=== PATIENT | female | born 1980 | race Caucasian/White ===

== ENCOUNTER 2016-10-15 01:06 | Emergency (ER) | payer MEDICARE, OTHER ==
[2016-10-15 01:20] VITALS: RESP 18
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
[2016-10-15 01:45] LABS: Amorphous Sediment,Urine Rare /hpf; Appearance,Urine Cloudy (Clear); Bilirubin,Urine Negative (Negative); Glucose,Urine (UA) Negative (Negative); Ketones,Urine Negative (Negative); Leukocyte Esterase,Urine Negative (Negative); Mucus,Urine Few /hpf; Nitrite,Urine Negative (Negative); Particle Count 6812; Protein,Urine Negative (Negative); RBC,Urine 1 /hpf (0-5); Specific Gravity,Urine 1.011 (1.001-1.035); Squamous Epithelial Cell,Urine 1 /hpf (0-4); UA Billing (MACRO vs. MICRO) MICRO; Urobilinogen,Urine <2.0 mg/dL (<2.0); WBC,Urine 1 /hpf (0-5)
[2016-10-15] MEDS ORDERED: LORazepam 1 MG TAB PO STA (02:47)
[2016-10-15] MEDS ORDERED: ACETAMINOPHEN TAB 325 MG TAB PO STA (03:15)
[2016-10-15 03:38] VITALS: BP 114/68; PULSE 77; TEMP 98
[2016-10-15] MEDS ORDERED: MAG HYDROX/AL HYDROX/SIMETH 30 ML CUP PO PRN (07:16)
== END 2016-10-15 03:38 | disposition home or self-care (01) ==
LOC: EC 01:06
DX: F31.9 Bipolar disorder, unspecified (principal); E07.9 Disorder of thyroid, unspecified; K21.9 Gastro-esophageal reflux disease without esophagitis; M79.7 Fibromyalgia; M19.90 Unspecified osteoarthritis, unspecified site; F17.200 Nicotine dependence, unspecified, uncomplicated; Z88.5 Allergy status to narcotic agent; Z88.6 Allergy status to analgesic agent; Z88.8 Allergy status to other drugs, medicaments and biological substances; Z91.040 Latex allergy status; Z79.899 Other long term (current) drug therapy
CPT/HCPCS: 80306; 81001; 81025; 82075; 99284

== ENCOUNTER 2017-02-21 15:43 | Inpatient (IN) | payer MEDICARE, MEDICAID ==
[2017-02-21] MEDS ORDERED: HYDROcodone/APAP 5-325MG 1 EACH TAB PO STA (16:09)
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
[2017-02-21 16:25] LABS: Appearance,Urine Clear (Clear); Bilirubin,Urine Negative (Negative); Glucose,Urine (UA) Negative (Negative); Ketones,Urine Negative (Negative); Leukocyte Esterase,Urine Negative (Negative); Nitrite,Urine Negative (Negative); PH, Urine 6.5 (5.0-8.0); Protein,Urine Negative (Negative); Specific Gravity,Urine 1.005 (1.001-1.035); UA Billing (MACRO vs. MICRO) CHEM; Urobilinogen,Urine <2.0 mg/dL (<2.0)
[2017-02-21 16:28] LABS: Basophils # (A) 0.1 k/uL (0-0.2); Basophils % (A) 1 %; CH 29.8; CHCM 32.6; Eosinophils # (A) 0.1 k/uL (0-0.7); Eosinophils % (A) 1 %; HCT 40.6 % (34.0-46.0); HDW 2.34; Luc # (Auto) 0.27; Luc % (Auto) 2; Lymphocytes # (A) 4.2 k/uL (1.0-4.8); Lymphocytes % (A) 32 %; MCH 29.4 pg (25.0-35.0); MCHC 32.1 g/dL (31.0-37.0); MCV 91.7 fL (80.0-100.0); Mean Platelet Volume 7.8; Monocytes # (A) 0.9 k/uL (0-1.0); Monocytes % (A) 7 %; Neutrophils # (A) 7.7 k/uL (1.3-7.7); Neutrophils % (A) 58 %; RBC 4.42 m/uL (3.80-5.40); RDW 12.8 % (11.5-15.5); WBC 13.3 k/uL (3.8-10.6)
[2017-02-21 16:34] LABS: Anion Gap 9 mmol/L; Blood Urea Nitrogen 10 mg/dL (7-17); Calcium 9.6 mg/dL (8.4-10.2); Carbon Dioxide 24 mmol/L (22-30); Chloride 106 mmol/L (98-107); Glucose 96 mg/dL (74-99); Non-African American GFR(MDRD) >60 (>60 ml/min/1.73 sqM); Potassium 4.3 mmol/L (3.5-5.1); Sodium 139 mmol/L (137-145)
--- NOTE | 2017-02-21 17:36 | XR ---
EXAMINATION TYPE: XR knee complete LT DATE OF EXAM: 02/21/2017 COMPARISON: NONE HISTORY: Knee pain TECHNIQUE: 3 views FINDINGS: I see no fracture nor dislocation. Joint spaces are normal. There is no sign of knee joint effusion. IMPRESSION: Negative left knee exam.
--- NOTE | 2017-02-21 17:37 | XR ---
EXAMINATION TYPE: XR ankle complete LT DATE OF EXAM: 02/21/2017 COMPARISON: NONE HISTORY: Pain TECHNIQUE: 3 views FINDINGS: Ankle mortise is anatomic. I see no fracture nor dislocation. Joint spaces are normal. IMPRESSION: Negative left ankle exam.
--- NOTE | 2017-02-21 17:38 | XR ---
EXAMINATION TYPE: XR shoulder complete LT DATE OF EXAM: 02/21/2017 COMPARISON: NONE HISTORY: Shoulder pain TECHNIQUE: 3 views FINDINGS: I see no fracture nor dislocation. Joint spaces are normal. There are no pathologic calcifi cations. IMPRESSION: Negative left shoulder exam.
[2017-02-21] MEDS ORDERED: ALBUTEROL NEBULIZED 2.5 MG/3 ML INHALATION PRN (20:40)
[2017-02-21] MEDS ORDERED: CARIPRAZINE HCL 3 MG PO SCH (21:00)
[2017-02-21] MEDS ORDERED: traZODone HCL 50 MG TAB PO SCH (21:00)
[2017-02-21] MEDS ORDERED: LURASIDONE 40 MG TAB PO SCH (21:00)
[2017-02-21] MEDS: ATORVASTATIN 10 MG TAB PO SCH (22:41)
[2017-02-21] MEDS: DESVENLAFAXINE SUCCINATE 50 MG TAB.ER.24H PO SCH (22:41)
[2017-02-21] MEDS: LORazepam 1 MG TAB PO PRN (22:43)
[2017-02-21] MEDS: ACETAMINOPHEN TAB 325 MG TAB PO PRN (22:44)
[2017-02-22] MEDS: ACETAMINOPHEN TAB 325 MG TAB PO PRN ×2 (02:41→08:34)
[2017-02-22] MEDS ORDERED: LEVOTHYROXINE 75 MCG TAB PO SCH (06:30)
[2017-02-22] MEDS: lamoTRIgine 100 MG TAB PO SCH (08:34)
[2017-02-22] MEDS: NICOTINE 21MG/24HR PATCH TRANSDERM SCH (08:34)
[2017-02-22] MEDS: LORazepam 1 MG TAB PO PRN ×2 (08:36→21:07)
[2017-02-22] MEDS: TIOTROPIUM 18 MCG/PUFF INHALER INHALATION SCH (09:16)
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
[2017-02-22] MEDS: IBUPROFEN 800 MG TAB PO SCH ×2 (13:37→21:02)
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
[2017-02-22] MEDS: MUPIROCIN 2% OINT 22 GM TUBE TOPICAL SCH ×2 (15:09→21:02)
[2017-02-22] MEDS ORDERED: WATER FOR INJECTION, STERILE 10 ML IV ONE (16:20)
[2017-02-22] MEDS: ZIPRASIDONE 20 MG VIAL IM PRN (16:22)
[2017-02-22] MEDS ORDERED: VRAYLAR 3 MG PO SCH (21:00)
[2017-02-22] MEDS: DESVENLAFAXINE SUCCINATE 50 MG TAB.ER.24H PO SCH (21:01)
[2017-02-22] MEDS: traZODone HCL 100 MG TAB PO SCH (21:02)
[2017-02-22] MEDS: ATORVASTATIN 10 MG TAB PO SCH (21:02)
[2017-02-23] MEDS: ACETAMINOPHEN TAB 325 MG TAB PO PRN (04:26)
[2017-02-23] MEDS: LEVOTHYROXINE 100 MCG TAB PO SCH (05:41)
[2017-02-23] MEDS: NICOTINE 21MG/24HR PATCH TRANSDERM SCH (08:56)
[2017-02-23] MEDS: IBUPROFEN 800 MG TAB PO SCH ×3 (08:56→21:46)
[2017-02-23] MEDS: lamoTRIgine 100 MG TAB PO SCH (08:56)
[2017-02-23] MEDS: LORazepam 1 MG TAB PO PRN ×2 (08:58→21:17)
[2017-02-23] MEDS: MUPIROCIN 2% OINT 22 GM TUBE TOPICAL SCH ×3 (08:59→21:46)
[2017-02-23] MEDS: TIOTROPIUM 18 MCG/PUFF INHALER INHALATION SCH (09:17)
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
[2017-02-23] MEDS: MAG HYDROX/AL HYDROX/SIMETH 30 ML CUP PO PRN (19:41)
[2017-02-23] MEDS ORDERED: lamoTRIgine 25 MG TAB PO SCH (21:00)
[2017-02-23] MEDS: VRAYLAR 3 MG PO SCH (21:13)
[2017-02-23] MEDS: DESVENLAFAXINE SUCCINATE 50 MG TAB.ER.24H PO SCH (21:13)
[2017-02-23] MEDS: ATORVASTATIN 10 MG TAB PO SCH (21:13)
[2017-02-23] MEDS: traZODone HCL 100 MG TAB PO SCH (21:16)
[2017-02-24] MEDS: LEVOTHYROXINE 100 MCG TAB PO SCH (05:52)
[2017-02-24] MEDS: TIOTROPIUM 18 MCG/PUFF INHALER INHALATION SCH (09:14)
[2017-02-24] MEDS: NICOTINE 21MG/24HR PATCH TRANSDERM SCH (09:24)
[2017-02-24] MEDS: lamoTRIgine 100 MG TAB PO SCH (09:24)
[2017-02-24] MEDS: IBUPROFEN 800 MG TAB PO SCH ×3 (09:24→20:58)
[2017-02-24] MEDS: LORazepam 1 MG TAB PO PRN ×2 (09:27→21:01)
[2017-02-24] MEDS: MUPIROCIN 2% OINT 22 GM TUBE TOPICAL SCH ×3 (09:41→21:00)
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
[2017-02-24] MEDS: MAGNESIUM HYDROXIDE 2,400 MG/10 ML CUP PO PRN (15:54)
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
[2017-02-24] MEDS: ATORVASTATIN 10 MG TAB PO SCH (20:57)
[2017-02-24] MEDS: VRAYLAR 3 MG PO SCH (20:57)
[2017-02-24] MEDS: DESVENLAFAXINE SUCCINATE 50 MG TAB.ER.24H PO SCH (20:58)
[2017-02-24] MEDS: traZODone HCL 100 MG TAB PO SCH (20:58)
[2017-02-24] MEDS: lamoTRIgine 25 MG TAB PO SCH (20:59)
[2017-02-24] MEDS: ALBUTEROL INHALER 60 PUFF/8 GM INHALER INHALATION PRN (21:03)
[2017-02-25] MEDS: LEVOTHYROXINE 100 MCG TAB PO SCH (05:55)
[2017-02-25] MEDS: ACETAMINOPHEN TAB 325 MG TAB PO PRN ×2 (06:02→17:55)
[2017-02-25] MEDS: lamoTRIgine 100 MG TAB PO SCH (09:09)
[2017-02-25] MEDS: IBUPROFEN 800 MG TAB PO SCH ×3 (09:09→21:44)
[2017-02-25] MEDS: NICOTINE 21MG/24HR PATCH TRANSDERM SCH (09:09)
[2017-02-25] MEDS: MUPIROCIN 2% OINT 22 GM TUBE TOPICAL SCH ×3 (09:13→21:46)
[2017-02-25] MEDS: LORazepam 1 MG TAB PO PRN ×2 (09:13→21:45)
[2017-02-25] MEDS: ALBUTEROL INHALER 60 PUFF/8 GM INHALER INHALATION PRN ×3 (09:15→21:05)
[2017-02-25] MEDS: TIOTROPIUM 18 MCG/PUFF INHALER INHALATION SCH (09:15)
[2017-02-25] MEDS: MAGNESIUM HYDROXIDE 2,400 MG/10 ML CUP PO PRN (15:49)
[2017-02-25] MEDS: traZODone HCL 100 MG TAB PO SCH (21:44)
[2017-02-25] MEDS: lamoTRIgine 25 MG TAB PO SCH (21:45)
[2017-02-25] MEDS: ATORVASTATIN 10 MG TAB PO SCH (21:45)
[2017-02-25] MEDS: DESVENLAFAXINE SUCCINATE 50 MG TAB.ER.24H PO SCH (21:45)
[2017-02-25] MEDS: VRAYLAR 3 MG PO SCH (21:45)
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
[2017-02-26] MEDS: LEVOTHYROXINE 100 MCG TAB PO SCH (05:33)
[2017-02-26] MEDS: ACETAMINOPHEN TAB 325 MG TAB PO PRN (05:49)
[2017-02-26] MEDS: ALBUTEROL INHALER 60 PUFF/8 GM INHALER INHALATION PRN (08:09)
[2017-02-26] MEDS: TIOTROPIUM 18 MCG/PUFF INHALER INHALATION SCH (08:09)
[2017-02-26] MEDS: IBUPROFEN 800 MG TAB PO SCH ×3 (08:57→21:13)
[2017-02-26] MEDS: lamoTRIgine 100 MG TAB PO SCH (08:58)
[2017-02-26] MEDS: NICOTINE 21MG/24HR PATCH TRANSDERM SCH (08:58)
[2017-02-26] MEDS: MUPIROCIN 2% OINT 22 GM TUBE TOPICAL SCH ×3 (08:58→22:29)
[2017-02-26] MEDS: LORazepam 1 MG TAB PO PRN ×2 (08:59→21:13)
[2017-02-26] MEDS: MAG HYDROX/AL HYDROX/SIMETH 30 ML CUP PO PRN (11:10)
[2017-02-26] MEDS ORDERED: DOCUSATE 100 MG CAP PO SCH (15:30)
[2017-02-26] MEDS: lamoTRIgine 25 MG TAB PO SCH (21:10)
[2017-02-26] MEDS: DOCUSATE 100 MG CAP PO SCH (21:10)
[2017-02-26] MEDS: DESVENLAFAXINE SUCCINATE 50 MG TAB.ER.24H PO SCH (21:10)
[2017-02-26] MEDS: ATORVASTATIN 10 MG TAB PO SCH (21:10)
[2017-02-26] MEDS: traZODone HCL 100 MG TAB PO SCH (21:11)
[2017-02-26] MEDS: VRAYLAR 3 MG PO SCH (21:12)
[2017-02-27] MEDS: ACETAMINOPHEN TAB 325 MG TAB PO PRN ×2 (03:12→11:18)
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
[2017-02-27] MEDS: LEVOTHYROXINE 100 MCG TAB PO SCH (06:01)
[2017-02-27] MEDS: IBUPROFEN 800 MG TAB PO SCH ×3 (08:49→20:28)
[2017-02-27] MEDS: LORazepam 1 MG TAB PO PRN (08:49)
[2017-02-27] MEDS: ZIPRASIDONE 20 MG VIAL IM PRN (08:54)
[2017-02-27] MEDS ORDERED: WATER FOR INJECTION, STERILE 10 ML IV ONE (08:55)
[2017-02-27] MEDS: lamoTRIgine 100 MG TAB PO SCH (08:57)
[2017-02-27] MEDS: DOCUSATE 100 MG CAP PO SCH ×2 (08:57→20:28)
[2017-02-27] MEDS: NICOTINE 21MG/24HR PATCH TRANSDERM SCH (08:57)
[2017-02-27] MEDS: MUPIROCIN 2% OINT 22 GM TUBE TOPICAL SCH ×3 (08:58→20:30)
[2017-02-27] MEDS: TIOTROPIUM 18 MCG/PUFF INHALER INHALATION SCH (10:06)
--- NOTE | 2017-02-27 13:08 | P.PN ---
Progress Note - Text INTERVERAL HISTORY: Discussed patient at treatment team meeting, reviewed chart and met with patient. Early this morning patient became agitated in the dining room clearing off one of the tables with her arm and then attempting to hit her head, staff prevented her from hitting her head second time. She was screaming and they held her down until finally she calmed down and she walked to her room. Patient has been emotional throughout the weekend complaining that she should be able to kill herself, that her uncles brother and now a cousin have all killed themselves, and why can't she. She has also been noted to be wailing/crying throughout the day. She was seen over the weekend by ortho and no treatment indicated. Patient reports she spoke to her after this mornings problem and he told her he did not know how much more he can take. Patient said she wants to live, she wants a good relationship with and he deserves it. We discussed my concern about the class of benzodiazepine as disinhibiting, discussed other medications and she has been on lithium, gained 60lbs in one month, wont consider it. She asked about geodon, reviewed that it might be helpful but we'd need to reduce and d/c vraylar, she agreed. Patient not as emotional as earlier, but continues to feel suicidal, but wanting to live. MENTAL STATUS EXAM: Patient alert and oriented 3, good eye contact, fair groomed in hospital attire. Speech normal volume, rate and production. +psychomotor retardation Coherent, logical and goal directed thought process. No LOYD, no FOI. No TB/TW/ TI Denied auditory and visual hallucinations. Denied paranoid ideation, delusions or IOR. Mood dysphoric , tearful, affect and constricted, congruent with mood. Endorses chronic suicidal ideation, +current SI. Insight partial; Judgment grossly intact for treatment purposes . IMPRESSIONS: 36-year-old female who continues to have suicidal ideation , dysphoria. Patient with high risk of suicide. ADMISSION DIAGNOSES: Suicide attempt Bipolar disorder, 1, MRA depressed Borderline personality disorder Cannabis use disorder, moderate PLAN: Continue inpatient psychiatric admission, for safety and treatment with maximization of medication. Suicide precaution 15 minute checks, monitor and document patient's behavior and adjust medications as needed. Continue multidisciplinary treatment with individual and group therapy, medical consultation, and routine labs. Case discussed with the treatment staff. Reduce vraylor to 3mg qhs, begin tonight. Start Geodon 40mg bid. Continue lamictal 50mgHS + 100mg QAM.. Reconsult Hospitalists/ortho for should pain. Prefer nonnarcotic Milieu therapy.
[2017-02-27] MEDS: MAG HYDROX/AL HYDROX/SIMETH 30 ML CUP PO PRN (20:28)
[2017-02-27] MEDS: DESVENLAFAXINE SUCCINATE 50 MG TAB.ER.24H PO SCH (20:28)
[2017-02-27] MEDS: LORazepam 0.5 MG TAB PO SCH (20:28)
[2017-02-27] MEDS: ATORVASTATIN 10 MG TAB PO SCH (20:28)
[2017-02-27] MEDS: traZODone HCL 100 MG TAB PO SCH (20:28)
[2017-02-27] MEDS: ZIPRASIDONE 40 MG CAP PO SCH (20:29)
[2017-02-27] MEDS: lamoTRIgine 25 MG TAB PO SCH (20:29)
[2017-02-27] MEDS: VRAYLAR 3 MG PO SCH (20:30)
[2017-02-28] MEDS: ACETAMINOPHEN TAB 325 MG TAB PO PRN ×3 (02:47→12:39)
[2017-02-28] MEDS: LEVOTHYROXINE 100 MCG TAB PO SCH (06:20)
[2017-02-28] MEDS: ALBUTEROL INHALER 60 PUFF/8 GM INHALER INHALATION PRN ×3 (08:19→21:41)
[2017-02-28] MEDS: TIOTROPIUM 18 MCG/PUFF INHALER INHALATION SCH (08:19)
[2017-02-28] MEDS: NICOTINE 21MG/24HR PATCH TRANSDERM SCH (08:25)
[2017-02-28] MEDS: lamoTRIgine 100 MG TAB PO SCH (08:25)
[2017-02-28] MEDS: LORazepam 0.5 MG TAB PO SCH ×2 (08:25→21:30)
[2017-02-28] MEDS: DOCUSATE 100 MG CAP PO SCH ×2 (08:25→21:29)
[2017-02-28] MEDS: ZIPRASIDONE 40 MG CAP PO SCH ×2 (08:26→21:31)
[2017-02-28] MEDS: MUPIROCIN 2% OINT 22 GM TUBE TOPICAL SCH ×3 (08:26→21:28)
[2017-02-28] MEDS: IBUPROFEN 800 MG TAB PO SCH ×3 (08:26→21:31)
[2017-02-28] MEDS: MAG HYDROX/AL HYDROX/SIMETH 30 ML CUP PO PRN ×3 (10:34→23:02)
--- NOTE | 2017-02-28 10:59 | P.PN ---
Progress Note - Text INTERVERAL HISTORY: Discussed patient at treatment team meeting, reviewed chart and met with patient. Patient called to nurse's station came immediately. Reports that she feels that she had an epiphany last night, that she wants to live, she wants to build a life with her , see her daughter get , and see her family. Reports that still makes her sad that her sisters have cut her off from her nieces and nephews but she understands why they did that. States that she spoke to her and is concerned of the reduction of the Ativan, and questioning why Dr. Velasquez would have her on it. Explained to her that it was because I saw the impulsivity yesterday, and that stopping meds like this are difficult in the outpatient setting and that we can do it here safely. She verbalized understanding for that. She also stated that her would like to meet with me in one of the family meetings, I agreed with this and will discuss with social work. Patient also states that she spoke with her mother last night and that her mother is relieved that she is not trying to leave immediately and that she is staying to get the care she needs. Patient remains sad dysphoric but today there was no impulsivity or labile mood noted thus far. She was seen over the weekend by ortho and no treatment indicated. However she requests her sling, reviewed with her that due to the suicidal precautions that we really could not let her have it but that I would check with the staff to see if maybe we could have it during the daytime. Patient not as emotional as yesterday, reports change in her thoughts, wanting to live. MENTAL STATUS EXAM: Patient alert and oriented 3, good eye contact, fair groomed in hospital attire. Speech normal volume, rate and production. +psychomotor retardation Coherent, logical and goal directed thought process. No LOYD, no FOI. No TB/TW/ TI Denied auditory and visual hallucinations. Denied paranoid ideation, delusions or IOR. Mood dysphoric , sad, affect constricted, congruent with mood. Endorses chronic suicidal ideation, denies current SI with desire to live. Insight partial; Judgment grossly intact for treatment purposes . IMPRESSIONS: 36-year-old female with impulsive behavior, risk for suicide high. Patient with high risk of suicide. ADMISSION DIAGNOSES: Suicide attempt Bipolar disorder, 1, MRA depressed Borderline personality disorder Cannabis use disorder, moderate PLAN: Continue inpatient psychiatric admission, for safety and treatment with maximization of medication. Suicide precaution 15 minute checks, monitor and document patient's behavior and adjust medications as needed. Continue multidisciplinary treatment with individual and group therapy, medical consultation, and routine labs. Case discussed with the treatment staff. Reduce vraylor to 3mg qhs, until Geodon at 60mg BID . Increase Geodon 60mg bid, tomorrow Continue lamictal 50mgHS + 100mg QAM.. Reconsult Hospitalists/ortho for should pain. Prefer nonnarcotic Milieu therapy.
[2017-02-28] MEDS: PANTOPRAZOLE 40 MG TABLET PO SCH (11:10)
[2017-02-28] MEDS: DESVENLAFAXINE SUCCINATE 50 MG TAB.ER.24H PO SCH (21:29)
[2017-02-28] MEDS: ATORVASTATIN 10 MG TAB PO SCH (21:29)
[2017-02-28] MEDS: lamoTRIgine 25 MG TAB PO SCH (21:30)
[2017-02-28] MEDS: traZODone HCL 100 MG TAB PO SCH (21:30)
[2017-02-28] MEDS: VRAYLAR 3 MG PO SCH (21:36)
[2017-03-01] MEDS: ACETAMINOPHEN TAB 325 MG TAB PO PRN (04:05)
[2017-03-01] MEDS: LEVOTHYROXINE 100 MCG TAB PO SCH (05:47)
[2017-03-01] MEDS: TIOTROPIUM 18 MCG/PUFF INHALER INHALATION SCH (07:04)
[2017-03-01] MEDS: PANTOPRAZOLE 40 MG TABLET PO SCH (08:27)
[2017-03-01] MEDS: DOCUSATE 100 MG CAP PO SCH ×2 (08:27→21:15)
[2017-03-01] MEDS: lamoTRIgine 100 MG TAB PO SCH (08:27)
[2017-03-01] MEDS: ZIPRASIDONE 60 MG CAP PO SCH ×2 (08:27→18:45)
[2017-03-01] MEDS: NICOTINE 21MG/24HR PATCH TRANSDERM SCH (08:27)
[2017-03-01] MEDS: LORazepam 0.5 MG TAB PO SCH ×2 (08:27→21:16)
[2017-03-01] MEDS: IBUPROFEN 800 MG TAB PO SCH ×3 (08:28→21:16)
[2017-03-01] MEDS: MUPIROCIN 2% OINT 22 GM TUBE TOPICAL SCH ×3 (09:27→22:23)
[2017-03-01] MEDS: ALBUTEROL INHALER 60 PUFF/8 GM INHALER INHALATION PRN ×2 (11:12→20:15)
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
[2017-03-01] MEDS: lamoTRIgine 25 MG TAB PO SCH (21:15)
[2017-03-01] MEDS: traZODone HCL 100 MG TAB PO SCH (21:15)
[2017-03-01] MEDS: ATORVASTATIN 10 MG TAB PO SCH (21:16)
[2017-03-01] MEDS: DESVENLAFAXINE SUCCINATE 50 MG TAB.ER.24H PO SCH (21:16)
[2017-03-01] MEDS: VRAYLAR 3 MG PO SCH (21:17)
[2017-03-01] MEDS: BACLOFEN 10 MG TAB PO PRN (22:20)
[2017-03-02] MEDS: ACETAMINOPHEN TAB 325 MG TAB PO PRN ×2 (04:00→14:12)
[2017-03-02] MEDS: LEVOTHYROXINE 100 MCG TAB PO SCH (06:03)
[2017-03-02 06:46] VITALS: RESP 16
[2017-03-02] MEDS: TIOTROPIUM 18 MCG/PUFF INHALER INHALATION SCH (07:46)
[2017-03-02] MEDS: ALBUTEROL INHALER 60 PUFF/8 GM INHALER INHALATION PRN ×3 (07:46→20:36)
[2017-03-02] MEDS: NICOTINE 21MG/24HR PATCH TRANSDERM SCH (08:28)
[2017-03-02] MEDS: ZIPRASIDONE 60 MG CAP PO SCH ×2 (08:29→17:56)
[2017-03-02] MEDS: IBUPROFEN 800 MG TAB PO SCH ×3 (08:29→20:59)
[2017-03-02] MEDS: lamoTRIgine 100 MG TAB PO SCH (08:29)
[2017-03-02] MEDS: PANTOPRAZOLE 40 MG TABLET PO SCH (08:30)
[2017-03-02] MEDS: DOCUSATE 100 MG CAP PO SCH ×2 (08:30→21:34)
[2017-03-02] MEDS: LORazepam 0.5 MG TAB PO SCH ×2 (08:30→21:00)
[2017-03-02] MEDS: MUPIROCIN 2% OINT 22 GM TUBE TOPICAL SCH ×3 (08:31→21:01)
[2017-03-02] MEDS: BACLOFEN 10 MG TAB PO PRN ×2 (11:56→20:10)
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
[2017-03-02] MEDS: lamoTRIgine 25 MG TAB PO SCH (21:00)
[2017-03-02] MEDS: DESVENLAFAXINE SUCCINATE 50 MG TAB.ER.24H PO SCH (21:00)
[2017-03-02] MEDS: ATORVASTATIN 10 MG TAB PO SCH (21:01)
[2017-03-02] MEDS: traZODone HCL 100 MG TAB PO SCH (21:01)
[2017-03-03] MEDS: ACETAMINOPHEN TAB 325 MG TAB PO PRN ×2 (04:00→10:53)
[2017-03-03] MEDS: LEVOTHYROXINE 100 MCG TAB PO SCH (06:34)
[2017-03-03] MEDS: DOCUSATE 100 MG CAP PO SCH ×2 (08:10→20:11)
[2017-03-03] MEDS: ZIPRASIDONE 60 MG CAP PO SCH ×2 (08:10→17:34)
[2017-03-03] MEDS: PANTOPRAZOLE 40 MG TABLET PO SCH (08:11)
[2017-03-03] MEDS: LORazepam 0.5 MG TAB PO SCH ×2 (08:11→20:11)
[2017-03-03] MEDS: IBUPROFEN 800 MG TAB PO SCH ×3 (08:12→21:57)
[2017-03-03] MEDS: lamoTRIgine 100 MG TAB PO SCH (08:12)
[2017-03-03] MEDS: MUPIROCIN 2% OINT 22 GM TUBE TOPICAL SCH ×2 (08:15→15:04)
[2017-03-03] MEDS: ALBUTEROL INHALER 60 PUFF/8 GM INHALER INHALATION PRN ×2 (09:15→21:06)
[2017-03-03] MEDS: TIOTROPIUM 18 MCG/PUFF INHALER INHALATION SCH (09:16)
[2017-03-03] MEDS: NICOTINE 21MG/24HR PATCH TRANSDERM SCH (09:29)
--- NOTE | 2017-03-03 11:25 | P.PN ---
Progress Note - Text INTERVERAL HISTORY: Discussed patient at treatment team meeting, reviewed chart and met with patient. In hallway conversing with other patients. Came to office when asked. Staff reported that she slept for longer hours, she also states that she did sleep for several hours longer. She is still reporting pain in the shoulder, with some additional pain in the scapula area. Patient states that she's been thinking about her past treatment and wonders if we could/would consider her being referred to the ACT team. She states she was with them and that it was helpful to have them managing her medications, even though she had a pillbox she knows that she would miss 2-3 doses of the medication. She also says it seems that it helps her to have that intense one- on-one. We discussed that since she is in a different county that I am not the one that could make that recommendation but that we would call and speak with Dr. Pool to see if he would agree with that. We also revisited the idea that a referral to DBT would be helpful for her. Staff mentioned that she is trying to give herself positive rate affirmations and having a difficult time coming up with anything. Staff suggests that she write it down and she agreed today she said she still can't come up with anything on her own so we worked on that, and she came up with a positive affirmation that she feels hannah that she came to this hospital and not to another one, and that she feels that the treatment team here is trying to take good care of her, and not just hospitalize and kick out. States she has not had the thought of suicide, and feels that this has been consistent at least for the last 2-3 days. She is still dysphoric, sad, guilt ridden, sense of hopelessness is somewhat decreased, still with worthlessness, however sleep was improved last night. No report of flashback. MENTAL STATUS EXAM: Patient alert and oriented 3, good eye contact, fair groomed in hospital attire. Speech normal volume, rate and production. +psychomotor retardation Coherent, logical and goal directed thought process. No LOYD, no FOI. No TB/TW/ TI Denied auditory and visual hallucinations. Denied paranoid ideation, delusions or IOR. Mood dysphoric , sad, affect constricted, congruent with mood. Endorses chronic suicidal ideation, denies current SI with desire to live. Insight partial; Judgment grossly intact for treatment purposes . IMPRESSIONS: 36-year-old female with impulsive behavior, risk for suicide high. Patient with high risk of suicide. ADMISSION DIAGNOSES: Suicide attempt Bipolar disorder, 1, MRA depressed Borderline personality disorder Cannabis use disorder, moderate PLAN: Continue inpatient psychiatric admission, for safety and treatment with maximization of medication. Suicide precaution 15 minute checks, monitor and document patient's behavior and adjust medications as needed. Continue multidisciplinary treatment with individual and group therapy, medical consultation, and routine labs. Case discussed with the treatment staff. Increase Geodon 80mg BID tomorrow . Continue lamictal 50mgHS + 100mg QAM..Will increase on Monday or Monday, slightly ahead of the 2 week interval Trazodone 400mg Baclofen 10mg TID, D/C Zanaflex, for shoulder pain, reconsult Hospitalists for should pain. Will ask SW to address the ACT and DBT referrals in a different county. Will also ask Steamfitter Apprentice to set an appt with Dr Espinoza so we know how far out. Milieu therapy.
[2017-03-03] MEDS: BACLOFEN 10 MG TAB PO PRN ×2 (11:33→20:12)
[2017-03-03] MEDS: MAGNESIUM HYDROXIDE 2,400 MG/10 ML CUP PO PRN (19:42)
[2017-03-03] MEDS: ATORVASTATIN 10 MG TAB PO SCH (20:10)
[2017-03-03] MEDS: lamoTRIgine 25 MG TAB PO SCH (20:11)
[2017-03-03] MEDS: DESVENLAFAXINE SUCCINATE 50 MG TAB.ER.24H PO SCH (20:11)
[2017-03-03] MEDS: traZODone HCL 100 MG TAB PO SCH (20:12)
[2017-03-04] MEDS: LEVOTHYROXINE 100 MCG TAB PO SCH (06:45)
[2017-03-04] MEDS: ACETAMINOPHEN TAB 325 MG TAB PO PRN ×2 (06:47→12:38)
[2017-03-04] MEDS: PANTOPRAZOLE 40 MG TABLET PO SCH (08:28)
[2017-03-04] MEDS: NICOTINE 21MG/24HR PATCH TRANSDERM SCH (08:28)
[2017-03-04] MEDS: lamoTRIgine 100 MG TAB PO SCH (08:28)
[2017-03-04] MEDS: ZIPRASIDONE 80 MG CAP PO SCH ×2 (08:28→17:50)
[2017-03-04] MEDS: LORazepam 0.5 MG TAB PO SCH ×2 (08:28→20:32)
[2017-03-04] MEDS: DOCUSATE 100 MG CAP PO SCH ×2 (08:28→20:32)
[2017-03-04] MEDS: IBUPROFEN 800 MG TAB PO SCH ×3 (08:29→21:14)
[2017-03-04] MEDS: BACLOFEN 10 MG TAB PO PRN ×2 (08:29→21:15)
[2017-03-04] MEDS: ALBUTEROL INHALER 60 PUFF/8 GM INHALER INHALATION PRN ×2 (09:41→20:27)
[2017-03-04] MEDS: TIOTROPIUM 18 MCG/PUFF INHALER INHALATION SCH (09:42)
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
[2017-03-04] MEDS: MAGNESIUM HYDROXIDE 2,400 MG/10 ML CUP PO PRN (13:48)
[2017-03-04] MEDS: DESVENLAFAXINE SUCCINATE 50 MG TAB.ER.24H PO SCH (20:32)
[2017-03-04] MEDS: lamoTRIgine 25 MG TAB PO SCH (20:32)
[2017-03-04] MEDS: traZODone HCL 100 MG TAB PO SCH (20:32)
[2017-03-04] MEDS: ATORVASTATIN 10 MG TAB PO SCH (20:32)
[2017-03-05] MEDS: ACETAMINOPHEN TAB 325 MG TAB PO PRN ×3 (03:20→18:48)
[2017-03-05] MEDS: LEVOTHYROXINE 100 MCG TAB PO SCH (05:53)
[2017-03-05] MEDS: ZIPRASIDONE 80 MG CAP PO SCH ×2 (08:34→18:46)
[2017-03-05] MEDS: IBUPROFEN 800 MG TAB PO SCH ×3 (08:34→21:17)
[2017-03-05] MEDS: DOCUSATE 100 MG CAP PO SCH ×2 (08:34→21:15)
[2017-03-05] MEDS: PANTOPRAZOLE 40 MG TABLET PO SCH (08:34)
[2017-03-05] MEDS: LORazepam 0.5 MG TAB PO SCH ×2 (08:35→21:17)
[2017-03-05] MEDS: lamoTRIgine 100 MG TAB PO SCH (08:35)
[2017-03-05] MEDS: NICOTINE 21MG/24HR PATCH TRANSDERM SCH (08:35)
[2017-03-05] MEDS: TIOTROPIUM 18 MCG/PUFF INHALER INHALATION SCH (08:44)
[2017-03-05] MEDS: ALBUTEROL INHALER 60 PUFF/8 GM INHALER INHALATION PRN ×3 (08:45→19:18)
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
[2017-03-05] MEDS: BACLOFEN 10 MG TAB PO PRN (14:23)
[2017-03-05] MEDS: lamoTRIgine 25 MG TAB PO SCH (21:15)
[2017-03-05] MEDS: ATORVASTATIN 10 MG TAB PO SCH (21:15)
[2017-03-05] MEDS: DESVENLAFAXINE SUCCINATE 50 MG TAB.ER.24H PO SCH (21:15)
[2017-03-05] MEDS: traZODone HCL 100 MG TAB PO SCH (21:15)
[2017-03-06] MEDS: ACETAMINOPHEN TAB 325 MG TAB PO PRN (02:30)
[2017-03-06] MEDS: BACLOFEN 10 MG TAB PO PRN ×3 (02:30→17:35)
[2017-03-06] MEDS: LEVOTHYROXINE 100 MCG TAB PO SCH (06:41)
[2017-03-06] MEDS: TIOTROPIUM 18 MCG/PUFF INHALER INHALATION SCH (07:40)
[2017-03-06] MEDS: ALBUTEROL INHALER 60 PUFF/8 GM INHALER INHALATION PRN ×3 (07:41→21:25)
[2017-03-06] MEDS: IBUPROFEN 800 MG TAB PO SCH ×3 (08:12→21:31)
[2017-03-06] MEDS: ZIPRASIDONE 80 MG CAP PO SCH ×2 (08:13→17:35)
[2017-03-06] MEDS: LORazepam 0.5 MG TAB PO SCH (08:13)
[2017-03-06] MEDS: lamoTRIgine 100 MG TAB PO SCH ×2 (08:13→20:40)
[2017-03-06] MEDS: DOCUSATE 100 MG CAP PO SCH ×2 (08:15→20:39)
[2017-03-06] MEDS: NICOTINE 21MG/24HR PATCH TRANSDERM SCH (08:16)
[2017-03-06] MEDS: PANTOPRAZOLE 40 MG TABLET PO SCH (08:16)
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
[2017-03-06] MEDS: ATORVASTATIN 10 MG TAB PO SCH (20:39)
[2017-03-06] MEDS: DESVENLAFAXINE SUCCINATE 50 MG TAB.ER.24H PO SCH (20:39)
[2017-03-06] MEDS: traZODone HCL 100 MG TAB PO SCH (20:40)
[2017-03-06] MEDS ORDERED: LORazepam 0.5 MG TAB PO SCH (21:00)
[2017-03-07] MEDS: ACETAMINOPHEN TAB 325 MG TAB PO PRN ×2 (02:37→12:50)
[2017-03-07] MEDS: BACLOFEN 10 MG TAB PO PRN ×2 (02:46→12:50)
[2017-03-07] MEDS: LEVOTHYROXINE 100 MCG TAB PO SCH (06:19)
[2017-03-07] MEDS: IBUPROFEN 800 MG TAB PO SCH ×3 (08:06→20:56)
[2017-03-07] MEDS: lamoTRIgine 100 MG TAB PO SCH ×2 (08:06→20:57)
[2017-03-07] MEDS: NICOTINE 21MG/24HR PATCH TRANSDERM SCH (08:06)
[2017-03-07] MEDS: ZIPRASIDONE 80 MG CAP PO SCH ×2 (08:06→17:42)
[2017-03-07] MEDS: DOCUSATE 100 MG CAP PO SCH ×2 (08:06→20:57)
[2017-03-07] MEDS: PANTOPRAZOLE 40 MG TABLET PO SCH (08:06)
[2017-03-07] MEDS: TIOTROPIUM 18 MCG/PUFF INHALER INHALATION SCH (08:23)
[2017-03-07] MEDS: ALBUTEROL INHALER 60 PUFF/8 GM INHALER INHALATION PRN ×3 (08:24→20:50)
--- NOTE | 2017-03-07 12:11 | P.PN ---
Progress Note - Text Interval history: The patient's case was discussed with the treatment team, review of record, and met with patient. The patient approached me in the hallway, we exchange greetings she told me that today she was really feeling quite well. We met a bit later. Patient states that she feels better today than she has since she's been here, states that she did not have the crying spells as often yesterday and when she did she was able to make it a short period with the help of staff. She met also with her [facility] sales representative printing who said that they would present her case to the ACT team tomorrow morning. She also spoke to her therapist who told her that he would advocate for her being in the ACT team and for her to redo DBT. We spoke about her shoulder and that the orthopedists when he saw her 2 weeks ago that he wanted to see her again, we will try to make that appointment before she leaves. Patient still a bit worried about discharge but knows that she has support at home and with [facility]. She slept approximately 5 hours last night appetite stable. She continues to attend groups she is trying to journal positive thoughts and is working on developing beneficial coping skills. She has tolerated the discontinuation of Ativan. We increased Lamictal last night so her dose now is 100 mg twice a day. MENTAL STATUS EXAM: Patient alert and oriented 3, good eye contact, fair groomed in hospital attire. Speech normal volume, rate and production. no psychomotor retardation Coherent, logical and goal directed thought process. No LOYD, no FOI. No TB/TW/ TI Denied auditory and visual hallucinations. Denied paranoid ideation, delusions or IOR. Mood neutral, affect full range, decreased intensity., congruent with mood. Endorses chronic suicidal ideation, denies current SI with desire to live. Insight partial; Judgment grossly intact for treatment purposes . IMPRESSIONS: 36-year-old female with impulsive behavior, risk for suicide high. Patient with high risk of suicide. ADMISSION DIAGNOSES: Suicide attempt Bipolar disorder, 1, MRA depressed Borderline personality disorder Cannabis use disorder, moderate PLAN: Continue inpatient psychiatric admission, for safety and treatment with maximization of medication. Suicide precaution 15 minute checks, monitor and document patient's behavior and adjust medications as needed. Continue multidisciplinary treatment with individual and group therapy, medical consultation, and routine labs. Case discussed with the treatment staff. Continue 80mg BID Continue lamictal 100mg BID Trazodone 400mg Baclofen 10mg TID, ACT and DBT referrals pending.n a different county. Will also ask Sociology Teacher to set an appt with Dr Espinoza so we know how far out. Milieu therapy.
[2017-03-07 14:52] VITALS: BMI 25.9
[2017-03-07] MEDS: DESVENLAFAXINE SUCCINATE 50 MG TAB.ER.24H PO SCH (20:56)
[2017-03-07] MEDS: ATORVASTATIN 10 MG TAB PO SCH (20:56)
[2017-03-07] MEDS: traZODone HCL 100 MG TAB PO SCH (20:57)
[2017-03-08] MEDS: ACETAMINOPHEN TAB 325 MG TAB PO PRN ×2 (00:01→06:07)
[2017-03-08] MEDS: BACLOFEN 10 MG TAB PO PRN ×2 (00:01→09:16)
[2017-03-08] MEDS: LEVOTHYROXINE 100 MCG TAB PO SCH (05:58)
[2017-03-08 06:29] VITALS: BP 99/58; PULSE 72; TEMP 97.7
[2017-03-08] MEDS: TIOTROPIUM 18 MCG/PUFF INHALER INHALATION SCH (08:30)
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
[2017-03-08] MEDS: DOCUSATE 100 MG CAP PO SCH (08:48)
[2017-03-08] MEDS: ZIPRASIDONE 80 MG CAP PO SCH (08:50)
[2017-03-08] MEDS: PANTOPRAZOLE 40 MG TABLET PO SCH (08:51)
[2017-03-08] MEDS: NICOTINE 21MG/24HR PATCH TRANSDERM SCH (08:51)
[2017-03-08] MEDS: lamoTRIgine 100 MG TAB PO SCH (08:53)
[2017-03-08] MEDS: IBUPROFEN 800 MG TAB PO SCH (08:54)
== END 2017-03-08 10:55 | disposition home or self-care (01) | DRG 885 ==
LOC: EC 15:43 → 3MHU 18:59
PROVIDERS: ADMIT Psychiatry & Neurology Addiction Medicine; ATTEND Psychiatry & Neurology Addiction Medicine
DX: F31.30 Bipolar disorder, current episode depressed, mild or moderate severity, unspecified (principal); R45.851 Suicidal ideations; F60.3 Borderline personality disorder; S90.512A Abrasion, left ankle, initial encounter; S80.212A Abrasion, left knee, initial encounter; S43.50XA Sprain of unspecified acromioclavicular joint, initial encounter; S50.312A Abrasion of left elbow, initial encounter; F12.20 Cannabis dependence, uncomplicated; M79.7 Fibromyalgia; K21.9 Gastro-esophageal reflux disease without esophagitis; E03.9 Hypothyroidism, unspecified; K58.9 Irritable bowel syndrome, unspecified; G43.909 Migraine, unspecified, not intractable, without status migrainosus; E78.5 Hyperlipidemia, unspecified; K59.00 Constipation, unspecified; M19.91 Primary osteoarthritis, unspecified site; F17.200 Nicotine dependence, unspecified, uncomplicated; F43.10 Post-traumatic stress disorder, unspecified; Z90.49 Acquired absence of other specified parts of digestive tract; Z91.5 Personal history of self-harm; Z87.898 Personal history of other specified conditions; Z79.899 Other long term (current) drug therapy; Z88.5 Allergy status to narcotic agent; Z88.8 Allergy status to other drugs, medicaments and biological substances; Z88.6 Allergy status to analgesic agent; Z91.040 Latex allergy status; Z81.8 Family history of other mental and behavioral disorders; V58.4XXA Person boarding or alighting a pick-up truck or van injured in noncollision transport accident, initial encounter; Y92.414 Local residential or business street as the place of occurrence of the external cause
CPT/HCPCS: 36415; 80048; 80306; 81003; 81025; 82075; 84443; 85025; 94640; 99285

== ENCOUNTER → 2017-02-21 | Outpatient (CLI) | payer MEDICARE, OTHER ==
--- NOTE | 2017-02-22 07:51 | MM ---
Reason for exam: clinical finding. Last mammogram was performed 2 years and 10 months ago. History: Family history of breast cancer in paternal grandmother, breast cancer in paternal cousin, and breast cancer in maternal cousin. Indicated problem(s): lump or thickening in the left breast. Physical Findings: Nurse did not find any significant physical abnormalities on exam. MG 3D Diag Mammo W/Cad MAGDALENO Bilateral CC and MLO view(s) were taken. Prior study comparison: April 09, 2014, left breast MG diagnostic mammo LT w CAD. August 02, 2013, CAD bilateral diagnostic mammogram. The breast tissue is heterogeneously dense. This may lower the sensitivity of mammography. No significant new findings when compared with previous films. These results were verbally communicated with the patient and result sheet given to the patient on 02/21/17. ASSESSMENT: Benign, BI-RAD 2 RECOMMENDATION: Routine screening mammogram of both breasts at age 38. Manage on a clinical basis with regard to nipple discharge.
== END | disposition home or self-care (01) ==
LOC: RADMAMWWP 13:56
PROVIDERS: ATTEND Family Medicine
DX: N63 Unspecified lump in breast (principal)
CPT/HCPCS: G0204; G0279

== ENCOUNTER 2017-03-26 11:11 | Emergency (ER) | payer MEDICARE, OTHER ==
--- NOTE | 2017-03-26 11:47 | ED ---
Female Urogenital HPI - General Chief complaint: Urogenital Stated complaint: pelvic pain Time Seen by Provider: 03/26/17 11:31 Source: patient, RN notes reviewed Mode of arrival: ambulatory Limitations: no limitations - History of Present Illness Initial comments: Patient is a 36-year-old female presents to the emergency room for evaluation of lower pelvic pain. Patient states she has been having pelvic pain for the past 6 weeks. Patient states about 4 weeks ago was admitted to [facility] and mentioned she had the pain and the urinalysis was negative. Patient states the pain has been getting worse. Patient states she has not been having sexual intercourse secondary to pain. Patient states pain is in left lower quadrant and right lower quadrant. Patient states she has a history of D&C, tubal ligation, appendectomy and cholecystectomy. Patient states she feels like her uterus is "hard". Patient states she has pressure in her bladder. Patient denies burning on urinating. Patient denies abnormal vaginal discharge, vaginal itching or discomfort. Patient denies nausea or vomiting. Patient denies fevers or chills. Patient states she took ibuprofen with slight relief of symptoms this morning. Patient does state she has a history of Chlamydia 3. Patient also states that when she was with her she had unprotected sex in September and was never tested. Patient denies constipation or diarrhea. Last Menstrual Period: 03/01/17 - Related Data Home Medications Medication Instructions Recorded Confirmed Albuterol Inhaler [Ventolin Hfa 2 puff INHALATION RT-QID PRN 02/21/17 03/26/17 Inhaler] Atorvastatin Calcium [Lipitor] 10 mg PO HS 02/21/17 03/26/17 Desvenlafaxine Succinate [Pristiq 50 mg PO HS 02/21/17 03/26/17 ER] Tiotropium 18 Mcg/Puff [Spiriva] 1 cap INHALATION RT-DAILY 02/21/17 03/26/17 Docusate [Colace] 100 mg PO BID PRN 03/26/17 03/26/17 lamoTRIgine [LaMICtal] 100 mg PO BID 03/26/17 03/26/17 Previous Rx's Medication Instructions Recorded Baclofen [Lioresal] 10 mg PO TID PRN #40 tab 03/08/17 Levothyroxine Sodium [Synthroid] 100 mcg PO DAILY@0630 #14 tab 03/08/17 Ziprasidone [Geodon] 80 mg PO AC-BID #28 cap 03/08/17 traZODone HCL [Desyrel] 400 mg PO HS #56 tab 03/08/17 HYDROcodone/APAP 5-325MG [[place] 1 tab PO Q6HR PRN #12 tab 03/26/17 5-325] Allergies Allergy/AdvReac Type Severity Reaction Status Date / Time latex Allergy Rash/Hives Verified 03/26/17 11:32 morphine Allergy Unknown Verified 03/26/17 11:32 propoxyphene Allergy Nausea & Verified 03/26/17 11:32 [From Darvocet-N] Vomiting tramadol [From Ultram] Allergy Itching Verified 03/26/17 11:32 hydromorphone [From Dilaudid] AdvReac Itching Verified 03/26/17 11:32 Review of Systems ROS Statement: Those systems with pertinent positive or pertinent negative responses have been documented in the HPI. ROS Other: All systems not noted in ROS Statement are negative. Past Medical History Past Medical History: Fibromyalgia, GERD/Reflux, Hyperlipidemia, Thyroid Disorder Additional Past Medical History / Comment(s): irritable bowel syndrome, carpal tunnel, arthritis, "eroded espohagus and stomach", etoh abuse , migraine headaches, degenerative disc disease,arthritis, siatica History of Any Multi-Drug Resistant Organisms: None Reported Past Surgical History: Appendectomy, Cholecystectomy, Tonsillectomy, Tubal Ligation Additional Past Surgical History / Comment(s): d&c x5, exploratory lap, ovarian tumor removed Past Anesthesia/Blood Transfusion Reactions: Previous Problems w/ Anesthesia Additional Past Anesthesia/Blood Transfusion Reaction / Comment(s): heart stopped coded Past Psychological History: Anxiety, Bipolar, Depression, PTSD Smoking Status: Current every day smoker Past Alcohol Use History: None Reported Past Drug Use History: Marijuana - Past Family History Father Additional Family Medical History / Comment(s): Father is alive at age 58 with history of generalized anxiety disorder and possible bipolar disorder. Alcohol abuse Mother Additional Family Medical History / Comment(s): Mother is alive at age 58 with history of degenerative disc disease, osteoarthritis, hyperlipidemia, hypertension. Brother(s) Additional Family Medical History / Comment(s): Patient has 2 brothers. One from suicide. One brother has no major medical problems. Patient has 2 sisters but she has no contact with them. Patient has 4 children ages 19, 18, 16, 15. General Exam - General Exam Comments Initial Comments: Laying in exam room, no acute distress. Limitations: no limitations General appearance: alert, in no apparent distress Head exam: Present: atraumatic, normocephalic, normal inspection Eye exam: Present: normal appearance ENT exam: Present: normal exam Neck exam: Present: normal inspection Respiratory exam: Present: normal lung sounds bilaterally. Absent: respiratory distress Cardiovascular Exam: Present: regular rate, normal rhythm, normal heart sounds GI/Abdominal exam: Present: soft, tenderness (Left lower quadrant and right lower quadrant palpating over suprapubic area), normal bowel sounds. Absent: distended, guarding, rebound, rigid External exam: Present: normal external exam Speculum exam: Present: normal speculum exam By manual exam: Present: adnexal tenderness (left). Absent: cervical motion tenderness Extremities exam: Present: normal inspection Back exam: Present: normal inspection Neurological exam: Present: alert, oriented X3, CN II-XII intact, normal gait Psychiatric exam: Present: normal affect, normal mood Skin exam: Present: warm, dry, intact, normal color. Absent: rash Course Vital Signs 03/26/17 03/26/17 03/26/17 11:23 12:15 13:15 Temperature 97.6 F Pulse Rate 79 70 74 Respiratory 16 16 16 Rate Blood Pressure 106/57 110/60 107/57 O2 Sat by Pulse 99 98 95 Oximetry 03/26/17 13:46 Temperature 98.3 F Pulse Rate 69 Respiratory 15 Rate Blood Pressure 101/51 O2 Sat by Pulse 97 Oximetry Medical Decision Making - Medical Decision Making Patient is a 36-year-old female presents emergency room for evaluation of lower pelvic pain. Patient did have positive left adnexal tenderness on pelvic exam. No chandelier sign noted. Urinalysis negative for any suspicious findings. Ultrasound significant for enlarged ovary of uncertain significance. Patient states she is feeling better after pain medications given. Patient be sent home with pain medications and advised to follow-up with [facility] for further evaluation of left ovarian abnormality. Patient states she understands everything that was discussed with her. Return parameters discussed. Case discussed with Dr. Art. - Lab Data Lab Results 03/26/17 03/26/17 03/26/17 Range/Units 11:50 11:50 12:00 Urine Color Light Yellow Urine Appearance Clear (Clear) Urine pH 5.5 (5.0-8.0) Ur Specific [place] 1.003 (1.001-1.035) Urine Protein Negative (Negative) Urine Glucose (UA) Negative (Negative) Urine Ketones Negative (Negative) Urine Blood Negative (Negative) Urine Nitrite Negative (Negative) Urine Bilirubin Negative (Negative) Urine Urobilinogen <2.0 (<2.0) mg/dL Ur Leukocyte Esterase Negative (Negative) Urine HCG, Qual Not Detected (Not Detectd) Trichomonas Ag (Rapid) Negative (Negative) - Radiology Data Radiology results: report reviewed, image reviewed Disposition Clinical Impression: Pelvic pain Disposition: HOME SELF-CARE Condition: Good Instructions: Pelvic Pain in Women (ED) Additional Instructions: Take ibuprofen as needed for pain. Take [place] as needed for severe pain. Please follow-up with [facility] for further evaluation regarding left ovary abnormality. If any new symptom arises or symptoms worsen, return to ER as soon as possible. Prescriptions: HYDROcodone/APAP 5-325MG [[place] 5-325] 1 tab PO Q6HR PRN #12 tab PRN Reason: Pain Referrals: Elias Bergeron MD [Primary Care Provider] - 1-2 days Aida Davis MD [STAFF PHYSICIAN] - 1-2 days Time of Disposition: 13:35
[2017-03-26 12:01] LABS: Appearance,Urine Clear (Clear); Bilirubin,Urine Negative (Negative); Glucose,Urine (UA) Negative (Negative); Ketones,Urine Negative (Negative); Leukocyte Esterase,Urine Negative (Negative); Nitrite,Urine Negative (Negative); PH, Urine 5.5 (5.0-8.0); Protein,Urine Negative (Negative); Specific Gravity,Urine 1.003 (1.001-1.035); UA Billing (MACRO vs. MICRO) CHEM; Urobilinogen,Urine <2.0 mg/dL (<2.0)
[2017-03-26] MEDS ORDERED: KETOROLAC 60 MG/2 ML VIAL IM STA (12:02)
--- NOTE | 2017-03-26 13:07 | US ---
EXAMINATION TYPE: US pelvic comp with doppler DATE OF EXAM: 03/26/2017 COMPARISON: NONE CLINICAL HISTORY: Pain x 6 weeks; getting worse x 4 days. Pt also complains of her uterus feeling denisha d. Pt had a tubal ligation in 2001. TECHNIQUE: Transabdominal (TA) Date of LMP: 03/01/2017 EXAM MEASUREMENTS: Uterus: 8.4 x 4.4 x 6.4 cm Endometrial Stripe: 1.2 cm Right Ovary: 4.1x 2.4x 2.1 cm Left Ovary: 4.2 x 4.2 x 3.9 cm Limited due to bowel and position of ovaries. 1. Uterus: Anteverted appears wnl 2. Endometrium: slightly thickened likely due to time in cycle 3. Right Ovary: cystic area noted likely dominant follicle measuring approximately 1.2 x 1.1 x 1.7 c m 4. Left Ovary: complex heterogenous area without internal color flow measuring approximately 3.5 x 2 .9 x 3.9 cm Spectral, color and waveform doppler imaging shows good arterial and venous flow within the ovaries ; there is no evidence for ovarian torsion. 5. Bilateral Adnexa: appear wnl 6. Posterior cul-de-sac: appear wnl IMPRESSION: There is no evidence of ovarian torsion on the color Doppler images. Normal uterus and endometrium. Borderline enlarged left ovary of uncertain significance.
[2017-03-26 13:47] VITALS: BP 101/51; PULSE 69; RESP 15; TEMP 98.3
== END 2017-03-26 13:53 | disposition home or self-care (01) ==
LOC: EC 11:11
DX: R10.2 Pelvic and perineal pain (principal); F31.9 Bipolar disorder, unspecified; E78.5 Hyperlipidemia, unspecified; F17.200 Nicotine dependence, unspecified, uncomplicated; Z90.49 Acquired absence of other specified parts of digestive tract; Z88.5 Allergy status to narcotic agent; Z88.8 Allergy status to other drugs, medicaments and biological substances; Z91.040 Latex allergy status; Z79.899 Other long term (current) drug therapy
CPT/HCPCS: 99284 ×2; 96372 ×2; 87591; 87491; 81003; 81025; 87808; 87070; 93975; 76856; J1885; 87205; 93976

== ENCOUNTER → 2017-04-15 | Outpatient (CLI) | payer MEDICARE, OTHER ==
--- NOTE | 2017-04-15 09:42 | MR ---
MRI BRAIN AND CERVICAL SPINE: CLINICAL HISTORY: Headaches, memory loss and right arm weakness. TECHNIQUE: Multiplanar, multisequence imaging of the brain and cervical spine is performed without co ntrast. COMPARISON: None. FINDINGS: BRAIN: Midline structures are unremarkable. There is a normal craniocervical junction. Echoplanar diffusion imaging is normal. There are normal vascular flow voids. The orbits are unremarkable. There is no evidence of a CP angle mass lesion. There is no focal lesion, mass effect or midline shift identified. I do not see evidence of intracran ial blood. IMPRESSION: NORMAL MRI OF THE BRAIN. CERVICAL SPINE: Prevertebral soft tissues are normal. There is a minimal retrolisthesis of C5 on C6. Vertebral body height and alignment otherwise maintain ed. There is a normal craniocervical junction. Cord signal is normal. From C2-3 through to C4-5, no definite abnormality is seen. At C5-6, there is a minimal retrograde listhesis. There is a small pseudodisc. There is disc space lo ss. There is bilateral intervertebral foraminal narrowing, worse on the left than the right. There is mild uncovertebral joint disease. The facets are unremarkable. At C6-7 and C7-T1, no definite abnormality is seen. IMPRESSION: 1. DEGENERATIVE DISC DISEASE AND A MINIMAL RETROGRADE LISTHESIS OF C5 ON C6. 2. BILATERAL INTERVERTEBRAL FORAMINAL NARROWING, C5-6, WORSE ON THE LEFT THAN THE RIGHT.
== END | disposition home or self-care (01) ==
LOC: RADMRIMAIN 08:28
PROVIDERS: ATTEND Nurse Practitioner Acute Care
DX: M99.71 Connective tissue and disc stenosis of intervertebral foramina of cervical region (principal); M43.12 Spondylolisthesis, cervical region; M50.322 Other cervical disc degeneration at C5-C6 level; R51 Headache; R41.3 Other amnesia; M54.5 Low back pain; M54.6 Pain in thoracic spine
CPT/HCPCS: 70551; 72141

== ENCOUNTER → 2017-04-17 | Outpatient (CLI) | payer MEDICARE, OTHER ==
[2017-04-17 14:24] LABS: Basophils # (A) 0.1 k/uL (0-0.2); Basophils % (A) 1 %; CH 29.1; CHCM 32.6; Eosinophils # (A) 0.1 k/uL (0-0.7); Eosinophils % (A) 1 %; HDW 2.42; HGB 11.6 gm/dL (11.4-16.0); Luc # (Auto) 0.22; Luc % (Auto) 3; Lymphocytes # (A) 3.4 k/uL (1.0-4.8); Lymphocytes % (A) 42 %; MCH 29.8 pg (25.0-35.0); MCHC 33.2 g/dL (31.0-37.0); MCV 89.7 fL (80.0-100.0); Monocytes # (A) 0.6 k/uL (0-1.0); Monocytes % (A) 8 %; Neutrophils # (A) 3.8 k/uL (1.3-7.7); Neutrophils % (A) 46 %; RDW 13.1 % (11.5-15.5); WBC 8.2 k/uL (3.8-10.6); WBC (Perox) 8.49
[2017-04-17 14:39] LABS: ALT 30 U/L (9-52); AST 18 U/L (14-36); Alkaline Phosphatase 84 U/L (38-126); Anion Gap 9 mmol/L; Blood Urea Nitrogen 8 mg/dL (7-17); Calcium 9.3 mg/dL (8.4-10.2); Carbon Dioxide 24 mmol/L (22-30); Chloride 107 mmol/L (98-107); Glucose 76 mg/dL (74-99); Iron 60 ug/dL (37-170); Non-African American GFR(MDRD) >60 (>60 ml/min/1.73 sqM); Potassium 4.2 mmol/L (3.5-5.1); Sodium 140 mmol/L (137-145); Total Bilirubin 0.4 mg/dL (0.2-1.3); Total Protein 6.5 g/dL (6.3-8.2)
[2017-04-17 14:48] LABS: % Iron Saturation 16.5 % (20-50); Total Iron Binding Capacity 364 ug/dL (265-497)
[2017-04-17 15:27] LABS: Vitamin B12 484 pg/mL (239-931)
== END | disposition home or self-care (01) ==
LOC: LABWHC1 13:36
PROVIDERS: ATTEND Nurse Practitioner Acute Care
DX: E55.9 Vitamin D deficiency, unspecified (principal); R41.3 Other amnesia
CPT/HCPCS: 36415; 80053; 82306; 82607; 83540; 83550; 84439; 84443; 84466; 84481; 85025

== ENCOUNTER → 2017-04-17 | Outpatient (CLI) | payer MEDICARE, OTHER ==
--- NOTE | 2017-04-17 14:09 | MR ---
EXAMINATION TYPE: MR tspine/lspine wo con DATE OF EXAM: 04/17/2017 COMPARISON: NONE HISTORY: Back pain TECHNIQUE: Multiplanar, multisequence imaging of the lumbar spine is performed without IV contrast. FINDINGS: THORACIC SPINE: Sagittal images of the lumbar and thoracic spine show vertebral body heights and alig nment to appear satisfactory. Two T1 and T2 hyperintense lesions are seen at the T9 vertebral body wi thout extension of the disc space most compatible with benign hemangiomas. The thoracic intervertebra l discs demonstrate normal heights and hydration. No malalignment or disc disease is seen within the thoracic spine at any level. The bone marrow signal intensity is within normal limits. LUMBAR SPINE: The lumbar spine maintains normal alignment and vertebral body heights. There is normal bone marrow signal. Disc degeneration is noted at L4-5 and L5-S1 and to a lesser degree at L3-L4. No neural foraminal narrowing, spinal canal stenosis, or degenerative disc disease is seen at T12-L3. T 2 hyperintense and T1 hyperintense hemangiomas are also seen of the L5 and S1-2 vertebral bodies. L3-L4: A broad-based disc bulge is present without neural foraminal narrowing or spinal canal stenosi s. L4-L5: There is a broad-based disc bulge with an annular tear, left eccentric with a foraminal disc h erniation creating only left neural foraminal stenosis as there is no significant facet arthropathy. No spinal canal stenosis or right neural foraminal stenosis. L5-S1: There is a small left paracentral disc herniation abutting the forming left S1 nerve root with out impingement or significant compression of the nerve. No right neural foraminal stenosis or spinal canal stenosis is seen. IMPRESSION: 1. Left foraminal disc herniation at L4-L5 creating mild neural foraminal narrowing. 2. Small left paracentral disc herniation at L5-S1 abutting the forming left S1 nerve root. No eviden ce of spinal canal stenosis. 3. No evidence of disc herniation, disc disease, spinal canal stenosis nor neural foraminal stenosis within the thoracic spine.
== END ==
LOC: RADMRIMAIN 12:26
PROVIDERS: ATTEND Nurse Practitioner Acute Care
DX: M99.73 Connective tissue and disc stenosis of intervertebral foramina of lumbar region (principal); M51.26 Other intervertebral disc displacement, lumbar region; M51.27 Other intervertebral disc displacement, lumbosacral region; M54.6 Pain in thoracic spine
CPT/HCPCS: 72146; 72148

== ENCOUNTER → 2017-09-14 | Outpatient (CLI) | payer MEDICARE, OTHER ==
--- NOTE | 2017-09-14 23:07 | MR ---
EXAMINATION TYPE: MR shoulder LT wo con DATE OF EXAM: 09/14/2017 COMPARISON: NONE HISTORY: Lt shoulder pain/injury S/P fall March 2017 TECHNIQUE: Multiplanar, multisequence imaging of the left shoulder is performed without contrast. FINDINGS: Biceps tendon is intact. Subscapularis tendon is intact. The glenoid billy appear intact. The suprasp inatus tendon appears intact without evidence of retraction. I see no subacromial impingement. There is a 8 mm degenerative cyst in the superior humeral head. IMPRESSION: No evidence of rotator cuff tear. Degenerative cyst in the posterior superior humeral head. No fractu re seen.
== END | disposition home or self-care (01) ==
LOC: RADMRIMAIN 15:11
PROVIDERS: ATTEND Orthopaedic Surgery
DX: M25.812 Other specified joint disorders, left shoulder (principal)

== ENCOUNTER 2017-12-21 20:47 | Emergency (ER) | payer MEDICARE, OTHER ==
[2017-12-21 21:16] LABS: Glucose,Whole Blood 107 mg/dL (75-99)
[2017-12-21] MEDS ORDERED: SODIUM CHLORIDE 0.9% 1,000 ML IV STA (22:03)
[2017-12-21 22:33] LABS: Basophils % (A) 1 %; Eosinophils % (A) 0 %; HCT 37.6 % (34.0-46.0); HGB 13.2 gm/dL (11.4-16.0); Lymphocytes # (A) 3.7 k/uL (1.0-4.8); Lymphocytes % (A) 40 %; MCH 29.7 pg (25.0-35.0); MCHC 35.2 g/dL (31.0-37.0); MCV 84.3 fL (80.0-100.0); Mean Platelet Volume 8.1; Monocytes # (A) 0.6 k/uL (0-1.0); Monocytes % (A) 6 %; Neutrophils # (A) 4.7 k/uL (1.3-7.7); Neutrophils % (A) 51 %; Platelet Count 304 k/uL (150-450); RBC 4.46 m/uL (3.80-5.40); WBC 9.2 k/uL (3.8-10.6)
[2017-12-21 22:38] LABS: Appearance,Urine Clear (Clear); Bilirubin,Urine Negative (Negative); Blood,Urine Moderate (Negative); Color,Urine Light Yellow; Glucose,Urine (UA) Negative (Negative); Ketones,Urine Negative (Negative); Leukocyte Esterase,Urine Small (Negative); Mucus,Urine Rare /hpf; Nitrite,Urine Negative (Negative); Protein,Urine Negative (Negative); RBC,Urine 20 /hpf (0-5); Specific Gravity,Urine 1.006 (1.001-1.035); Squamous Epithelial Cell,Urine <1 /hpf (0-4); Urobilinogen,Urine <2.0 mg/dL (<2.0); WBC,Urine 9 /hpf (0-5)
[2017-12-21 22:44] LABS: Partial Thromboplastin Time 22.9 sec (22.0-30.0); Prothrombin Time 9.6 sec (9.0-12.0)
[2017-12-21 22:48] LABS: ALT 26 U/L (9-52); AST 26 U/L (14-36); Albumin 4.2 g/dL (3.5-5.0); Alkaline Phosphatase 92 U/L (38-126); Amylase 73 U/L (30-110); Anion Gap 14 mmol/L; Blood Urea Nitrogen 9 mg/dL (7-17); Carbon Dioxide 21 mmol/L (22-30); Chloride 108 mmol/L (98-107); Glucose 80 mg/dL (74-99); Lipase 92 U/L (23-300); Potassium 3.9 mmol/L (3.5-5.1); Sodium 143 mmol/L (137-145); Total Bilirubin 0.2 mg/dL (0.2-1.3); Total Protein 7.1 g/dL (6.3-8.2)
[2017-12-21 23:00] LABS: Creatine Kinase 120 U/L (30-135)
[2017-12-21 23:13] LABS: Creatine Kinase MB 0.7 ng/mL (0.0-2.4); Troponin I <0.012 ng/mL (0.000-0.034)
--- NOTE | 2017-12-21 23:35 | ED ---
Weakness HPI <Aly Art - Last Filed: 12/22/17 01:42> - General Source: patient Mode of arrival: ambulatory Limitations: no limitations <Smita Pearce - Last Filed: 12/22/17 03:46> - General Chief complaint: Weakness Stated complaint: Numbness, weak Time Seen by Provider: 12/21/17 21:24 - History of Present Illness Initial comments: 37-year-old female patient presents to the emergency department today for complaints of generalized weakness and a numb feeling throughout her body. Patient states that this started yesterday afternoon has progressively gotten worse. Patient states that she has fallen three times related to dizziness. States she has felt like she was going to pass out. States that she has had dizziness for quite sometime and has been evaluated by her PCP for this. Patient states that she has also had palpitations throughout the day today. Patient states that she has chronic abdominal pain and abdominal issues. States that she is going to see a surgeon. States that she often has vomiting. She denies any fevers or chills. She denies any headache, blurred vision, double vision, chest pain, or shortness of breath. Patient denies any recent rash, diarrhea, constipation, back pain, hematuria, dysuria, urinary urgency, urinary frequency, or any other complaints. (Smita Pearce) - Related Data Home Medications Medication Instructions Recorded Confirmed Albuterol Inhaler [Ventolin Hfa 2 puff INHALATION RT-QID PRN 02/21/17 12/21/17 Inhaler] Atorvastatin Calcium [Lipitor] 10 mg PO HS 02/21/17 12/21/17 Tiotropium 18 Mcg/Puff [Spiriva] 1 cap INHALATION RT-DAILY 02/21/17 12/21/17 Docusate [Colace] 100 mg PO BID 03/26/17 12/21/17 Albuterol Nebulized [Ventolin 2.5 mg INHALATION RT-QID PRN 12/21/17 12/21/17 Nebulized] Baclofen [Lioresal] 10 mg PO BID 12/21/17 12/21/17 Desvenlafaxine Succinate [Pristiq] 100 mg PO HS 12/21/17 12/21/17 HYDROcodone/APAP 5-325MG [[place] 1 tab PO BID PRN 12/21/17 12/21/17 5-325] Ibuprofen [Motrin] 600 mg PO Q6HR PRN 12/21/17 12/21/17 L.acidoph,Paracasei, B.lactis 1 cap PO DAILY 12/21/17 12/21/17 [Probiotic] Meclizine [Antivert] 25 mg PO BID PRN 12/21/17 12/21/17 Multivitamins, Thera [Multivitamin 1 tab PO DAILY 12/21/17 12/21/17 (formulary)] Omeprazole 40 mg PO DAILY 12/21/17 12/21/17 Ziprasidone [Geodon] 80 mg PO BID@1200,2100 12/21/17 12/21/17 lamoTRIgine [LaMICtal] 200 mg PO BID 12/21/17 12/21/17 traZODone HCL 300 mg PO HS 12/21/17 12/21/17 Previous Rx's Medication Instructions Recorded Levothyroxine Sodium [Synthroid] 100 mcg PO DAILY@0630 #14 tab 03/08/17 Allergies Allergy/AdvReac Type Severity Reaction Status Date / Time latex Allergy Rash/Hives Verified 12/21/17 21:00 morphine Allergy Unknown Verified 12/21/17 21:00 propoxyphene Allergy Nausea & Verified 12/21/17 21:00 [From Darvocet-N] Vomiting tramadol [From Ultram] Allergy Itching Verified 12/21/17 21:00 hydromorphone [From Dilaudid] AdvReac Itching Verified 12/21/17 21:00 Review of Systems ROS Other: All systems not noted in ROS Statement are negative. <Aly Art - Last Filed: 12/22/17 01:42> ROS Other: All systems not noted in ROS Statement are negative. <Smita Pearce - Last Filed: 12/22/17 03:46> ROS Statement: Those systems with pertinent positive or pertinent negative responses have been documented in the HPI. Past Medical History Past Medical History: Fibromyalgia, GERD/Reflux, Hyperlipidemia, Thyroid Disorder Additional Past Medical History / Comment(s): irritable bowel syndrome, carpal tunnel, arthritis, "eroded espohagus and stomach", etoh abuse , migraine headaches, degenerative disc disease,arthritis, siatica History of Any Multi-Drug Resistant Organisms: None Reported Past Surgical History: Appendectomy, Cholecystectomy, Tonsillectomy, Tubal Ligation Additional Past Surgical History / Comment(s): d&c x5, exploratory lap, ovarian tumor removed Past Anesthesia/Blood Transfusion Reactions: Previous Problems w/ Anesthesia Additional Past Anesthesia/Blood Transfusion Reaction / Comment(s): heart stopped coded Past Psychological History: Anxiety, Bipolar, Depression, PTSD Smoking Status: Current every day smoker Past Alcohol Use History: None Reported Past Drug Use History: Marijuana - Past Family History Father Additional Family Medical History / Comment(s): Father is alive at age 58 with history of generalized anxiety disorder and possible bipolar disorder. Alcohol abuse Mother Additional Family Medical History / Comment(s): Mother is alive at age 58 with history of degenerative disc disease, osteoarthritis, hyperlipidemia, hypertension. Brother(s) Additional Family Medical History / Comment(s): Patient has 2 brothers. One from suicide. One brother has no major medical problems. Patient has 2 sisters but she has no contact with them. Patient has 4 children ages 19, 18, 16, 15. <Smita Pearce M - Last Filed: 12/22/17 03:46> General Exam Limitations: no limitations General appearance: alert, in no apparent distress, other (This is a well- developed, well-nourished adult female patient in no acute distress. Vital signs upon presentation are temperature 97.7F, pulse 66, respirations 20, blood pressure 137/72, pulse ox 100% on room air.) Head exam: Present: atraumatic, normocephalic, normal inspection Eye exam: Present: normal appearance, PERRL, EOMI, nystagmus (Horizontal). Absent: scleral icterus, conjunctival injection, periorbital swelling ENT exam: Present: normal exam, normal oropharynx, mucous membranes moist Respiratory exam: Present: normal lung sounds bilaterally. Absent: respiratory distress, wheezes, rales, rhonchi, stridor Cardiovascular Exam: Present: regular rate, normal rhythm, normal heart sounds. Absent: systolic murmur, diastolic murmur, rubs, gallop, clicks GI/Abdominal exam: Present: soft, normal bowel sounds. Absent: distended, tenderness, guarding, rebound, rigid Neurological exam: Present: alert, oriented X3, CN II-XII intact Expanded Speech: Present: fluid speech Cranial nerves: EOM's Intact: Normal Cerebellar function: Finger to Nose: Normal Motor strength exam: RUE: 5, LUE: 5, RLE: 5, LLE: 5 Eye Response: (4) open spontaneously Motor Response: (6) obeys commands Verbal Response: (5) oriented Jaqueline Total: 15 Psychiatric exam: Present: normal affect, normal mood Skin exam: Present: warm, dry, intact, normal color. Absent: rash <Smita Pearce - Last Filed: 12/22/17 03:46> Vital Signs 12/21/17 12/21/17 12/21/17 20:48 21:15 22:00 Temperature 97.7 F Pulse Rate 66 71 60 Pulse Rate [ Sitting] Pulse Rate [ Standing] Pulse Rate [ Supine] Respiratory 20 18 20 Rate Blood Pressure 137/72 131/78 118/71 Blood Pressure [Sitting] Blood Pressure [Standing] Blood Pressure [Supine] O2 Sat by Pulse 100 99 99 Oximetry 12/21/17 12/21/17 12/22/17 22:30 23:47 01:01 Temperature 97.9 F Pulse Rate 69 62 Pulse Rate [ 63 Sitting] Pulse Rate [ 74 Standing] Pulse Rate [ 57 L Supine] Respiratory 20 18 18 Rate Blood Pressure 111/64 118/72 Blood Pressure 123/82 [Sitting] Blood Pressure 118/73 [Standing] Blood Pressure 115/72 [Supine] O2 Sat by Pulse 100 98 Oximetry 12/22/17 02:25 Temperature Pulse Rate 61 Pulse Rate [ Sitting] Pulse Rate [ Standing] Pulse Rate [ Supine] Respiratory 18 Rate Blood Pressure 105/55 Blood Pressure [Sitting] Blood Pressure [Standing] Blood Pressure [Supine] O2 Sat by Pulse 98 Oximetry EKG Findings - EKG Comments: EKG Findings:: EKG shows sinus rhythm with a short SC interval. Ventricular rate is 69, SC interval 106, QRS duration 82, QT 404, QTC 432. No evidence of ST elevation or depression. <Smita Pearce - Last Filed: 12/22/17 03:46> Medical Decision Making - Lab Data Result diagrams: 12/21/17 21:21 12/21/17 21:21 <Aly Art - Last Filed: 12/22/17 01:42> - Lab Data Result diagrams: 12/21/17 21:21 12/21/17 21:21 - Radiology Data Radiology results: report reviewed, image reviewed <Smita Pearce - Last Filed: 12/22/17 03:46> - Medical Decision Making Patient reevaluated by myself, Dr. Art. Patient is requesting discharge. Patient states she never fully passed out and never lost consciousness. Patient attributes all of her symptoms to her dizziness which she states is chronic. Patient states she has seen a doctor for this and specialist and has had MRI done. Patient is sitting upright in bed and stating she feels much better. Patient is receptive to a dose of Reglan prior to discharge. (Aly Art) 37-year-old female patient presented to the emergency department today for complaints of generalized weakness and dizziness. Physical examination is unremarkable. Neurologically patient is intact. Did perform CT of the brain which was negative. Labs are unremarkable. My attending Dr. Art presents to the patient. She is requesting discharge at this time. She is instructed to follow-up with her primary care physician for recheck in 1-2 days. She is instructed to return here immediately for any new, worsening, or concerning symptoms. She verbalizes understanding and agrees with this plan. (Smita Pearce) - Lab Data Lab Results 12/21/17 12/21/17 12/21/17 Range/Units 21:15 21:21 21:21 WBC (3.8-10.6) k/uL RBC (3.80-5.40) m/uL Hgb (11.4-16.0) gm/dL Hct (34.0-46.0) % MCV (80.0-100.0) fL MCH (25.0-35.0) pg MCHC (31.0-37.0) g/dL RDW (11.5-15.5) % Plt Count (150-450) k/uL Neutrophils % % Lymphocytes % % Monocytes % % Eosinophils % % Basophils % % Neutrophils # (1.3-7.7) k/uL Lymphocytes # (1.0-4.8) k/uL Monocytes # (0-1.0) k/uL Eosinophils # (0-0.7) k/uL Basophils # (0-0.2) k/uL PT (9.0-12.0) sec INR (<1.2) APTT (22.0-30.0) sec Sodium 143 (137-145) mmol/L Potassium 3.9 (3.5-5.1) mmol/L Chloride 108 H (98-107) mmol/L Carbon Dioxide 21 L (22-30) mmol/L Anion Gap 14 mmol/L BUN 9 (7-17) mg/dL Creatinine 0.70 (0.52-1.04) mg/dL Est GFR (CKD-EPI)AfAm >90 (>60 ml/min/1.73 sqM) Est GFR (CKD-EPI)NonAf >90 (>60 ml/min/1.73 sqM) Glucose 80 (74-99) mg/dL POC Glucose (mg/dL) 107 H (75-99) mg/dL POC Glu Office Specialist ID Rosemary Clifton Calcium 10.0 (8.4-10.2) mg/dL Total Bilirubin 0.2 (0.2-1.3) mg/dL AST 26 (14-36) U/L ALT 26 (9-52) U/L Alkaline Phosphatase 92 (38-126) U/L Total Creatine Kinase 120 (30-135) U/L CK-MB (CK-2) 0.7 (0.0-2.4) ng/mL CK-MB (CK-2) Rel Index 0.6 Troponin I <0.012 (0.000-0.034) ng/mL Total Protein 7.1 (6.3-8.2) g/dL Albumin 4.2 (3.5-5.0) g/dL Amylase 73 (30-110) U/L Lipase 92 (23-300) U/L TSH 9.420 H (0.465-4.680) mIU/L Free T4 1.24 (0.78-2.19) ng/dL Urine Color Urine Appearance (Clear) Urine pH (5.0-8.0) Ur Specific [place] (1.001-1.035) Urine Protein (Negative) Urine Glucose (UA) (Negative) Urine Ketones (Negative) Urine Blood (Negative) Urine Nitrite (Negative) Urine Bilirubin (Negative) Urine Urobilinogen (<2.0) mg/dL Ur Leukocyte Esterase (Negative) Urine RBC (0-5) /hpf Urine WBC (0-5) /hpf Ur Squamous Epith Cells (0-4) /hpf Urine Mucus (None) /hpf 04/12/18 04/12/18 04/12/18 Range/Units 21:21 21:21 21:21 WBC 9.2 (3.8-10.6) k/uL RBC 4.46 (3.80-5.40) m/uL Hgb 13.2 (11.4-16.0) gm/dL Hct 37.6 (34.0-46.0) % MCV 84.3 (80.0-100.0) fL MCH 29.7 (25.0-35.0) pg MCHC 35.2 (31.0-37.0) g/dL RDW 13.0 (11.5-15.5) % Plt Count 304 (150-450) k/uL Neutrophils % 51 % Lymphocytes % 40 % Monocytes % 6 % Eosinophils % 0 % Basophils % 1 % Neutrophils # 4.7 (1.3-7.7) k/uL Lymphocytes # 3.7 (1.0-4.8) k/uL Monocytes # 0.6 (0-1.0) k/uL Eosinophils # 0.0 (0-0.7) k/uL Basophils # 0.0 (0-0.2) k/uL PT 9.6 (9.0-12.0) sec INR 1.0 (<1.2) APTT 22.9 (22.0-30.0) sec Sodium (137-145) mmol/L Potassium (3.5-5.1) mmol/L Chloride (98-107) mmol/L Carbon Dioxide (22-30) mmol/L Anion Gap mmol/L BUN (7-17) mg/dL Creatinine (0.52-1.04) mg/dL Est GFR (CKD-EPI)AfAm (>60 ml/min/1.73 sqM) Est GFR (CKD-EPI)NonAf (>60 ml/min/1.73 sqM) Glucose (74-99) mg/dL POC Glucose (mg/dL) (75-99) mg/dL POC Glu Office Specialist ID Calcium (8.4-10.2) mg/dL Total Bilirubin (0.2-1.3) mg/dL AST (14-36) U/L ALT (9-52) U/L Alkaline Phosphatase (38-126) U/L Total Creatine Kinase (30-135) U/L CK-MB (CK-2) (0.0-2.4) ng/mL CK-MB (CK-2) Rel Index Troponin I (0.000-0.034) ng/mL Total Protein (6.3-8.2) g/dL Albumin (3.5-5.0) g/dL Amylase (30-110) U/L Lipase (23-300) U/L TSH (0.465-4.680) mIU/L Free T4 (0.78-2.19) ng/dL Urine Color Light Yellow Urine Appearance Clear (Clear) Urine pH 7.0 (5.0-8.0) Ur Specific [place] 1.006 (1.001-1.035) Urine Protein Negative (Negative) Urine Glucose (UA) Negative (Negative) Urine Ketones Negative (Negative) Urine Blood Moderate H (Negative) Urine Nitrite Negative (Negative) Urine Bilirubin Negative (Negative) Urine Urobilinogen <2.0 (<2.0) mg/dL Ur Leukocyte Esterase Small H (Negative) Urine RBC 20 H (0-5) /hpf Urine WBC 9 H (0-5) /hpf Ur Squamous Epith Cells <1 (0-4) /hpf Urine Mucus Rare H (None) /hpf - Radiology Data Two-view x-ray of the chest was obtained. Heart and mediastinum are normal. Lungs are clear. Diaphragm is normal. Bony thorax is intact. Impression by Dr. Sams shows normal chest with no change. CT of the head is performed without contrast. Ventricles and sulci appear normal. There is no mass effect or midline shift. There is no sign of intracranial hemorrhage. Calvarium is intact. Conclusion by Dr. Sams shows negative computed tomography scan of the brain. (Smita Pearce) Disposition <Aly Art - Last Filed: 12/22/17 01:42> Time of Disposition: 01:53 <Smita Pearce - Last Filed: 12/22/17 03:46> Clinical Impression: Dizziness, Weakness Disposition: HOME SELF-CARE Condition: Good Instructions: Weakness (ED), Dizziness (ED) Additional Instructions: Increase fluids. Follow-up with her primary care physician for recheck tomorrow. Return here immediately for any new, worsening, or concerning symptoms. Referrals: Elias Bergeron MD [Primary Care Provider] - 1-2 days
[2017-12-21 23:49] VITALS: RESP 18; TEMP 97.9
--- NOTE | 2017-12-21 23:49 | XR ---
EXAMINATION TYPE: XR chest 2V DATE OF EXAM: 12/21/2017 COMPARISON: 05/27/2015 HISTORY: Weakness TECHNIQUE: Frontal and lateral views of the chest are obtained. FINDINGS: Heart and mediastinum are normal. Lungs are clear. Diaphragm is normal. Bony thorax is int act. IMPRESSION: Normal chest. No change.
[2017-12-21 23:54] LABS: T4, Free (Free Thyroxine) 1.24 ng/dL (0.78-2.19)
--- NOTE | 2017-12-22 00:30 | CT ---
EXAMINATION TYPE: CT brain wo con DATE OF EXAM: 12/22/2017 COMPARISON: NONE HISTORY: weakness CT DLP: 943.80 mGycm. Automated Exposure Control for Dose Reduction was Utilized. TECHNIQUE: CT scan of the head is performed without contrast. Findings Ventricles and sulci appear normal. There is no mass effect nor midline shift. There is no sign of in tracranial hemorrhage. Calvarium is intact. CONCLUSION: Negative CT scan of the brain.
[2017-12-22] MEDS ORDERED: MECLIZINE 12.5 MG TAB PO STA (00:51)
[2017-12-22] MEDS ORDERED: diphenhydrAMINE 50 MG/ML 1 ML VIAL IVP STA (02:12)
[2017-12-22] MEDS ORDERED: METOCLOPRAMIDE 5 MG/ML 2 ML VIAL IVP STA (02:12)
[2017-12-22 02:27] VITALS: BP 105/55; PULSE 61
== END 2017-12-22 02:39 | disposition home or self-care (01) ==
LOC: EC 20:47
DX: R53.1 Weakness (principal); R42 Dizziness and giddiness; R10.9 Unspecified abdominal pain; G89.29 Other chronic pain; R40.2142 Coma scale, eyes open, spontaneous, at arrival to emergency department; R40.2252 Coma scale, best verbal response, oriented, at arrival to emergency department; R40.2362 Coma scale, best motor response, obeys commands, at arrival to emergency department; K21.9 Gastro-esophageal reflux disease without esophagitis; E78.5 Hyperlipidemia, unspecified; F41.9 Anxiety disorder, unspecified; F32.9 Major depressive disorder, single episode, unspecified; F43.10 Post-traumatic stress disorder, unspecified; F17.200 Nicotine dependence, unspecified, uncomplicated; Z79.899 Other long term (current) drug therapy; Z91.040 Latex allergy status; Z88.5 Allergy status to narcotic agent; Z88.6 Allergy status to analgesic agent
CPT/HCPCS: 99285; 96374; 96375; 36415; 93005; 84439; 80053; 84443; 82150; 82550; 82553; 83690; 84484; 85025; 85610; 85730; 81001; 87086; 71046; 70450; J1200; J2765

== ENCOUNTER 2018-01-04 10:45 | Day surgery (SDC) | payer MEDICARE, OTHER ==
[2018-01-02 16:40] VITALS: BMI 25.7
[~2018-01-04 10:45] MED LIST: LACTATED RINGERS 1,000 ML IV SCH; LIDOCAINE 1% 20 ML VIAL (10MG/ML) FOR IV START INTRADERMA PRN
[2018-01-04 11:15] VITALS: TEMP 97.9
[2018-01-04] MEDS ORDERED: LIDOCAINE 1% INJ 10MG/ML (20 ML MDV) ONE (11:35)
[2018-01-04] MEDS ORDERED: PROPOFOL 10 MG/ML 20 ML VIAL IV ONE (11:35)
[2018-01-04] MEDS ORDERED: GLYCOPYRROLATE 0.2 MG/ML 2 ML VIAL ONE (11:35)
--- NOTE | 2018-01-04 11:38 | P.GSHP ---
History of Present Illness H&P Date: 01/04/18 Chief Complaint: GERD, GI bleed, diarrhea This is a 37-year-old female for from Dr. Chas Herndon. Patient presents today for EGD and colonoscopy. She's had issues with GERD, GI bleeding and diarrhea. Past Medical History Past Medical History: Fibromyalgia, GERD/Reflux, Hyperlipidemia, Thyroid Disorder Additional Past Medical History / Comment(s): irritable bowel syndrome, carpal tunnel, arthritis, "eroded espohagus and stomach", etoh abuse , migraine headaches, degenerative disc disease,arthritis, sciatica History of Any Multi-Drug Resistant Organisms: None Reported Past Surgical History: Adenoidectomy, Appendectomy, Cholecystectomy, Tonsillectomy, Tubal Ligation Additional Past Surgical History / Comment(s): d&c x5, exploratory lap, ovarian tumor removed Past Anesthesia/Blood Transfusion Reactions: Previous Problems w/ Anesthesia Additional Past Anesthesia/Blood Transfusion Reaction / Comment(s): stated "heart stopped and blood pressure dropped after gall bladder surgery in operating room" Past Psychological History: ADD/ADHD, Anxiety, Bipolar, Depression, PTSD Additional Psychological History / Comment(s): borderline personality,OCD Smoking Status: Current every day smoker Past Alcohol Use History: None Reported Additional Past Alcohol Use History / Comment(s): patient is a smoker of 1 1/2 packs per day since she was 10 years of age. She does have a medical marijuana card. She denies any street drug or alcohol use. Past Drug Use History: Marijuana Additional Drug Use History / Comment(s): Medical card-uses every day - Past Family History Father Additional Family Medical History / Comment(s): Father is alive at age 58 with history of generalized anxiety disorder and possible bipolar disorder. Alcohol abuse Mother Additional Family Medical History / Comment(s): Mother is alive at age 58 with history of degenerative disc disease, osteoarthritis, hyperlipidemia, hypertension. Brother(s) Additional Family Medical History / Comment(s): Patient has 2 brothers. One from suicide. One brother has no major medical problems. Patient has 2 sisters but she has no contact with them. Patient has 4 children ages 19, 18, 16, 15. Medications and Allergies Home Medications Medication Instructions Recorded Confirmed Type Albuterol Inhaler [Ventolin Hfa 2 puff INHALATION RT-QID PRN 02/21/17 01/02/18 History Inhaler] Atorvastatin Calcium [Lipitor] 10 mg PO HS 02/21/17 01/02/18 History Tiotropium 18 Mcg/Puff [Spiriva] 1 cap INHALATION RT-DAILY 02/21/17 01/02/18 History Levothyroxine Sodium [Synthroid] 100 mcg PO DAILY@0630 #14 tab 03/08/17 Rx Docusate [Colace] 100 mg PO BID 03/26/17 01/02/18 History Albuterol Nebulized [Ventolin 2.5 mg INHALATION RT-QID PRN 12/21/17 01/02/18 History Nebulized] Baclofen [Lioresal] 10 mg PO BID 12/21/17 01/02/18 History Desvenlafaxine Succinate [Pristiq] 100 mg PO HS 12/21/17 01/02/18 History HYDROcodone/APAP 5-325MG [[place] 1 tab PO BID PRN 12/21/17 01/02/18 History 5-325] Ibuprofen [Motrin] 600 mg PO Q6HR PRN 12/21/17 01/02/18 History Meclizine [Antivert] 25 mg PO BID PRN 12/21/17 01/02/18 History Omeprazole 40 mg PO DAILY 12/21/17 01/02/18 History Ziprasidone [Geodon] 80 mg PO BID@1200,2100 12/21/17 01/02/18 History lamoTRIgine [LaMICtal] 200 mg PO BID 12/21/17 01/02/18 History traZODone HCL 300 mg PO HS 12/21/17 01/02/18 History Allergies Allergy/AdvReac Type Severity Reaction Status Date / Time latex Allergy Rash/Hives Verified 01/02/18 16:28 morphine Allergy Severe Verified 01/02/18 16:28 Itching propoxyphene Allergy Nausea & Verified 01/02/18 16:28 [From Darvocet-N] Vomiting tramadol [From Ultram] Allergy Itching Verified 01/02/18 16:28 hydromorphone [From Dilaudid] AdvReac Itching Verified 01/02/18 16:28 Surgical - Exam Vital Signs Temp Pulse Resp BP Pulse Ox 97.9 F 71 18 109/71 99 01/04/18 11:13 01/04/18 11:13 01/04/18 11:13 01/04/18 11:13 01/04/18 11:13 - General well developed, no distress - Eyes PERRL - ENT normal pinna - Neck no masses - Respiratory normal expansion - Cardiovascular Rhythm: regular - Abdomen Abdomen: soft, non tender Assessment and Plan Assessment: GERD, GI bleed, diarrhea. We'll perform EGD and colonoscopy.
--- NOTE | 2018-01-04 12:05 | P.OP ---
Date of Procedure: 01/04/18 Preoperative Diagnosis: GERD GI bleed Diarrhea Postoperative Diagnosis: Antral gastritis Small hiatal hernia Mild esophagitis Normal colon Procedure(s) Performed: EGD Colonoscopy Anesthesia: MAC Surgeon: Paramjit Henry Pathology: other (Antral, esophagus) Condition: stable Disposition: PACU Description of Procedure: The patient's placed on the endoscopy table in the lateral position. She received IV sedation. The gastroscope was placed oropharynx and passed in the esophagus and into the stomach. The scope was then placed through the pylorus. The first and second portion of the duodenum appeared normal. Scope was then brought back the antrum this appeared mildly inflamed. A biopsy was performed. The scope was then retroflexed the remainder of the stomach appeared normal. There was a small hiatal hernia. The GE junction was at 38 cm. The distal esophagus was mildly inflamed. This was biopsied. The proximal esophagus appeared normal. Scope was withdrawn for patient. Next digital rectal exam was performed which revealed no abnormalities. The flexible colonoscope was then placed patient anus passed throughout the entire colon. The ileocecal valve was visualized. The cecum, ascending and transverse colon appeared normal. The descending and; appeared normal. Scope was withdrawn for patient.
[2018-01-04 12:22] VITALS: BP 133/76; PULSE 83; RESP 16
[2018-01-04] MEDS ORDERED: ONDANSETRON 4 MG/2 ML VIAL IVP ONE (12:24)
--- NOTE | 2018-01-09 15:35 | CDI ---
Date: 01/09/18 CDS/Newspaper Illustrator Name: Demi Parks Phone: If any questions, call Ana Corona [employer] Faculty Member at [phone] Patient Name: Janina Bueno Admit Date: 01/04/18 Discharge Date: 01/04/18 ATTENTION: The [facility] Coding Staff appreciate your assistance in clarifying documentation. Please respond to the clarification below the line at the bottom and electronically sign. The [facility] Coding staff will review the response and follow-up if needed. Please note: Queries are made part of the Legal Health Record. If you have any questions, please contact the [employer] Faculty Member. Dear Dr. Henry, Please provide clarification on reason for GI bleed. Please clarify if the GI bleed is in relation to any of the findings. Thank you for your kind consideration GI bleed is not related to the endoscopy findings MTDD
== END 2018-01-04 12:50 | disposition home or self-care (01) ==
LOC: ORWHC2ENDO 10:45
PROVIDERS: ATTEND Surgery
DX: K29.50 Unspecified chronic gastritis without bleeding (principal); K21.0 Gastro-esophageal reflux disease with esophagitis; K44.9 Diaphragmatic hernia without obstruction or gangrene; K92.2 Gastrointestinal hemorrhage, unspecified; K58.0 Irritable bowel syndrome with diarrhea; M79.7 Fibromyalgia; E78.5 Hyperlipidemia, unspecified; E07.9 Disorder of thyroid, unspecified; M19.90 Unspecified osteoarthritis, unspecified site; F90.9 Attention-deficit hyperactivity disorder, unspecified type; F41.9 Anxiety disorder, unspecified; F31.9 Bipolar disorder, unspecified; F43.10 Post-traumatic stress disorder, unspecified; F17.210 Nicotine dependence, cigarettes, uncomplicated; F60.3 Borderline personality disorder; Z79.899 Other long term (current) drug therapy; Z91.040 Latex allergy status; Z88.5 Allergy status to narcotic agent
CPT/HCPCS: 81025; 88305; 43239; J2405; J2001; J2704; G0121

== ENCOUNTER → 2018-01-18 | Outpatient (CLI) | payer MEDICARE, OTHER ==
[2018-01-18 14:18] LABS: Basophils % (A) 0 %; Eosinophils % (A) 0 %; HCT 35.7 % (34.0-46.0); HGB 11.7 gm/dL (11.4-16.0); Lymphocytes # (A) 2.6 k/uL (1.0-4.8); Lymphocytes % (A) 29 %; MCH 29.1 pg (25.0-35.0); MCHC 32.7 g/dL (31.0-37.0); MCV 89.1 fL (80.0-100.0); Mean Platelet Volume 8.4; Monocytes # (A) 0.5 k/uL (0-1.0); Monocytes % (A) 5 %; Neutrophils # (A) 5.6 k/uL (1.3-7.7); Neutrophils % (A) 64 %; Platelet Count 252 k/uL (150-450); RBC 4.01 m/uL (3.80-5.40); RDW 13.3 % (11.5-15.5); WBC 8.9 k/uL (3.8-10.6)
== END | disposition home or self-care (01) ==
LOC: LABPAT 13:33
PROVIDERS: ATTEND Surgery
DX: Z01.812 Encounter for preprocedural laboratory examination (principal); K21.0 Gastro-esophageal reflux disease with esophagitis
CPT/HCPCS: 36415; 85025

== ENCOUNTER → 2018-01-19 | Outpatient (CLI) | payer MEDICARE, OTHER ==
--- NOTE | 2018-01-19 10:20 | MR ---
EXAMINATION TYPE: MR brain wo con DATE OF EXAM: 01/19/2018 COMPARISON: 04/15/2017 HISTORY: Seizure T1-weighted sagittal, T2, FLAIR, and diffusion axial, and T2 coronal coronal views of the brain are s ubmitted. There is no evidence of acute ischemia. The ventricles, basal cisterns, and sulci overlying the conv exities are consistent with the patient's age. There is no mass effect. Craniocervical junction maintained. Sella turcica has a normal appearance. No cerebellopontine angle mass. Findings compatible with mild chronic sinusitis. IMPRESSION: 1. No acute intracranial process
== END | disposition home or self-care (01) ==
LOC: RADMRIMAIN 09:03
PROVIDERS: ATTEND Nurse Practitioner Acute Care
DX: G40.909 Epilepsy, unspecified, not intractable, without status epilepticus (principal); Z91.040 Latex allergy status
CPT/HCPCS: 70551

== ENCOUNTER 2018-01-25 06:15 | Day surgery (SDC) | payer MEDICARE, OTHER ==
[2018-01-18 16:34] VITALS: BMI 25.0
[~2018-01-25 06:15] MED LIST changes: +HEPARIN SODIUM,PORCINE 5,000 UNIT/ML 1 ML VIAL SQ ONE; +ceFAZolin IN SWFI 2 GM/20 ML SYRINGE IVP ONE
[2018-01-25] MEDS ORDERED: ONDANSETRON 4 MG/2 ML VIAL IVP ONE (06:50)
[2018-01-25] MEDS ORDERED: DEXAMETHASONE SOD PHOS (MDV) 100 MG/10 ML VIAL IV ONE (06:51)
[2018-01-25] MEDS ORDERED: FAMOTIDINE 20 MG/2 ML VIAL IV ONE (06:52)
[2018-01-25] MEDS ORDERED: METOCLOPRAMIDE 5 MG/ML 2 ML VIAL IVP ONE (06:53)
--- NOTE | 2018-01-25 07:56 | P.GSHP ---
History of Present Illness H&P Date: 01/25/18 Chief Complaint: GERD This is a 37-year-old female who's had long-standing problems with reflux esophagitis. Patient presents today for laparoscopic Kym fundoplication.The patient has had long-standing problems with reflux esophagitis. The patient underwent recent EGD is found have evidence of esophagitis. Patient has been well informed on the procedure of laparoscopic Kym fundoplication. The patient is aware the risk of the conversion to the open procedure, risk of injury to the stomach, liver and spleen. The patient is also a risk of recurrent GERD and dysphagia symptoms. The patient understands there is a postoperative diet of full liquids for 2 weeks after surgery. Past Medical History Past Medical History: Fibromyalgia, GERD/Reflux, Hyperlipidemia, Thyroid Disorder Additional Past Medical History / Comment(s): irritable bowel syndrome, carpal tunnel, arthritis, "eroded espohagus and stomach", etoh abuse , migraine headaches, degenerative disc disease,arthritis, sciatica History of Any Multi-Drug Resistant Organisms: None Reported Past Surgical History: Adenoidectomy, Appendectomy, Cholecystectomy, Tonsillectomy, Tubal Ligation Additional Past Surgical History / Comment(s): d&c x5, exploratory lap, ovarian tumor removed Past Anesthesia/Blood Transfusion Reactions: Previous Problems w/ Anesthesia Additional Past Anesthesia/Blood Transfusion Reaction / Comment(s): stated "heart stopped and blood pressure dropped after gall bladder surgery in operating room" Smoking Status: Current every day smoker - Past Family History Father Additional Family Medical History / Comment(s): Father is alive at age 58 with history of generalized anxiety disorder and possible bipolar disorder. Alcohol abuse Mother Additional Family Medical History / Comment(s): Mother is alive at age 58 with history of degenerative disc disease, osteoarthritis, hyperlipidemia, hypertension. Brother(s) Additional Family Medical History / Comment(s): Patient has 2 brothers. One from suicide. One brother has no major medical problems. Patient has 2 sisters but she has no contact with them. Patient has 4 children ages 19, 18, 16, 15. Medications and Allergies Home Medications Medication Instructions Recorded Confirmed Type Albuterol Inhaler [Ventolin Hfa 2 puff INHALATION RT-QID PRN 02/21/17 01/25/18 History Inhaler] Atorvastatin Calcium [Lipitor] 10 mg PO HS 02/21/17 01/25/18 History Tiotropium 18 Mcg/Puff [Spiriva] 1 cap INHALATION RT-DAILY 02/21/17 01/25/18 History Levothyroxine Sodium [Synthroid] 100 mcg PO DAILY@0630 #14 tab 03/08/17 Rx Docusate [Colace] 100 mg PO BID 03/26/17 01/25/18 History Albuterol Nebulized [Ventolin 2.5 mg INHALATION RT-QID PRN 12/21/17 01/25/18 History Nebulized] Baclofen [Lioresal] 10 mg PO BID 12/21/17 01/25/18 History Desvenlafaxine Succinate [Pristiq] 100 mg PO HS 12/21/17 01/25/18 History HYDROcodone/APAP 5-325MG [[place] 1 tab PO BID PRN 12/21/17 01/25/18 History 5-325] Ibuprofen [Motrin] 600 mg PO Q6HR PRN 12/21/17 01/25/18 History Meclizine [Antivert] 25 mg PO BID PRN 12/21/17 01/25/18 History Omeprazole 40 mg PO QAM 12/21/17 01/25/18 History Ziprasidone [Geodon] 80 mg PO BID@1200,2100 12/21/17 01/25/18 History lamoTRIgine [LaMICtal] 200 mg PO BID 12/21/17 01/25/18 History traZODone HCL 300 mg PO HS 12/21/17 01/25/18 History Allergies Allergy/AdvReac Type Severity Reaction Status Date / Time latex Allergy Rash/Hives Verified 01/25/18 06:36 morphine Allergy Severe Verified 01/25/18 06:36 Itching propoxyphene Allergy Nausea & Verified 01/25/18 06:36 [From Darvocet-N] Vomiting tramadol [From Ultram] Allergy Itching Verified 01/25/18 06:36 hydromorphone [From Dilaudid] AdvReac Itching Verified 01/25/18 06:36 Surgical - Exam Vital Signs Temp Pulse Resp BP Pulse Ox 97.5 F L 79 16 126/80 99 01/25/18 06:48 01/25/18 06:48 01/25/18 06:48 01/25/18 06:48 01/25/18 06:48 - General well developed, no distress - Eyes PERRL - ENT normal pinna - Neck no masses - Respiratory normal expansion - Cardiovascular Rhythm: regular - Abdomen Abdomen: soft, non tender Assessment and Plan Assessment: GERD. We'll perform laparoscopic Kym fundoplication.
[2018-01-25] MEDS ORDERED: SUCCINYLCHOLINE CHLORIDE 100 MG/5 ML SYR IV ONE (08:00)
[2018-01-25] MEDS ORDERED: ALBUTEROL INHALER 60 PUFF/8 GM INHALER INHALATION ONE (08:00)
[2018-01-25] MEDS ORDERED: NEOSTIGMINE 1 MG/ML 10 ML VIAL ONE (08:00)
[2018-01-25] MEDS ORDERED: LIDOCAINE 1% INJ 10MG/ML (20 ML MDV) ONE (08:00)
[2018-01-25] MEDS ORDERED: HYDROmorphone (PF) 1 MG/ML ONE (08:00)
[2018-01-25] MEDS ORDERED: fentaNYL (PF) 50 MCG/ML 2 ML AMP ONE (08:00)
[2018-01-25] MEDS ORDERED: GLYCOPYRROLATE 0.2 MG/ML 2 ML VIAL ONE (08:00)
[2018-01-25] MEDS ORDERED: PROPOFOL 10 MG/ML 20 ML VIAL IV ONE (08:00)
[2018-01-25] MEDS ORDERED: ROCURONIUM BROMIDE 10 MG/ML 10 ML VIAL IV ONE (08:00)
[2018-01-25] MEDS ORDERED: MIDAZOLAM 2 MG/2 ML VIAL ONE (08:00)
[2018-01-25] MEDS ORDERED: BUPIVACAINE (PF) 0.25% 30 ML VIAL SQ ONE (08:39)
[2018-01-25] MEDS ORDERED: ONDANSETRON 4 MG/2 ML VIAL IVP PRN (09:21)
--- NOTE | 2018-01-25 09:24 | P.OP ---
Date of Procedure: 01/25/18 Preoperative Diagnosis: GERD Postoperative Diagnosis: GERD Procedure(s) Performed: Laparoscopic Kym fundoplication Anesthesia: DARIO Surgeon: Paramjit Henry Estimated Blood Loss (ml): 5 Pathology: none sent Condition: stable Disposition: PACU Description of Procedure: The patient was placed on the operating table in the supine position. The patient received general anesthesia. And was placed in dorsal lithotomy position. The patient was prepped and draped in the usual sterile fashion. The skin incision sites were anesthetized with 1% local Xylocaine. The skin was incised in the left periumbilical area and then using a blade less 5 mm trocar under direct visualization panel cavity was entered. After adequate insufflation the laparoscope was then placed into the peritoneal cavity. Next a 5 mm trochars placed in the right epigastric position. Another 5 millimeter trocar the right lateral position. Another 5 millimeter trocar in the left lateral position a 5 mm trocar is placed in the left epigastric position. And then the initial 5 mm trocar was exchanged for a 10 mm trocar. The left lateral lobe liver was retracted. The hernia was seen. The crural defect was then dissected using the Harmonic scissors device. A 360 crural dissection was performed the esophagus stomach was reduced back into the peritoneal Cavity. The crural defect was then closed using 2-0 Ethibond suture. Next the fundus of the stomach was mobilized using the Laura scissors device. and then a 58-Icelandic bougie dilator was placed oropharynx passed into the esophagus and stomach the fundal plication wrap was then performed by grasping the fundus posteriorly and bringing it around the esophagus and stomach fundoplication was then performed using 2-0 Ethibond suture. Care was taken that the fundal location rested over top of the intra-abdominal esophagus. There was no injury seen to the stomach or esophagus. The dilator was then withdrawn. The abdomen was irrigated there is no bleeding seen. The trochars were then withdrawn and then skin incision sites were closed using 3-0 Monocryl suture Steri-Strips are applied. Patient thought procedure well and sent to recovery room in stable condition.
[2018-01-25] MEDS: diphenhydrAMINE 50 MG/ML 1 ML VIAL IVP ONE ×2 (09:35→10:11)
[2018-01-25] MEDS: MEPERIDINE 50 MG/ML SYRINGE IVP ONE ×2 (09:41→09:51)
[2018-01-25] MEDS: fentaNYL (PF) 50 MCG/ML 2 ML AMP IVP ONE ×2 (10:11→10:21)
[2018-01-25] MEDS ORDERED: diphenhydrAMINE 50 MG/ML 1 ML VIAL IVP PRN (10:18)
[2018-01-25] MEDS: MORPHINE SULFATE 4 MG/ML SYRINGE IVP PRN ×3 (12:55→21:03)
[2018-01-25] MEDS: METOCLOPRAMIDE 5 MG/ML 2 ML VIAL IVP SCH ×2 (13:33→19:43)
[2018-01-25] MEDS: D5-0.45% NACL WITH KCL 20MEQ/L 1,000 ML IV SCH ×3 (13:33→21:04)
--- NOTE | 2018-01-25 14:31 | FL ---
EXAMINATION TYPE: FL esophagus cervic/pharynx DATE OF EXAM: 01/25/2018 LIMITED UGI-ESOPHAGRAM: CLINICAL HISTORY: Epigastric pain, reflux-like symptoms, and hiatal hernia status post Varinder fundop lication surgery earlier today per patient. TECHNIQUE: Limited esophagram is performed utilizing 10 oz of contrast possible Gastrografin. A tota l of 19 seconds of fluoroscopic time was utilized during procedure. 15 spot images are saved. FINDINGS: The patient swallowed contrast without difficulty or delay. Esophageal peristalsis and mo tility are within normal limits. There is good flow of contrast along the diaphragmatic hiatus into t he stomach, there is no evidence of contrast extravasation to suggest leak. No persistent hiatal lisa ia is seen. Patient remains asymptomatic. Surgical clips epigastric region are seen. Additional angelina cystectomy clips are noted during performance of study. IMPRESSION: No evidence of leak or significant obstruction status post Varinder fundoplication surgery earlier today.
--- NOTE | 2018-01-25 15:49 | P.CONS ---
History of Present Illness - Reason for Consult Consult date: 01/25/18 Requesting physician: Paramjit Henry - Chief Complaint GERD status post Kym fundoplication - History of Present Illness 37 years old female with past medical history significant for reflux esophagitis status post laparoscopic Kym fundoplication by Dr Henry. H&H significant symptoms including bloating, reflux, dysphagia with no improvement on protonix. Other significant past medical history includes hypothyroidism hyperlipidemia, fibromyalgia, IBS, carpal tunnel, history of pleurodynia with history of multiple tension pneumothorax since patient was 2 years old according to the patient, migraine headaches, history of alcohol abuse, tobacco abuse, bipolar disorder, borderline personality follows Dr. Velasquez at [facility] there has been [facility]. She does have history of attempted suicide with overdose and was admitted last time for jumping out of the truck on an argument with the . She is a current smoker smokes 2 packs a day for the last 20 years. Patient was evaluated postoperatively complains of some chest pressure associated with numbness around her neck since the surgery. She denies any excessive sweating but pain radiating to her arms. Denies dyspnea. Chest x-ray was done which suggested no significant acute abnormality or no sign of pneumothorax. Vitals suggests a pulse rate of 54, respiratory rate 16, blood pressure 117/76 saturating well on room air. No labs to review Review of Systems Constitutional: Denies chills, Denies fever, Denies lethargy, Denies malaise, Denies poor appetite, Denies weakness, Denies weight loss Eyes: denies decreased vision, denies diplopia, denies discharge, denies pain Ears: deny: decreased hearing Ears, nose, mouth and throat: Denies dental pain, Denies headache, Denies nasal discharge, Denies nose pain Cardiovascular: Denies chest pain, Denies decreased exercise tolerance, Denies edema, Denies high blood pressure, Denies irregular heart beat, Denies palpitations, Denies paroxysmal nocturnal dyspnea, Denies rapid heart beat, Denies shortness of breath Respiratory: Denies congestion, Denies cough, Denies cough with sputum, Denies dyspnea, Denies home oxygen, Denies wheezing Gastrointestinal: Endorses abdominal pain, endorses chronic diarrhea Denies change in bowel habits, Denies coffee ground emesis, Denies early satiety, Denies excessive gas, Denies heartburn, Denies hematemesis, Denies hematochezia , Denies loss of appetite, Denies nausea, Denies vomiting Genitourinary: Denies dysuria, Denies flank pain, Denies kidney stones, Denies menorrhagia, Denies urgency, Denies urinary frequency Musculoskeletal: Denies gait dysfunction, Denies limitation of motion, Denies morning stiffness, Denies muscle cramps Integumentary: Denies rash, Denies wounds, Denies brittle nails, Denies change in hair/nails, Denies darkening of skin Neurological: Denies balance difficulties, Denies change in speech, Denies double vision, Denies gait dysfunction, Denies loss of vision, Denies motor disturbance, Denies numbness, Denies paralysis, Denies paresthesias, Denies seizures Psychiatric: Denies anxiety, Denies depression Endocrine: Denies excessive sweating, Denies excessive thirst, Denies high blood sugars, Denies palpitations Hematologic/Lymphatic: Denies easy bruising, Denies lymphadenopathy Past Medical History Past Medical History: Fibromyalgia, GERD/Reflux, Hyperlipidemia, Thyroid Disorder Additional Past Medical History / Comment(s): irritable bowel syndrome, carpal tunnel, arthritis, "eroded espohagus and stomach", etoh abuse , migraine headaches, degenerative disc disease,arthritis, sciatica History of Any Multi-Drug Resistant Organisms: None Reported Past Surgical History: Adenoidectomy, Appendectomy, Cholecystectomy, Tonsillectomy, Tubal Ligation Additional Past Surgical History / Comment(s): d&c x5, exploratory lap, ovarian tumor removed, Kym fundiplacation Past Anesthesia/Blood Transfusion Reactions: Previous Problems w/ Anesthesia Additional Past Anesthesia/Blood Transfusion Reaction / Comm: stated "heart stopped and blood pressure dropped after gall bladder surgery in operating room " Smoking Status: Current every day smoker - Past Family History Father Additional Family Medical History / Comment(s): Father is alive at age 58 with history of generalized anxiety disorder and possible bipolar disorder. Alcohol abuse Mother Additional Family Medical History / Comment(s): Mother is alive at age 58 with history of degenerative disc disease, osteoarthritis, hyperlipidemia, hypertension. Brother(s) Additional Family Medical History / Comment(s): Patient has 2 brothers. One from suicide. One brother has no major medical problems. Patient has 2 sisters but she has no contact with them. Patient has 4 children ages 19, 18, 16, 15. Medications and Allergies Home Medications Medication Instructions Recorded Confirmed Type Albuterol Inhaler [Ventolin Hfa 2 puff INHALATION RT-QID PRN 02/21/17 01/25/18 History Inhaler] Atorvastatin Calcium [Lipitor] 10 mg PO HS 02/21/17 01/25/18 History Tiotropium 18 Mcg/Puff [Spiriva] 1 cap INHALATION RT-DAILY 02/21/17 01/25/18 History Levothyroxine Sodium [Synthroid] 100 mcg PO DAILY@0630 #14 tab 03/08/17 Rx Docusate [Colace] 100 mg PO BID 03/26/17 01/25/18 History Albuterol Nebulized [Ventolin 2.5 mg INHALATION RT-QID PRN 12/21/17 01/25/18 History Nebulized] Baclofen [Lioresal] 10 mg PO BID 12/21/17 01/25/18 History Desvenlafaxine Succinate [Pristiq] 100 mg PO HS 12/21/17 01/25/18 History HYDROcodone/APAP 5-325MG [[place] 1 tab PO BID PRN 12/21/17 01/25/18 History 5-325] Ibuprofen [Motrin] 600 mg PO Q6HR PRN 12/21/17 01/25/18 History Meclizine [Antivert] 25 mg PO BID PRN 12/21/17 01/25/18 History Omeprazole 40 mg PO QAM 12/21/17 01/25/18 History Ziprasidone [Geodon] 80 mg PO BID@1200,2100 12/21/17 01/25/18 History lamoTRIgine [LaMICtal] 200 mg PO BID 12/21/17 01/25/18 History traZODone HCL 300 mg PO HS 12/21/17 01/25/18 History Allergies Allergy/AdvReac Type Severity Reaction Status Date / Time latex Allergy Rash/Hives Verified 01/25/18 06:36 morphine Allergy Severe Verified 01/25/18 06:36 Itching propoxyphene Allergy Nausea & Verified 01/25/18 06:36 [From Darvocet-N] Vomiting tramadol [From Ultram] Allergy Itching Verified 01/25/18 06:36 hydromorphone [From Dilaudid] AdvReac Itching Verified 01/25/18 06:36 Physical Exam Vitals: Vital Signs Temp Pulse Pulse Pulse Resp BP BP 01/25/18 13:31 51 L 16 112/74 01/25/18 12:30 61 18 120/67 01/25/18 12:00 55 L 16 116/72 01/25/18 11:30 64 16 113/85 01/25/18 11:15 54 L 16 117/76 01/25/18 10:55 62 16 119/78 01/25/18 10:40 97 F L 53 L 16 121/73 01/25/18 10:25 56 L 16 125/72 01/25/18 10:10 59 L 16 139/77 01/25/18 09:55 56 L 16 127/74 01/25/18 09:40 56 L 16 130/66 01/25/18 09:26 97 F L 81 16 126/77 01/25/18 06:48 97.5 F L 79 16 126/80 Pulse Ox 01/25/18 13:31 95 01/25/18 12:30 99 01/25/18 12:00 99 01/25/18 11:30 99 01/25/18 11:15 100 01/25/18 10:55 100 01/25/18 10:40 100 01/25/18 10:25 97 01/25/18 10:10 97 01/25/18 09:55 98 01/25/18 09:40 97 01/25/18 09:26 99 01/25/18 06:48 99 Intake and Output 01/25/18 01/25/18 01/25/18 06:59 14:59 22:59 Intake Total 1200 Output Total 10 Balance 1190 Intake: IV 1200 Output: Estimated Blood Loss 10 Other: # Voids 4 Weight 70.307 kg - Constitutional General appearance: cooperative, mild acute distress, thin-appearing - EENT Eyes: anicteric sclerae, PERRLA, normal appearance ENT: hearing grossly normal - Neck Neck: no lymphadenopathy, normal ROM, no other, no rigidity, no stridor, no thyromegaly - Respiratory Respiratory: bilateral: CTA, negative: diminished, dullness, rales, rhonchi - Cardiovascular Rhythm: regular Heart sounds: normal: S1, S2 Abnormal Heart Sounds: no systolic murmur, no diastolic murmur, no rub, no S3 Gallop, no S4 Gallop, no click, no other - Gastrointestinal General gastrointestinal: normal bowel sounds, soft, diffusely tender around the incision site for the laparoscope - Integumentary Integumentary: no rash - Neurologic Neurologic: CNII-XII intact - Musculoskeletal Musculoskeletal: strength equal bilaterally - Psychiatric Psychiatric: A&O x's 3, appropriate affect Assessment and Plan Plan: 1. GERD status post Kym fundoplication postoperative day 0. Management per primary team. Incentive spirometry for pulmonary hygiene 2. Chest heaviness with some numbness around the neck. Likely secondary to postoperative state. Chest x-ray negative for any pneumothorax. Atypical for coronary disease. EKG ordered. TSH ordered. Troponin every 6. If chest heaviness persist will repeat chest x-ray next morning as patient states she has history of tension pneumothorax. 3 Depression with history of bipolar disorder and borderline personality disorder. stable. 4. Marijuana use. Medical marijuana certification for chronic nausea and back pain 5. Tobacco use and dependence. Continue nicotine patch. 6. Fibromyalgia, stable. 7. Irritable bowel syndrome, stable. 8. History of alcohol abuse, sober 5 years. 9. Hyperlipidemia. Continue Lipitor. 10. Degenerative disc disease and chronic back pain. Continue Zanaflex. 11. Hypothyroidism. Continue Synthroid 100 mcg. TSH ordered 12 CODE STATUS full code 13 DVT prophylaxis with heparin. 12
[2018-01-25] MEDS: ACETAMINOPHEN TAB 325 MG TAB PO PRN (18:20)
[2018-01-25] MEDS: lamoTRIgine 100 MG TAB PO SCH (20:56)
[2018-01-25] MEDS: BACLOFEN 10 MG TAB PO SCH (20:56)
[2018-01-25] MEDS: FAMOTIDINE 20 MG/2 ML VIAL IV SCH (20:58)
[2018-01-25] MEDS ORDERED: ATORVASTATIN 10 MG TAB PO SCH (21:00)
[2018-01-25] MEDS ORDERED: DESVENLAFAXINE SUCCINATE 50 MG TAB.ER.24H PO SCH (21:00)
[2018-01-25] MEDS ORDERED: traZODone HCL 100 MG TAB PO SCH (21:00)
[2018-01-26] MEDS: MORPHINE SULFATE 4 MG/ML SYRINGE IVP PRN ×3 (01:01→09:59)
[2018-01-26] MEDS: METOCLOPRAMIDE 5 MG/ML 2 ML VIAL IVP SCH ×3 (01:02→13:08)
[2018-01-26] MEDS: ACETAMINOPHEN TAB 325 MG TAB PO PRN ×2 (03:39→12:17)
[2018-01-26] MEDS ORDERED: LEVOTHYROXINE 100 MCG TAB PO SCH (06:30)
[2018-01-26] MEDS: lamoTRIgine 100 MG TAB PO SCH (08:57)
[2018-01-26] MEDS: FAMOTIDINE 20 MG/2 ML VIAL IV SCH (08:57)
[2018-01-26] MEDS: BACLOFEN 10 MG TAB PO SCH (08:57)
[2018-01-26] MEDS ORDERED: ENOXAPARIN 40 MG/0.4 ML SYRINGE SQ SCH (09:00)
[2018-01-26] MEDS ORDERED: NICOTINE 21MG/24HR PATCH TRANSDERM SCH (09:00)
[2018-01-26 09:25] VITALS: BP 115/66; PULSE 59; RESP 17; TEMP 97.4
--- NOTE | 2018-01-26 10:55 | P.DS ---
Providers Expected date of discharge: 01/26/18 Attending physician: Paramjit Henry Consults: 01/25/18 09:21 Consult Physician Routine Consulting Provider: Douglas Perez Consult Reason/Comments: Medical management Do you want consulting provider notified?: Yes Primary care physician: [facility] Course: 7-year-old female presented to undergo a laparoscopic Kym fundoplication for long-standing problems with reflux esophagitis. Patient underwent a recent EGD showed evidence of esophagitis. Patient underwent the procedure on January 25 the upper GI showed no evidence of a leak or significant obstruction post procedure. Patient was tolerating the full liquid diet was felt to be appropriate to be discharged home Impression discharge diagnosis Status post January 25 laparoscopic Kym fundoplication for symptomatic reflux esophagitis Depressive disorder nonspecified fibromyalgia Chronic tobacco use dependency Chronic back pain with opiate dependency History of alcoholism sober 5 years Irritable bowel syndrome stable Hyperlipidemia The above impression and plan of care have been discussed and directed by signing physician. Lucina Hernandez nurse practitioner acting as scribe for signing physician. Plan - Discharge Summary Discharge Rx Participant: No New Discharge Prescriptions: New Acetaminophen Tab [Tylenol] 650 mg PO Q6HR PRN tab PRN Reason: Fever And/ Or Pain Continue Atorvastatin Calcium [Lipitor] 10 mg PO HS Tiotropium 18 Mcg/Puff [Spiriva] 1 cap INHALATION RT-DAILY Albuterol Inhaler [Ventolin Hfa Inhaler] 2 puff INHALATION RT-QID PRN PRN Reason: Shortness Of Breath Levothyroxine Sodium [Synthroid] 100 mcg PO DAILY@0630 #14 tab Docusate [Colace] 100 mg PO BID Omeprazole 40 mg PO QAM Ibuprofen [Motrin] 600 mg PO Q6HR PRN PRN Reason: Pain HYDROcodone/APAP 5-325MG [[place] 5-325] 1 tab PO BID PRN PRN Reason: Pain Meclizine [Antivert] 25 mg PO BID PRN PRN Reason: DIZZINESS Baclofen [Lioresal] 10 mg PO BID Albuterol Nebulized [Ventolin Nebulized] 2.5 mg INHALATION RT-QID PRN PRN Reason: Shortness Of Breath traZODone HCL 300 mg PO HS lamoTRIgine [LaMICtal] 200 mg PO BID Desvenlafaxine Succinate [Pristiq] 100 mg PO HS Ziprasidone [Geodon] 80 mg PO BID@1200,2100 Discharge Medication List Albuterol Inhaler [Ventolin Hfa Inhaler] 2 puff INHALATION RT-QID PRN 02/21/17 [ History] Atorvastatin Calcium [Lipitor] 10 mg PO HS 02/21/17 [History] Tiotropium 18 Mcg/Puff [Spiriva] 1 cap INHALATION RT-DAILY 02/21/17 [History] Levothyroxine Sodium [Synthroid] 100 mcg PO DAILY@0630 #14 tab 03/08/17 [Rx] Docusate [Colace] 100 mg PO BID 03/26/17 [History] Albuterol Nebulized [Ventolin Nebulized] 2.5 mg INHALATION RT-QID PRN 12/21/17 [ History] Baclofen [Lioresal] 10 mg PO BID 12/21/17 [History] Desvenlafaxine Succinate [Pristiq] 100 mg PO HS 12/21/17 [History] HYDROcodone/APAP 5-325MG [[place] 5-325] 1 tab PO BID PRN 12/21/17 [History] Ibuprofen [Motrin] 600 mg PO Q6HR PRN 12/21/17 [History] Meclizine [Antivert] 25 mg PO BID PRN 12/21/17 [History] Omeprazole 40 mg PO QAM 12/21/17 [History] Ziprasidone [Geodon] 80 mg PO BID@1200,2100 12/21/17 [History] lamoTRIgine [LaMICtal] 200 mg PO BID 12/21/17 [History] traZODone HCL 300 mg PO HS 12/21/17 [History] Acetaminophen Tab [Tylenol] 650 mg PO Q6HR PRN tab 01/26/18 [Rx] Follow up Appointment(s)/Referral(s): Paramjit Henry MD [STAFF PHYSICIAN] - 2 Weeks Activity/Diet/Wound Care/Special Instructions: No tub bath for six weeks. Shower daily. No lifting over 10 pounds for the next 2-3 weeks. Do not remove the plastic dressings from surgical site May use ice packs to surgical site. No driving while taking narcotic for pain. Stay on full liquid diet for 2 weeks until seen in the follow-up surgical office visit Patient has been advised to stop smoking cigarettes Discharge Disposition: HOME SELF-CARE
== END 2018-01-26 14:01 | disposition home or self-care (01) ==
LOC: OR 06:15 → 6PED 09:23 → OR 01-26 14:01
PROVIDERS: ATTEND Surgery
DX: K21.0 Gastro-esophageal reflux disease with esophagitis (principal); R00.1 Bradycardia, unspecified; R07.89 Other chest pain; R20.0 Anesthesia of skin; F31.9 Bipolar disorder, unspecified; F60.3 Borderline personality disorder; M54.9 Dorsalgia, unspecified; G89.29 Other chronic pain; R11.0 Nausea; M79.7 Fibromyalgia; K58.0 Irritable bowel syndrome with diarrhea; E78.5 Hyperlipidemia, unspecified; M19.90 Unspecified osteoarthritis, unspecified site; E03.9 Hypothyroidism, unspecified; G43.909 Migraine, unspecified, not intractable, without status migrainosus; M54.30 Sciatica, unspecified side; F12.90 Cannabis use, unspecified, uncomplicated; F17.210 Nicotine dependence, cigarettes, uncomplicated; F10.21 Alcohol dependence, in remission; Z79.890 Hormone replacement therapy; Z79.899 Other long term (current) drug therapy; Z88.5 Allergy status to narcotic agent; Z91.040 Latex allergy status; Z91.5 Personal history of self-harm; Z98.51 Tubal ligation status
CPT/HCPCS: 93005; 81025; 74210; 43280; J2250; J2270 ×2; J1200; J1644; J2710; J2765 ×2; J2175; J2405; J2001; J1650; J3010; J1170; J1100; J0330; J2704; J0690; Q9967

== ENCOUNTER 2018-02-02 16:26 | Emergency (ER) | payer MEDICARE, OTHER ==
[2018-02-02] MEDS ORDERED: SODIUM CHLORIDE 0.9% 1,000 ML IV STA ×2 (17:25)
[2018-02-02] MEDS ORDERED: MORPHINE SULFATE 4 MG/ML SYRINGE IVP ONE (18:04)
[2018-02-02] MEDS ORDERED: RX INFO: IV CONTRAST WAS GIVEN 1 EACH MISC MISCELLANE PRN (18:04)
[2018-02-02] MEDS ORDERED: ONDANSETRON 4 MG/2 ML VIAL IVP STA (18:04)
--- NOTE | 2018-02-02 18:10 | ED ---
Nausea/Vomiting/Diarrhea HPI - General Chief complaint: Nausea/Vomiting/Diarrhea Stated complaint: POST OP COMPLICATIONS Time Seen by Provider: 02/02/18 17:08 Source: patient, RN notes reviewed, old records reviewed Mode of arrival: ambulatory Limitations: no limitations - History of Present Illness Initial comments: Patient's 37-year-old female presents emergency Department chief complaint of epigastric abdominal pain. Patient reports that she had an Kym fundoplication by a few days ago. She also reports that she's been doing things such as lifting and bending over that she should not have been doing since her surgery. Patient states she's had soft stools. She's had a few episodes of vomiting. She is concerned that she may have irritated some of the internal suture sites. Patient states that she had no bloody stools no bloody emesis. She reports that the pain is mainly in epigastric region. Her incision sites have been closer no drainage. - Related Data Home Medications Medication Instructions Recorded Confirmed Albuterol Inhaler [Ventolin Hfa 2 puff INHALATION RT-QID PRN 02/21/17 02/02/18 Inhaler] Atorvastatin Calcium [Lipitor] 10 mg PO HS 02/21/17 02/02/18 Docusate [Colace] 100 mg PO BID 03/26/17 02/02/18 Albuterol Nebulized [Ventolin 2.5 mg INHALATION RT-QID PRN 12/21/17 02/02/18 Nebulized] Baclofen [Lioresal] 10 mg PO BID 12/21/17 02/02/18 Desvenlafaxine Succinate [Pristiq] 100 mg PO HS 12/21/17 02/02/18 HYDROcodone/APAP 5-325MG [[place] 1 tab PO TID PRN 12/21/17 02/02/18 5-325] Ibuprofen [Motrin] 600 mg PO Q6HR PRN 12/21/17 02/02/18 Meclizine [Antivert] 25 mg PO BID PRN 12/21/17 02/02/18 Omeprazole 40 mg PO QAM 12/21/17 02/02/18 Ziprasidone [Geodon] 80 mg PO BID@1200,2100 12/21/17 02/02/18 lamoTRIgine [LaMICtal] 200 mg PO BID 12/21/17 02/02/18 traZODone HCL 300 mg PO HS 12/21/17 02/02/18 Previous Rx's Medication Instructions Recorded Levothyroxine Sodium [Synthroid] 100 mcg PO DAILY@0630 #14 tab 03/08/17 Acetaminophen Tab [Tylenol] 650 mg PO Q6HR PRN tab 01/26/18 Ensure Complete 1 can PO TID BETWEEN MEALS #18 can 01/26/18 Famotidine [Pepcid] 20 mg PO DAILY #20 tablet 02/02/18 Ondansetron Odt [Zofran Odt] 4 mg PO Q8HR PRN #20 tab 02/02/18 Allergies Allergy/AdvReac Type Severity Reaction Status Date / Time latex Allergy Rash/Hives Verified 02/02/18 17:32 propoxyphene Allergy Nausea & Verified 02/02/18 17:32 [From Darvocet-N] Vomiting tramadol [From Ultram] Allergy Itching Verified 02/02/18 17:32 hydromorphone [From Dilaudid] AdvReac Itching Verified 02/02/18 17:32 Review of Systems ROS Statement: Those systems with pertinent positive or pertinent negative responses have been documented in the HPI. ROS Other: All systems not noted in ROS Statement are negative. Past Medical History Past Medical History: Fibromyalgia, GERD/Reflux, Hyperlipidemia, Thyroid Disorder Additional Past Medical History / Comment(s): irritable bowel syndrome, carpal tunnel, arthritis, "eroded espohagus and stomach", etoh abuse , migraine headaches, degenerative disc disease,arthritis, sciatica History of Any Multi-Drug Resistant Organisms: None Reported Past Surgical History: Adenoidectomy, Appendectomy, Cholecystectomy, Hernia Repair, Tonsillectomy, Tubal Ligation Additional Past Surgical History / Comment(s): d&c x5, exploratory lap, ovarian tumor removed, Kym fundiplacation Past Anesthesia/Blood Transfusion Reactions: Previous Problems w/ Anesthesia Additional Past Anesthesia/Blood Transfusion Reaction / Comment(s): stated "heart stopped and blood pressure dropped after gall bladder surgery in operating room" Past Psychological History: ADD/ADHD, Anxiety, Bipolar, Depression, PTSD Smoking Status: Former smoker Past Alcohol Use History: None Reported Past Drug Use History: None Reported - Past Family History Father Additional Family Medical History / Comment(s): Father is alive at age 58 with history of generalized anxiety disorder and possible bipolar disorder. Alcohol abuse Mother Additional Family Medical History / Comment(s): Mother is alive at age 58 with history of degenerative disc disease, osteoarthritis, hyperlipidemia, hypertension. Brother(s) Additional Family Medical History / Comment(s): Patient has 2 brothers. One from suicide. One brother has no major medical problems. Patient has 2 sisters but she has no contact with them. Patient has 4 children ages 19, 18, 16, 15. General Exam - General Exam Comments Initial Comments: 37-year-old female. Alert and oriented. No acute distress. Limitations: no limitations General appearance: alert, in no apparent distress Head exam: Present: atraumatic, normocephalic, normal inspection Eye exam: Present: normal appearance, PERRL, EOMI. Absent: scleral icterus, conjunctival injection, periorbital swelling ENT exam: Present: normal exam, mucous membranes moist Neck exam: Present: normal inspection. Absent: tenderness, meningismus, lymphadenopathy Respiratory exam: Present: normal lung sounds bilaterally. Absent: respiratory distress, wheezes, rales, rhonchi, stridor Cardiovascular Exam: Present: regular rate, normal rhythm, normal heart sounds. Absent: systolic murmur, diastolic murmur, rubs, gallop, clicks GI/Abdominal exam: Present: soft, tenderness (epigastric, well appearing incision sites), normal bowel sounds. Absent: distended, guarding, rebound, rigid Extremities exam: Present: normal inspection, full ROM, normal capillary refill. Absent: tenderness, pedal edema, joint swelling, calf tenderness Back exam: Present: normal inspection Neurological exam: Present: alert, oriented X3, CN II-XII intact Course Vital Signs 02/02/18 02/02/18 16:45 18:29 Temperature 98.3 F Pulse Rate 63 61 Respiratory 18 18 Rate Blood Pressure 106/68 101/54 O2 Sat by Pulse 99 99 Oximetry - Reevaluation(s) Reevaluation #1: 02/02/18 20:09 Dr. Hager discussed the case with patient's surgeon, Dr. Henry. He wants the Patient on a clear liquid diet Pepcid and Zofran. I informed the Patient the results. Patient agrees. Medical Decision Making - Lab Data Result diagrams: 02/02/18 18:01 02/02/18 18:01 Lab Results 02/02/18 02/02/18 02/02/18 Range/Units 18:01 18:01 18:01 WBC 8.4 (3.8-10.6) k/uL RBC 4.28 (3.80-5.40) m/uL Hgb 12.7 (11.4-16.0) gm/dL Hct 37.4 (34.0-46.0) % MCV 87.2 (80.0-100.0) fL MCH 29.7 (25.0-35.0) pg MCHC 34.0 (31.0-37.0) g/dL RDW 13.6 (11.5-15.5) % Plt Count 275 (150-450) k/uL Neutrophils % 56 % Lymphocytes % 34 % Monocytes % 7 % Eosinophils % 0 % Basophils % 0 % Neutrophils # 4.7 (1.3-7.7) k/uL Lymphocytes # 2.9 (1.0-4.8) k/uL Monocytes # 0.6 (0-1.0) k/uL Eosinophils # 0.0 (0-0.7) k/uL Basophils # 0.0 (0-0.2) k/uL Sodium 141 (137-145) mmol/L Potassium 4.1 (3.5-5.1) mmol/L Chloride 101 (98-107) mmol/L Carbon Dioxide 27 (22-30) mmol/L Anion Gap 13 mmol/L BUN 11 (7-17) mg/dL Creatinine 0.80 (0.52-1.04) mg/dL Est GFR (CKD-EPI)AfAm >90 (>60 ml/min/1.73 sqM) Est GFR (CKD-EPI)NonAf >90 (>60 ml/min/1.73 sqM) Glucose 81 (74-99) mg/dL Calcium 9.7 (8.4-10.2) mg/dL Total Bilirubin 0.2 (0.2-1.3) mg/dL AST 29 (14-36) U/L ALT 33 (9-52) U/L Alkaline Phosphatase 89 (38-126) U/L Total Protein 6.8 (6.3-8.2) g/dL Albumin 4.2 (3.5-5.0) g/dL Amylase 80 (30-110) U/L Lipase 177 (23-300) U/L Urine Color Yellow Urine Appearance Clear (Clear) Urine pH 6.5 (5.0-8.0) Ur Specific [place] 1.011 (1.001-1.035) Urine Protein Negative (Negative) Urine Glucose (UA) Negative (Negative) Urine Ketones Trace H (Negative) Urine Blood Negative (Negative) Urine Nitrite Negative (Negative) Urine Bilirubin Negative (Negative) Urine Urobilinogen <2.0 (<2.0) mg/dL Ur Leukocyte Esterase Negative (Negative) - Radiology Data Radiology results: report reviewed CT shows small amount of. Diana related to recent surgery. Homans of any acute process. Disposition Clinical Impression: Nausea & vomiting, History of recent surgery Disposition: HOME SELF-CARE Condition: Good Instructions: Acute Nausea and Vomiting (ED) Additional Instructions: Patient has a follow-up with Dr. Stevenson at scheduled appointment. Use the medications as prescribed. Patient needs to have a clear liquid diet. Return to the emergency department if any alarming signs or symptoms occur. Prescriptions: Famotidine [Pepcid] 20 mg PO DAILY #20 tablet Ondansetron Odt [Zofran Odt] 4 mg PO Q8HR PRN #20 tab PRN Reason: Nausea Is patient prescribed a controlled substance at d/c from ED?: No When asked, does pt state using other controlled substances?: No If prescribed controlled substance>3 days was MAPS reviewed?: No If opioid is for acute pain is fill amount 7 days or less?: No If Rx opioid, was Start Talking consent form obtained?: No Referrals: Elias Bergeron MD [Primary Care Provider] - 1-2 days Time of Disposition: 20:10
[2018-02-02 18:18] LABS: Basophils % (A) 0 %; Eosinophils % (A) 0 %; HCT 37.4 % (34.0-46.0); HGB 12.7 gm/dL (11.4-16.0); Lymphocytes # (A) 2.9 k/uL (1.0-4.8); Lymphocytes % (A) 34 %; MCH 29.7 pg (25.0-35.0); MCV 87.2 fL (80.0-100.0); Mean Platelet Volume 7.3; Monocytes # (A) 0.6 k/uL (0-1.0); Monocytes % (A) 7 %; Neutrophils # (A) 4.7 k/uL (1.3-7.7); Neutrophils % (A) 56 %; Platelet Count 275 k/uL (150-450); RBC 4.28 m/uL (3.80-5.40); RDW 13.6 % (11.5-15.5); WBC 8.4 k/uL (3.8-10.6)
[2018-02-02 18:29] LABS: ALT 33 U/L (9-52); AST 29 U/L (14-36); Albumin 4.2 g/dL (3.5-5.0); Alkaline Phosphatase 89 U/L (38-126); Amylase 80 U/L (30-110); Anion Gap 13 mmol/L; Blood Urea Nitrogen 11 mg/dL (7-17); Calcium 9.7 mg/dL (8.4-10.2); Carbon Dioxide 27 mmol/L (22-30); Chloride 101 mmol/L (98-107); Glucose 81 mg/dL (74-99); Lipase 177 U/L (23-300); Potassium 4.1 mmol/L (3.5-5.1); Sodium 141 mmol/L (137-145); Total Bilirubin 0.2 mg/dL (0.2-1.3); Total Protein 6.8 g/dL (6.3-8.2)
[2018-02-02 18:44] LABS: Appearance,Urine Clear (Clear); Bilirubin,Urine Negative (Negative); Blood,Urine Negative (Negative); Color,Urine Yellow; Glucose,Urine (UA) Negative (Negative); Ketones,Urine Trace (Negative); Leukocyte Esterase,Urine Negative (Negative); Nitrite,Urine Negative (Negative); PH, Urine 6.5 (5.0-8.0); Protein,Urine Negative (Negative); Specific Gravity,Urine 1.011 (1.001-1.035); Urobilinogen,Urine <2.0 mg/dL (<2.0)
--- NOTE | 2018-02-02 19:26 | CT ---
EXAMINATION TYPE: CT abdomen pelvis w con DATE OF EXAM: 02/02/2018 COMPARISON: 06/02/2012 HISTORY: Upper Abdominal pain with nausea and vomiting. Post op Varinder [address] DLP: 1178 mGycm Automated exposure control for dose reduction was used. TECHNIQUE: Helical acquisition of images was performed from the lung bases through the pelvis. CONTRAST: Performed without Oral Contrast and with IV Contrast, patient injected with 100 mL of Isovue 300. FINDINGS: Lung bases are clear. There is no pleural effusion. Heart size is normal. There are surgical clips at the gastroesophageal junction. Liver spleen pancreas appear normal. There are clips from cholecystectomy. Bile ducts are not dilated . There is no adrenal mass. Kidneys show satisfactory contrast opacification. There is no hydronephro sis. There is no retroperitoneal adenopathy. There is a small pneumoperitoneum with air anterior to t he left lobe of the liver. There is mild free fluid in the pelvis. I see no sign of a bowel obstruction. There is no intestinal wall thickening. Uterus is anteverted. B ladder distends smoothly. I see no bony destructive process. Appendix is not seen. There are clips at the cecum.. IMPRESSION: TINY PNEUMOPERITONEUM CONSISTENT WITH RECENT SURGERY. MILD FREE FLUID IN THE PELVIS.
[2018-02-02 20:13] VITALS: BP 122/65; PULSE 69; RESP 16; TEMP 98.1
== END 2018-02-02 20:23 | disposition home or self-care (01) ==
LOC: EC 16:26
DX: R11.2 Nausea with vomiting, unspecified (principal); R10.13 Epigastric pain; K21.9 Gastro-esophageal reflux disease without esophagitis; E78.5 Hyperlipidemia, unspecified; F41.9 Anxiety disorder, unspecified; F31.9 Bipolar disorder, unspecified; Z87.891 Personal history of nicotine dependence; Z79.899 Other long term (current) drug therapy; Z88.5 Allergy status to narcotic agent; Z91.040 Latex allergy status; Z90.49 Acquired absence of other specified parts of digestive tract; Z98.890 Other specified postprocedural states
CPT/HCPCS: 36415; 80053; 82150; 83690; 85025; 81003; 74177; 99284; 96374; 96375; 96361; J2270; J2405; Q9967

== ENCOUNTER 2018-05-23 16:15 | Emergency (ER) | payer MEDICARE, OTHER ==
--- NOTE | 2018-05-23 16:27 | ED ---
General Adult HPI - General Stated complaint: Petition Time Seen by Provider: 05/23/18 16:18 Source: patient, police, RN notes reviewed Limitations: no limitations - History of Present Illness Initial comments: Patient is a pleasant 37-year-old female presenting to the emergency Department with depression and suicidal thoughts. Onset of symptoms was 7-10 days ago. Patient does have problems with her and recent separation. Patient does have thoughts of cutting herself. Patient does have a history of cutting herself in the past. Patient has a history of auditory hallucinations however none at this time. No homicidal thoughts. No alcohol use. Patient does use medical marijuana and takes [place] was as prescribed. Otherwise no street drugs. No physical complaints at this time. - Related Data Home Medications Medication Instructions Recorded Confirmed Albuterol Inhaler [Ventolin Hfa 2 puff INHALATION RT-QID PRN 02/21/17 05/23/18 Inhaler] Atorvastatin Calcium [Lipitor] 10 mg PO DAILY 02/21/17 05/23/18 Docusate [Colace] 100 mg PO BID 03/26/17 05/23/18 Albuterol Nebulized [Ventolin 2.5 mg INHALATION RT-QID PRN 12/21/17 05/23/18 Nebulized] Baclofen [Lioresal] 10 mg PO BID 12/21/17 05/23/18 Desvenlafaxine Succinate [Pristiq] 100 mg PO HS 12/21/17 05/23/18 HYDROcodone/APAP 5-325MG [[place] 1 tab PO BID PRN 12/21/17 05/23/18 5-325] Ziprasidone [Geodon] 80 mg PO BID 12/21/17 05/23/18 lamoTRIgine [LaMICtal] 200 mg PO BID 12/21/17 05/23/18 traZODone HCL 300 mg PO HS 12/21/17 05/23/18 Fluticasone Nasal [place] [Flonase 1 - 2 sprays EA NOSTRIL BID PRN 05/23/18 Nasal [place]] Levothyroxine Sodium [Synthroid] 100 mcg PO DAILY 05/23/18 05/23/18 Tiotropium Br/Olodaterol HCl 2 puff INHALATION RT-DAILY 05/23/18 05/23/18 [Stiolto Respimat Inhal [place]] Topiramate [Trokendi Xr] 100 mg PO DAILY 05/23/18 05/23/18 Allergies Allergy/AdvReac Type Severity Reaction Status Date / Time latex Allergy Rash/Hives Verified 02/02/18 17:32 propoxyphene Allergy Nausea & Verified 02/02/18 17:32 [From Darvocet-N] Vomiting tramadol [From Ultram] Allergy Itching Verified 02/02/18 17:32 hydromorphone [From Dilaudid] AdvReac Itching Verified 02/02/18 17:32 Review of Systems ROS Statement: Those systems with pertinent positive or pertinent negative responses have been documented in the HPI. ROS Other: All systems not noted in ROS Statement are negative. Constitutional: Denies: fever Eyes: Denies: eye pain ENT: Denies: ear pain Respiratory: Denies: cough Cardiovascular: Denies: chest pain Endocrine: Denies: fatigue Gastrointestinal: Denies: abdominal pain Genitourinary: Denies: dysuria Musculoskeletal: Denies: back pain Skin: Denies: rash Neurological: Denies: weakness Psychiatric: Reports: depression, suicidal thoughts Past Medical History Past Medical History: Fibromyalgia, GERD/Reflux, Hyperlipidemia, Thyroid Disorder Additional Past Medical History / Comment(s): irritable bowel syndrome, carpal tunnel, arthritis, "eroded espohagus and stomach", etoh abuse , migraine headaches, degenerative disc disease,arthritis, sciatica History of Any Multi-Drug Resistant Organisms: None Reported Past Surgical History: Adenoidectomy, Appendectomy, Cholecystectomy, Hernia Repair, Tonsillectomy, Tubal Ligation Additional Past Surgical History / Comment(s): d&c x5, exploratory lap, ovarian tumor removed, Kym fundiplacation Past Anesthesia/Blood Transfusion Reactions: Previous Problems w/ Anesthesia Additional Past Anesthesia/Blood Transfusion Reaction / Comment(s): stated "heart stopped and blood pressure dropped after gall bladder surgery in operating room" Past Psychological History: ADD/ADHD, Anxiety, Bipolar, Depression, PTSD Smoking Status: Former smoker Past Alcohol Use History: None Reported Past Drug Use History: None Reported - Past Family History Father Additional Family Medical History / Comment(s): Father is alive at age 58 with history of generalized anxiety disorder and possible bipolar disorder. Alcohol abuse Mother Additional Family Medical History / Comment(s): Mother is alive at age 58 with history of degenerative disc disease, osteoarthritis, hyperlipidemia, hypertension. Brother(s) Additional Family Medical History / Comment(s): Patient has 2 brothers. One from suicide. One brother has no major medical problems. Patient has 2 sisters but she has no contact with them. Patient has 4 children ages 19, 18, 16, 15. General Exam Limitations: no limitations General appearance: alert, in no apparent distress Head exam: Present: atraumatic Eye exam: Present: normal appearance, PERRL ENT exam: Present: normal oropharynx Neck exam: Present: normal inspection Respiratory exam: Present: normal lung sounds bilaterally Cardiovascular Exam: Present: regular rate, normal rhythm GI/Abdominal exam: Present: soft. Absent: tenderness Extremities exam: Present: normal inspection Neurological exam: Present: alert Psychiatric exam: Present: depressed, flat affect Skin exam: Present: normal color Course Vital Signs 05/23/18 16:26 Temperature 98.7 F Pulse Rate 79 Respiratory 16 Rate Blood Pressure 115/77 O2 Sat by Pulse 100 Oximetry Medical Decision Making - Medical Decision Making Patient was seen by mental health services who recommends discharge and follow- up. Patient denies suicidal ideation and does contract for safety. Patient agrees to follow-up. Patient does have established follow up with [facility]. - Lab Data Lab Results 05/23/18 Range/Units 17:43 Urine Opiates Screen Detected H (NotDetected) Ur Oxycodone Screen Not Detected (NotDetected) Urine Methadone Screen Not Detected (NotDetected) Ur Propoxyphene Screen Not Detected (NotDetected) Ur Barbiturates Screen Not Detected (NotDetected) U Tricyclic Antidepress Not Detected (NotDetected) Ur Phencyclidine Scrn Not Detected (NotDetected) Ur Amphetamines Screen Not Detected (NotDetected) U Methamphetamines Scrn Not Detected (NotDetected) U Benzodiazepines Scrn Not Detected (NotDetected) Urine Cocaine Screen Not Detected (NotDetected) U Marijuana (THC) Screen Detected H (NotDetected) Disposition Clinical Impression: Depression Disposition: HOME SELF-CARE Condition: Stable Instructions: Depression (ED) Additional Instructions: Please follow-up with [facility] and your primary care physician in the next day or 2 for recheck. Return for thoughts of self-harm, thoughts of hurting others, worsening symptoms or other concerns. Is patient prescribed a controlled substance at d/c from ED?: No Referrals: Elias Bergeron MD [Primary Care Provider] - 1-2 days Time of Disposition: 20:20
[2018-05-23 18:12] LABS: Amphetamine Screen,Urine Not Detected (NotDetected); Barbiturate Screen,Urine Not Detected (NotDetected); Benzodiazepines Screen,Urine Not Detected (NotDetected); Cocaine Screen,Urine Not Detected (NotDetected); Methadone Screen, Urine Not Detected (NotDetected); Opiate Screen,Urine Detected (NotDetected); Oxycodone Screen, Urine Not Detected (NotDetected); Phencyclidine Screen,Urine Not Detected (NotDetected); Tricyclic Antidepressant,Urine Not Detected (NotDetected); Urn Cannabinoid Scrn Detected (NotDetected)
[2018-05-23 20:24] VITALS: BP 110/80; PULSE 89; RESP 18; TEMP 98.5
== END 2018-05-23 20:28 | disposition home or self-care (01) ==
LOC: EC 16:15
DX: F31.9 Bipolar disorder, unspecified (principal); F41.9 Anxiety disorder, unspecified; F90.9 Attention-deficit hyperactivity disorder, unspecified type; E78.5 Hyperlipidemia, unspecified; F43.10 Post-traumatic stress disorder, unspecified; Z79.899 Other long term (current) drug therapy; Z79.51 Long term (current) use of inhaled steroids; Z91.040 Latex allergy status; Z88.5 Allergy status to narcotic agent; Z88.6 Allergy status to analgesic agent; Z87.891 Personal history of nicotine dependence
CPT/HCPCS: 80306; 82075; 99284

== ENCOUNTER 2018-06-09 06:51 | Inpatient (IN) | payer MEDICARE, MEDICAID ==
[2018-06-09] MEDS ORDERED: LORazepam 2 MG/ML INJ IV STA (06:56)
--- NOTE | 2018-06-09 07:32 | ED ---
General Adult HPI - General Chief complaint: Psychiatric Symptoms Stated complaint: Mental Health Time Seen by Provider: 06/09/18 07:08 Source: patient, EMS, RN notes reviewed Mode of arrival: EMS Limitations: no limitations - History of Present Illness Initial comments: Patient is a pleasant 37-year-old female presenting to the emergency Department depression and suicidal thoughts. Patient has been having issues for several weeks now. Patient was in the hospital a week or 2 ago with similar problems. Patient did cut her left wrist with a [employer] knife. Unclear last tetanus immunization. Patient does have continued thoughts of self-harm. Patient took approximately 10 of her Fioricet. This was approximate one hour ago. No physical complaints other than wrist injury. No homicidal thoughts. No hallucinations. No street drug use. Patient denies alcohol use. - Related Data Home Medications Medication Instructions Recorded Confirmed Albuterol Inhaler [Ventolin Hfa 2 puff INHALATION RT-QID PRN 02/21/17 06/09/18 Inhaler] Atorvastatin Calcium [Lipitor] 10 mg PO DAILY 02/21/17 06/09/18 Docusate [Colace] 100 mg PO BID 03/26/17 06/09/18 Albuterol Nebulized [Ventolin 2.5 mg INHALATION RT-QID PRN 12/21/17 06/09/18 Nebulized] Baclofen [Lioresal] 10 mg PO BID 12/21/17 06/09/18 Desvenlafaxine Succinate [Pristiq] 100 mg PO HS 12/21/17 06/09/18 HYDROcodone/APAP 5-325MG [[place] 1 tab PO BID PRN 12/21/17 06/10/18 5-325] Ziprasidone [Geodon] 80 mg PO BID 12/21/17 06/10/18 lamoTRIgine [LaMICtal] 200 mg PO BID 12/21/17 06/10/18 traZODone HCL 300 mg PO HS 12/21/17 06/10/18 Fluticasone Nasal [place] [Flonase 1 - 2 sprays EA NOSTRIL BID PRN 05/23/18 Nasal [place]] Levothyroxine Sodium [Synthroid] 100 mcg PO DAILY 05/23/18 06/10/18 Tiotropium Br/Olodaterol HCl 2 puff INHALATION RT-DAILY 05/23/18 06/10/18 [Stiolto Respimat Inhal [place]] Topiramate [Trokendi Xr] 100 mg PO DAILY 05/23/18 06/10/18 Allergies Allergy/AdvReac Type Severity Reaction Status Date / Time latex Allergy Rash/Hives Verified 06/09/18 11:49 propoxyphene Allergy Nausea & Verified 06/09/18 11:49 [From Darvocet-N] Vomiting tramadol [From Ultram] Allergy Itching Verified 06/09/18 11:49 hydromorphone [From Dilaudid] AdvReac Itching Verified 06/09/18 11:49 Review of Systems ROS Statement: Those systems with pertinent positive or pertinent negative responses have been documented in the HPI. ROS Other: All systems not noted in ROS Statement are negative. Constitutional: Denies: fever Eyes: Denies: eye pain ENT: Denies: ear pain Respiratory: Denies: cough Cardiovascular: Denies: chest pain Endocrine: Denies: fatigue Gastrointestinal: Denies: abdominal pain Genitourinary: Denies: dysuria Musculoskeletal: Denies: back pain Skin: Denies: rash Psychiatric: Reports: depression, suicidal thoughts. Denies: auditory hallucinations, visual hallucinations, homicidal thoughts Past Medical History Past Medical History: Fibromyalgia, GERD/Reflux, Hyperlipidemia, Thyroid Disorder Additional Past Medical History / Comment(s): irritable bowel syndrome, carpal tunnel, arthritis, "eroded espohagus and stomach", etoh abuse , migraine headaches, degenerative disc disease,arthritis, sciatica History of Any Multi-Drug Resistant Organisms: None Reported Past Surgical History: Adenoidectomy, Appendectomy, Cholecystectomy, Hernia Repair, Tonsillectomy, Tubal Ligation Additional Past Surgical History / Comment(s): d&c x5, exploratory lap, ovarian tumor removed, Kym fundiplacation Past Anesthesia/Blood Transfusion Reactions: Previous Problems w/ Anesthesia Additional Past Anesthesia/Blood Transfusion Reaction / Comment(s): stated "heart stopped and blood pressure dropped after gall bladder surgery in operating room" Past Psychological History: ADD/ADHD, Anxiety, Bipolar, Depression, PTSD Smoking Status: Former smoker Past Alcohol Use History: None Reported Past Drug Use History: None Reported - Past Family History Father Additional Family Medical History / Comment(s): Father is alive at age 58 with history of generalized anxiety disorder and possible bipolar disorder. Alcohol abuse Mother Additional Family Medical History / Comment(s): Mother is alive at age 58 with history of degenerative disc disease, osteoarthritis, hyperlipidemia, hypertension. Brother(s) Additional Family Medical History / Comment(s): Patient has 2 brothers. One from suicide. One brother has no major medical problems. Patient has 2 sisters but she has no contact with them. Patient has 4 children ages 19, 18, 16, 15. General Exam Limitations: no limitations General appearance: alert, anxious Head exam: Present: atraumatic Eye exam: Present: normal appearance, PERRL ENT exam: Present: normal oropharynx Neck exam: Present: normal inspection Respiratory exam: Present: normal lung sounds bilaterally Cardiovascular Exam: Present: regular rate, normal rhythm GI/Abdominal exam: Present: soft. Absent: tenderness Extremities exam: Present: other (Left volar wrist laceration, superficial. Distally the extremity is neurovascular intact) Neurological exam: Present: alert. Absent: motor sensory deficit Psychiatric exam: Present: depressed, suicidal ideation Skin exam: Present: other (Wrist laceration) Course Vital Signs 06/09/18 06/09/18 06/09/18 06:52 07:33 09:03 Temperature 97.0 F L Pulse Rate 118 H 97 86 Respiratory 22 18 16 Rate Blood Pressure 121/78 104/64 94/60 O2 Sat by Pulse 100 100 100 Oximetry 06/09/18 06/09/18 06/09/18 09:35 09:53 10:23 Temperature Pulse Rate 81 88 98 Respiratory 18 18 18 Rate Blood Pressure 83/59 95/59 87/53 O2 Sat by Pulse 100 100 99 Oximetry 06/09/18 06/09/18 06/09/18 11:25 11:46 11:50 Temperature Pulse Rate 69 100 Respiratory 20 18 Rate Blood Pressure 77/50 93/57 105/61 O2 Sat by Pulse 98 98 Oximetry 06/09/18 06/09/18 12:34 15:06 Temperature 97.6 F Pulse Rate 80 88 Respiratory 18 18 Rate Blood Pressure 101/63 110/76 O2 Sat by Pulse 100 98 Oximetry EKG Findings - EKG Comments: EKG Findings:: Normal sinus rhythm 93. CT 132. QRS 74. QT 366. QTc 455. Normal axis. Normal QRS. No acute ST change. Procedures - Laceration Laceration #1 Consent Obtained: verbal consent Time Out Performed: Yes Indication: laceration Site: upper extremity Size (cm): 3 Description: linear Depth: simple, single layer Anesthetic Used: lidocaine 1% Anesthesia Technique: local infiltration Pre-repair: wound explored, irrigated extensively Type of Sutures: nylon Size of Sutures: 4-0 Number of Sutures: 4 Technique: simple, interrupted Patient Tolerated Procedure: well, no complications - Restraint - Face to Face Restraint Occurrence 1 Patient's Immediate Situation: Endangers self safety, Endangers others' safety, Endangers staff safety, Violent behavior Patient's Reaction to the Intervention: Uncooperative Patient's Medical & Behavioral Condition: Awake, Alert Need to Continue or Terminate Restraint or Seclusion: Continue Face to Face Eval of Restraint Date: 06/09/18 Face to Face Eval of Restraint Time: 09:37 Medical Decision Making - Lab Data Result diagrams: 06/09/18 07:20 06/10/18 10:33 Lab Results 06/09/18 06/09/18 06/09/18 Range/Units 07:20 07:20 07:20 WBC 10.4 (3.8-10.6) k/uL RBC 4.32 (3.80-5.40) m/uL Hgb 13.2 (11.4-16.0) gm/dL Hct 39.2 (34.0-46.0) % MCV 90.8 (80.0-100.0) fL MCH 30.6 (25.0-35.0) pg MCHC 33.7 (31.0-37.0) g/dL RDW 13.1 (11.5-15.5) % Plt Count 277 (150-450) k/uL Neutrophils % 61 % Lymphocytes % 28 % Monocytes % 8 % Eosinophils % 0 % Basophils % 0 % Neutrophils # 6.3 (1.3-7.7) k/uL Lymphocytes # 2.9 (1.0-4.8) k/uL Monocytes # 0.8 (0-1.0) k/uL Eosinophils # 0.0 (0-0.7) k/uL Basophils # 0.0 (0-0.2) k/uL PT 9.8 (9.0-12.0) sec INR 1.0 (<1.2) APTT 22.6 (22.0-30.0) sec VBG pH (7.31-7.41) VBG pCO2 (37-51) mmHg VBG HCO3 (24-28) mmol/L Sodium 140 (137-145) mmol/L Potassium 4.2 (3.5-5.1) mmol/L Chloride 114 H (98-107) mmol/L Carbon Dioxide 13 L (22-30) mmol/L Anion Gap 13 mmol/L BUN 6 L (7-17) mg/dL Creatinine 0.69 (0.52-1.04) mg/dL Est GFR (CKD-EPI)AfAm >90 (>60 ml/min/1.73 sqM) Est GFR (CKD-EPI)NonAf >90 (>60 ml/min/1.73 sqM) Glucose 92 (74-99) mg/dL Estimated Ave Glu mg/dL Hemoglobin A1c (4.0-6.0) % Lactic Ac Sepsis Rflx Plasma Lactic Acid Vinicio (0.7-2.0) mmol/L Calcium 9.4 (8.4-10.2) mg/dL Total Bilirubin 0.3 (0.2-1.3) mg/dL AST 25 (14-36) U/L ALT 16 (9-52) U/L Alkaline Phosphatase 92 (38-126) U/L Total Protein 6.7 (6.3-8.2) g/dL Albumin 4.0 (3.5-5.0) g/dL Triglycerides (<150) mg/dL Cholesterol (<200) mg/dL LDL Cholesterol, Calc (0-99) mg/dL HDL Cholesterol (40-60) mg/dL TSH (0.465-4.680) mIU/L Urine Color Urine Appearance (Clear) Urine pH (5.0-8.0) Ur Specific [place] (1.001-1.035) Urine Protein (Negative) Urine Glucose (UA) (Negative) Urine Ketones (Negative) Urine Blood (Negative) Urine Nitrite (Negative) Urine Bilirubin (Negative) Urine Urobilinogen (<2.0) mg/dL Ur Leukocyte Esterase (Negative) Urine HCG, Qual (Not Detectd) Salicylates <1.0 mg/dL Urine Opiates Screen (NotDetected) Ur Oxycodone Screen (NotDetected) Urine Methadone Screen (NotDetected) Ur Propoxyphene Screen (NotDetected) Acetaminophen 53.7 H* ug/mL Ur Barbiturates Screen (NotDetected) U Tricyclic Antidepress (NotDetected) Ur Phencyclidine Scrn (NotDetected) Ur Amphetamines Screen (NotDetected) U Methamphetamines Scrn (NotDetected) U Benzodiazepines Scrn (NotDetected) Urine Cocaine Screen (NotDetected) U Marijuana (THC) Screen (NotDetected) Serum Alcohol <10 mg/dL 06/09/18 06/09/18 06/09/18 Range/Units 07:20 07:20 07:26 WBC (3.8-10.6) k/uL RBC (3.80-5.40) m/uL Hgb (11.4-16.0) gm/dL Hct (34.0-46.0) % MCV (80.0-100.0) fL MCH (25.0-35.0) pg MCHC (31.0-37.0) g/dL RDW (11.5-15.5) % Plt Count (150-450) k/uL Neutrophils % % Lymphocytes % % Monocytes % % Eosinophils % % Basophils % % Neutrophils # (1.3-7.7) k/uL Lymphocytes # (1.0-4.8) k/uL Monocytes # (0-1.0) k/uL Eosinophils # (0-0.7) k/uL Basophils # (0-0.2) k/uL PT (9.0-12.0) sec INR (<1.2) APTT (22.0-30.0) sec VBG pH (7.31-7.41) VBG pCO2 (37-51) mmHg VBG HCO3 (24-28) mmol/L Sodium (137-145) mmol/L Potassium (3.5-5.1) mmol/L Chloride (98-107) mmol/L Carbon Dioxide (22-30) mmol/L Anion Gap mmol/L BUN (7-17) mg/dL Creatinine (0.52-1.04) mg/dL Est GFR (CKD-EPI)AfAm (>60 ml/min/1.73 sqM) Est GFR (CKD-EPI)NonAf (>60 ml/min/1.73 sqM) Glucose (74-99) mg/dL Estimated Ave Glu mg/dL 100 Hemoglobin A1c 5.1 (4.0-6.0) % Lactic Ac Sepsis Rflx Plasma Lactic Acid Vinicio (0.7-2.0) mmol/L Calcium (8.4-10.2) mg/dL Total Bilirubin (0.2-1.3) mg/dL AST (14-36) U/L ALT (9-52) U/L Alkaline Phosphatase (38-126) U/L Total Protein (6.3-8.2) g/dL Albumin (3.5-5.0) g/dL Triglycerides 65 (<150) mg/dL Cholesterol 99 (<200) mg/dL LDL Cholesterol, Calc 46 (0-99) mg/dL HDL Cholesterol 40 (40-60) mg/dL TSH 6.270 H (0.465-4.680) mIU/L Urine Color Urine Appearance (Clear) Urine pH (5.0-8.0) Ur Specific [place] (1.001-1.035) Urine Protein (Negative) Urine Glucose (UA) (Negative) Urine Ketones (Negative) Urine Blood (Negative) Urine Nitrite (Negative) Urine Bilirubin (Negative) Urine Urobilinogen (<2.0) mg/dL Ur Leukocyte Esterase (Negative) Urine HCG, Qual Not Detected (Not Detectd) Salicylates mg/dL Urine Opiates Screen (NotDetected) Ur Oxycodone Screen (NotDetected) Urine Methadone Screen (NotDetected) Ur Propoxyphene Screen (NotDetected) Acetaminophen ug/mL Ur Barbiturates Screen (NotDetected) U Tricyclic Antidepress (NotDetected) Ur Phencyclidine Scrn (NotDetected) Ur Amphetamines Screen (NotDetected) U Methamphetamines Scrn (NotDetected) U Benzodiazepines Scrn (NotDetected) Urine Cocaine Screen (NotDetected) U Marijuana (THC) Screen (NotDetected) Serum Alcohol mg/dL 06/09/18 06/09/18 06/09/18 Range/Units 07:26 08:52 08:52 WBC (3.8-10.6) k/uL RBC (3.80-5.40) m/uL Hgb (11.4-16.0) gm/dL Hct (34.0-46.0) % MCV (80.0-100.0) fL MCH (25.0-35.0) pg MCHC (31.0-37.0) g/dL RDW (11.5-15.5) % Plt Count (150-450) k/uL Neutrophils % % Lymphocytes % % Monocytes % % Eosinophils % % Basophils % % Neutrophils # (1.3-7.7) k/uL Lymphocytes # (1.0-4.8) k/uL Monocytes # (0-1.0) k/uL Eosinophils # (0-0.7) k/uL Basophils # (0-0.2) k/uL PT (9.0-12.0) sec INR (<1.2) APTT (22.0-30.0) sec VBG pH 7.30 L (7.31-7.41) VBG pCO2 40 (37-51) mmHg VBG HCO3 19 L (24-28) mmol/L Sodium (137-145) mmol/L Potassium (3.5-5.1) mmol/L Chloride (98-107) mmol/L Carbon Dioxide (22-30) mmol/L Anion Gap mmol/L BUN (7-17) mg/dL Creatinine (0.52-1.04) mg/dL Est GFR (CKD-EPI)AfAm (>60 ml/min/1.73 sqM) Est GFR (CKD-EPI)NonAf (>60 ml/min/1.73 sqM) Glucose (74-99) mg/dL Estimated Ave Glu mg/dL Hemoglobin A1c (4.0-6.0) % Lactic Ac Sepsis Rflx Plasma Lactic Acid Vinicio 2.3 H* (0.7-2.0) mmol/L Calcium (8.4-10.2) mg/dL Total Bilirubin (0.2-1.3) mg/dL AST (14-36) U/L ALT (9-52) U/L Alkaline Phosphatase (38-126) U/L Total Protein (6.3-8.2) g/dL Albumin (3.5-5.0) g/dL Triglycerides (<150) mg/dL Cholesterol (<200) mg/dL LDL Cholesterol, Calc (0-99) mg/dL HDL Cholesterol (40-60) mg/dL TSH (0.465-4.680) mIU/L Urine Color Light Yellow Urine Appearance Clear (Clear) Urine pH 8.0 (5.0-8.0) Ur Specific [place] 1.005 (1.001-1.035) Urine Protein Negative (Negative) Urine Glucose (UA) Negative (Negative) Urine Ketones Negative (Negative) Urine Blood Negative (Negative) Urine Nitrite Negative (Negative) Urine Bilirubin Negative (Negative) Urine Urobilinogen <2.0 (<2.0) mg/dL Ur Leukocyte Esterase Negative (Negative) Urine HCG, Qual (Not Detectd) Salicylates mg/dL Urine Opiates Screen Detected H (NotDetected) Ur Oxycodone Screen Not Detected (NotDetected) Urine Methadone Screen Not Detected (NotDetected) Ur Propoxyphene Screen Not Detected (NotDetected) Acetaminophen ug/mL Ur Barbiturates Screen Detected H (NotDetected) U Tricyclic Antidepress Not Detected (NotDetected) Ur Phencyclidine Scrn Not Detected (NotDetected) Ur Amphetamines Screen Not Detected (NotDetected) U Methamphetamines Scrn Not Detected (NotDetected) U Benzodiazepines Scrn Not Detected (NotDetected) Urine Cocaine Screen Not Detected (NotDetected) U Marijuana (THC) Screen Detected H (NotDetected) Serum Alcohol mg/dL 06/09/18 06/09/18 06/09/18 Range/Units 09:48 10:30 13:46 WBC (3.8-10.6) k/uL RBC (3.80-5.40) m/uL Hgb (11.4-16.0) gm/dL Hct (34.0-46.0) % MCV (80.0-100.0) fL MCH (25.0-35.0) pg MCHC (31.0-37.0) g/dL RDW (11.5-15.5) % Plt Count (150-450) k/uL Neutrophils % % Lymphocytes % % Monocytes % % Eosinophils % % Basophils % % Neutrophils # (1.3-7.7) k/uL Lymphocytes # (1.0-4.8) k/uL Monocytes # (0-1.0) k/uL Eosinophils # (0-0.7) k/uL Basophils # (0-0.2) k/uL PT (9.0-12.0) sec INR (<1.2) APTT (22.0-30.0) sec VBG pH (7.31-7.41) VBG pCO2 (37-51) mmHg VBG HCO3 (24-28) mmol/L Sodium (137-145) mmol/L Potassium (3.5-5.1) mmol/L Chloride (98-107) mmol/L Carbon Dioxide (22-30) mmol/L Anion Gap mmol/L BUN (7-17) mg/dL Creatinine (0.52-1.04) mg/dL Est GFR (CKD-EPI)AfAm (>60 ml/min/1.73 sqM) Est GFR (CKD-EPI)NonAf (>60 ml/min/1.73 sqM) Glucose (74-99) mg/dL Estimated Ave Glu mg/dL Hemoglobin A1c (4.0-6.0) % Lactic Ac Sepsis Rflx Y Plasma Lactic Acid Vinicio 0.6 L (0.7-2.0) mmol/L Calcium (8.4-10.2) mg/dL Total Bilirubin (0.2-1.3) mg/dL AST (14-36) U/L ALT (9-52) U/L Alkaline Phosphatase (38-126) U/L Total Protein (6.3-8.2) g/dL Albumin (3.5-5.0) g/dL Triglycerides (<150) mg/dL Cholesterol (<200) mg/dL LDL Cholesterol, Calc (0-99) mg/dL HDL Cholesterol (40-60) mg/dL TSH (0.465-4.680) mIU/L Urine Color Urine Appearance (Clear) Urine pH (5.0-8.0) Ur Specific [place] (1.001-1.035) Urine Protein (Negative) Urine Glucose (UA) (Negative) Urine Ketones (Negative) Urine Blood (Negative) Urine Nitrite (Negative) Urine Bilirubin (Negative) Urine Urobilinogen (<2.0) mg/dL Ur Leukocyte Esterase (Negative) Urine HCG, Qual (Not Detectd) Salicylates mg/dL Urine Opiates Screen (NotDetected) Ur Oxycodone Screen (NotDetected) Urine Methadone Screen (NotDetected) Ur Propoxyphene Screen (NotDetected) Acetaminophen 19.7 ug/mL Ur Barbiturates Screen (NotDetected) U Tricyclic Antidepress (NotDetected) Ur Phencyclidine Scrn (NotDetected) Ur Amphetamines Screen (NotDetected) U Methamphetamines Scrn (NotDetected) U Benzodiazepines Scrn (NotDetected) Urine Cocaine Screen (NotDetected) U Marijuana (THC) Screen (NotDetected) Serum Alcohol mg/dL Disposition Clinical Impression: Suicidal ideations, Depression Disposition: TRANSFER TO PSYCH HOSP/UNIT Condition: Fair
[2018-06-09] MEDS ORDERED: DIPH,PERTUS(ACELL)TETVAC-LF 0.5 ML VIAL IM ONE (07:33)
[2018-06-09] MEDS ORDERED: SODIUM CHLORIDE 0.9% 1,000 ML IV SCH (08:00)
[2018-06-09 08:10] LABS: Appearance,Urine Clear (Clear); Bilirubin,Urine Negative (Negative); Blood,Urine Negative (Negative); Color,Urine Light Yellow; Glucose,Urine (UA) Negative (Negative); Ketones,Urine Negative (Negative); Leukocyte Esterase,Urine Negative (Negative); Nitrite,Urine Negative (Negative); Protein,Urine Negative (Negative); Specific Gravity,Urine 1.005 (1.001-1.035); Urobilinogen,Urine <2.0 mg/dL (<2.0)
[2018-06-09 08:12] LABS: Basophils % (A) 0 %; Eosinophils % (A) 0 %; HCT 39.2 % (34.0-46.0); HGB 13.2 gm/dL (11.4-16.0); Lymphocytes # (A) 2.9 k/uL (1.0-4.8); Lymphocytes % (A) 28 %; MCH 30.6 pg (25.0-35.0); MCHC 33.7 g/dL (31.0-37.0); MCV 90.8 fL (80.0-100.0); Mean Platelet Volume 8.6; Monocytes # (A) 0.8 k/uL (0-1.0); Monocytes % (A) 8 %; Neutrophils # (A) 6.3 k/uL (1.3-7.7); Neutrophils % (A) 61 %; Platelet Count 277 k/uL (150-450); RBC 4.32 m/uL (3.80-5.40); RDW 13.1 % (11.5-15.5); WBC 10.4 k/uL (3.8-10.6)
[2018-06-09 08:16] LABS: ALT 16 U/L (9-52); AST 25 U/L (14-36); Alcohol <10 mg/dL; Alkaline Phosphatase 92 U/L (38-126); Anion Gap 13 mmol/L; Blood Urea Nitrogen 6 mg/dL (7-17); Calcium 9.4 mg/dL (8.4-10.2); Carbon Dioxide 13 mmol/L (22-30); Chloride 114 mmol/L (98-107); Glucose 92 mg/dL (74-99); Partial Thromboplastin Time 22.6 sec (22.0-30.0); Potassium 4.2 mmol/L (3.5-5.1); Prothrombin Time 9.8 sec (9.0-12.0); Salicylate <1.0 mg/dL; Sodium 140 mmol/L (137-145); Total Bilirubin 0.3 mg/dL (0.2-1.3); Total Protein 6.7 g/dL (6.3-8.2)
[2018-06-09 08:25] LABS: Amphetamine Screen,Urine Not Detected (NotDetected); Barbiturate Screen,Urine Detected (NotDetected); Benzodiazepines Screen,Urine Not Detected (NotDetected); Cocaine Screen,Urine Not Detected (NotDetected); Methadone Screen, Urine Not Detected (NotDetected); Opiate Screen,Urine Detected (NotDetected); Oxycodone Screen, Urine Not Detected (NotDetected); Phencyclidine Screen,Urine Not Detected (NotDetected); Tricyclic Antidepressant,Urine Not Detected (NotDetected); Urn Cannabinoid Scrn Detected (NotDetected)
[2018-06-09 08:29] LABS: Acetaminophen 53.7 ug/mL
[2018-06-09] MEDS ORDERED: ACETYLCYSTEINE 800 MG/4 ML VIAL INHALATION STA (08:29)
[2018-06-09] MEDS ORDERED: WATER IV ONE ×2 (08:32)
[2018-06-09] MEDS ORDERED: ACETYLCYSTEINE IV ONE ×2 (08:32)
[2018-06-09] MEDS ORDERED: DEXTROSE 5% IV ONE ×2 (08:32)
[2018-06-09 09:28] LABS: VBG PH 7.3 (7.31-7.41)
[2018-06-09] MEDS ORDERED: HALOPERIDOL LACTATE 5 MG/ML 1 ML VIAL IM STA (09:37)
[2018-06-09] MEDS ORDERED: SODIUM CHLORIDE 0.9% 500 ML IV STA (09:48)
[2018-06-09] MEDS ORDERED: SODIUM CHLORIDE 0.9% 1,000 ML IV STA ×2 (09:48→11:20)
[2018-06-09] MEDS ORDERED: ACETAMINOPHEN TAB 325 MG TAB PO PRN (16:48)
[2018-06-09] MEDS ORDERED: ZIPRASIDONE 20 MG VIAL IM PRN (16:48)
[2018-06-09] MEDS ORDERED: LORazepam 1 MG TAB PO PRN (16:48)
[2018-06-09] MEDS ORDERED: FLUTICASONE 50MCG/SPRAY NASAL 16GM EA NOSTRIL PRN (16:55)
[2018-06-09] MEDS ORDERED: MAG HYDROX/AL HYDROX/SIMETH 30 ML CUP PO PRN (17:12)
[2018-06-09] MEDS: DESVENLAFAXINE SUCCINATE 50 MG TAB.ER.24H PO SCH (21:37)
[2018-06-09] MEDS: BACLOFEN 10 MG TAB PO SCH (21:38)
[2018-06-09] MEDS: lamoTRIgine 100 MG TAB PO SCH (21:38)
[2018-06-09] MEDS: ZIPRASIDONE 80 MG CAP PO SCH (21:38)
[2018-06-09] MEDS: traZODone HCL 100 MG TAB PO SCH (21:38)
[2018-06-09] MEDS ORDERED: ALBUTEROL NEBULIZED 2.5 MG/3 ML INHALATION PRN (22:07)
[2018-06-09] MEDS: IBUPROFEN 800 MG TAB PO PRN (22:15)
[2018-06-09] MEDS: ALBUTEROL INHALER 60 PUFF/8 GM INHALER INHALATION PRN (22:43)
[2018-06-10] MEDS: LEVOTHYROXINE 100 MCG TAB PO SCH (06:00)
[2018-06-10] MEDS: NICOTINE 14MG/24HR PATCH TRANSDERM SCH (08:36)
[2018-06-10] MEDS: lamoTRIgine 100 MG TAB PO SCH ×2 (08:37→21:13)
[2018-06-10] MEDS: ATORVASTATIN 10 MG TAB PO SCH (08:37)
[2018-06-10] MEDS: BACLOFEN 10 MG TAB PO SCH ×2 (08:37→21:12)
[2018-06-10] MEDS: ZIPRASIDONE 80 MG CAP PO SCH ×2 (08:37→21:13)
[2018-06-10] MEDS: IBUPROFEN 800 MG TAB PO PRN (08:39)
[2018-06-10 11:12] LABS: Anion Gap 5 mmol/L; Blood Urea Nitrogen 5 mg/dL (7-17); Calcium 9.4 mg/dL (8.4-10.2); Carbon Dioxide 23 mmol/L (22-30); Chloride 113 mmol/L (98-107); Glucose 77 mg/dL (74-99); Potassium 4.2 mmol/L (3.5-5.1); Sodium 141 mmol/L (137-145)
--- NOTE | 2018-06-10 11:28 | P.CONS ---
<Martha Roy - Last Filed: 06/10/18 10:58> History of Present Illness - Reason for Consult Consult date: 06/10/18 Medical Management - Chief Complaint Suicidal ideation - History of Present Illness 37-year-old female presents with depression and suicidal ideation. Onset of symptoms worse about a week ago. Patient is having problems with and recent separation. Patient took Fioricet and was stopped by daughter. Patient does have a history of cutting herself in the past. Patient continues to have thoughts of harming self. Patient complains of visual hallucinations. Patient states that she has episodes of suicidal ideation 1-2 times per year. Patient uses marijuana and takes Balfour for back pain. Patient' s complaining of back pain at this time. She complains of nausea and diarrhea due to IBS. She does not currently take any medications for IBS. Other significant past medical history includes hyperthyroidism, hyperlipidemia, fibromyalgia, IBS, carpal tunnel, history of pleurodynia with history of multiple tension pneumothorax since patient was 2 years old according to the patient, migraine headaches, history of alcohol abuse, tobacco abuse, bipolar disorder, borderline personality follows Dr. Velasquez at [facility] there has been [facility]. Patient denies chest pain, shortness of breath, vomiting, and constipation. Vital signs temperature 98.4, pulse rate 89, respiration 18, blood pressure 101/53. Labs blood clinic gas pH 7.3, HCO3 19, chloride 114, carbon dioxide 13, BUN 6, lactic acid 2. 3 repeat lactic acid 0.6 , TSH 6.27. Urine toxicology detected opiates, barbiturates, marijuana, acetaminophen level L 3. 7 repeat level 19.7. Review of Systems Constitutional: Reports as per HPI, Reports chronic pain, Denies chills, Denies fatigue, Denies fever, Denies sweats Ears, nose, mouth and throat: Denies dysphagia, Denies nasal discharge, Denies sinus pain, Denies sore throat Cardiovascular: Denies chest pain, Denies irregular heart beat, Denies palpitations Respiratory: Denies cough, Denies dyspnea Gastrointestinal: Reports diarrhea, Reports nausea, Denies heartburn, Denies vomiting Genitourinary: Denies dysuria Musculoskeletal: Reports low back pain, Denies arm numbness/tingling, Denies leg numbness/tingling Integumentary: Denies rash Neurological: Denies head injury, Denies seizures, Denies vertigo Psychiatric: Reports depression, Reports hallucinations, Reports suicidal ideation Endocrine: Denies flushing Past Medical History Past Medical History: Fibromyalgia, GERD/Reflux, Hyperlipidemia, Thyroid Disorder Additional Past Medical History / Comment(s): irritable bowel syndrome, pleurodynia, carpal tunnel, arthritis, "eroded espohagus and stomach", etoh abuse , migraine headaches, degenerative disc disease,arthritis, sciatica History of Any Multi-Drug Resistant Organisms: None Reported Past Surgical History: Adenoidectomy, Appendectomy, Cholecystectomy, Hernia Repair, Tonsillectomy, Tubal Ligation Additional Past Surgical History / Comment(s): d&c x5, exploratory lap, ovarian tumor removed, Kym fundiplacation Past Anesthesia/Blood Transfusion Reactions: Previous Problems w/ Anesthesia Additional Past Anesthesia/Blood Transfusion Reaction / Comm: stated "heart stopped and blood pressure dropped after gall bladder surgery in operating room " Past Psychological History: ADD/ADHD, Anxiety, Bipolar, Depression, PTSD Additional Psychological History / Comment(s): borderline personality,OCD Smoking Status: Former smoker Past Alcohol Use History: None Reported Additional Past Alcohol Use History / Comment(s): patient is a smoker of 1 1/2 packs per day since she was 10 years of age. She does have a medical marijuana card. She denies any street drug or alcohol use. Past Drug Use History: None Reported Additional Drug Use History / Comment(s): Medical card-uses every day - Past Family History Father Additional Family Medical History / Comment(s): Father is alive at age 58 with history of generalized anxiety disorder and possible bipolar disorder. Alcohol abuse Mother Additional Family Medical History / Comment(s): Mother is alive at age 58 with history of degenerative disc disease, osteoarthritis, hyperlipidemia, hypertension. Brother(s) Additional Family Medical History / Comment(s): Patient has 2 brothers. One from suicide. One brother has no major medical problems. Patient has 2 sisters but she has no contact with them. Patient has 4 children ages 19, 18, 16, 15. Medications and Allergies Home Medications Medication Instructions Recorded Confirmed Type Albuterol Inhaler [Ventolin Hfa 2 puff INHALATION RT-QID PRN 02/21/17 06/09/18 History Inhaler] Atorvastatin Calcium [Lipitor] 10 mg PO DAILY 02/21/17 06/09/18 History Docusate [Colace] 100 mg PO BID 03/26/17 06/09/18 History Albuterol Nebulized [Ventolin 2.5 mg INHALATION RT-QID PRN 12/21/17 06/09/18 History Nebulized] Baclofen [Lioresal] 10 mg PO BID 12/21/17 06/09/18 History Desvenlafaxine Succinate [Pristiq] 100 mg PO HS 12/21/17 06/09/18 History HYDROcodone/APAP 5-325MG [Balfour 1 tab PO BID PRN 12/21/17 06/10/18 History 5-325] Ziprasidone [Geodon] 80 mg PO BID 12/21/17 06/10/18 History lamoTRIgine [LaMICtal] 200 mg PO BID 12/21/17 06/10/18 History traZODone HCL 300 mg PO HS 12/21/17 06/10/18 History Fluticasone Nasal [place] [Flonase 1 - 2 sprays EA NOSTRIL BID PRN 05/23/18 History Nasal [place]] Levothyroxine Sodium [Synthroid] 100 mcg PO DAILY 05/23/18 06/10/18 History Tiotropium Br/Olodaterol HCl 2 puff INHALATION RT-DAILY 05/23/18 06/10/18 History [Stiolto Respimat Inhal [place]] Topiramate [Trokendi Xr] 100 mg PO DAILY 05/23/18 06/10/18 History Allergies Allergy/AdvReac Type Severity Reaction Status Date / Time latex Allergy Rash/Hives Verified 06/09/18 11:49 propoxyphene Allergy Nausea & Verified 06/09/18 11:49 [From Darvocet-N] Vomiting tramadol [From Ultram] Allergy Itching Verified 06/09/18 11:49 hydromorphone [From Dilaudid] AdvReac Itching Verified 06/09/18 11:49 Physical Exam Vitals: Vital Signs Temp Pulse Pulse Resp BP BP Pulse Ox 06/10/18 06:44 98.4 F 89 18 101/53 06/09/18 17:47 98.5 F 88 20 116/75 98 06/09/18 15:06 97.6 F 88 18 110/76 98 06/09/18 12:34 80 18 101/63 100 06/09/18 11:50 100 18 105/61 98 06/09/18 11:46 93/57 06/09/18 11:25 69 20 77/50 98 Intake and Output 06/09/18 06/10/18 06/10/18 22:59 06:59 14:59 Other: Weight 61.4 kg - Constitutional General appearance: cooperative - EENT Eyes: anicteric sclerae, PERRLA, normal appearance ENT: hearing grossly normal - Neck Neck: no lymphadenopathy, normal ROM, no rigidity, no stridor, no thyromegaly - Respiratory Respiratory: bilateral: CTA, negative: diminished, rales, rhonchi, wheezing - Cardiovascular Rhythm: regular Heart sounds: normal: S1, S2 Abnormal Heart Sounds: no systolic murmur, no diastolic murmur, no rub, no S3 Gallop, no S4 Gallop, no click - Gastrointestinal General gastrointestinal: normal bowel sounds, soft, no tenderness - Integumentary Integumentary: normal, normal turgor, no rash - Neurologic Neurologic: CNII-XII intact - Musculoskeletal Musculoskeletal: gait normal, strength equal bilaterally - Psychiatric suicidal ideation Psychiatric: A&O x's 3 Results CBC & Chem 7: 06/09/18 07:20 06/09/18 07:20 Labs: Abnormal Lab Results - Last 24 Hours (Table) 06/09/18 06/09/18 Range/Units 07:20 13:46 Plasma Lactic Acid Vinicio 0.6 L (0.7-2.0) mmol/L TSH 6.270 H (0.465-4.680) mIU/L Assessment and Plan Plan: 1. Depression with history of bipolar disorder and borderline personality disorder, with suicidal ideation - continue current medication regime, continue antidepressant management through psychiatry 2. Seizures continue Lamictal 200 mg BID will resume topiramare 100mg daily 3. Hypothyroidism continue Synthroid 100 mcg, will order a T4. 4. Chronic back pain, continue Balfour 5/325 mg twice a day as needed 6. Tobacco use and dependence. Continue nicotine patch. 6. Fibromyalgia, stable. 7. Irritable bowel syndrome, stable. 8. Marijuana use. Medical marijuana certification for chronic nausea and back pain 9. History of alcohol abuse, sober 5 years. 10. Hyperlipidemia. Continue Lipitor. 11. Degenerative disc disease and chronic back pain. Continue Zanaflex. 12 CODE STATUS full code Impression and plan of care have been directed as dictated by the signing physician. Martha Roy nurse practitioner acting as scribe for signing physician. <Douglas Perez - Last Filed: 06/10/18 12:00> History of Present Illness - History of Present Illness patient took 10 tab of fiorecent and was planning to take more of medication but was intervened by daughter Physical Exam Vitals: Vital Signs Temp Pulse Pulse Resp BP BP Pulse Ox 06/10/18 06:44 98.4 F 89 18 101/53 06/09/18 17:47 98.5 F 88 20 116/75 98 06/09/18 15:06 97.6 F 88 18 110/76 98 06/09/18 12:34 80 18 101/63 100 Intake and Output 06/09/18 06/10/18 06/10/18 22:59 06:59 14:59 Other: Weight 61.4 kg Results CBC & Chem 7: 06/09/18 07:20 06/10/18 10:33 Labs: Abnormal Lab Results - Last 24 Hours (Table) 06/09/18 06/09/18 06/10/18 Range/Units 07:20 13:46 10:33 Chloride 113 H (98-107) mmol/L BUN 5 L (7-17) mg/dL Plasma Lactic Acid Vinicio 0.6 L (0.7-2.0) mmol/L TSH 6.270 H (0.465-4.680) mIU/L Assessment and Plan Plan: #3 Hypothyroid - patient is not taking her thyroid meds at home, will continue the same dose of synthroid as patient is not takign her medication
[2018-06-10 11:29] LABS: T4, Free (Free Thyroxine) 1.39 ng/dL (0.78-2.19)
[2018-06-10] MEDS: TOPIRAMATE 100 MG TAB PO SCH (11:47)
[2018-06-10] MEDS: HYDROcodone/APAP 5-325MG 1 EACH TAB PO PRN (11:48)
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
[2018-06-10] MEDS: DESVENLAFAXINE SUCCINATE 50 MG TAB.ER.24H PO SCH (21:12)
[2018-06-10] MEDS: traZODone HCL 100 MG TAB PO SCH (21:12)
[2018-06-10] MEDS: ALBUTEROL INHALER 60 PUFF/8 GM INHALER INHALATION PRN (21:29)
[2018-06-11] MEDS: LEVOTHYROXINE 100 MCG TAB PO SCH (05:32)
[2018-06-11] MEDS: IBUPROFEN 800 MG TAB PO PRN ×2 (05:43→16:22)
[2018-06-11] MEDS: NICOTINE 14MG/24HR PATCH TRANSDERM SCH (07:53)
[2018-06-11] MEDS: ATORVASTATIN 10 MG TAB PO SCH (07:53)
[2018-06-11] MEDS: ZIPRASIDONE 80 MG CAP PO SCH ×2 (07:53→21:33)
[2018-06-11] MEDS: lamoTRIgine 100 MG TAB PO SCH ×2 (07:54→21:33)
[2018-06-11] MEDS: TOPIRAMATE 100 MG TAB PO SCH (07:54)
[2018-06-11] MEDS: BACLOFEN 10 MG TAB PO SCH ×2 (07:54→21:33)
[2018-06-11 09:59] LABS: Hemoglobin A1C 5.1 % (4.0-6.0)
[2018-06-11] MEDS: HYDROcodone/APAP 5-325MG 1 EACH TAB PO PRN (10:07)
--- NOTE | 2018-06-11 11:28 | P.PN ---
Progress Note - Text Interval history: The patient is found in the hallway she follows me to an interview room. The psychiatric evaluation note was reviewed. The patient was admitted after attempting suicide with a firearm and then later overdosing with Fioricet. The patient states she's been trying to kill her self since age 12 and describes numerous suicide attempts. Also prior to coming in this time she had cut her left anterior distal wrist which required sutures. She described a precipitant as a verbal altercation with her . They had and then more trying to reconcile. She states she has no idea what she will do once discharged. She reports she continues to have a plan of killing herself by overdosing with aspirin than cutting herself the length of her arm. Mental status exam: The patient is alert she is dressed in her own clothing hygiene grooming adequate. Speech is fluent spontaneous nonpressured. She describes a depressed mood with continued hopelessness thinking. She describes ongoing suicidal ideation. She reports no homicidal ideation. She reports no auditory or visual hallucinations or any specific delusions. There is no observed evidence of psychosis or justin. She demonstrates no tangential thinking loose associations or flight of ideas. She does demonstrate circumstantial thinking at times. No verbal or physical aggressiveness demonstrated no abnormal involuntary movements. She is oriented to person place and date. Plan: The patient will continue on her current psychotropic medications. We will add melatonin to assist with sleep. She feels her medications are where they need to be and just feels that she got overwhelmed with the circumstances. She does appear to have significant personality disorder pathology. Vital signs reviewed. She requested not have the Ativan available as it makes her more impulsive and this was discontinued.
[2018-06-11] MEDS: DESVENLAFAXINE SUCCINATE 50 MG TAB.ER.24H PO SCH (21:33)
[2018-06-11] MEDS: traZODone HCL 100 MG TAB PO SCH (21:33)
[2018-06-11] MEDS: MELATONIN 5 MG TABLET PO SCH (21:33)
[2018-06-11] MEDS: ALBUTEROL INHALER 60 PUFF/8 GM INHALER INHALATION PRN (21:47)
[2018-06-12] MEDS: LEVOTHYROXINE 100 MCG TAB PO SCH (06:32)
[2018-06-12] MEDS: MAGNESIUM HYDROXIDE 2,400 MG/10 ML CUP PO PRN (06:50)
[2018-06-12] MEDS: IBUPROFEN 800 MG TAB PO PRN ×2 (07:38→20:46)
[2018-06-12] MEDS: lamoTRIgine 100 MG TAB PO SCH ×2 (08:48→20:45)
[2018-06-12] MEDS: TOPIRAMATE 100 MG TAB PO SCH (08:49)
[2018-06-12] MEDS: HYDROcodone/APAP 5-325MG 1 EACH TAB PO PRN ×2 (08:49→20:46)
[2018-06-12] MEDS: BACLOFEN 10 MG TAB PO SCH ×2 (08:49→20:45)
[2018-06-12] MEDS: ZIPRASIDONE 80 MG CAP PO SCH ×2 (08:49→20:45)
[2018-06-12] MEDS: ATORVASTATIN 10 MG TAB PO SCH (08:49)
--- NOTE | 2018-06-12 09:28 | P.PN ---
Progress Note - Text Interval history: The patient is found in the hallway she follows me to an interview room. She indicates she slept poorly. She states that she had a significant verbal altercation with her via phone as well as her 19-year -old daughter. We spent several minutes processing this further. It is clear that she is utilizing strategies found with borderline personality disorder and it appears quite severe. We discussed the fact that she does have a borderline personality disorder and what the diagnostic criteria of that personality disorder are. She agrees this is an accurate characterization of her. We discussed the importance of utilizing DBT. She has no questions or concerns regarding her psychotropic medication. Mental status exam: The patient is alert she is dressed in her own clothing hygiene grooming adequate. Eye contact is intermittent. She is tearful throughout the session. Affect is dysphoric. She reports ongoing suicidal thoughts with hopelessness thinking. She reports no homicidal ideation intent or plan. She is endorsing no auditory or visual hallucinations or any specific delusions. She does not appear hypomanic or manic. Insight and judgment impaired. She demonstrates no verbal or physical aggressiveness. Plan: The patient will continue on her current psychotropic medications. The patient is struggling with significant borderline personality disorder symptoms. We processed these recent verbal altercations with family and how she may approach them again. She is encouraged to continue complying with group. We will monitor her for safety.
[2018-06-12] MEDS: ALBUTEROL INHALER 60 PUFF/8 GM INHALER INHALATION PRN ×2 (09:33→20:46)
[2018-06-12] MEDS ORDERED: DOCUSATE 100 MG CAP PO PRN (15:13)
[2018-06-12] MEDS: traZODone HCL 100 MG TAB PO SCH (20:45)
[2018-06-12] MEDS: DESVENLAFAXINE SUCCINATE 50 MG TAB.ER.24H PO SCH (20:45)
[2018-06-12] MEDS: MELATONIN 5 MG TABLET PO SCH (20:45)
[2018-06-13] MEDS: LEVOTHYROXINE 100 MCG TAB PO SCH (06:34)
[2018-06-13] MEDS: ZIPRASIDONE 80 MG CAP PO SCH ×2 (07:48→20:45)
[2018-06-13] MEDS: TOPIRAMATE 100 MG TAB PO SCH (07:48)
[2018-06-13] MEDS: BACLOFEN 10 MG TAB PO SCH ×2 (07:48→20:44)
[2018-06-13] MEDS: ATORVASTATIN 10 MG TAB PO SCH (07:49)
[2018-06-13] MEDS: lamoTRIgine 100 MG TAB PO SCH ×2 (07:49→20:45)
[2018-06-13] MEDS: IBUPROFEN 800 MG TAB PO PRN ×2 (07:50→20:27)
[2018-06-13 07:57] VITALS: RESP 20; BMI 21.8
[2018-06-13] MEDS: HYDROcodone/APAP 5-325MG 1 EACH TAB PO PRN (09:22)
--- NOTE | 2018-06-13 10:21 | P.PN ---
Progress Note - Text Interval history: The patient is found in group she follows me to an interview room. She states that her mood is better today. She did have a long phone discussion with her daughter and feels that they made some progress. She is looking forward to a family meeting tomorrow. The patient reports that she is eating she has been attending groups. She has no questions regarding her psychotropic medications. We discussed recent altercations with her daughter and and again looked at assumptions she was making and look for opportunities for cognitive restructuring. Mental status exam: The patient is alert she is dressed in her own clothing hygiene grooming are adequate. Speech is fluent spontaneous nonpressured. Eye contact is appropriate. She indicates her mood is better today. She is starting to feel hopeful. She is reporting no current acute suicidal ideation intent or plan area she is reporting no homicidal ideation intent or plan. She describes no auditory or visual hallucinations or any specific delusions and there is no observed evidence of psychosis. She demonstrates no tangential thinking loose associations or flight of ideas. She maintains a constricted affect. She demonstrates no verbal or physical aggressiveness. She demonstrates no abnormal involuntary movements. Insight and judgment improving. She remains oriented to person place and date. Plan: The patient will continue on her current psychotropic medications. She is responding to the therapeutic milieu and suggestions for cognitive restructuring. We will await the outcome of the family meeting tomorrow. She may be appropriate for discharge sometime this week. We will monitor her for safety. Vital signs reviewed.
[2018-06-13] MEDS: MAGNESIUM HYDROXIDE 2,400 MG/10 ML CUP PO PRN (14:53)
[2018-06-13] MEDS: ALBUTEROL INHALER 60 PUFF/8 GM INHALER INHALATION PRN (20:45)
[2018-06-13] MEDS: traZODone HCL 100 MG TAB PO SCH (20:45)
[2018-06-13] MEDS: DESVENLAFAXINE SUCCINATE 50 MG TAB.ER.24H PO SCH (20:45)
[2018-06-13] MEDS: MELATONIN 5 MG TABLET PO SCH (20:45)
[2018-06-14] MEDS: LEVOTHYROXINE 100 MCG TAB PO SCH (05:56)
[2018-06-14 07:05] VITALS: BP 101/51; PULSE 66; TEMP 98.1
[2018-06-14] MEDS: lamoTRIgine 100 MG TAB PO SCH ×2 (09:04→20:52)
[2018-06-14] MEDS: TOPIRAMATE 100 MG TAB PO SCH (09:05)
[2018-06-14] MEDS: ATORVASTATIN 10 MG TAB PO SCH (09:05)
[2018-06-14] MEDS: ZIPRASIDONE 80 MG CAP PO SCH ×2 (09:05→21:14)
[2018-06-14] MEDS: BACLOFEN 10 MG TAB PO SCH ×2 (09:05→20:52)
[2018-06-14] MEDS: HYDROcodone/APAP 5-325MG 1 EACH TAB PO PRN ×2 (09:06→20:53)
[2018-06-14] MEDS: IBUPROFEN 800 MG TAB PO PRN ×2 (09:07→17:13)
[2018-06-14] MEDS: ALBUTEROL INHALER 60 PUFF/8 GM INHALER INHALATION PRN ×4 (09:14→20:51)
--- NOTE | 2018-06-14 09:41 | P.PN ---
Progress Note - Text Interval history: The patient is found in her room she follows me to an interview room. She reports her mood is more down. She states that she had suicidal thoughts yesterday. She is feeling anxious in anticipating the meeting with her family this morning. Again she demonstrates non-objective thinking in her assumptions. She continues to utilize all or none thinking which often results in her having suicidal thoughts. She had a verbal altercation with her via phone which led her to have the thoughts of leaving him and her daughter. She has no questions regarding her psychotropic medication. Mental status exam: The patient is alert she seated calmly in the chair. She has adequate hygiene grooming. Eye contact is appropriate. She maintains a constricted anxious affect today. She reports her mood is down and she feels anxious. She is reporting suicidal thoughts yesterday she feels safe in the hospital however. No homicidal ideation. She is reporting no auditory or visual hallucinations or any specific delusions. She does not appear hypomanic or manic. Insight and judgment limited by borderline personality disorder pathology. Otherwise they are grossly intact. She is oriented to person place and date. She demonstrates no verbal or physical aggressiveness she demonstrates no abnormal involuntary movements. Plan: The patient will continue on her current psychotropic medication we will monitor her for safety. Again we spent several minutes discussing opportunities for cognitive restructuring. We continue to have her try to focus on more objective thinking and the severity of her reactions. We will await the outcome of her family meeting. Vital signs reviewed. We will consider discharging her tomorrow if clinically stable.
[2018-06-14] MEDS: MAGNESIUM HYDROXIDE 2,400 MG/10 ML CUP PO PRN (12:27)
[2018-06-14 17:10] LABS: Appearance,Urine Cloudy (Clear); Bilirubin,Urine Negative (Negative); Blood,Urine Negative (Negative); Color,Urine Yellow; Glucose,Urine (UA) Negative (Negative); Ketones,Urine Negative (Negative); Leukocyte Esterase,Urine Trace (Negative); Nitrite,Urine Negative (Negative); PH, Urine 7.5 (5.0-8.0); Protein,Urine Negative (Negative); Specific Gravity,Urine 1.015 (1.001-1.035); Squamous Epithelial Cell,Urine 2 /hpf (0-4); Urobilinogen,Urine <2.0 mg/dL (<2.0); WBC,Urine <1 /hpf (0-5)
[2018-06-14] MEDS: traZODone HCL 100 MG TAB PO SCH (20:51)
[2018-06-14] MEDS: MELATONIN 5 MG TABLET PO SCH (20:51)
[2018-06-14] MEDS: DESVENLAFAXINE SUCCINATE 50 MG TAB.ER.24H PO SCH (20:52)
[2018-06-15] MEDS: LEVOTHYROXINE 100 MCG TAB PO SCH (06:38)
--- NOTE | 2018-06-15 08:53 | P.DS ---
Providers Date of admission: 06/09/18 15:03 Expected date of discharge: 06/15/18 Attending physician: Nathan Smith Consults: 06/09/18 16:48 Consult Physician Routine Consulting Provider: Douglas Perez Consult Reason/Comments: H&P,with medical followup Do you want consulting provider notified?: Already Contacted Primary care physician: Elias Bergeron - Discharge Diagnosis(es) (1) Bipolar depression Current Visit: Yes Status: Acute Priority: High Hospital Course: Brief summary of admission note: This patient is a 37-year-old female who was admitted to the mental health unit with suicidal ideation. The patient presented after she overdosed on Fioricet. She also and just a small laceration to her anterior distal wrist which required sutures. The patient reported feeling overwhelmed with a verbal altercation involving her family. She had gestured with a gun which was taken away from her and then overdosed on medication. She reported having racing thoughts about no one loving her and that her family hates her. She stated she felt worthless hopeless and had no motivation. For full details please refer to the psychiatric evaluation dated 06/10/2018. Summary of hospital course: The patient was admitted to the mental health unit she signed in voluntarily. She was initially evaluated by the [facility] psychiatrist and I assumed her care the following Monday. We reviewed her presenting symptoms and treatment options. She is working with a psychiatrist in the outpatient setting and is on several psychotropic medications. It is evident that the patient is struggling mainly with symptoms related to her borderline personality disorder as it pertains to this admission. During the course of her admission we had several sessions were we discussed assumption she is making and offered suggestions for cognitive reframing. She was able to receive his input and made an effort to institute some changes. She agreed that her psychotropic medication did not need to be changed. We discussed the importance of her participating in the available DBT group. We discussed borderline personality disorder symptoms and treatment in detail and her questions were answered. The patient participated in a family meeting involving her and daughter and this was productive. The patient states that she feels much more hopeful. She is reporting no acute suicidal ideation intent or plan. The patient was seen by internal medicine for routine history and physical exam. Mental status exam: The patient is an alert female appearing her stated age. She is dressed in her own clothing hygiene grooming are adequate. Eye contact is appropriate speech is fluent spontaneous nonpressured. She endorses a mood that is "better" and affect is more euthymic in appearance. She denies having any acute suicidal ideation intent or plan. She states she does not feel hopeless. She is reporting no homicidal ideation intent or plan. She reports no auditory or visual hallucinations or any specific delusions and there is no observed evidence of psychosis. She demonstrates a linear thought process and demonstrates no tangential thinking loose associations or flight of ideas. She does not appear hypomanic or manic. Insight and judgment have improved. She remains oriented to person place and date. She demonstrates no abnormal involuntary movements and she demonstrates no verbal or physical aggressiveness. Impressions 1. Bipolar disorder most recent depressed, borderline personality disorder Plan: The patient will be discharged from the mental health unit today to return home residing with her family. She will continue working with her established outpatient psychotherapist and psychiatrist in [facility]. The patient required no change in her psychotropic medications and will continue on Pristiq 100 mg daily, Lamictal 200 mg twice daily, Topamax 100 mg daily, trazodone 300 mg at bedtime, Geodon 80 mg twice daily. There is no imminent safety risk she is appropriate for discharge back to outpatient care. She is instructed to return to the hospital with any acute safety concerns. Patient Condition at Discharge: Stable Plan - Discharge Summary New Discharge Prescriptions: New Melatonin 5 mg PO HS tablet Continue Atorvastatin Calcium [Lipitor] 10 mg PO DAILY Albuterol Inhaler [Ventolin Hfa Inhaler] 2 puff INHALATION RT-QID PRN PRN Reason: Shortness Of Breath Docusate [Colace] 100 mg PO BID HYDROcodone/APAP 5-325MG [[place] 5-325] 1 tab PO BID PRN PRN Reason: Pain Baclofen [Lioresal] 10 mg PO BID Albuterol Nebulized [Ventolin Nebulized] 2.5 mg INHALATION RT-QID PRN PRN Reason: Shortness Of Breath traZODone HCL 300 mg PO HS lamoTRIgine [LaMICtal] 200 mg PO BID Desvenlafaxine Succinate [Pristiq] 100 mg PO HS Ziprasidone [Geodon] 80 mg PO BID Tiotropium Br/Olodaterol HCl [Stiolto Respimat Inhal [place]] 2 puff INHALATION RT-DAILY Fluticasone Nasal [place] [Flonase Nasal [place]] 1 - 2 sprays EA NOSTRIL BID PRN PRN Reason: Allergy Symptoms Topiramate [Trokendi Xr] 100 mg PO DAILY Levothyroxine Sodium [Synthroid] 100 mcg PO DAILY Discharge Medication List Albuterol Inhaler [Ventolin Hfa Inhaler] 2 puff INHALATION RT-QID PRN 02/21/17 [ History] Atorvastatin Calcium [Lipitor] 10 mg PO DAILY 02/21/17 [History] Docusate [Colace] 100 mg PO BID 03/26/17 [History] Albuterol Nebulized [Ventolin Nebulized] 2.5 mg INHALATION RT-QID PRN 12/21/17 [ History] Baclofen [Lioresal] 10 mg PO BID 12/21/17 [History] Desvenlafaxine Succinate [Pristiq] 100 mg PO HS 12/21/17 [History] HYDROcodone/APAP 5-325MG [[place] 5-325] 1 tab PO BID PRN 12/21/17 [History] Ziprasidone [Geodon] 80 mg PO BID 12/21/17 [History] lamoTRIgine [LaMICtal] 200 mg PO BID 12/21/17 [History] traZODone HCL 300 mg PO HS 12/21/17 [History] Fluticasone Nasal [place] [Flonase Nasal [place]] 1 - 2 sprays EA NOSTRIL BID PRN [History] Levothyroxine Sodium [Synthroid] 100 mcg PO DAILY 05/23/18 [History] Tiotropium Br/Olodaterol HCl [Stiolto Respimat Inhal [place]] 2 puff INHALATION RT -DAILY 05/23/18 [History] Topiramate [Trokendi Xr] 100 mg PO DAILY 05/23/18 [History] Melatonin 5 mg PO HS tablet 06/15/18 [Rx] Follow up Appointment(s)/Referral(s): Elias Bergeron MD [Primary Care Provider] - 1-2 days
[2018-06-15] MEDS: ALBUTEROL INHALER 60 PUFF/8 GM INHALER INHALATION PRN (09:14)
[2018-06-15] MEDS: BACLOFEN 10 MG TAB PO SCH (09:35)
[2018-06-15] MEDS: TOPIRAMATE 100 MG TAB PO SCH (09:35)
[2018-06-15] MEDS: ZIPRASIDONE 80 MG CAP PO SCH (09:35)
[2018-06-15] MEDS: ATORVASTATIN 10 MG TAB PO SCH (09:35)
[2018-06-15] MEDS: lamoTRIgine 100 MG TAB PO SCH (09:35)
[2018-06-15] MEDS: HYDROcodone/APAP 5-325MG 1 EACH TAB PO PRN (09:37)
[2018-06-15] MEDS: IBUPROFEN 800 MG TAB PO PRN (09:38)
== END 2018-06-15 14:02 | disposition home or self-care (01) | DRG 885 ==
LOC: EC 06:51 → 3MHU 15:03
PROVIDERS: ADMIT Psychiatry & Neurology Psychiatry; ATTEND Psychiatry & Neurology Psychiatry
PROC: 0HQEXZZ Repair Left Lower Arm Skin, External Approach (ICD-10-PCS; principal; 2018-06-09)
DX: F31.30 Bipolar disorder, current episode depressed, mild or moderate severity, unspecified (principal); R45.851 Suicidal ideations; G40.909 Epilepsy, unspecified, not intractable, without status epilepticus; F60.3 Borderline personality disorder; T39.1X2A Poisoning by 4-Aminophenol derivatives, intentional self-harm, initial encounter; S61.512A Laceration without foreign body of left wrist, initial encounter; F90.9 Attention-deficit hyperactivity disorder, unspecified type; F10.21 Alcohol dependence, in remission; F42.9 Obsessive-compulsive disorder, unspecified; F43.10 Post-traumatic stress disorder, unspecified; E03.9 Hypothyroidism, unspecified; E78.5 Hyperlipidemia, unspecified; K21.9 Gastro-esophageal reflux disease without esophagitis; M79.7 Fibromyalgia; K58.0 Irritable bowel syndrome with diarrhea; G43.909 Migraine, unspecified, not intractable, without status migrainosus; M54.30 Sciatica, unspecified side; M19.91 Primary osteoarthritis, unspecified site; G89.29 Other chronic pain; M54.9 Dorsalgia, unspecified; Z65.3 Problems related to other legal circumstances; Z63.0 Problems in relationship with spouse or partner; Z79.890 Hormone replacement therapy; Z79.51 Long term (current) use of inhaled steroids; Z79.899 Other long term (current) drug therapy; Z91.5 Personal history of self-harm; Z87.891 Personal history of nicotine dependence; Z90.49 Acquired absence of other specified parts of digestive tract; Z88.5 Allergy status to narcotic agent; Z91.040 Latex allergy status; Z98.51 Tubal ligation status; Z81.8 Family history of other mental and behavioral disorders; Z81.1 Family history of alcohol abuse and dependence; Z83.49 Family history of other endocrine, nutritional and metabolic diseases; Z82.0 Family history of epilepsy and other diseases of the nervous system; Z82.49 Family history of ischemic heart disease and other diseases of the circulatory system
CPT/HCPCS: 12002; 36415; 80048; 80053; 80061; 80306; 80320; 81001; 81003; 81025; 82075; 82803; 83036; 83520; 83605; 84439; 84443; 85025; 85610; 85730; 86580; 90715; 93005; 94640; 96360; 96361; 96365; 96372; 96374; 99285

== ENCOUNTER 2018-10-05 18:23 | Inpatient (IN) | payer MEDICARE, OTHER ==
[2018-10-05] MEDS ORDERED: SODIUM CHLORIDE 0.9% 1,000 ML IV STA (18:30)
--- NOTE | 2018-10-05 18:42 | ED ---
General Adult HPI - General Chief complaint: Overdose Stated complaint: overdose Time Seen by Provider: 10/05/18 18:30 Source: patient, EMS, RN notes reviewed, old records reviewed Mode of arrival: EMS Limitations: altered mental status - History of Present Illness Initial comments: 37-year-old female presents with suicide attempt and overdose. Patient brought in by EMS, somewhat lethargic. She was given Narcan 1 mg prior to arrival with no change in mental status. Patient will answer questions, she is drowsy. She admits to taking 33 05/325 [place], she also took 410 mg Valium. Denies any other ingestion. This was a suicide attempt. - Related Data Home Medications Medication Instructions Recorded Confirmed Albuterol Inhaler [Ventolin Hfa 2 puff INHALATION RT-QID PRN 02/21/17 10/05/18 Inhaler] Atorvastatin Calcium [Lipitor] 10 mg PO HS 02/21/17 10/05/18 Docusate [Colace] 100 mg PO BID 03/26/17 10/05/18 Albuterol Nebulized [Ventolin 2.5 mg INHALATION RT-QID PRN 12/21/17 10/05/18 Nebulized] Baclofen [Lioresal] 10 mg PO BID 12/21/17 10/05/18 Desvenlafaxine Succinate [Pristiq] 100 mg PO DAILY 12/21/17 10/05/18 HYDROcodone/APAP 5-325MG [[place] 1 tab PO BID PRN 12/21/17 10/05/18 5-325] Ziprasidone [Geodon] 80 mg PO BID 12/21/17 10/05/18 lamoTRIgine [LaMICtal] 200 mg PO BID 12/21/17 10/05/18 Fluticasone Nasal [place] [Flonase 1 - 2 sprays EA NOSTRIL BID PRN 05/23/18 Nasal [place]] Levothyroxine Sodium [Synthroid] 100 mcg PO DAILY 05/23/18 10/05/18 Topiramate [Trokendi Xr] 100 mg PO DAILY 05/23/18 10/05/18 Ibuprofen [Motrin] 600 mg PO QID PRN 10/05/18 10/05/18 QUEtiapine FUMARATE [SEROquel] 300 mg PO TID 10/05/18 10/05/18 Allergies Allergy/AdvReac Type Severity Reaction Status Date / Time latex Allergy Rash/Hives Verified 10/05/18 19:30 propoxyphene Allergy Nausea & Verified 10/05/18 19:30 [From Darvocet-N] Vomiting tramadol [From Ultram] Allergy Itching Verified 10/05/18 19:30 hydromorphone [From Dilaudid] AdvReac Itching Verified 10/05/18 19:30 Review of Systems ROS Statement: Those systems with pertinent positive or pertinent negative responses have been documented in the HPI. ROS Other: All systems not noted in ROS Statement are negative. Past Medical History Past Medical History: Fibromyalgia, GERD/Reflux, Hyperlipidemia, Thyroid Disorder Additional Past Medical History / Comment(s): irritable bowel syndrome, carpal tunnel, arthritis, "eroded espohagus and stomach", etoh abuse , migraine headaches, degenerative disc disease,arthritis, sciatica History of Any Multi-Drug Resistant Organisms: None Reported Past Surgical History: Adenoidectomy, Appendectomy, Cholecystectomy, Hernia Repair, Tonsillectomy, Tubal Ligation Additional Past Surgical History / Comment(s): d&c x5, exploratory lap, ovarian tumor removed, Kym fundiplacation Past Anesthesia/Blood Transfusion Reactions: Previous Problems w/ Anesthesia Additional Past Anesthesia/Blood Transfusion Reaction / Comment(s): stated "heart stopped and blood pressure dropped after gall bladder surgery in operating room" Past Psychological History: ADD/ADHD, Anxiety, Bipolar, Depression, PTSD Smoking Status: Current every day smoker - Past Family History Father Additional Family Medical History / Comment(s): Father is alive at age 58 with history of generalized anxiety disorder and possible bipolar disorder. Alcohol abuse Mother Additional Family Medical History / Comment(s): Mother is alive at age 58 with history of degenerative disc disease, osteoarthritis, hyperlipidemia, hypertension. Brother(s) Additional Family Medical History / Comment(s): Patient has 2 brothers. One from suicide. One brother has no major medical problems. Patient has 2 sisters but she has no contact with them. Patient has 4 children ages 19, 18, 16, 15. General Exam Limitations: altered mental status General appearance: lethargic Head exam: Present: atraumatic, normocephalic Eye exam: Present: normal appearance, PERRL, EOMI ENT exam: Present: normal exam Neck exam: Present: normal inspection. Absent: tenderness, meningismus Respiratory exam: Present: normal lung sounds bilaterally. Absent: respiratory distress, wheezes Cardiovascular Exam: Present: regular rate, normal rhythm GI/Abdominal exam: Present: soft. Absent: distended, tenderness, guarding Extremities exam: Present: normal inspection, normal capillary refill. Absent: pedal edema Neurological exam: Present: alert. Absent: motor sensory deficit Psychiatric exam: Present: depressed, flat affect, suicidal ideation Skin exam: Present: warm, dry, intact. Absent: cyanosis, diaphoretic Course Vital Signs 10/05/18 10/05/18 18:32 19:21 Temperature 98.2 F Pulse Rate 83 71 Respiratory 13 14 Rate Blood Pressure 110/67 O2 Sat by Pulse 100 99 Oximetry EKG Findings - EKG Comments: EKG Findings:: EKG: Sinus rhythm with short SD, rate of 82, SD interval 88, QRS duration 76, QTC 446 no ischemic changes Medical Decision Making - Medical Decision Making 37-year-old female presenting suicide attempts, taking [place] and Valium. Patient is lethargic but arousable, protecting her airway, answering questions appropriately. She does state that this was a suicide attempt. EKG shows normal sinus rhythm. Vital signs are stable. Ingestion was approximately 2 hours prior to arrival. Patient is asymptomatic at the time my evaluation. Laboratory studies obtained, normal CBC, normal electrolytes, patient has urine drug screen which is positive for opiates, tricyclic antidepressants, benzodiazepines, and marijuana. Salicylate level is nondetectable, no alcohol. Tylenol level which is approximately 2 hour level shows toxic dose of acetaminophen at 152. If patient's reported ingestion is accurate this represents 250 mg/kg which is a toxic dose of acetaminophen. Case is discussed with poison control multiple occasions in the emergency department. Patient will be admitted for IV treatment on N-acetylcysteine. Repeat Tylenol level will be obtained 4 hours. Repeat laboratory studies obtained in the morning. Patient maintained on IV hydration. Case discussed with Dr. Wayne, will accept admission. Psychiatry placed on consult for evaluation of suicide attempt. Suicide precautions maintained. - Lab Data Result diagrams: 10/05/18 18:38 10/05/18 18:38 Lab Results 10/05/18 10/05/18 10/05/18 Range/Units 18:38 18:38 18:38 WBC 11.5 H (3.8-10.6) k/uL RBC 4.17 (3.80-5.40) m/uL Hgb 11.9 (11.4-16.0) gm/dL Hct 37.8 (34.0-46.0) % MCV 90.8 (80.0-100.0) fL MCH 28.6 (25.0-35.0) pg MCHC 31.6 (31.0-37.0) g/dL RDW 14.2 (11.5-15.5) % Plt Count 273 (150-450) k/uL Neutrophils % 68 % Lymphocytes % 22 % Monocytes % 6 % Eosinophils % 1 % Basophils % 1 % Neutrophils # 7.8 H (1.3-7.7) k/uL Lymphocytes # 2.5 (1.0-4.8) k/uL Monocytes # 0.7 (0-1.0) k/uL Eosinophils # 0.1 (0-0.7) k/uL Basophils # 0.1 (0-0.2) k/uL PT (9.0-12.0) sec INR (<1.2) APTT (22.0-30.0) sec Sodium 140 (137-145) mmol/L Potassium 3.9 (3.5-5.1) mmol/L Chloride 111 H (98-107) mmol/L Carbon Dioxide 21 L (22-30) mmol/L Anion Gap 8 mmol/L BUN 13 (7-17) mg/dL Creatinine 0.74 (0.52-1.04) mg/dL Est GFR (CKD-EPI)AfAm >90 (>60 ml/min/1.73 sqM) Est GFR (CKD-EPI)NonAf >90 (>60 ml/min/1.73 sqM) Glucose 80 (74-99) mg/dL Plasma Lactic Acid Vinicio (0.7-2.0) mmol/L Calcium 9.7 (8.4-10.2) mg/dL Magnesium (1.6-2.3) mg/dL Total Bilirubin 0.3 (0.2-1.3) mg/dL AST 40 H (14-36) U/L ALT 40 (9-52) U/L Alkaline Phosphatase 89 (38-126) U/L Creatine Kinase (30-135) U/L Total Protein 7.3 (6.3-8.2) g/dL Albumin 4.3 (3.5-5.0) g/dL Urine Color Light Yellow Urine Appearance Clear (Clear) Urine pH 6.5 (5.0-8.0) Ur Specific [place] 1.005 (1.001-1.035) Urine Protein Negative (Negative) Urine Glucose (UA) Negative (Negative) Urine Ketones Negative (Negative) Urine Blood Negative (Negative) Urine Nitrite Negative (Negative) Urine Bilirubin Negative (Negative) Urine Urobilinogen <2.0 (<2.0) mg/dL Ur Leukocyte Esterase Negative (Negative) Urine HCG, Qual (Not Detectd) Salicylates <1.0 mg/dL Urine Opiates Screen Detected H (NotDetected) Ur Oxycodone Screen Not Detected (NotDetected) Urine Methadone Screen Not Detected (NotDetected) Ur Propoxyphene Screen Not Detected (NotDetected) Acetaminophen 152.4 H* ug/mL Ur Barbiturates Screen Not Detected (NotDetected) U Tricyclic Antidepress Detected H (NotDetected) Ur Phencyclidine Scrn Not Detected (NotDetected) Ur Amphetamines Screen Not Detected (NotDetected) U Methamphetamines Scrn Not Detected (NotDetected) U Benzodiazepines Scrn Detected H (NotDetected) Urine Cocaine Screen Not Detected (NotDetected) U Marijuana (THC) Screen Detected H (NotDetected) Serum Alcohol <10 mg/dL 10/05/18 10/05/18 10/05/18 Range/Units 18:38 18:38 18:38 WBC (3.8-10.6) k/uL RBC (3.80-5.40) m/uL Hgb (11.4-16.0) gm/dL Hct (34.0-46.0) % MCV (80.0-100.0) fL MCH (25.0-35.0) pg MCHC (31.0-37.0) g/dL RDW (11.5-15.5) % Plt Count (150-450) k/uL Neutrophils % % Lymphocytes % % Monocytes % % Eosinophils % % Basophils % % Neutrophils # (1.3-7.7) k/uL Lymphocytes # (1.0-4.8) k/uL Monocytes # (0-1.0) k/uL Eosinophils # (0-0.7) k/uL Basophils # (0-0.2) k/uL PT 9.3 (9.0-12.0) sec INR 0.8 (<1.2) APTT 23.7 (22.0-30.0) sec Sodium (137-145) mmol/L Potassium (3.5-5.1) mmol/L Chloride (98-107) mmol/L Carbon Dioxide (22-30) mmol/L Anion Gap mmol/L BUN (7-17) mg/dL Creatinine (0.52-1.04) mg/dL Est GFR (CKD-EPI)AfAm (>60 ml/min/1.73 sqM) Est GFR (CKD-EPI)NonAf (>60 ml/min/1.73 sqM) Glucose (74-99) mg/dL Plasma Lactic Acid Vinicio 1.0 (0.7-2.0) mmol/L Calcium (8.4-10.2) mg/dL Magnesium (1.6-2.3) mg/dL Total Bilirubin (0.2-1.3) mg/dL AST (14-36) U/L ALT (9-52) U/L Alkaline Phosphatase (38-126) U/L Creatine Kinase (30-135) U/L Total Protein (6.3-8.2) g/dL Albumin (3.5-5.0) g/dL Urine Color Urine Appearance (Clear) Urine pH (5.0-8.0) Ur Specific [place] (1.001-1.035) Urine Protein (Negative) Urine Glucose (UA) (Negative) Urine Ketones (Negative) Urine Blood (Negative) Urine Nitrite (Negative) Urine Bilirubin (Negative) Urine Urobilinogen (<2.0) mg/dL Ur Leukocyte Esterase (Negative) Urine HCG, Qual Not Detected (Not Detectd) Salicylates mg/dL Urine Opiates Screen (NotDetected) Ur Oxycodone Screen (NotDetected) Urine Methadone Screen (NotDetected) Ur Propoxyphene Screen (NotDetected) Acetaminophen ug/mL Ur Barbiturates Screen (NotDetected) U Tricyclic Antidepress (NotDetected) Ur Phencyclidine Scrn (NotDetected) Ur Amphetamines Screen (NotDetected) U Methamphetamines Scrn (NotDetected) U Benzodiazepines Scrn (NotDetected) Urine Cocaine Screen (NotDetected) U Marijuana (THC) Screen (NotDetected) Serum Alcohol mg/dL 10/05/18 Range/Units 18:38 WBC (3.8-10.6) k/uL RBC (3.80-5.40) m/uL Hgb (11.4-16.0) gm/dL Hct (34.0-46.0) % MCV (80.0-100.0) fL MCH (25.0-35.0) pg MCHC (31.0-37.0) g/dL RDW (11.5-15.5) % Plt Count (150-450) k/uL Neutrophils % % Lymphocytes % % Monocytes % % Eosinophils % % Basophils % % Neutrophils # (1.3-7.7) k/uL Lymphocytes # (1.0-4.8) k/uL Monocytes # (0-1.0) k/uL Eosinophils # (0-0.7) k/uL Basophils # (0-0.2) k/uL PT (9.0-12.0) sec INR (<1.2) APTT (22.0-30.0) sec Sodium (137-145) mmol/L Potassium (3.5-5.1) mmol/L Chloride (98-107) mmol/L Carbon Dioxide (22-30) mmol/L Anion Gap mmol/L BUN (7-17) mg/dL Creatinine (0.52-1.04) mg/dL Est GFR (CKD-EPI)AfAm (>60 ml/min/1.73 sqM) Est GFR (CKD-EPI)NonAf (>60 ml/min/1.73 sqM) Glucose (74-99) mg/dL Plasma Lactic Acid Vinic[place] (0.7-2.0) mmol/L Calcium (8.4-10.2) mg/dL Magnesium 2.0 (1.6-2.3) mg/dL Total Bilirubin (0.2-1.3) mg/dL AST (14-36) U/L ALT (9-52) U/L Alkaline Phosphatase (38-126) U/L Creatine Kinase 104 (30-135) U/L Total Protein (6.3-8.2) g/dL Albumin (3.5-5.0) g/dL Urine Color Urine Appearance (Clear) Urine pH (5.0-8.0) Ur Specific [place] (1.001-1.035) Urine Protein (Negative) Urine Glucose (UA) (Negative) Urine Ketones (Negative) Urine Blood (Negative) Urine Nitrite (Negative) Urine Bilirubin (Negative) Urine Urobilinogen (<2.0) mg/dL Ur Leukocyte Esterase (Negative) Urine HCG, Qual (Not Detectd) Salicylates mg/dL Urine Opiates Screen (NotDetected) Ur Oxycodone Screen (NotDetected) Urine Methadone Screen (NotDetected) Ur Propoxyphene Screen (NotDetected) Acetaminophen ug/mL Ur Barbiturates Screen (NotDetected) U Tricyclic Antidepress (NotDetected) Ur Phencyclidine Scrn (NotDetected) Ur Amphetamines Screen (NotDetected) U Methamphetamines Scrn (NotDetected) U Benzodiazepines Scrn (NotDetected) Urine Cocaine Screen (NotDetected) U Marijuana (THC) Screen (NotDetected) Serum Alcohol mg/dL Critical Care Time Critical Care Time: Yes Total Critical Care Time: 35 Disposition Clinical Impression: Attempted suicide, Acetaminophen overdose Disposition: ADMITTED IP TO THIS [facility] Condition: Serious Is patient prescribed a controlled substance at d/c from ED?: No Referrals: Elias Bergeron MD [Primary Care Provider] - 1-2 days Decision to Admit Reason: Admit from EC Decision Date: 10/05/18 Decision Time: 20:01
[2018-10-05 19:01] LABS: Basophils # (A) 0.1 k/uL (0-0.2); Basophils % (A) 1 %; Eosinophils # (A) 0.1 k/uL (0-0.7); Eosinophils % (A) 1 %; HCT 37.8 % (34.0-46.0); HGB 11.9 gm/dL (11.4-16.0); Lymphocytes # (A) 2.5 k/uL (1.0-4.8); Lymphocytes % (A) 22 %; MCH 28.6 pg (25.0-35.0); MCHC 31.6 g/dL (31.0-37.0); MCV 90.8 fL (80.0-100.0); Mean Platelet Volume 7.2; Monocytes # (A) 0.7 k/uL (0-1.0); Monocytes % (A) 6 %; Neutrophils # (A) 7.8 k/uL (1.3-7.7); Neutrophils % (A) 68 %; Platelet Count 273 k/uL (150-450); RBC 4.17 m/uL (3.80-5.40); RDW 14.2 % (11.5-15.5); WBC 11.5 k/uL (3.8-10.6)
[2018-10-05 19:04] LABS: Appearance,Urine Clear (Clear); Bilirubin,Urine Negative (Negative); Blood,Urine Negative (Negative); Color,Urine Light Yellow; Glucose,Urine (UA) Negative (Negative); Ketones,Urine Negative (Negative); Leukocyte Esterase,Urine Negative (Negative); Nitrite,Urine Negative (Negative); PH, Urine 6.5 (5.0-8.0); Protein,Urine Negative (Negative); Specific Gravity,Urine 1.005 (1.001-1.035); Urobilinogen,Urine <2.0 mg/dL (<2.0)
[2018-10-05 19:11] LABS: INR 0.8 (<1.2); Partial Thromboplastin Time 23.7 sec (22.0-30.0); Prothrombin Time 9.3 sec (9.0-12.0)
[2018-10-05 19:12] LABS: Amphetamine Screen,Urine Not Detected (NotDetected); Barbiturate Screen,Urine Not Detected (NotDetected); Benzodiazepines Screen,Urine Detected (NotDetected); Cocaine Screen,Urine Not Detected (NotDetected); Methadone Screen, Urine Not Detected (NotDetected); Opiate Screen,Urine Detected (NotDetected); Oxycodone Screen, Urine Not Detected (NotDetected); Phencyclidine Screen,Urine Not Detected (NotDetected); Tricyclic Antidepressant,Urine Detected (NotDetected); Urn Cannabinoid Scrn Detected (NotDetected)
[2018-10-05 19:17] LABS: ALT 40 U/L (9-52); AST 40 U/L (14-36); Albumin 4.3 g/dL (3.5-5.0); Alcohol <10 mg/dL; Alkaline Phosphatase 89 U/L (38-126); Anion Gap 8 mmol/L; Blood Urea Nitrogen 13 mg/dL (7-17); Calcium 9.7 mg/dL (8.4-10.2); Carbon Dioxide 21 mmol/L (22-30); Chloride 111 mmol/L (98-107); Glucose 80 mg/dL (74-99); Potassium 3.9 mmol/L (3.5-5.1); Salicylate <1.0 mg/dL; Sodium 140 mmol/L (137-145); Total Bilirubin 0.3 mg/dL (0.2-1.3); Total Protein 7.3 g/dL (6.3-8.2)
[2018-10-05 19:36] LABS: Acetaminophen 152.4 ug/mL
[2018-10-05] MEDS ORDERED: NALOXONE 0.4 MG/ML 1 ML VIAL IV PRN (19:55)
[2018-10-05] MEDS ORDERED: ACETYLCYSTEINE IV 10,000 MG in DEXTROSE 5% IN WATER 200 ML IV ONE ×2 (20:00)
[2018-10-05] MEDS ORDERED: ACETYLCYSTEINE IV 3,400 MG in DEXTROSE 5% IN WATER 500 ML IV ONE ×2 (21:00)
[2018-10-05] MEDS: 0.9% NACL WITH KCL 20 MEQ/L 1,000 ML IV SCH (21:29)
[2018-10-06] MEDS ORDERED: WATER IV ONE ×4 (01:00→12:30)
[2018-10-06] MEDS ORDERED: DEXTROSE 5% IV ONE ×4 (01:00→12:30)
[2018-10-06] MEDS ORDERED: ACETYLCYSTEINE IV ONE ×4 (01:00→12:30)
[2018-10-06 09:00] LABS: Prothrombin Time 10.3 sec (9.0-12.0)
[2018-10-06 09:01] LABS: Basophils % (A) 1 %; Eosinophils # (A) 0.1 k/uL (0-0.7); Eosinophils % (A) 1 %; HCT 32.6 % (34.0-46.0); HGB 10.5 gm/dL (11.4-16.0); Hypochromasia Slight; Lymphocytes # (A) 2.9 k/uL (1.0-4.8); Lymphocytes % (A) 40 %; MCH 30.2 pg (25.0-35.0); MCHC 32.2 g/dL (31.0-37.0); MCV 93.9 fL (80.0-100.0); Mean Platelet Volume 8.1; Monocytes # (A) 0.6 k/uL (0-1.0); Monocytes % (A) 8 %; Neutrophils # (A) 3.4 k/uL (1.3-7.7); Neutrophils % (A) 47 %; Platelet Count 228 k/uL (150-450); RBC 3.47 m/uL (3.80-5.40); RDW 14.3 % (11.5-15.5); WBC 7.2 k/uL (3.8-10.6)
[2018-10-06 09:02] LABS: ALT 38 U/L (9-52); AST 28 U/L (14-36); Alkaline Phosphatase 56 U/L (38-126); Anion Gap 5 mmol/L; Blood Urea Nitrogen 8 mg/dL (7-17); Calcium 8.6 mg/dL (8.4-10.2); Carbon Dioxide 20 mmol/L (22-30); Chloride 114 mmol/L (98-107); Glucose 74 mg/dL (74-99); Magnesium 1.8 mg/dL (1.6-2.3); Phosphorus 3.3 mg/dL (2.5-4.5); Potassium 4.1 mmol/L (3.5-5.1); Sodium 139 mmol/L (137-145); Total Bilirubin 0.2 mg/dL (0.2-1.3); Total Protein 5.4 g/dL (6.3-8.2)
[2018-10-06] MEDS ORDERED: LORazepam 2 MG/ML INJ IM PRN (11:35)
[2018-10-06] MEDS ORDERED: BACLOFEN 10 MG TAB ONE (18:23)
[2018-10-06 20:36] LABS: Glucose,Whole Blood 108 mg/dL (75-99)
[2018-10-06] MEDS: 0.9% NACL WITH KCL 20 MEQ/L 1,000 ML IV SCH (21:47)
[2018-10-07] MEDS: 0.9% NACL WITH KCL 20 MEQ/L 1,000 ML IV SCH ×2 (03:42→15:38)
[2018-10-07 11:02] VITALS: BMI 23.7
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
[2018-10-07] MEDS ORDERED: ALBUTEROL NEBULIZED 2.5 MG/3 ML INHALATION PRN (15:12)
[2018-10-07] MEDS ORDERED: ALBUTEROL INHALER 60 PUFF/8 GM INHALER INHALATION PRN (15:12)
[2018-10-07] MEDS ORDERED: FLUTICASONE 50MCG/SPRAY NASAL 16GM EA NOSTRIL PRN (15:12)
[2018-10-07] MEDS ORDERED: IBUPROFEN 600 MG TAB PO PRN (15:12)
--- NOTE | 2018-10-07 15:12 | P.HPIM ---
History of Present Illness H&P Date: 10/06/18 Chief Complaint: Drug overdose, suicidal attempt, acetaminophen Ajit Blum, severe depressio 57-year-old female one of Dr. Elias Bergeron's patient with past medical history of chronic depression and fibromyalgia chronic pain syndrome was seen Dr. Harris regularly for chronic lower back pain and had epidural injection and multiple procedure still seen in his office once a month for pain management refill. Patient took over 35 [place] 5/325 mg along with 4 pills of 10 mg Valium altogether attempt to commit suicide family called 911 patient brought to demurs department at [facility] in reasonable time patient ended up on IV hydration and started the protocol for acetaminophen Toxicity; on Acetylcysteine IV per protocol also taking away all her pain meds and Tylenol at this point. Patient will be admitted to medical floor with the consult psych and when her acetaminophen [place] over patient be transferred to the psych unit. Review of Systems CONSTITUTIONAL: Well-developed no acute respiratory distress. EYES: No icterus sclerae, no conjunctivitis. EARS, NOSE, MOUTH, THROAT, and FACE: No sore throat, lymphadenopathy, carotid bruits or deformity. RESPIRATORY: No SOB cough or wheezes. CARDIOVASCULAR: No CP, Palpitation, PND, Orthopnea, or angina. GASTROINTESTINAL: No Abd pain, Nausea or vomiting, no Diarrhea or constipation, No GI Bleed, no distention or masses. GENITOURINARY: Negative for Hematuria or UTI, no kidney stones. INTEGUMENT/BREAST: Negative for any muscular injury with mild osteoarthritis.. HEMATOLOGIC/LYMPHATIC: Negative for bleed or purpura. MUSCULOSKELTAL: Negative for Myalgia or arthralgia. NEURLOGICAL: No LOC, Sz or syncope, blurred vision dizziness or abnormality.. BEHAVIORAL/PSYCH: Severe depression and suicidal behavior. ENDOCRINE: Negative. Past Medical History Past Medical History: Fibromyalgia, GERD/Reflux, Hyperlipidemia, Thyroid Disorder Additional Past Medical History / Comment(s): irritable bowel syndrome, carpal tunnel, arthritis, "eroded espohagus and stomach",hiatal hernia -er egd etoh abuse , migraine headaches, degenerative disc disease,arthritis, sciatica, past bronchitis. History of Any Multi-Drug Resistant Organisms: None Reported Past Surgical History: Adenoidectomy, Appendectomy, Cholecystectomy, Hernia Repair, Tonsillectomy, Tubal Ligation Additional Past Surgical History / Comment(s): d&c x5, exploratory lap, ovarian tumor removed, Kym fundiplacation, egd,colonosocpy Past Anesthesia/Blood Transfusion Reactions: Previous Problems w/ Anesthesia Additional Past Anesthesia/Blood Transfusion Reaction / Comment(s): stated "heart stopped and blood pressure dropped after gall bladder surgery in operating room" Smoking Status: Current every day smoker - Past Family History Father Additional Family Medical History / Comment(s): Father is alive at age 58 with history of generalized anxiety disorder and possible bipolar disorder. Alcohol abuse Mother Additional Family Medical History / Comment(s): Mother is alive at age 58 with history of degenerative disc disease, osteoarthritis, hyperlipidemia, hypertension. Brother(s) Additional Family Medical History / Comment(s): Patient has 2 brothers. One from suicide. One brother has no major medical problems. Patient has 2 sisters but she has no contact with them. Patient has 4 children ages 19, 18, 16, 15. Medications and Allergies Home Medications Medication Instructions Recorded Confirmed Type Albuterol Inhaler [Ventolin Hfa 2 puff INHALATION RT-QID PRN 02/21/17 10/05/18 History Inhaler] Atorvastatin Calcium [Lipitor] 10 mg PO HS 02/21/17 10/05/18 History Docusate [Colace] 100 mg PO BID 03/26/17 10/05/18 History Albuterol Nebulized [Ventolin 2.5 mg INHALATION RT-QID PRN 12/21/17 10/05/18 History Nebulized] Baclofen [Lioresal] 10 mg PO BID 12/21/17 10/05/18 History Desvenlafaxine Succinate [Pristiq] 100 mg PO DAILY 12/21/17 10/05/18 History HYDROcodone/APAP 5-325MG [[place] 1 tab PO BID PRN 12/21/17 10/05/18 History 5-325] Ziprasidone [Geodon] 80 mg PO BID 12/21/17 10/05/18 History lamoTRIgine [LaMICtal] 200 mg PO BID 12/21/17 10/05/18 History Fluticasone Nasal [place] [Flonase 1 - 2 sprays EA NOSTRIL BID PRN 05/23/18 History Nasal [place]] Levothyroxine Sodium [Synthroid] 100 mcg PO DAILY 05/23/18 10/05/18 History Topiramate [Trokendi Xr] 100 mg PO DAILY 05/23/18 10/05/18 History Ibuprofen [Motrin] 600 mg PO QID PRN 10/05/18 10/05/18 History QUEtiapine FUMARATE [SEROquel] 300 mg PO TID 10/05/18 10/05/18 History Allergies Allergy/AdvReac Type Severity Reaction Status Date / Time latex Allergy Rash/Hives Verified 10/05/18 19:30 propoxyphene Allergy Nausea & Verified 10/05/18 19:30 [From Darvocet-N] Vomiting tramadol [From Ultram] Allergy Itching Verified 10/05/18 19:30 hydromorphone [From Dilaudid] AdvReac Itching Verified 10/05/18 19:30 Physical Exam Vitals: Vital Signs Temp Pulse Pulse Resp BP BP Pulse Ox 10/06/18 07:00 98.2 F 70 16 101/60 98 10/05/18 23:55 16 10/05/18 23:00 97.8 F 75 16 115/71 100 10/05/18 22:00 80 14 96/66 10/05/18 21:30 74 14 93/60 99 10/05/18 21:00 67 15 103/67 99 Intake and Output 10/06/18 10/06/18 10/06/18 06:59 14:59 22:59 Other: Voiding Method Bedside Commode # Voids 1 General Appearance: Alert, cooperative, no distress, appears stated age. Neck HEENT: Supple, no lymphadenopathy, no thyroid enlargement, no carotid bruits. Lungs: Clear to auscultation without crackles or wheezes no rhonchi, no deformity. Chest Wall: Chest wall normal expansion with deep inspiration no tenderness and no deformity was found on exam, no costochondral pain or discomfort. Heart: Regular rate and rhythm, S1, S2 normal, no murmur, rub or gallop. Back: Symmetric, no curvature, ROM normal, no CVA tenderness. Abdomen: Soft, non-tender, bowel sounds active all four quadrants, no masses, no organomegaly. Extremities: Extremities normal, atraumatic, no cyanosis or edema. Pulses: 2+ and symmetric. Skin: Skin color, texture, tugor normal, no rashes or lesions. Neurologic: Alert oriented x3 cranial nerves II through XII intact, no motor deficit, no abnormal balance or gait. Results CBC & Chem 7: 10/06/18 08:14 10/06/18 08:14 Labs: Abnormal Lab Results - Last 24 Hours (Table) 10/05/18 10/06/18 10/06/18 Range/Units 22:51 08:14 08:14 RBC 3.47 L (3.80-5.40) m/uL Hgb 10.5 L (11.4-16.0) gm/dL Hct 32.6 L (34.0-46.0) % Chloride 114 H (98-107) mmol/L Carbon Dioxide 20 L (22-30) mmol/L POC Glucose (mg/dL) (75-99) mg/dL Total Protein 5.4 L (6.3-8.2) g/dL Albumin 3.0 L (3.5-5.0) g/dL Acetaminophen 59.2 H* ug/mL 10/06/18 Range/Units 20:35 RBC (3.80-5.40) m/uL Hgb (11.4-16.0) gm/dL Hct (34.0-46.0) % Chloride (98-107) mmol/L Carbon Dioxide (22-30) mmol/L POC Glucose (mg/dL) 108 H (75-99) mg/dL Total Protein (6.3-8.2) g/dL Albumin (3.5-5.0) g/dL Acetaminophen ug/mL Thrombosis Risk Factor Assmnt - DVT/VTE Prophylaxis DVT/VTE Prophylaxis: Mechanical Prophylaxis ordered - Choose All That Apply Any of the Below Risk Factors Present?: No Assessment and Plan Plan: 1 acetaminophen toxicity: Patient was started on acetylcysteine IV we'll continue to watch her acetaminophen level over the next 48 hours watch her liver function tests again for 72-96 hours. 2 suicidal attempt: With drug overdose with Valium and Tylenol with codeine, continue sitter and consult psychiatry. 3 drug overdose: On management at this point. 4 chronic pain syndrome: Has been on hydrocodone and baclofen. 5 history of asthma: Patient has been on Ventolin. 6 hyperlipidemia: Has been on Lipitor 10 mg daily which will be held for the next few days. 7 chronic depression and bipolar has been on Lamictal, Geodon, Topamax along with Seroquel. 8 hypothyroidism: Continue patient on levothyroxine 100 g daily. 9 GI prophylaxis: Patient will be on Pepcid daily. CODE STATUS: Full code. Admit patient to inpatient status for more than 2 nights.
--- NOTE | 2018-10-07 15:20 | P.DS ---
Providers Date of admission: 10/05/18 20:01 Attending physician: Alli Wayne Consults: 10/05/18 19:46 Consult Physician Routine Consulting Provider: Ilan Vallejo Consult Reason/Comments: Suicide attempt, Tylenol overdose Do you want consulting provider notified?: Yes, Notify in am Primary care physician: Elias Bergeron [facility] Course: Chief Complaint: Drug overdose, suicidal attempt, acetaminophen [place], severe depressio 57-year-old female one of Dr. Elias Bergeron's patient with past medical history of chronic depression and fibromyalgia chronic pain syndrome was seen Dr. Harris regularly for chronic lower back pain and had epidural injection and multiple procedure still seen in his office once a month for pain management refill. Patient took over 35 [place] 5/325 mg along with 4 pills of 10 mg Valium altogether attempt to commit suicide family called 911 patient brought to demurs department at [facility] in reasonable time patient ended up on IV hydration and started the protocol for acetaminophen Toxicity; on Acetylcysteine IV per protocol also taking away all her pain meds and Tylenol at this point. Patient will be admitted to medical floor with the consult psych and when her acetaminophen [place] over patient be transferred to the psych unit. After her acetaminophen toxicity treatment, patient felt slightly but better. In 10/07/2017 she is feeling much better sitting in bed eating her meals she is more reasonable willing to work with psych and counseling and has no problem been transferred to the psych unit. Physical Exam: Vitals: Vital Signs Temp Pulse Pulse Resp BP BP Pulse Ox 10/06/18 07:00 98.2 F 70 16 101/60 98 10/05/18 23:55 16 10/05/18 23:00 97.8 F 75 16 115/71 100 10/05/18 22:00 80 14 96/66 10/05/18 21:30 74 14 93/60 99 10/05/18 21:00 67 15 103/67 99 Intake and Output 10/06/18 10/06/18 10/06/18 06:59 14:59 22:59 Other: Voiding Method Bedside Commode # Voids 1 General Appearance: Alert, cooperative, no distress, appears stated age. Neck HEENT: Supple, no lymphadenopathy, no thyroid enlargement, no carotid bruits. Lungs: Clear to auscultation without crackles or wheezes no rhonchi, no deformity. Chest Wall: Chest wall normal expansion with deep inspiration no tenderness and no deformity was found on exam, no costochondral pain or discomfort. Heart: Regular rate and rhythm, S1, S2 normal, no murmur, rub or gallop. Back: Symmetric, no curvature, ROM normal, no CVA tenderness. Abdomen: Soft, non-tender, bowel sounds active all four quadrants, no masses, no organomegaly. Extremities: Extremities normal, atraumatic, no cyanosis or edema. Pulses: 2+ and symmetric. Skin: Skin color, texture, tugor normal, no rashes or lesions. Neurologic: Alert oriented x3 cranial nerves II through XII intact, no motor deficit, no abnormal balance or gait. Assessment and Plan Plan: 1 acetaminophen toxicity: Patient was started on acetylcysteine IV we'll continue to watch her acetaminophen level over the next 48 hours watch her liver function tests again for 72-96 hours. 2 suicidal attempt: With drug overdose with Valium and Tylenol with codeine, continue sitter and consult psychiatry. 3 drug overdose: On management at this point. 4 chronic pain syndrome: Has been on hydrocodone and baclofen. 5 history of asthma: Patient has been on Ventolin. 6 hyperlipidemia: Has been on Lipitor 10 mg daily which will be held for the next few days. 7 chronic depression and bipolar has been on Lamictal, Geodon, Topamax along with Seroquel. 8 hypothyroidism: Continue patient on levothyroxine 100 g daily. Patient is very stable today 10/07: If accepted by psych today with transfer patient to psych unit. Patient Condition at Discharge: Serious Plan - Discharge Summary Discharge Rx Participant: No New Discharge Prescriptions: New Famotidine [Pepcid] 20 mg PO DAILY tab Mirtazapine [Remeron] 7.5 mg PO HS tab Continue Atorvastatin Calcium [Lipitor] 10 mg PO HS Albuterol Inhaler [Ventolin Hfa Inhaler] 2 puff INHALATION RT-QID PRN PRN Reason: Shortness Of Breath Docusate [Colace] 100 mg PO BID Baclofen [Lioresal] 10 mg PO BID Albuterol Nebulized [Ventolin Nebulized] 2.5 mg INHALATION RT-QID PRN PRN Reason: Shortness Of Breath lamoTRIgine [LaMICtal] 200 mg PO BID Desvenlafaxine Succinate [Pristiq] 100 mg PO DAILY Ziprasidone [Geodon] 80 mg PO BID Fluticasone Nasal [place] [Flonase Nasal [place]] 1 - 2 sprays EA NOSTRIL BID PRN PRN Reason: Allergy Symptoms Topiramate [Trokendi Xr] 100 mg PO DAILY Levothyroxine Sodium [Synthroid] 100 mcg PO DAILY QUEtiapine FUMARATE [SEROquel] 300 mg PO TID Ibuprofen [Motrin] 600 mg PO QID PRN PRN Reason: Pain Discontinued HYDROcodone/APAP 5-325MG [[place] 5-325] 1 tab PO BID PRN PRN Reason: Pain Discharge Medication List Albuterol Inhaler [Ventolin Hfa Inhaler] 2 puff INHALATION RT-QID PRN 02/21/17 [ History] Atorvastatin Calcium [Lipitor] 10 mg PO HS 02/21/17 [History] Docusate [Colace] 100 mg PO BID 03/26/17 [History] Albuterol Nebulized [Ventolin Nebulized] 2.5 mg INHALATION RT-QID PRN 12/21/17 [ History] Baclofen [Lioresal] 10 mg PO BID 12/21/17 [History] Desvenlafaxine Succinate [Pristiq] 100 mg PO DAILY 12/21/17 [History] Ziprasidone [Geodon] 80 mg PO BID 12/21/17 [History] lamoTRIgine [LaMICtal] 200 mg PO BID 12/21/17 [History] Fluticasone Nasal [place] [Flonase Nasal [place]] 1 - 2 sprays EA NOSTRIL BID PRN [History] Levothyroxine Sodium [Synthroid] 100 mcg PO DAILY 05/23/18 [History] Topiramate [Trokendi Xr] 100 mg PO DAILY 05/23/18 [History] Ibuprofen [Motrin] 600 mg PO QID PRN 10/05/18 [History] QUEtiapine FUMARATE [SEROquel] 300 mg PO TID 10/05/18 [History] Famotidine [Pepcid] 20 mg PO DAILY tab 10/07/18 [Rx] Mirtazapine [Remeron] 7.5 mg PO HS tab 10/07/18 [Rx] Follow up Appointment(s)/Referral(s): Elias Bergeron MD [Primary Care Provider] - 1-2 days Discharge Disposition: TRANSFER TO PSYCH HOSP/UNIT
[2018-10-07] MEDS ORDERED: QUEtiapine 100 MG TAB PO SCH (16:00)
[2018-10-07 16:15] VITALS: BP 114/68; PULSE 85; RESP 12; TEMP 98.9
[2018-10-07] MEDS ORDERED: ZIPRASIDONE 80 MG CAP PO SCH (21:00)
[2018-10-07] MEDS ORDERED: DOCUSATE 100 MG CAP PO SCH (21:00)
[2018-10-07] MEDS ORDERED: BACLOFEN 10 MG TAB PO SCH (21:00)
[2018-10-07] MEDS ORDERED: ATORVASTATIN 10 MG TAB PO SCH (21:00)
[2018-10-07] MEDS ORDERED: lamoTRIgine 100 MG TAB PO SCH (21:00)
[2018-10-07] MEDS ORDERED: MIRTAZAPINE 15 MG TAB PO SCH (21:00)
[2018-10-08] MEDS ORDERED: LEVOTHYROXINE 100 MCG TAB PO SCH (06:30)
[2018-10-08] MEDS ORDERED: DESVENLAFAXINE SUCCINATE 50 MG TAB.ER.24H PO SCH (09:00)
[2018-10-08] MEDS ORDERED: TOPIRAMATE 25 MG TAB PO SCH (09:00)
[2018-10-08] MEDS ORDERED: FAMOTIDINE 20 MG TAB PO SCH (09:00)
[2018-10-10] MEDS ORDERED: ACETAMINOPHEN TAB 325 MG TAB PO PRN (15:03)
== END 2018-10-07 19:30 | DRG 918 ==
LOC: EC 18:23 → 4SSUR 20:01
PROVIDERS: ADMIT Internal Medicine Geriatric Medicine; ATTEND Internal Medicine Geriatric Medicine
DX: T39.1X2A Poisoning by 4-Aminophenol derivatives, intentional self-harm, initial encounter (principal); T42.4X1A Poisoning by benzodiazepines, accidental (unintentional), initial encounter; E03.9 Hypothyroidism, unspecified; E78.5 Hyperlipidemia, unspecified; F17.210 Nicotine dependence, cigarettes, uncomplicated; F31.9 Bipolar disorder, unspecified; F43.10 Post-traumatic stress disorder, unspecified; F90.9 Attention-deficit hyperactivity disorder, unspecified type; G89.4 Chronic pain syndrome; J45.909 Unspecified asthma, uncomplicated; K21.9 Gastro-esophageal reflux disease without esophagitis; K58.9 Irritable bowel syndrome, unspecified; M79.7 Fibromyalgia; Z79.890 Hormone replacement therapy; Z79.899 Other long term (current) drug therapy; Z82.49 Family history of ischemic heart disease and other diseases of the circulatory system; M54.30 Sciatica, unspecified side; Z81.8 Family history of other mental and behavioral disorders; F60.3 Borderline personality disorder; F10.10 Alcohol abuse, uncomplicated; G56.00 Carpal tunnel syndrome, unspecified upper limb; Z88.5 Allergy status to narcotic agent; Z91.040 Latex allergy status; F19.10 Other psychoactive substance abuse, uncomplicated
CPT/HCPCS: 36415; 80053; 80306; 80320; 81003; 81025; 82550; 83520; 83605; 83735; 84100; 85025; 85610; 85730; 93005; 96361; 96365; 96366; 96368; 99291

== ENCOUNTER 2018-10-07 18:51 | Inpatient (IN) | payer MEDICARE, MEDICAID ==
[2018-10-07] MEDS ORDERED: MAGNESIUM HYDROXIDE 2,400 MG/10 ML CUP PO PRN (20:48)
[2018-10-07] MEDS ORDERED: LORazepam 1 MG TAB PO PRN (20:48)
[2018-10-07] MEDS ORDERED: ZIPRASIDONE 20 MG VIAL IM PRN (20:48)
[2018-10-07] MEDS ORDERED: MAG HYDROX/AL HYDROX/SIMETH 30 ML CUP PO PRN (20:48)
[2018-10-07] MEDS ORDERED: ALBUTEROL NEBULIZED 2.5 MG/3 ML INHALATION PRN (20:50)
[2018-10-07] MEDS ORDERED: ALBUTEROL INHALER 60 PUFF/8 GM INHALER INHALATION PRN (20:50)
[2018-10-07] MEDS ORDERED: MIRTAZAPINE 15 MG TAB PO SCH (21:00)
[2018-10-07] MEDS ORDERED: LORazepam 2 MG/ML INJ IM PRN (21:05)
[2018-10-08] MEDS: LEVOTHYROXINE 100 MCG TAB PO SCH (06:03)
[2018-10-08] MEDS: FAMOTIDINE 20 MG TAB PO SCH (08:38)
[2018-10-08 09:01] LABS: Albumin 3.9 g/dL (3.5-5.0); Bilirubin,Unconjugated 0.3 mg/dL (0.0-1.1); Total Bilirubin 0.3 mg/dL (0.2-1.3); Total Protein 6.4 g/dL (6.3-8.2)
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
--- NOTE | 2018-10-08 12:02 | P.CONS ---
History of Present Illness - Reason for Consult Elevated TSH - History of Present Illness 37-year-old female admitted for severe depression and suicidal ideations. Patient has not been taking her medications patient the want to quit taking all her medications. Patient does have hypothyroidism and is on levothyroxine has not been taking this medication patient has highly elevated TSH. Patient was resumed on 100 g of levothyroxine which is appropriate and her TSH need to be tested in the about a month. We'll obtain a T4 level. Patient denied any fever chills dysuria nausea vomiting patient does smoke is willing to quit smoking Review of Systems REVIEW OF SYSTEMS: CONSTITUTIONAL: No fever, no malaise, no fatigue. HEENT: No recent visual problems or hearing problems. Denied any sore throat. CARDIOVASCULAR: No chest pain, orthopnea, PND, no palpitations, no syncope. PULMONARY: No shortness of breath, no cough, no hemoptysis. GASTROINTESTINAL: No diarrhea, no nausea, no vomiting, no abdominal pain. NEUROLOGICAL: No headaches, no weakness, no numbness. HEMATOLOGICAL: Denies any bleeding or petechiae. GENITOURINARY: Denies any burning micturition, frequency, or urgency. MUSCULOSKELETAL/RHEUMATOLOGICAL: Denies any joint pain, swelling, or any muscle pain. ENDOCRINE: Denies any polyuria or polydipsia. The rest of the 14-point review of systems is negative. Past Medical History Past Medical History: Fibromyalgia, GERD/Reflux, Hyperlipidemia, Thyroid Disorder Additional Past Medical History / Comment(s): irritable bowel syndrome, carpal tunnel, arthritis, "eroded espohagus and stomach",hiatal hernia -er egd etoh abuse , migraine headaches, degenerative disc disease,arthritis, sciatica, past bronchitis. History of Any Multi-Drug Resistant Organisms: None Reported Past Surgical History: Adenoidectomy, Appendectomy, Cholecystectomy, Hernia Repair, Tonsillectomy, Tubal Ligation Additional Past Surgical History / Comment(s): d&c x5, exploratory lap, ovarian tumor removed, Kym fundiplacation, egd,colonosocpy Past Anesthesia/Blood Transfusion Reactions: Previous Problems w/ Anesthesia Additional Past Anesthesia/Blood Transfusion Reaction / Comm: stated "heart stopped and blood pressure dropped after gall bladder surgery in operating room " Smoking Status: Current every day smoker - Past Family History Father Additional Family Medical History / Comment(s): Father is alive at age 58 with history of generalized anxiety disorder and possible bipolar disorder. Alcohol abuse Mother Additional Family Medical History / Comment(s): Mother is alive at age 58 with history of degenerative disc disease, osteoarthritis, hyperlipidemia, hypertension. Brother(s) Additional Family Medical History / Comment(s): Patient has 2 brothers. One from suicide. One brother has no major medical problems. Patient has 2 sisters but she has no contact with them. Patient has 4 children ages 19, 18, 16, 15. Medications and Allergies Home Medications Medication Instructions Recorded Confirmed Type Albuterol Inhaler [Ventolin Hfa 2 puff INHALATION RT-QID PRN 02/21/17 10/07/18 History Inhaler] Atorvastatin Calcium [Lipitor] 10 mg PO HS 02/21/17 10/07/18 History Docusate [Colace] 100 mg PO BID 03/26/17 10/07/18 History Albuterol Nebulized [Ventolin 2.5 mg INHALATION RT-QID PRN 12/21/17 10/07/18 History Nebulized] Baclofen [Lioresal] 10 mg PO BID 12/21/17 10/07/18 History Desvenlafaxine Succinate [Pristiq] 100 mg PO DAILY 12/21/17 10/07/18 History Ziprasidone [Geodon] 80 mg PO BID 12/21/17 10/07/18 History lamoTRIgine [LaMICtal] 200 mg PO BID 12/21/17 10/07/18 History Fluticasone Nasal [place] [Flonase 1 - 2 sprays EA NOSTRIL BID PRN 05/23/18 History Nasal [place]] Levothyroxine Sodium [Synthroid] 100 mcg PO DAILY 05/23/18 10/07/18 History Topiramate [Trokendi Xr] 100 mg PO DAILY 05/23/18 10/07/18 History Ibuprofen [Motrin] 600 mg PO QID PRN 10/05/18 10/07/18 History QUEtiapine FUMARATE [SEROquel] 300 mg PO TID 10/05/18 10/07/18 History Famotidine [Pepcid] 20 mg PO DAILY tab 10/07/18 10/07/18 Rx Mirtazapine [Remeron] 7.5 mg PO HS tab 10/07/18 10/07/18 Rx Allergies Allergy/AdvReac Type Severity Reaction Status Date / Time latex Allergy Rash/Hives Verified 10/07/18 20:40 propoxyphene Allergy Nausea & Verified 10/07/18 20:40 [From Darvocet-N] Vomiting tramadol [From Ultram] Allergy Itching Verified 10/07/18 20:40 hydromorphone [From Dilaudid] AdvReac Itching Verified 10/07/18 20:40 Physical Exam Vitals: Vital Signs Temp Pulse Resp BP 10/08/18 06:17 98.7 F 74 12 100/55 10/07/18 20:59 75 16 115/73 Intake and Output 10/07/18 10/08/18 10/08/18 22:59 06:59 14:59 Other: Weight 61.87 kg PHYSICAL EXAMINATION: GENERAL: The patient is alert and oriented x3, not in any acute distress. Well developed, well nourished. HEENT: Pupils are round and equally reacting to light. EOMI. No scleral icterus. No conjunctival pallor. Normocephalic, atraumatic. No pharyngeal erythema. No thyromegaly. CARDIOVASCULAR: S1 and S2 present. No murmurs, rubs, or gallops. PULMONARY: Chest is clear to auscultation, no wheezing or crackles. ABDOMEN: Soft, nontender, nondistended, normoactive bowel sounds. No palpable organomegaly. MUSCULOSKELETAL: No joint swelling or deformity. EXTREMITIES: No cyanosis, clubbing, or pedal edema. NEUROLOGICAL: Gross neurological examination did not reveal any focal deficits. SKIN: No rashes. Results Labs: Abnormal Lab Results - Last 24 Hours (Table) 10/08/18 Range/Units 07:48 HDL Cholesterol 68 H (40-60) mg/dL TSH 10.400 H (0.465-4.680) mIU/L Assessment and Plan Plan: -Hypothyroidism: Elevated TSH of due to noncompliance with medications, will obtain T4. Patient will be resumed on levothyroxine and TSH need to be rested in about a month -Nicotine abuse: Counseling was provided -Severe depression and suicidal ideation management as per primary service -Gastroesophageal Reflux disease for which patient is on Pepcid and Maalox which is appropriate History of hyperlipidemia patient is not on any medication will obtain lipid panel tomorrow
[2018-10-08 13:17] VITALS: BMI 22.0
[2018-10-08 18:24] LABS: Hemoglobin A1C 4.9 % (4.0-6.0)
[2018-10-09] MEDS: LEVOTHYROXINE 100 MCG TAB PO SCH (06:21)
[2018-10-09] MEDS ORDERED: FAMOTIDINE 20 MG TAB ONE (08:02)
[2018-10-09] MEDS: FAMOTIDINE 20 MG TAB PO SCH (08:02)
[2018-10-09] MEDS: BENZOCAINE 20% HEMORRHOIDAL OINT 28GM RECTAL SCH ×2 (08:02→21:10)
[2018-10-09] MEDS: WITCH HAZEL 1 EACH MED..PAD TOPICAL PRN ×2 (08:03→09:01)
[2018-10-09 08:29] LABS: Albumin 4.1 g/dL (3.5-5.0); Bilirubin, Delta 0.1 mg/dL (0.0-0.2); Bilirubin,Unconjugated 0.3 mg/dL (0.0-1.1); Total Bilirubin 0.4 mg/dL (0.2-1.3)
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
[2018-10-09] MEDS: NAPROXEN 250 MG TAB PO SCH ×2 (14:01→21:07)
[2018-10-10] MEDS: LEVOTHYROXINE 100 MCG TAB PO SCH (05:44)
[2018-10-10 06:50] VITALS: RESP 16
[2018-10-10] MEDS: NAPROXEN 250 MG TAB PO SCH ×2 (07:52→20:07)
[2018-10-10] MEDS: BENZOCAINE 20% HEMORRHOIDAL OINT 28GM RECTAL SCH ×2 (07:53→20:09)
[2018-10-10] MEDS: FAMOTIDINE 20 MG TAB PO SCH (07:54)
[2018-10-10 09:01] LABS: Albumin 4.1 g/dL (3.5-5.0); Bilirubin,Unconjugated 0.3 mg/dL (0.0-1.1); Total Bilirubin 0.3 mg/dL (0.2-1.3); Total Protein 6.8 g/dL (6.3-8.2)
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
[2018-10-10] MEDS ORDERED: ACETAMINOPHEN TAB 325 MG TAB PO PRN (15:25)
[2018-10-11] MEDS: LEVOTHYROXINE 100 MCG TAB PO SCH (06:04)
[2018-10-11 07:01] VITALS: TEMP 98.6
[2018-10-11] MEDS: BENZOCAINE 20% HEMORRHOIDAL OINT 28GM RECTAL SCH (07:47)
[2018-10-11] MEDS: FAMOTIDINE 20 MG TAB PO SCH (07:47)
[2018-10-11] MEDS: NAPROXEN 250 MG TAB PO SCH (07:47)
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
[2018-10-11 14:14] VITALS: BP 115/73; PULSE 75
== END 2018-10-11 13:46 | disposition home or self-care (01) | DRG 883 ==
LOC: 3MHU 20:18
PROVIDERS: ADMIT Psychiatry & Neurology Psychiatry; ATTEND Psychiatry & Neurology Psychiatry
DX: F60.3 Borderline personality disorder (principal); F23 Brief psychotic disorder; E03.9 Hypothyroidism, unspecified; E78.5 Hyperlipidemia, unspecified; F10.21 Alcohol dependence, in remission; F17.210 Nicotine dependence, cigarettes, uncomplicated; F31.9 Bipolar disorder, unspecified; K21.9 Gastro-esophageal reflux disease without esophagitis; K58.9 Irritable bowel syndrome, unspecified; M79.7 Fibromyalgia; T39.1X2A Poisoning by 4-Aminophenol derivatives, intentional self-harm, initial encounter; Z79.890 Hormone replacement therapy; Z79.899 Other long term (current) drug therapy; Z81.8 Family history of other mental and behavioral disorders; Z82.49 Family history of ischemic heart disease and other diseases of the circulatory system; Z91.5 Personal history of self-harm; Z90.49 Acquired absence of other specified parts of digestive tract; Z71.6 Tobacco abuse counseling; Z82.61 Family history of arthritis; M54.9 Dorsalgia, unspecified; M54.30 Sciatica, unspecified side; Z88.5 Allergy status to narcotic agent; Z91.040 Latex allergy status; Z87.09 Personal history of other diseases of the respiratory system
CPT/HCPCS: 80061; 80076; 83036; 84439; 84443

== ENCOUNTER → 2019-01-22 | Outpatient (CLI) | payer MEDICARE, OTHER ==
[2019-01-22 16:19] VITALS: BP 130/85; PULSE 87; RESP 16; TEMP 98.6; BMI 23.2
--- NOTE | 2019-01-22 18:12 | P.HPOB ---
History of Present Illness H&P Date: 01/22/19 Chief Complaint: The patient is here for her routine gynecologic exam. This is a 38-year-old with an LMP of 12/31/2018. The patient status post tubal ligation. The patient is here to establish with this office. She states she has a long history of ovarian cysts since age 11. She is also had painful periods for many months and this has gotten worse since the beginning of the year. During the past 2 weeks the pain has gotten fairly constant. She has also noticed that her normal genital odor has gotten stronger, though not foul- smelling. She denies any vaginal discharge or pruritus. She has a history of chronic back pain and had been on [place] for more than one year until September 2018 when she had a drug overdose and suicide attempt. Her [place] was then discontinued. Her menstrual periods are about every 3 weeks lasting 7 or 8 days. She believes her last Pap smear was about 3 years ago. Review of Systems The patient has gained 20 pounds over the last year. She states she previously weighed 226 pounds and lost about 100 pounds after discontinuing Lyrica. She denies respiratory, cardiac, or G.I. problems. : she denies any urinary symptoms. Past Medical History Past Medical History: Asthma, Fibromyalgia, GERD/Reflux, Hyperlipidemia, Thyroid Disorder Additional Past Medical History / Comment(s): Seasonal allergies, irritable bowel syndrome, carpal tunnel, arthritis, "eroded espohagus and stomach",hiatal hernia, etoh abuse , migraine headaches, degenerative disc disease,arthritis, sciatica, past bronchitis. Pleurodynia,Exzema,hypothyroid. Past [employer] history: chlamydia times 3. History of Any Multi-Drug Resistant Organisms: None Reported Past Surgical History: Adenoidectomy, Appendectomy, Cholecystectomy, Hernia Repair, Tonsillectomy, Tubal Ligation Additional Past Surgical History / Comment(s): d&c x5, exploratory laparoscopyx3, ovarian tumor removed(benign), Kym fundiplacation, egd,colonosocpy. Past Anesthesia/Blood Transfusion Reactions: Previous Problems w/ Anesthesia Additional Past Anesthesia/Blood Transfusion Reaction / Comment(s): stated "heart stopped and blood pressure dropped after gall bladder surgery in operating room" Past Psychological History: ADD/ADHD, Anxiety, Bipolar, Depression, PTSD Additional Psychological History / Comment(s): borderline personality,OCD. pt has been hospitalized in past for od/ suicidal ideations. pt stated was just discharged from [facility] 10-04-18 after being there 9 days Smoking Status: Current every day smoker (1 day) Past Alcohol Use History: Abuse, Heavy Additional Past Alcohol Use History / Comment(s): patient is a smoker of 2 packs per day since she was 10 years of age. She does have a medical marijuana card. She denies any street drug or alcohol use. Sober from alcohol use after 2014. Past Drug Use History: Marijuana Additional Drug Use History / Comment(s): Medical card-uses every day Additional History: The patient has been since 1978 and is considered disabled. - Past Family History Father Additional Family Medical History / Comment(s): Father is alive at age 58 with history of generalized anxiety disorder and possible bipolar disorder. Alcohol abuse. Paternal grandmother had cancer of the breast, uterus, ovaries, and Colon. Mother Family Medical History: Hyperlipidemia Additional Family Medical History / Comment(s): Mother is alive at age 58 with history of degenerative disc disease, osteoarthritis, hyperlipidemia, hypertension. Brother(s) Additional Family Medical History / Comment(s): Patient has 2 brothers. One from suicide. One brother has no major medical problems. Patient has 2 sisters but she has no contact with them. Patient has 4 children ages 19, 18, 16, 15. Medications and Allergies Home Medications Medication Instructions Recorded Confirmed Type Albuterol Inhaler [Ventolin Hfa 2 puff INHALATION RT-QID PRN 02/21/17 01/22/19 History Inhaler] Atorvastatin Calcium [Lipitor] 10 mg PO HS 02/21/17 01/22/19 History Docusate [Colace] 100 mg PO BID 03/26/17 01/22/19 History Fluticasone Nasal [place] [Flonase 1 - 2 sprays EA NOSTRIL BID PRN 05/23/18 01/22/19 History Nasal [place]] Ibuprofen [Motrin] 600 mg PO QID PRN 10/05/18 01/22/19 History Famotidine [Pepcid] 20 mg PO DAILY tab 10/07/18 01/22/19 Rx Levothyroxine Sodium [Synthroid] 100 mcg PO 0630 tab 10/11/18 01/22/19 Rx Witch Irina [Tucks Medicated Pads] 1 each TOPICAL 5XD PRN med..pad 10/11/18 01/22/19 Rx Allergies Allergy/AdvReac Type Severity Reaction Status Date / Time latex Allergy Rash/Hives Verified 01/22/19 16:10 propoxyphene Allergy Nausea & Verified 01/22/19 16:10 [From Darvocet-N] Vomiting tramadol [From Ultram] Allergy Itching Verified 01/22/19 16:10 hydromorphone [From Dilaudid] AdvReac Itching Verified 01/22/19 16:10 Exam Vital Signs Temp Pulse Resp BP Pulse Ox 01/22/19 16:11 98.6 F 87 16 130/85 100 Intake and Output 01/22/19 01/22/19 01/22/19 06:59 14:59 22:59 Other: Weight 65.317 kg Height 5'6", weight 144 pounds, BMI 23.2. This is a well-developed well-nourished white female who is alert and oriented times 3 in no acute distress. HEENT: Within normal limits. NECK: Supple without mass or thyromegaly. CHEST AND LUNGS: Clear to auscultation. HEART: Regular rate and rhythm. BREASTS: Are without mass or discharge. AXILLARY EXAM: Negative for adenopathy. BACK: Negative for CVA tenderness. ABDOMEN: Soft without palpable masses. There is bilateral mild low abdominal tenderness without rebound tenderness. PELVIC EXAM: Normal external genitalia. Cervix and vagina appear normal. There is no unusual discharge. There is no noticeable odor. There is no evidence of prolapse. The uterus is anteverted, nongravid size and is mildly tender. There is no cervical motion tenderness. There are no palpable adnexal masses there is bilateral generalized mild tenderness. RECTAL EXAM: recto vaginal exam is negative for mass or tenderness and is negative for occult blood. EXTREMITIES: Nontender. IMPRESSION: 1. 38-year-old female with worsening dysmenorrhea and pelvic pain with mild low abdominal tenderness and mild generalized pelvic tenderness. Differential diagnosis will include ruptured ovarian cyst, ovarian cyst, adenomyosis, fibromyalgia, G.I. pain, and chronic pain syndrome. At this time I doubt pelvic inflammatory disease since she does not have cervical motion tenderness or fever. 2. History of chronic pain including chronic back pain and fibromyalgia with history of [place] use which was discontinued after an overdose approximate 4 months ago. 3. Worsening dysmenorrhea. PLAN: 1. Pap smear was performed. 2. GC and chlamydia testing from the cervix has been obtained. 3. Pelvic ultrasound will be scheduled. 4. Self breast awareness was discussed with the patient. 5. The patient is scheduled for mammogram on 02/19/2019. The order slip was given the patient for this. 6. Motrin as directed for dysmenorrhea. She states she already has a prescription for this. 7. If no discrete causes found for her pelvic and abdominal pains and dysmenorrhea, consider referral for further evaluation and possible hy sterectomy. 8.She was advised to return in one year for her annual well woman exam.
== END | disposition home or self-care (01) ==
LOC: WWCWWP 14:53
PROVIDERS: ATTEND Obstetrics & Gynecology
DX: Z53.9 Procedure and treatment not carried out, unspecified reason (principal)

== ENCOUNTER → 2019-02-01 | Outpatient (CLI) | payer MEDICARE, OTHER ==
--- NOTE | 2019-02-01 14:33 | US ---
EXAMINATION TYPE: US pelvic complete DATE OF EXAM: 02/01/2019 COMPARISON: CT CLINICAL HISTORY: R10.2 Pelvic and perineal pain, N94.6 Dysmenorrhea. TECHNIQUE: Transabdominal (TA). Date of LMP: 01/27/2019 EXAM MEASUREMENTS: Uterus: 9.4 x 4.3 x 5.8 cm Endometrial Stripe: 1.0 cm Right Ovary: 2.7 x 2.6 x 1.7 cm Left Ovary: 2.9 x 2.0 x 1.7 cm 1. Uterus: Anteverted wnl 2. Endometrium: wnl 3. Right Ovary: wnl 4. Left Ovary: simple cyst measures 2.2 x 1.8 x 1.6 cm 5. Bilateral Adnexa: wnl 6. Posterior cul-de-sac: no free fluid IMPRESSION: 1. Simple left ovarian cyst, follow-up can be performed following the next normal menstrual period or 6 weeks from this exam.
--- NOTE | 2019-02-05 12:12 | P.PN ---
Progress Note - Text Progress Note Date: 02/05/19 OUTPATIENT FOLLOW-UP NOTE TEST(S)/RESULTS: test results from 01/22/2019 include ascus Pap smear with negative high-risk HPV testing, negative GC and negative chlamydia testing. Pelvic ultrasound on 02/01/2019 shows a simple 2.2 cm left ovarian cyst. METHOD OF NOTIFICATION: patient was notified by phone. PATIENT COMMENTS: the patient states she has not had problems with Pap smears in the past. DIAGNOSIS: ascus Pap smear with negative high-risk HPV testing. Pelvic ultrasound showing simple 2.2 cm left ovarian cyst. DISCUSSION: we discussed the abnormal Pap smear findings and recommended follow- up. Discussed the pelvic ultrasound findings and follow-up. PLAN: repeat pelvic ultrasound in 6 weeks. The order slip will be sent to the patient. Pap smear with HPV testing in 2 to 3 years.
== END | disposition home or self-care (01) ==
LOC: RADUSWWP 13:52
PROVIDERS: ATTEND Obstetrics & Gynecology
DX: N83.202 Unspecified ovarian cyst, left side (principal)
CPT/HCPCS: 76856

== ENCOUNTER → 2019-02-19 | Outpatient (CLI) | payer MEDICARE, OTHER ==
--- NOTE | 2019-02-20 10:49 | MM ---
Reason for exam: screening (asymptomatic). Last mammogram was performed 2 years ago. History: Family history of breast cancer in paternal grandmother, breast cancer in paternal cousin, and breast cancer in maternal cousin. Physical Findings: A clinical breast exam by your physician is recommended on an annual basis and results should be correlated with mammographic findings. MG 3D Screening Mammo W/Cad Bilateral CC and MLO view(s) were taken. XCCL view(s) were taken of the left breast. Prior study comparison: February 21, 2017, bilateral MG 3d diag mammo w/cad MAGDALENO. April 09, 2014, left breast MG diagnostic mammo LT w CAD. The breast tissue is heterogeneously dense. This may lower the sensitivity of mammography. There are new rounded regional calcifications in the upper outer quadrants bilaterally. Although probable benign, magnification views are needed. These are not skin calcifications. ASSESSMENT: Incomplete: need additional imaging evaluation, BI-RAD 0 RECOMMENDATION: Special view mammogram of both breasts. [facility] will attempt to contact patient to return for supplemental views.
== END ==
LOC: WWCWWP 10:56
PROVIDERS: ATTEND Pediatrics
DX: Z12.31 Encounter for screening mammogram for malignant neoplasm of breast (principal)
CPT/HCPCS: 77063; 77067

== ENCOUNTER → 2019-02-26 | Outpatient (CLI) | payer MEDICARE, OTHER ==
--- NOTE | 2019-02-27 07:51 | MM ---
Reason for exam: additional evaluation requested from abnormal screening. Last mammogram was performed less than 1 month ago. History: Family history of breast cancer in paternal grandmother at age 60, breast cancer in paternal cousin, and breast cancer in maternal cousin at age 30. Physical Findings: Nurse did not find any significant physical abnormalities on exam. MG 3D Work Up W/Cad MAGDALENO Bilateral CC with magnification, LM with magnification, and LM view(s) were taken. Prior study comparison: February 19, 2019, bilateral MG 3d screening mammo w/cad. February 21, 2017, bilateral MG 3d diag mammo w/cad MAGDALENO. The breast tissue is heterogeneously dense. This may lower the sensitivity of mammography. There are benign appearing round calcifications bilaterally. No suspicious group of persistent microcalcifications bilaterally. These results were verbally communicated with the patient and result sheet given to the patient on 02/26/19. ASSESSMENT: Benign, BI-RAD 2 RECOMMENDATION: Return to routine screening mammogram schedule for both breasts.
== END | disposition home or self-care (01) ==
LOC: RADMAMWWP 14:54
PROVIDERS: ATTEND Pediatrics
DX: R92.8 Other abnormal and inconclusive findings on diagnostic imaging of breast (principal)
CPT/HCPCS: 77066; G0279; 77062

== ENCOUNTER → 2019-03-19 | Outpatient (CLI) | payer MEDICARE, OTHER ==
--- NOTE | 2019-03-19 14:14 | US ---
EXAMINATION TYPE: US pelvic complete DATE OF EXAM: 03/19/2019 COMPARISON: CT 02/02/18, US 02/01/19 CLINICAL HISTORY: R10.2 PELVIC PAIN, N94.6 DYSMENORRHEA. TECHNIQUE: Transabdominal (TA). Transabdominal sonographic images of the pelvis were acquired. Date of LMP: 03/12/19 EXAM MEASUREMENTS: Uterus: 8.4 x 5.7 x 4.3 cm Endometrial Stripe: 0.4 cm Right Ovary: 2.7 x 2.1 x 1.7 cm Left Ovary: 3.1 x 2.5 x1.7 cm 1. Uterus: Anteverted wnl 2. Endometrium: wnl 3. Right Ovary: with follicle = 1.4 x 1.1 x 1.4 cm 4. Left Ovary: with 1.1 cm follicle, and cyst = 1.5 x 1.9 x 0.9 cm 5. Bilateral Adnexa: wnl 6. Posterior cul-de-sac: wnl IMPRESSION: Involuted left ovarian cyst in comparison to the prior exam with bilateral physiologic fo llicles of the ovaries. No endometrial thickening in this patient with dysmenorrhea.
--- NOTE | 2019-03-19 15:06 | P.PN ---
Progress Note - Text Progress Note Date: 03/19/19 OUTPATIENT FOLLOW-UP NOTE TEST(S)/RESULTS: pelvic ultrasound done on 03/19/2019 shows involution of the left ovarian cyst with small follicular type consists on both ovaries. This is considered within normal limits. METHOD OF NOTIFICATION: the patient was notified by phone. PATIENT COMMENTS: DIAGNOSIS: unremarkable pelvic ultrasound with involution of previously seen left ovarian cyst. DISCUSSION: she will see if she continues to have painful menstrual periods and pelvic pain. If so, she was instructed to call for possible referral for further evaluation. Other options can be considered such as laparoscopic examination and hysterectomy PLAN: She was advised to return in one year for her annual well woman exam and PRN.
== END | disposition home or self-care (01) ==
LOC: RADUSWWP 12:46
PROVIDERS: ATTEND Obstetrics & Gynecology
DX: N83.202 Unspecified ovarian cyst, left side (principal)
CPT/HCPCS: 76856

== ENCOUNTER → 2019-10-03 | Outpatient (CLI) | payer MEDICARE, OTHER | END | disposition home or self-care (01) | LOC: LABWHC1 12:15 | PROVIDERS: ATTEND Nurse Practitioner Acute Care | DX: I49.9 Cardiac arrhythmia, unspecified (principal) | CPT/HCPCS: 36415; 93005 ==

== ENCOUNTER 2020-01-21 15:29 | Emergency (ER) | payer MEDICARE, OTHER ==
[2020-01-21 15:33] VITALS: RESP 18
[2020-01-21 16:08] LABS: Appearance,Urine Clear (Clear); Bilirubin,Urine Negative (Negative); Blood,Urine Negative (Negative); Color,Urine Light Yellow; Glucose,Urine (UA) Negative (Negative); Ketones,Urine Negative (Negative); Leukocyte Esterase,Urine Negative (Negative); Nitrite,Urine Negative (Negative); PH, Urine 6.5 (5.0-8.0); Protein,Urine Negative (Negative); Specific Gravity,Urine 1.004 (1.001-1.035); Urobilinogen,Urine <2.0 mg/dL (<2.0)
[2020-01-21 17:33] LABS: Basophils % (A) 0 %; Eosinophils # (A) 0.1 k/uL (0-0.7); Eosinophils % (A) 1 %; HCT 39.1 % (34.0-46.0); Lymphocytes # (A) 2.3 k/uL (1.0-4.8); Lymphocytes % (A) 32 %; MCH 30.5 pg (25.0-35.0); MCHC 33.1 g/dL (31.0-37.0); Mean Platelet Volume 8.6; Monocytes # (A) 0.5 k/uL (0-1.0); Monocytes % (A) 7 %; Neutrophils # (A) 4.2 k/uL (1.3-7.7); Neutrophils % (A) 58 %; Platelet Count 261 k/uL (150-450); RBC 4.25 m/uL (3.80-5.40); RDW 12.6 % (11.5-15.5); WBC 7.3 k/uL (3.8-10.6)
[2020-01-21 17:50] LABS: ALT 14 U/L (4-34); AST 27 U/L (14-36); African American GFR (CKD) >90 (>60 ml/min/1.73 sqM); Albumin 3.6 g/dL (3.5-5.0); Alkaline Phosphatase 64 U/L (38-126); Anion Gap 2 mmol/L; Blood Urea Nitrogen 9 mg/dL (7-17); Calcium 9.1 mg/dL (8.4-10.2); Carbon Dioxide 23 mmol/L (22-30); Chloride 111 mmol/L (98-107); Glucose 83 mg/dL (74-99); Non-African American GFR(CKD) >90 (>60 ml/min/1.73 sqM); Potassium 4.4 mmol/L (3.5-5.1); Sodium 136 mmol/L (137-145); Total Bilirubin 0.2 mg/dL (0.2-1.3); Total Protein 6.3 g/dL (6.3-8.2)
[2020-01-21] MEDS ORDERED: KETOROLAC 30 MG/ML 1 ML VIAL IM STA (18:08)
[2020-01-21] MEDS ORDERED: MORPHINE SULFATE 4 MG/ML SYRINGE IVP STA (18:09)
--- NOTE | 2020-01-21 18:24 | US ---
EXAMINATION TYPE: US transvaginal DATE OF EXAM: 01/21/2020 COMPARISON: US, CT CLINICAL HISTORY: pelvic pain. Intermittent pelvic pain x 1 year. Worse x 2 days. Irregular periods. Hx miscarriage. Exploratory lap, tubal ligation, multiple D and C, hx ovarian cyst. TECHNIQUE: Transvaginal (TV). Date of LMP: 01/08/2020. EXAM MEASUREMENTS: Uterus: 8.4 x 5.4 x 4.4 cm Endometrial Stripe: 0.71 cm Right Ovary: 2.7 x 1.9 x 1.5 cm Left Ovary: 4.1 x 2.6 x 2.1 cm 1. Uterus: Anteverted Appears to be wnl. Subcentimeter anechoic area seen in cervix. 2. Endometrium: Measures 0.71 cm. LMP 01/08/2020. 3. Right Ovary: Subcentimeter anechoic area seen. 4. Left Ovary: Measures slightly enlarged. Complex area seen measurin.0 x 1.7 x 1.6 cm. Anechoic area seen measurin.0 x 1.1 x 0.8 cm. Spectral, color and waveform doppler imaging shows arterial and venous flow within the ovaries. Sli ghtly difficult to obtain venous waveforms bilaterally. 5. Bilateral Adnexa: Bowel peristalsis seen bilaterally. Appear to be wnl. 6. Posterior cul-de-sac: Slightly hypoechoic fluid is seen measuring 1.4 x 3.8 x 3.0 cm. IMPRESSION: 1. Complex lesion left ovary could reflect hemorrhagic cyst. Lesion of other etiology not excluded. 2. Difficulty in obtaining venous waveforms bilaterally. Arterial waveforms are within normal limits.
[2020-01-21] MEDS ORDERED: AZITHROMYCIN 500 MG TAB PO STA (18:48)
[2020-01-21] MEDS ORDERED: cefTRIAXone 250 MG VIAL IM STA (18:48)
--- NOTE | 2020-01-21 19:50 | ED ---
General Adult HPI - General Chief complaint: Vaginal Bleeding Stated complaint: Female Time Seen by Provider: 01/21/20 16:10 Source: patient, RN notes reviewed, old records reviewed Mode of arrival: ambulatory Limitations: no limitations - History of Present Illness Initial comments: 39-year-old female patient past history of fibromyalgia, status post tubal ligation, irritable bowel syndrome presents to ED for chief complaint of pelvic pain. Patient reports that she had a normal menses approximately one month ago her relatives later she did have some bleeding for approximately 5 days. Reports no bleeding at this time however she is having suprapubic pelvic discomfort the last 2 days with states feels like cramping. Patient denies dysuria or new discharge. She reports that she is monogamous but it is possible that her may not be. Denies any other complaints. Systemic: Pt denies fatigue, fever/chills, rash. Pt denies weakness, night sweats, weight loss. Neuro: Pt denies headache, visual disturbances, syncope or pre-syncope. HEENT: Pt denies ocular discharge or irritation, otalgia, rhinorrhea, pharyngitis or notable lymphadenopathy. Cardiopulmonary: Pt denies chest pain, SOB, heart palpitations, dyspnea on exertion. Abdominal/GI: Pt denies abdominal pain, n/v/d. : Pt denies dysuria, burning w/ urination, frequency/urgency. Denies new onset urinary or bowel incontinence. MSK: Pt denies myalgia, loss of strength or function in extremities. Neuro: Pt denies new onset weakness, paresthesias. - Related Data Home Medications Medication Instructions Recorded Confirmed Albuterol Inhaler (Mhu) [Ventolin 2 puff INHALATION RT-QID PRN 02/21/17 01/22/19 Hfa Inhaler (Mhu)] Atorvastatin Calcium [Lipitor] 10 mg PO HS 02/21/17 01/22/19 Docusate [Colace] 100 mg PO BID 03/26/17 01/22/19 Fluticasone Nasal [place] [Flonase 1 - 2 sprays EA NOSTRIL BID PRN 05/23/18 01/22/19 Nasal [place]] Ibuprofen [Motrin] 600 mg PO QID PRN 10/05/18 01/22/19 Previous Rx's Medication Instructions Recorded Famotidine [Pepcid] 20 mg PO DAILY tab 10/07/18 Levothyroxine Sodium [Synthroid] 100 mcg PO 0630 tab 10/11/18 Witch Irina [Tucks Medicated Pads] 1 each TOPICAL 5XD PRN med..pad 10/11/18 Doxycycline [Vibramycin] 100 mg PO BID 14 Days #28 capsule 01/21/20 Allergies Allergy/AdvReac Type Severity Reaction Status Date / Time latex Allergy Rash/Hives Verified 01/21/20 15:33 propoxyphene Allergy Nausea & Verified 01/21/20 15:33 [From Darvocet-N] Vomiting tramadol [From Ultram] Allergy Itching Verified 01/21/20 15:33 hydromorphone [From Dilaudid] AdvReac Itching Verified 01/21/20 15:33 Review of Systems ROS Statement: Those systems with pertinent positive or pertinent negative responses have been documented in the HPI. ROS Other: All systems not noted in ROS Statement are negative. Past Medical History Past Medical History: Fibromyalgia, GERD/Reflux, Hyperlipidemia, Thyroid Disorder Additional Past Medical History / Comment(s): irritable bowel syndrome, carpal tunnel, arthritis, "eroded espohagus and stomach",hiatal hernia -er egd etoh abuse , migraine headaches, degenerative disc disease,arthritis, sciatica, past bronchitis. History of Any Multi-Drug Resistant Organisms: None Reported Past Surgical History: Adenoidectomy, Appendectomy, Cholecystectomy, Hernia Repair, Tonsillectomy, Tubal Ligation Additional Past Surgical History / Comment(s): d&c x5, exploratory lap, ovarian tumor removed, Kym fundiplacation, egd,colonosocpy Past Anesthesia/Blood Transfusion Reactions: Previous Problems w/ Anesthesia Additional Past Anesthesia/Blood Transfusion Reaction / Comment(s): stated "heart stopped and blood pressure dropped after gall bladder surgery in operating room" Past Psychological History: ADD/ADHD, Anxiety, Bipolar, Depression, PTSD Smoking Status: Current every day smoker Past Alcohol Use History: Abuse, Heavy Past Drug Use History: Marijuana - Past Family History Father Additional Family Medical History / Comment(s): Father is alive at age 58 with history of generalized anxiety disorder and possible bipolar disorder. Alcohol a buse. Paternal grandmother had cancer of the breast, uterus, ovaries, and Colon. Mother Family Medical History: Hyperlipidemia Additional Family Medical History / Comment(s): Mother is alive at age 58 with history of degenerative disc disease, osteoarthritis, hyperlipidemia, hypertension. Brother(s) Additional Family Medical History / Comment(s): Patient has 2 brothers. One from suicide. One brother has no major medical problems. Patient has 2 sisters but she has no contact with them. Patient has 4 children ages 19, 18, 16, 15. General Exam - General Exam Comments Initial Comments: Constitutional: NAD, AOX3, Pt has pleasant affect. HEENT: NC/AT, trachea midline, neck supple, no lymphadenopathy. Posterior pharynx non erythematous, without exudates. External ears appear normal, without discharge. Mucous membranes moist. Eyes PERRLA, EOM intact. There is no scleral icterus. No pallor noted. Cardiopulmonary: RRR, no murmurs, rubs or gallops, no JVD noted. Lungs CTAB in anterior and posterior roy. No peripheral edema. Abdominal exam: Abdomen soft and non-distended. Abdomen mildly tender to palpation in suprapubic left adnexal region. No gurading no rigidity. Bowel sounds active in LLQ. No hepatosplenomegaly. No ecchymosis Neuro: CN II-XII grossly intact. No nuchal rigidity. No raccon eyes, no crowder sign, no hemotympanum. No cervical spinal tenderness. MSK: No posterior calf tenderness bilaterally, homans sign negative bilaterally. Posterior tibialis and radial pulse +2 bilaterally. Sensation intact in upper and lower extremities. Full active ROM in upper and lower extremities, 5/5 stregnth. Pelvic: Discharge is noted from cervix, cervical motion tenderness is present, no lesions are noted, mucosa is pink. Chaperogned by MARIKA Weaver. Limitations: no limitations Course Vital Signs 01/21/20 01/21/20 15:29 18:10 Temperature 98.0 F Pulse Rate 79 61 Respiratory 18 18 Rate Blood Pressure 128/85 95/55 O2 Sat by Pulse 100 98 Oximetry Medical Decision Making - Medical Decision Making 39-year-old female patient past history of fibromyalgia, status post tubal ligation, irritable bowel syndrome presents to ED for chief complaint of pelvic pain. Patient reports that she had a normal menses approximately one month ago her relatives later she did have some bleeding for approximately 5 days. Reports no bleeding at this time however she is having suprapubic pelvic discomfort the last 2 days with states feels like cramping. Patient denies dysuria or new discharge. She reports that she is monogamous but it is possible that her may not be. Denies any other complaints. Pt VSS, afebrile. Physical exam displayed: Abdomen soft and non-distended. Abdomen mildly tender to palpation in suprapubic left adnexal region. No gurading no rigidity. Discharge is noted from cervix, cervical motion tenderness is present, no lesions are noted, mucosa is pink. Chaperogned by MARIKA Weaver. Laboratory investigations are noncompressive. Ultrasound displayed complex lesion left ovary could reflect hemorrhagic cyst lesion of other etiology is not excluded. Difficulty in obtaining venous waveforms bilaterally, chilling forms are within normal limits. Patient will be treated with Rocephin as if the and doxycycline. She'll be discharged with further care and OB since yesterday in follow-up. Case discussed with Dr. Art. - Lab Data Result diagrams: 01/21/20 17:07 01/21/20 17:07 Lab Results 01/21/20 01/21/20 01/21/20 Range/Units 15:53 15:53 17:07 WBC 7.3 (3.8-10.6) k/uL RBC 4.25 (3.80-5.40) m/uL Hgb 13.0 (11.4-16.0) gm/dL Hct 39.1 (34.0-46.0) % MCV 92.0 (80.0-100.0) fL MCH 30.5 (25.0-35.0) pg MCHC 33.1 (31.0-37.0) g/dL RDW 12.6 (11.5-15.5) % Plt Count 261 (150-450) k/uL Neutrophils % 58 % Lymphocytes % 32 % Monocytes % 7 % Eosinophils % 1 % Basophils % 0 % Neutrophils # 4.2 (1.3-7.7) k/uL Lymphocytes # 2.3 (1.0-4.8) k/uL Monocytes # 0.5 (0-1.0) k/uL Eosinophils # 0.1 (0-0.7) k/uL Basophils # 0.0 (0-0.2) k/uL Sodium (137-145) mmol/L Potassium (3.5-5.1) mmol/L Chloride (98-107) mmol/L Carbon Dioxide (22-30) mmol/L Anion Gap mmol/L BUN (7-17) mg/dL Creatinine (0.52-1.04) mg/dL Est GFR (CKD-EPI)AfAm (>60 ml/min/1.73 sqM) Est GFR (CKD-EPI)NonAf (>60 ml/min/1.73 sqM) Glucose (74-99) mg/dL Plasma Lactic Acid Vinicio (0.7-2.0) mmol/L Calcium (8.4-10.2) mg/dL Total Bilirubin (0.2-1.3) mg/dL AST (14-36) U/L ALT (4-34) U/L Alkaline Phosphatase (38-126) U/L Total Protein (6.3-8.2) g/dL Albumin (3.5-5.0) g/dL Urine Color Light Yellow Urine Appearance Clear (Clear) Urine pH 6.5 (5.0-8.0) Ur Specific [place] 1.004 (1.001-1.035) Urine Protein Negative (Negative) Urine Glucose (UA) Negative (Negative) Urine Ketones Negative (Negative) Urine Blood Negative (Negative) Urine Nitrite Negative (Negative) Urine Bilirubin Negative (Negative) Urine Urobilinogen <2.0 (<2.0) mg/dL Ur Leukocyte Esterase Negative (Negative) Urine HCG, Qual Not Detected (Not Detectd) 01/21/20 01/21/20 Range/Units 17:07 17:07 WBC (3.8-10.6) k/uL RBC (3.80-5.40) m/uL Hgb (11.4-16.0) gm/dL Hct (34.0-46.0) % MCV (80.0-100.0) fL MCH (25.0-35.0) pg MCHC (31.0-37.0) g/dL RDW (11.5-15.5) % Plt Count (150-450) k/uL Neutrophils % % Lymphocytes % % Monocytes % % Eosinophils % % Basophils % % Neutrophils # (1.3-7.7) k/uL Lymphocytes # (1.0-4.8) k/uL Monocytes # (0-1.0) k/uL Eosinophils # (0-0.7) k/uL Basophils # (0-0.2) k/uL Sodium 136 L (137-145) mmol/L Potassium 4.4 (3.5-5.1) mmol/L Chloride 111 H (98-107) mmol/L Carbon Dioxide 23 (22-30) mmol/L Anion Gap 2 mmol/L BUN 9 (7-17) mg/dL Creatinine 0.58 (0.52-1.04) mg/dL Est GFR (CKD-EPI)AfAm >90 (>60 ml/min/1.73 sqM) Est GFR (CKD-EPI)NonAf >90 (>60 ml/min/1.73 sqM) Glucose 83 (74-99) mg/dL Plasma Lactic Acid Vinicio 0.6 L (0.7-2.0) mmol/L Calcium 9.1 (8.4-10.2) mg/dL Total Bilirubin 0.2 (0.2-1.3) mg/dL AST 27 (14-36) U/L ALT 14 (4-34) U/L Alkaline Phosphatase 64 (38-126) U/L Total Protein 6.3 (6.3-8.2) g/dL Albumin 3.6 (3.5-5.0) g/dL Urine Color Urine Appearance (Clear) Urine pH (5.0-8.0) Ur Specific [place] (1.001-1.035) Urine Protein (Negative) Urine Glucose (UA) (Negative) Urine Ketones (Negative) Urine Blood (Negative) Urine Nitrite (Negative) Urine Bilirubin (Negative) Urine Urobilinogen (<2.0) mg/dL Ur Leukocyte Esterase (Negative) Urine HCG, Qual (Not Detectd) Disposition Clinical Impression: Pelvic pain Disposition: HOME SELF-CARE Condition: Stable Instructions (If sedation given, give patient instructions): Pelvic Pain in Women (ED) Additional Instructions: Take antibiotics as directed. Follow up with primary care provider as well as O B/[employer] tomorrow. Return to ER if condition worsens in any way. Prescriptions: Doxycycline [Vibramycin] 100 mg PO BID 14 Days #28 capsule Is patient prescribed a controlled substance at d/c from ED?: No Referrals: Ahsan Kraus MD [Primary Care Provider] - 1-2 days Nicole Gonzalez DO [Doctor of Osteopathic Medicine] - 1-2 days
[2020-01-21 19:58] VITALS: BP 100/64; PULSE 67; TEMP 97.6
== END 2020-01-21 20:20 | disposition home or self-care (01) ==
LOC: EC 15:29
DX: R10.2 Pelvic and perineal pain (principal); E78.5 Hyperlipidemia, unspecified; F17.200 Nicotine dependence, unspecified, uncomplicated; Z79.899 Other long term (current) drug therapy; Z91.040 Latex allergy status; Z88.6 Allergy status to analgesic agent; Z88.5 Allergy status to narcotic agent; Z98.51 Tubal ligation status; Z90.49 Acquired absence of other specified parts of digestive tract; Z90.89 Acquired absence of other organs; Z86.018 Personal history of other benign neoplasm
CPT/HCPCS: 96374; 96372; 99284; 36415; 80053; 83605; 85025; 81003; 81025; 87808; 87491; 87591; 87070; 93975; 76830; J2270; J0696

== ENCOUNTER → 2020-02-06 | Outpatient (CLI) | payer MEDICARE, OTHER ==
--- NOTE | 2020-02-06 11:40 | US ---
EXAMINATION TYPE: US pelvic complete DATE OF EXAM: 02/06/2020 COMPARISON: 01/21/2020 CLINICAL HISTORY: Left Ovarian Cyst N83.209. F/U to previous hx of cysts. TECHNIQUE: Transabdominal (TA). Transabdominal sonographic images of the pelvis were acquired. Tra nsvaginal sonographic images were medically necessary Date of LMP: Today EXAM MEASUREMENTS: Uterus: 8.3 x 4.2 x 5.1 cm Endometrial Stripe: .8 cm Right Ovary: 2.0 x 1.2 x 1.5 cm Left Ovary: 1.7 x 3.3 x 2.0 cm 1. Uterus: Anteverted wnl 2. Endometrium: wnl 3. Right Ovary: Follicles seen. 4. Left Ovary: Complex cystic area 2.0 x 1.4 x 1.3cm seen in previous exam. This previously measured 2.0 x 1.7 x 1.6 cm on the exam of 01/21/2020 5. Bilateral Adnexa: wnl 6. Posterior cul-de-sac: wnl IMPRESSION: Smaller size of the left ovarian complex cyst in comparison to exam of 01/21/2020 suggesti ng a resolving hemorrhagic cyst.
== END | disposition home or self-care (01) ==
LOC: RADUSWWP 10:50
PROVIDERS: ATTEND Pediatrics
DX: N83.202 Unspecified ovarian cyst, left side (principal)
CPT/HCPCS: 76856

== ENCOUNTER → 2020-04-21 | Outpatient (CLI) | payer MEDICARE, OTHER | END | disposition home or self-care (01) | LOC: LABWHC1 14:28 | PROVIDERS: ATTEND Pediatrics | DX: Z20.828 Contact with and (suspected) exposure to other viral communicable diseases (principal) | CPT/HCPCS: U0003; C9803 ==

== ENCOUNTER → 2020-06-15 | Outpatient (CLI) | payer MEDICARE, OTHER ==
--- NOTE | 2020-06-16 11:43 | MM ---
Reason for exam: screening (asymptomatic). Last mammogram was performed 1 year and 4 months ago. History: Family history of breast cancer in paternal grandmother at age 60, breast cancer in paternal cousin, and breast cancer in maternal cousin at age 30. Physical Findings: A clinical breast exam by your physician is recommended on an annual basis and results should be correlated with mammographic findings. MG 3D Screening Mammo W/Cad Bilateral CC and MLO view(s) were taken. Prior study comparison: February 26, 2019, bilateral MG 3d work up w/cad MAGDALENO. February 19, 2019, bilateral MG 3d screening mammo w/cad. The breast tissue is heterogeneously dense. This may lower the sensitivity of mammography. There are benign appearing round calcifications bilaterally. There is no discrete abnormality. ASSESSMENT: Benign, BI-RAD 2 RECOMMENDATION: Routine screening mammogram of both breasts in 1 year.
== END | disposition home or self-care (01) ==
LOC: RADMAMWWP 15:10
PROVIDERS: ATTEND Pediatrics
DX: Z12.31 Encounter for screening mammogram for malignant neoplasm of breast (principal)
CPT/HCPCS: 77063; 77067

== ENCOUNTER → 2020-06-25 | Outpatient (CLI) | payer MEDICARE | END | disposition home or self-care (01) | LOC: LABWHC1 15:17 | PROVIDERS: ATTEND Nurse Practitioner Acute Care | DX: I49.9 Cardiac arrhythmia, unspecified (principal) | CPT/HCPCS: 93005 ==

== ENCOUNTER 2020-07-15 17:14 | Emergency (ER) | payer MEDICARE, OTHER ==
[2020-07-15] MEDS ORDERED: SODIUM CHLORIDE 0.9% 1,000 ML IV STA ×2 (17:44)
[2020-07-15] MEDS ORDERED: SODIUM CHLORIDE 0.9% 500 ML 500 ML IV STA (17:44)
--- NOTE | 2020-07-15 17:57 | ED ---
Neuro HPI - General Chief Complaint: Neuro Symptoms/Deficit Stated Complaint: Memory loss Time Seen by Provider: 07/15/20 17:43 Source: patient, RN notes reviewed, old records reviewed Mode of arrival: ambulatory Limitations: no limitations - History of Present Illness Is the patient presenting with stroke symptoms?: No -: days(s) Initial Comments: This is a 39-year-old female to the ER for evaluation patient presented for evaluation of altered mental status. Patient is going to stress reaction recent of her brother, they did anniversary walk she really stressed out over the last few days history of alcoholism, patient is been acting drunk for the past 3-4 days not doing appropriate activities, and is kind of going through the motions per the . has multiple examples of patient not acting appropriately but this time is patient seems to be fine is remembering things well Location: speech, altered History of same: Yes (alcoholism) Place: home Severity: mild Quality: constant Improves With: none On Anticoagulants: No Context: gradual onset Associated Symptoms: malaise, weakness Treatments Prior to Arrival: none - Related Data Home Medications: Home Medications Medication Instructions Recorded Confirmed Albuterol Inhaler (Mhu) [Ventolin 2 puff INHALATION RT-QID PRN 02/21/17 01/22/19 Hfa Inhaler (Mhu)] Atorvastatin Calcium [Lipitor] 10 mg PO HS 02/21/17 01/22/19 Docusate [Colace] 100 mg PO BID 03/26/17 01/22/19 Fluticasone Nasal [place] [Flonase 1 - 2 sprays EA NOSTRIL BID PRN 05/23/18 01/22/19 Nasal [place]] Ibuprofen [Motrin] 600 mg PO QID PRN 10/05/18 01/22/19 Previous Rx's Medication Instructions Recorded Famotidine [Pepcid] 20 mg PO DAILY tab 10/07/18 Levothyroxine Sodium [Synthroid] 100 mcg PO 0630 tab 10/11/18 witch Sue [Tucks Medicated Pads] 1 each TOPICAL 5XD PRN med..pad 10/11/18 Doxycycline [Vibramycin] 100 mg PO BID 14 Days #28 capsule 01/21/20 Allergies/Adverse Reactions: Allergies Allergy/AdvReac Type Severity Reaction Status Date / Time latex Allergy Rash/Hives Verified 07/15/20 17:19 propoxyphene Allergy Nausea & Verified 07/15/20 17:19 [From Darvocet-N] Vomiting tramadol [From Ultram] Allergy Itching Verified 07/15/20 17:19 hydromorphone [From Dilaudid] AdvReac Itching Verified 07/15/20 17:19 Review of Systems ROS Statement: Those systems with pertinent positive or pertinent negative responses have been documented in the HPI. ROS Other: All systems not noted in ROS Statement are negative. General Exam Limitations: no limitations General appearance: alert, in no apparent distress, lethargic, in distress Head exam: Present: atraumatic, normocephalic, normal inspection Eye exam: Present: normal appearance, PERRL, EOMI. Absent: scleral icterus, conjunctival injection, periorbital swelling ENT exam: Present: normal exam, mucous membranes moist Neck exam: Present: normal inspection. Absent: tenderness, meningismus, lymphadenopathy Respiratory exam: Present: normal lung sounds bilaterally. Absent: respiratory distress, wheezes, rales, rhonchi, stridor Cardiovascular Exam: Present: normal rhythm, tachycardia, normal heart sounds. Absent: systolic murmur, diastolic murmur, rubs, gallop, clicks GI/Abdominal exam: Present: soft, normal bowel sounds. Absent: distended, tenderness, guarding, rebound, rigid Extremities exam: Present: normal inspection, full ROM, normal capillary refill. Absent: tenderness, pedal edema, joint swelling, calf tenderness Back exam: Present: normal inspection Neurological exam: Present: alert, oriented X3, CN II-XII intact Psychiatric exam: Present: normal affect, normal mood Skin exam: Present: warm, dry, intact, normal color. Absent: rash Stroke MDM - Lab Data Result diagrams: 07/15/20 17:53 07/15/20 17:53 Lab Results 07/15/20 07/15/20 07/15/20 Range/Units 17:53 17:53 17:53 WBC 7.3 (3.8-10.6) k/uL RBC 4.03 (3.80-5.40) m/uL Hgb 12.5 (11.4-16.0) gm/dL Hct 37.9 (34.0-46.0) % MCV 93.9 (80.0-100.0) fL MCH 30.9 (25.0-35.0) pg MCHC 32.9 (31.0-37.0) g/dL RDW 12.1 (11.5-15.5) % Plt Count 242 (150-450) k/uL Neutrophils % 63 % Lymphocytes % 27 % Monocytes % 7 % Eosinophils % 1 % Basophils % 1 % Neutrophils # 4.6 (1.3-7.7) k/uL Lymphocytes # 2.0 (1.0-4.8) k/uL Monocytes # 0.5 (0-1.0) k/uL Eosinophils # 0.0 (0-0.7) k/uL Basophils # 0.0 (0-0.2) k/uL PT 9.5 (9.0-12.0) sec INR 0.9 (<1.2) APTT 22.1 (22.0-30.0) sec Sodium (137-145) mmol/L Potassium (3.5-5.1) mmol/L Chloride (98-107) mmol/L Carbon Dioxide (22-30) mmol/L Anion Gap mmol/L BUN (7-17) mg/dL Creatinine (0.52-1.04) mg/dL Est GFR (CKD-EPI)AfAm (>60 ml/min/1.73 sqM) Est GFR (CKD-EPI)NonAf (>60 ml/min/1.73 sqM) Glucose (74-99) mg/dL Plasma Lactic Acid Vinicio (0.7-2.0) mmol/L Calcium (8.4-10.2) mg/dL Phosphorus (2.5-4.5) mg/dL Magnesium (1.6-2.3) mg/dL Total Bilirubin (0.2-1.3) mg/dL AST (14-36) U/L ALT (4-34) U/L Alkaline Phosphatase (38-126) U/L Ammonia (<30) umol/L Creatine Kinase (30-135) U/L Troponin I (0.000-0.034) ng/mL NT-Pro-B Natriuret Pep pg/mL Total Protein (6.3-8.2) g/dL Albumin (3.5-5.0) g/dL Lipase (23-300) U/L TSH (0.465-4.680) mIU/L Urine Color Light Yellow Urine Appearance Clear (Clear) Urine pH 5.5 (5.0-8.0) Ur Specific [place] 1.002 (1.001-1.035) Urine Protein Negative (Negative) Urine Glucose (UA) Negative (Negative) Urine Ketones Negative (Negative) Urine Blood Moderate H (Negative) Urine Nitrite Negative (Negative) Urine Bilirubin Negative (Negative) Urine Urobilinogen <2.0 (<2.0) mg/dL Ur Leukocyte Esterase Negative (Negative) Urine WBC <1 (0-5) /hpf Urine Bacteria Rare H (None) /hpf Urine HCG, Qual (Not Detectd) Salicylates mg/dL Urine Opiates Screen Not Detected (NotDetected) Ur Oxycodone Screen Not Detected (NotDetected) Urine Methadone Screen Not Detected (NotDetected) Ur Propoxyphene Screen Not Detected (NotDetected) Acetaminophen ug/mL Ur Barbiturates Screen Not Detected (NotDetected) U Tricyclic Antidepress Not Detected (NotDetected) Ur Phencyclidine Scrn Not Detected (NotDetected) Ur Amphetamines Screen Not Detected (NotDetected) U Methamphetamines Scrn Not Detected (NotDetected) U Benzodiazepines Scrn Detected H (NotDetected) Urine Cocaine Screen Not Detected (NotDetected) U Marijuana (THC) Screen Detected H (NotDetected) Serum Alcohol mg/dL 07/15/20 07/15/20 07/15/20 Range/Units 17:53 17:53 17:53 WBC (3.8-10.6) k/uL RBC (3.80-5.40) m/uL Hgb (11.4-16.0) gm/dL Hct (34.0-46.0) % MCV (80.0-100.0) fL MCH (25.0-35.0) pg MCHC (31.0-37.0) g/dL RDW (11.5-15.5) % Plt Count (150-450) k/uL Neutrophils % % Lymphocytes % % Monocytes % % Eosinophils % % Basophils % % Neutrophils # (1.3-7.7) k/uL Lymphocytes # (1.0-4.8) k/uL Monocytes # (0-1.0) k/uL Eosinophils # (0-0.7) k/uL Basophils # (0-0.2) k/uL PT (9.0-12.0) sec INR (<1.2) APTT (22.0-30.0) sec Sodium 137 (137-145) mmol/L Potassium 4.4 (3.5-5.1) mmol/L Chloride 109 H (98-107) mmol/L Carbon Dioxide 21 L (22-30) mmol/L Anion Gap 7 mmol/L BUN 11 (7-17) mg/dL Creatinine 0.77 (0.52-1.04) mg/dL Est GFR (CKD-EPI)AfAm >90 (>60 ml/min/1.73 sqM) Est GFR (CKD-EPI)NonAf >90 (>60 ml/min/1.73 sqM) Glucose 58 L (74-99) mg/dL Plasma Lactic Acid Vinicio 2.9 H* (0.7-2.0) mmol/L Calcium 9.3 (8.4-10.2) mg/dL Phosphorus 3.2 (2.5-4.5) mg/dL Magnesium 1.9 (1.6-2.3) mg/dL Total Bilirubin 0.3 (0.2-1.3) mg/dL AST 29 (14-36) U/L ALT 14 (4-34) U/L Alkaline Phosphatase 56 (38-126) U/L Ammonia <9 (<30) umol/L Creatine Kinase 184 H (30-135) U/L Troponin I (0.000-0.034) ng/mL NT-Pro-B Natriuret Pep pg/mL Total Protein 6.9 (6.3-8.2) g/dL Albumin 4.0 (3.5-5.0) g/dL Lipase 88 (23-300) U/L TSH 0.155 L (0.465-4.680) mIU/L Urine Color Urine Appearance (Clear) Urine pH (5.0-8.0) Ur Specific [place] (1.001-1.035) Urine Protein (Negative) Urine Glucose (UA) (Negative) Urine Ketones (Negative) Urine Blood (Negative) Urine Nitrite (Negative) Urine Bilirubin (Negative) Urine Urobilinogen (<2.0) mg/dL Ur Leukocyte Esterase (Negative) Urine WBC (0-5) /hpf Urine Bacteria (None) /hpf Urine HCG, Qual Not Detected (Not Detectd) Salicylates <1.0 mg/dL Urine Opiates Screen (NotDetected) Ur Oxycodone Screen (NotDetected) Urine Methadone Screen (NotDetected) Ur Propoxyphene Screen (NotDetected) Acetaminophen <10.0 ug/mL Ur Barbiturates Screen (NotDetected) U Tricyclic Antidepress (NotDetected) Ur Phencyclidine Scrn (NotDetected) Ur Amphetamines Screen (NotDetected) U Methamphetamines Scrn (NotDetected) U Benzodiazepines Scrn (NotDetected) Urine Cocaine Screen (NotDetected) U Marijuana (THC) Screen (NotDetected) Serum Alcohol <10 mg/dL 07/15/20 07/15/20 07/15/20 Range/Units 17:53 17:53 17:53 WBC (3.8-10.6) k/uL RBC (3.80-5.40) m/uL Hgb (11.4-16.0) gm/dL Hct (34.0-46.0) % MCV (80.0-100.0) fL MCH (25.0-35.0) pg MCHC (31.0-37.0) g/dL RDW (11.5-15.5) % Plt Count (150-450) k/uL Neutrophils % % Lymphocytes % % Monocytes % % Eosinophils % % Basophils % % Neutrophils # (1.3-7.7) k/uL Lymphocytes # (1.0-4.8) k/uL Monocytes # (0-1.0) k/uL Eosinophils # (0-0.7) k/uL Basophils # (0-0.2) k/uL PT (9.0-12.0) sec INR (<1.2) APTT (22.0-30.0) sec Sodium (137-145) mmol/L Potassium (3.5-5.1) mmol/L Chloride (98-107) mmol/L Carbon Dioxide (22-30) mmol/L Anion Gap mmol/L BUN (7-17) mg/dL Creatinine (0.52-1.04) mg/dL Est GFR (CKD-EPI)AfAm (>60 ml/min/1.73 sqM) Est GFR (CKD-EPI)NonAf (>60 ml/min/1.73 sqM) Glucose (74-99) mg/dL Plasma Lactic Acid Vinicio (0.7-2.0) mmol/L Calcium (8.4-10.2) mg/dL Phosphorus (2.5-4.5) mg/dL Magnesium (1.6-2.3) mg/dL Total Bilirubin (0.2-1.3) mg/dL AST (14-36) U/L ALT (4-34) U/L Alkaline Phosphatase (38-126) U/L Ammonia (<30) umol/L Creatine Kinase 187 H (30-135) U/L Troponin I <0.012 (0.000-0.034) ng/mL NT-Pro-B Natriuret Pep 78 pg/mL Total Protein (6.3-8.2) g/dL Albumin (3.5-5.0) g/dL Lipase (23-300) U/L TSH (0.465-4.680) mIU/L Urine Color Urine Appearance (Clear) Urine pH (5.0-8.0) Ur Specific [place] (1.001-1.035) Urine Protein (Negative) Urine Glucose (UA) (Negative) Urine Ketones (Negative) Urine Blood (Negative) Urine Nitrite (Negative) Urine Bilirubin (Negative) Urine Urobilinogen (<2.0) mg/dL Ur Leukocyte Esterase (Negative) Urine WBC (0-5) /hpf Urine Bacteria (None) /hpf Urine HCG, Qual (Not Detectd) Salicylates mg/dL Urine Opiates Screen (NotDetected) Ur Oxycodone Screen (NotDetected) Urine Methadone Screen (NotDetected) Ur Propoxyphene Screen (NotDetected) Acetaminophen ug/mL Ur Barbiturates Screen (NotDetected) U Tricyclic Antidepress (NotDetected) Ur Phencyclidine Scrn (NotDetected) Ur Amphetamines Screen (NotDetected) U Methamphetamines Scrn (NotDetected) U Benzodiazepines Scrn (NotDetected) Urine Cocaine Screen (NotDetected) U Marijuana (THC) Screen (NotDetected) Serum Alcohol mg/dL - NIH Stroke Scale 1a. Level of Consciousness: (0) alert 1b. LOC Questions: (0) answers correctly 1c. LOC Commands: (0) performs tasks correctly 2. Best Gaze: (0) normal 3. Visual: (0) no visual loss 4. Facial Palsy: (0) normal symmetrical movement 5a. Motor Arm Left: (0) no drift 5b. Motor Arm Right: (0) no drift 6a. Motor Leg Left: (0) no drift 6b. Motor Leg Right: (0) no drift 7. Limb Ataxia: (0) absent 8. Sensory: (0) normal 9. Best Language: (0) no aphasia 10. Dysarthria: (0) normal 11. Extinction/Inattention: (0) no abnormality - Thrombolytic Inclusion/Exclusion Thrombolytic Exclusion Criteria: Symptom Onset > 4.5 Hours - Medical Decision Making 39 female DF for evaluation patient is a few dayslong memory with severe stress and grief reaction. Test otherwise negative and patient can be discharged home - Radiology Data Radiology results: report reviewed (CT brain and CXR is negative for acute disease), image reviewed - EKG Data -: EKG Interpreted by Me (eKG shows sinus rhythm 96 OH 102 QRS 78 QTc 432) Past Medical History Past Medical History: Fibromyalgia, GERD/Reflux, Hyperlipidemia, Thyroid Disorder Additional Past Medical History / Comment(s): irritable bowel syndrome, carpal tunnel, arthritis, "eroded espohagus and stomach",hiatal hernia -er egd etoh abuse , migraine headaches, degenerative disc disease,arthritis, sciatica, past bronchitis. interstital cystitis History of Any Multi-Drug Resistant Organisms: None Reported Past Surgical History: Adenoidectomy, Appendectomy, Cholecystectomy, Hernia Repair, Tonsillectomy, Tubal Ligation Additional Past Surgical History / Comment(s): d&c x5, exploratory lap, ovarian tumor removed, Kym fundiplacation, egd,colonosocpy Past Anesthesia/Blood Transfusion Reactions: Previous Problems w/ Anesthesia Additional Past Anesthesia/Blood Transfusion Reaction / Comment(s): stated "heart stopped and blood pressure dropped after gall bladder surgery in operating room" Past Psychological History: ADD/ADHD, Anxiety, Bipolar, Depression, PTSD Smoking Status: Current every day smoker Past Alcohol Use History: None Reported, Abuse, Heavy Past Drug Use History: Marijuana - Past Family History Father Additional Family Medical History / Comment(s): Father is alive at age 58 with history of generalized anxiety disorder and possible bipolar disorder. Alcohol abuse. Paternal grandmother had cancer of the breast, uterus, ovaries, and Colon. Mother Family Medical History: Hyperlipidemia Additional Family Medical History / Comment(s): Mother is alive at age 58 with history of degenerative disc disease, osteoarthritis, hyperlipidemia, hypertension. Brother(s) Additional Family Medical History / Comment(s): Patient has 2 brothers. One from suicide. One brother has no major medical problems. Patient has 2 sisters but she has no contact with them. Patient has 4 children ages 19, 18, 16, 15. Course Vital Signs 07/15/20 07/15/20 17:19 18:58 Temperature 98 F 99.8 F H Pulse Rate 113 H Respiratory 18 Rate Blood Pressure 92/64 O2 Sat by Pulse 98 Oximetry - Reevaluation(s) Reevaluation #1: 07/15/20 19:30 medical record is reviewed Reevaluation #2: 07/15/20 19:30 patient has no findings here in ED Reevaluation #3: 07/15/20 19:30 she reamins without complaint Reevaluation #4: 07/15/20 19:30 spoke w family, and patient re findings and patient is ok for discharge Disposition Clinical Impression: Altered mental status, Grief reaction Disposition: HOME SELF-CARE Condition: Fair Instructions (If sedation given, give patient instructions): Grief and Loss (ED), Altered Mental Status (ED) Is patient prescribed a controlled substance at d/c from ED?: No Referrals: Ahsan Kraus MD [Primary Care Provider] - 1-2 days
[2020-07-15 18:08] LABS: Basophils % (A) 1 %; Eosinophils % (A) 1 %; HCT 37.9 % (34.0-46.0); HGB 12.5 gm/dL (11.4-16.0); Lymphocytes % (A) 27 %; MCH 30.9 pg (25.0-35.0); MCHC 32.9 g/dL (31.0-37.0); MCV 93.9 fL (80.0-100.0); Mean Platelet Volume 8.2; Monocytes # (A) 0.5 k/uL (0-1.0); Monocytes % (A) 7 %; Neutrophils # (A) 4.6 k/uL (1.3-7.7); Neutrophils % (A) 63 %; Platelet Count 242 k/uL (150-450); RBC 4.03 m/uL (3.80-5.40); RDW 12.1 % (11.5-15.5); WBC 7.3 k/uL (3.8-10.6)
[2020-07-15 18:17] LABS: Appearance,Urine Clear (Clear); Bacteria,Urine Rare /hpf; Bilirubin,Urine Negative (Negative); Blood,Urine Moderate (Negative); Color,Urine Light Yellow; Glucose,Urine (UA) Negative (Negative); Ketones,Urine Negative (Negative); Leukocyte Esterase,Urine Negative (Negative); Nitrite,Urine Negative (Negative); PH, Urine 5.5 (5.0-8.0); Protein,Urine Negative (Negative); Specific Gravity,Urine 1.002 (1.001-1.035); Urobilinogen,Urine <2.0 mg/dL (<2.0); WBC,Urine <1 /hpf (0-5)
[2020-07-15 18:25] LABS: Amphetamine Screen,Urine Not Detected (NotDetected); Barbiturate Screen,Urine Not Detected (NotDetected); Benzodiazepines Screen,Urine Detected (NotDetected); Cocaine Screen,Urine Not Detected (NotDetected); Methadone Screen, Urine Not Detected (NotDetected); Opiate Screen,Urine Not Detected (NotDetected); Oxycodone Screen, Urine Not Detected (NotDetected); Phencyclidine Screen,Urine Not Detected (NotDetected); Tricyclic Antidepressant,Urine Not Detected (NotDetected); Urn Cannabinoid Scrn Detected (NotDetected)
[2020-07-15 18:26] LABS: ALT 14 U/L (4-34); AST 29 U/L (14-36); Acetaminophen <10.0 ug/mL; African American GFR (CKD) >90 (>60 ml/min/1.73 sqM); Alcohol <10 mg/dL; Alkaline Phosphatase 56 U/L (38-126); Anion Gap 7 mmol/L; Blood Urea Nitrogen 11 mg/dL (7-17); Calcium 9.3 mg/dL (8.4-10.2); Carbon Dioxide 21 mmol/L (22-30); Chloride 109 mmol/L (98-107); Creatine Kinase 184 U/L (30-135); Glucose 58 mg/dL (74-99); INR 0.9 (<1.2); Lipase 88 U/L (23-300); Magnesium 1.9 mg/dL (1.6-2.3); Non-African American GFR(CKD) >90 (>60 ml/min/1.73 sqM); Partial Thromboplastin Time 22.1 sec (22.0-30.0); Phosphorus 3.2 mg/dL (2.5-4.5); Potassium 4.4 mmol/L (3.5-5.1); Prothrombin Time 9.5 sec (9.0-12.0); Salicylate <1.0 mg/dL; Sodium 137 mmol/L (137-145); Total Bilirubin 0.3 mg/dL (0.2-1.3); Total Protein 6.9 g/dL (6.3-8.2)
[2020-07-15 18:47] LABS: Lactic Acid, Venous 2.9 mmol/L (0.7-2.0)
--- NOTE | 2020-07-15 18:51 | CT ---
EXAMINATION TYPE: CT brain wo con DATE OF EXAM: 07/15/2020 COMPARISON: 12/22/2017 INDICATION: [place] DLP: 1063.4 mGycm, Automated exposure control for dose reduction was used. CONTRAST: None CT of the brain is performed utilizing 3 mm thick sections through the posterior fossa and 3 mm thick sections through the remaining calvarium. Study is performed within 24 hours of arrival to the hosp [facility]. No abnormal hyperdensity is present to suggest an acute intracranial hemorrhage. No mass lesion is evident. No acute infarcts are evident. Ventricles and sulci are appropriate for the patient age. Paranasal sinuses and mastoid air cells within the [id number] are clear. IMPRESSIONS: 1. Normal CT Brain 2. Exam is stable from comparison of 2017
[2020-07-15 19:37] VITALS: BP 98/68; PULSE 79; RESP 16; TEMP 98.9
== END 2020-07-15 20:15 | disposition home or self-care (01) ==
LOC: EC 17:14
DX: F43.20 Adjustment disorder, unspecified (principal); R00.0 Tachycardia, unspecified; E78.5 Hyperlipidemia, unspecified; M79.7 Fibromyalgia; F17.200 Nicotine dependence, unspecified, uncomplicated; Z79.899 Other long term (current) drug therapy; Z88.5 Allergy status to narcotic agent; Z88.6 Allergy status to analgesic agent; Z88.8 Allergy status to other drugs, medicaments and biological substances; Z91.040 Latex allergy status; Z86.69 Personal history of other diseases of the nervous system and sense organs
CPT/HCPCS: 36415; 93005; 83880; 80053; 82140; 82550; 83605; 83690; 83735; 84100; 84443; 84484; 85025; 85610; 85730; 81001; 81025; 80306; 83520; 70450; 99285; 96360; 96361; G0480 ×2; 80320; 80329

== ENCOUNTER → 2020-09-30 | Outpatient (CLI) | payer MEDICARE, OTHER ==
[2020-09-30 07:42] LABS: Basophils % (A) 0 %; Eosinophils # (A) 0.1 k/uL (0-0.7); Eosinophils % (A) 1 %; HCT 37.4 % (34.0-46.0); HGB 12.2 gm/dL (11.4-16.0); Lymphocytes # (A) 2.3 k/uL (1.0-4.8); Lymphocytes % (A) 33 %; MCH 29.6 pg (25.0-35.0); MCHC 32.7 g/dL (31.0-37.0); MCV 90.3 fL (80.0-100.0); Mean Platelet Volume 8.9; Monocytes # (A) 0.6 k/uL (0-1.0); Monocytes % (A) 8 %; Neutrophils # (A) 3.8 k/uL (1.3-7.7); Neutrophils % (A) 55 %; Platelet Count 256 k/uL (150-450); RBC 4.14 m/uL (3.80-5.40); RDW 12.3 % (11.5-15.5); WBC 6.9 k/uL (3.8-10.6)
== END | disposition home or self-care (01) ==
LOC: LABPAT 07:23
PROVIDERS: ATTEND Obstetrics & Gynecology
DX: Z01.818 Encounter for other preprocedural examination (principal); N93.8 Other specified abnormal uterine and vaginal bleeding
CPT/HCPCS: 36415; 85025

== ENCOUNTER 2020-10-05 09:37 | Day surgery (SDC) | payer MEDICARE, OTHER ==
[2020-09-30 15:47] VITALS: BMI 24.7
--- NOTE | 2020-10-01 17:48 | HP ---
HISTORY AND PHYSICAL DATE OF SURGERY: 10/05/2020 HISTORY OF PRESENT ILLNESS: The patient is a 39-year-old 4, para 4-0-0-4, who presents with a history of dysfunctional uterine bleeding which has been ongoing fairly regularly. She does have a tubal ligation in place. Endometrial biopsy performed was normal. She has requested diagnostic hysteroscopy with NovaSure endometrial ablation. PAST MEDICAL HISTORY: Past medical history is significant for COPD, degenerative disc disease, hypothyroidism, PTSD and some other ongoing psychiatric concerns. PAST SURGICAL HISTORY: Past surgical history is significant for tonsils and adenoids in 1986. She had an appendectomy in 2016, cholecystectomy in 2003, D and C in the past, hiatal hernia repair in 2018, tubal ligation in the past as well, and she also has a history of having had tubes in her ears in 2001. There is no apparent history anesthetic concerns. OBSTETRICAL HISTORY: 4, para 4-0-0-4, with 4 term vaginal deliveries without complications. Method of contraception is tubal ligation. GYNECOLOGIC HISTORY: Unremarkable with a remote history of chlamydia but nothing recent. No other gynecologic concerns. FAMILY HISTORY: Noncontributory. SOCIAL HISTORY: The patient is and is a smoker, including medical marijuana. She denies any significant alcohol or any other social concerns. CURRENT MEDICATIONS: 1. Ditropan XL 10 mg daily. 2. Multivitamin daily. 3. Ativan 1 mg 2 times daily as needed. 4. Albuterol metered-dose inhaler and also by nebulizer if necessary. 5. Fioricet as needed. 6. Flonase daily. 7. Ibuprofen as needed. 8. Valtrex 750 mg daily. 9. Restoril 30 mg daily. 10.Robaxin twice daily as needed. 11.Synthroid 100 mcg daily. 12.Zofran as needed. ALLERGIES: Benadryl caused a burning sensation topically. REVIEW OF SYSTEMS: Confined to history of present illness. PHYSICAL EXAMINATION: Vital signs are stable. The patient is afebrile. In general, this is a well- developed, well-nourished white female in no acute distress. Her heart has a regular rhythm and rate without murmur. Her lungs are clear to auscultation bilaterally in all roy. Her abdomen is nondistended, has normoactive bowel sounds, soft, nontender, without any palpable masses, hepatosplenomegaly or hernias. Her extremities are without any cyanosis, clubbing or edema and are nontender to palpation bilaterally. Digital cervical examination demonstrates the uterus to be approximately 4-5 weeks in size, mid plane, mobile, nontender, normal in shape. Endometrial biopsy was performed and benign. ASSESSMENT AND PLAN: Dysfunctional uterine bleeding. The patient has requested diagnostic hysteroscopy with NovaSure endometrial ablation. We have discussed other potential options for treatment and she has failed the use of a minipill. The risks and complications of the procedure have been discussed at length, including the risks for bleeding, bleeding requiring transfusion, infection, and injury to local structures to specifically include uterine perforation, Asherman syndrome and subsequent hematometra. She has understood all this and agreed to proceed and is scheduled for the above procedures on the morning of October 05. MMODL / IJN: [id number] /
[~2020-10-05 09:37] MED LIST changes: +DEXAMETHASONE SOD PHOSPHATE 4 MG/ML 1 ML VIAL IV ONE; -HEPARIN SODIUM,PORCINE 5,000 UNIT/ML 1 ML VIAL SQ ONE; -LIDOCAINE 1% 20 ML VIAL (10MG/ML) FOR IV START INTRADERMA PRN; +MIDAZOLAM 2 MG/2 ML VIAL IV PRN; +ONDANSETRON 4 MG/2 ML VIAL IVP ONE; +Pre Op ABX Message 1 EACH MISC MISCELLANE ONE; +SCOPOLAMINE 1.5MG/72HR PATCH TRANSDERM ONE; -ceFAZolin IN SWFI 2 GM/20 ML SYRINGE IVP ONE
[2020-10-05] MEDS ORDERED: LIDOCAINE 1% (10MG/ML) FOR IV START INTRADERMA ONE (10:05)
[2020-10-05] MEDS ORDERED: PROPOFOL 10 MG/ML 20 ML VIAL IV ONE (11:12)
[2020-10-05] MEDS ORDERED: LIDOCAINE 1% INJ 10MG/ML (20 ML MDV) ONE (11:12)
[2020-10-05] MEDS ORDERED: fentaNYL (PF) 50 MCG/ML 2 ML AMP ONE (11:12)
[2020-10-05] MEDS ORDERED: MIDAZOLAM 2 MG/2 ML VIAL ONE (11:12)
[2020-10-05] MEDS ORDERED: LACTATED RINGERS 1,000 ML IV ONE ×2 (11:33→13:15)
[2020-10-05] MEDS ORDERED: diphenhydrAMINE 50 MG/ML 1 ML VIAL IVP ONE (11:58)
--- NOTE | 2020-10-05 11:59 | P.OP ---
Date of Procedure: 10/05/20 Preoperative Diagnosis: #1. Dysfunctional uterine bleeding Postoperative Diagnosis: Same Procedure(s) Performed: #1. Diagnostic hysteroscopy #2. NovaSure endometrial ablation Anesthesia: other (Gen. by LMA) Surgeon: Agus Roberts Estimated Blood Loss (ml): 5 IV fluids (ml): 250 Urine output (ml): 50 Pathology: none sent Condition: stable Disposition: PACU Operative Findings: Preoperative pelvic examination demonstrated a roughly 4-5 week anteverted mobile normal shaped uterus with normal adnexa bilaterally. Intraoperatively, the uterus sounded to 8.5 cm with a cervical length of roughly 3.5 cm. Using the hysteroscope, there was no significant pathology seen though there was some shaggy endometrium along the posterior wall of the uterus. The bilateral tubal ostia were seen. The settings for the NovaSure tool where a length of 5.0 cm, a width of 4.6 cm for a total power 127 W. The total run time for the procedure was 120 seconds after which time the base unit read "procedure complete." There were several failures of the vacuum along the way requiring the tool to be re- enabled, approximately 4. The postprocedural result with the hysteroscope appeared to be excellent. The patient is a potential candidate for vaginal instructed he should become necessary. Description of Procedure: The patient was prepped and draped in usual fashion after general anesthesia was admission by the anesthesiologist. A weighted speculum was placed and the bladder drained of approximately 50 mL of clear mariajose urine. The anterior lip of the cervix was grasped with a sickle 2 tenaculum and the uterus sounded as above to a total of 8.57 m with a cervical length of 3.5 cm. Serial dilation was carried out to admit the diagnostic hysteroscope which was placed to the fundus and the cavity distended with saline. The bilateral tubal ostia were seen. There was some shaggy endometrium in the lower posterior portion of the endometrial cavity. The scope was then set aside as it was no pathology present. The NovaSure tool was placed into the endometrial cavity, opened, and seated well. The settings were as noted above with a length of 5.0 cm, a width of 4.6 cm for a total power 127 W. Cavity check was attempted and passed without difficulty. The tool was enabled and the run started. Approximate 4 times during the run, the base unit stopped the procedure secondary to a "vacuum failure." The 2 was really enabled on each occasion, a total of 4, after which time the procedure was resumed. After a total run time of 120 seconds, the base unit read "procedure complete." The 2 was closed, removed, and discarded. The diagnostic hysteroscope was replaced within the endometrial cavity and the findings appeared to be excellent. All instrumentation was then removed and there was no ongoing bleeding from either the cervix or the tenaculum site. The patient is a potential candidate for vaginal instructed he should become necessary in the future. There were no complications. All sponge, instrument, and needle counts were correct. Estimated blood loss for the case was less than 5 mL.
[2020-10-05] MEDS ORDERED: HYDROmorphone 0.5 MG/0.5 ML SYRINGE IVP ONE ×7 (12:00→12:34)
[2020-10-05 12:14] VITALS: TEMP 97.1
[2020-10-05 12:32] VITALS: RESP 16
[2020-10-05] MEDS ORDERED: IBUPROFEN 600 MG TAB PO PRN (12:49)
[2020-10-05] MEDS ORDERED: SIMETHICONE 80 MG CHEWABLE PO PRN (12:49)
[2020-10-05] MEDS ORDERED: ONDANSETRON 4 MG/2 ML VIAL IVP PRN (12:49)
[2020-10-05] MEDS ORDERED: KETOROLAC 15 MG/ML 1 ML VIAL IVP PRN (12:49)
[2020-10-05] MEDS ORDERED: diphenhydrAMINE 50 MG/ML 1 ML VIAL IVP PRN (12:49)
[2020-10-05] MEDS ORDERED: METOCLOPRAMIDE 5 MG/ML 2 ML VIAL IVP PRN (12:49)
[2020-10-05] MEDS ORDERED: LACTATED RINGERS 1,000 ML IV SCH (13:00)
[2020-10-05] MEDS: fentaNYL (PF) 50 MCG/ML 2 ML AMP IV PRN ×2 (13:02→13:05)
[2020-10-05] MEDS ORDERED: HYDROcodone/APAP 5-325MG 1 EACH TAB ONE (13:28)
[2020-10-05 13:39] VITALS: BP 114/76; PULSE 80
[2020-10-05] MEDS ORDERED: HYDROcodone/APAP 5-325MG 1 EACH TAB PO ONE (13:39)
== END 2020-10-05 14:28 | disposition home or self-care (01) ==
LOC: OR 09:37
PROVIDERS: ATTEND Obstetrics & Gynecology
DX: N93.8 Other specified abnormal uterine and vaginal bleeding (principal); J44.9 Chronic obstructive pulmonary disease, unspecified; E03.9 Hypothyroidism, unspecified; F43.10 Post-traumatic stress disorder, unspecified; F17.210 Nicotine dependence, cigarettes, uncomplicated; Z91.040 Latex allergy status; Z88.5 Allergy status to narcotic agent; Z88.8 Allergy status to other drugs, medicaments and biological substances; Z98.51 Tubal ligation status; Z98.890 Other specified postprocedural states; Z90.49 Acquired absence of other specified parts of digestive tract; Z79.890 Hormone replacement therapy; Z79.899 Other long term (current) drug therapy
CPT/HCPCS: 81025; 58563; J2250; J1200; J1100; J2405; J2001; J3010; J1885; J2704; J1170

== ENCOUNTER 2020-10-29 16:24 | Emergency (ER) | payer MEDICARE, OTHER ==
[2020-10-29 16:30] VITALS: RESP 18; TEMP 98.4
[2020-10-29] MEDS ORDERED: SODIUM CHLORIDE 0.9% 500 ML 500 ML IV STA (16:41)
[2020-10-29 17:18] LABS: Basophils % (A) 1 %; Eosinophils # (A) 0.1 k/uL (0-0.7); Eosinophils % (A) 1 %; HCT 38.6 % (34.0-46.0); HGB 12.9 gm/dL (11.4-16.0); Lymphocytes # (A) 2.4 k/uL (1.0-4.8); Lymphocytes % (A) 39 %; MCH 29.8 pg (25.0-35.0); MCHC 33.5 g/dL (31.0-37.0); MCV 88.8 fL (80.0-100.0); Mean Platelet Volume 8.4; Monocytes # (A) 0.5 k/uL (0-1.0); Monocytes % (A) 8 %; Neutrophils # (A) 3.1 k/uL (1.3-7.7); Neutrophils % (A) 49 %; Platelet Count 275 k/uL (150-450); RBC 4.35 m/uL (3.80-5.40); RDW 12.3 % (11.5-15.5); WBC 6.3 k/uL (3.8-10.6)
[2020-10-29 17:20] LABS: Appearance,Urine Clear (Clear); Bilirubin,Urine Negative (Negative); Blood,Urine Negative (Negative); Color,Urine Colorless; Glucose,Urine (UA) Negative (Negative); Ketones,Urine Negative (Negative); Leukocyte Esterase,Urine Negative (Negative); Nitrite,Urine Negative (Negative); Protein,Urine Negative (Negative); Specific Gravity,Urine 1.002 (1.001-1.035); Urobilinogen,Urine <2.0 mg/dL (<2.0)
[2020-10-29 17:27] LABS: INR 0.9 (<1.2); Partial Thromboplastin Time 22.4 sec (22.0-30.0); Prothrombin Time 9.7 sec (9.0-12.0)
[2020-10-29 17:29] LABS: ALT 17 U/L (4-34); AST 24 U/L (14-36); African American GFR (CKD) >90 (>60 ml/min/1.73 sqM); Albumin 4.1 g/dL (3.5-5.0); Alkaline Phosphatase 67 U/L (38-126); Anion Gap 7 mmol/L; Blood Urea Nitrogen 8 mg/dL (7-17); Calcium 9.8 mg/dL (8.4-10.2); Carbon Dioxide 26 mmol/L (22-30); Chloride 106 mmol/L (98-107); Glucose 85 mg/dL (74-99); Lipase 47 U/L (23-300); Non-African American GFR(CKD) >90 (>60 ml/min/1.73 sqM); Potassium 4.2 mmol/L (3.5-5.1); Sodium 139 mmol/L (137-145); Total Bilirubin 0.4 mg/dL (0.2-1.3); Total Protein 7.1 g/dL (6.3-8.2)
--- NOTE | 2020-10-29 17:52 | XR ---
EXAMINATION: XR chest 2V DATE AND TIME: 10/29/2020 5:23 PM CLINICAL INDICATION: PHH; chest pain TECHNIQUE: Departmental protocol COMPARISON: 12/21/2017 FINDINGS: The lungs are clear. The pleural spaces are negative. The cardiac silhouette is not enlarged. The remainder of the mediastinal silhouette is unremarkable. The skeletal structures and soft tissues are negative for acute findings. IMPRESSION: NO ACUTE PROCESS.
[2020-10-29] MEDS ORDERED: MAG HYDROX/AL HYDROX/SIMETH 30 ML, HYOSCYAMINE ELIXIR 10 ML, LIDOCAINE VISCOUS 2% 10 ML PO STA ×3 (18:05)
[2020-10-29] MEDS ORDERED: PANTOPRAZOLE 40 MG/10 ML VIAL IVP STA (18:06)
--- NOTE | 2020-10-29 18:41 | ED ---
Abdominal Pain HPI - General Chief Complaint: Abdominal Pain Stated Complaint: possible stomach ulcer Source: patient Mode of arrival: ambulatory Limitations: no limitations - History of Present Illness Initial Comments: 39-year-old female who presents to the emergency room with reported right upper quadrant abdominal pain. States it has been going on for the past week. She d id have an ablation done at our facility and was started on indomethacin. Has been taking the medications as directed however does believe that is causing her pain. States that 3 days ago she had 6-7 episodes of black tarry stools. No history of peptic ulcer disease or GI bleeding before. States it has subsequently stopped. She denies any pain into her back. Reports of the pain does go somewhat up into her chest. No fevers or chills. No cough. Denies any changes in her urination. No other alleviating, precipitating or modifying factors - Related Data Home Medications Medication Instructions Recorded Confirmed Albuterol Inhaler [Ventolin Hfa 2 puff INHALATION RT-QID PRN 07/15/20 10/05/20 Inhaler] Albuterol Nebulized [Ventolin 2.5 mg INHALATION RT-QID PRN 07/15/20 10/05/20 Nebulized] Butalb/APAP/Caff 50-325-40Mg 1 tab PO TID PRN 07/15/20 10/05/20 [Fioricet 50-325-40] Cyclobenzaprine [Flexeril] 10 mg PO BID 07/15/20 10/05/20 Ergocalciferol [Vitamin D2] 50,000 unit PO SA 07/15/20 10/05/20 LORazepam [Ativan] 1 mg PO BID PRN 07/15/20 10/05/20 Levothyroxine Sodium [Synthroid] 100 mcg PO DAILY 07/15/20 10/05/20 Oxybutynin Chloride [Ditropan XL] 10 mg PO DAILY 07/15/20 10/05/20 Temazepam 30 mg PO HS 07/15/20 10/05/20 Indomethacin 25 mg PO BID PRN 09/30/20 10/05/20 Meclizine [Antivert] 25 mg PO BID PRN 09/30/20 10/05/20 Rimegepant Sulfate [Nurtec Odt] 75 mg PO Q48H 09/30/20 10/05/20 Previous Rx's Medication Instructions Recorded Pantoprazole Sodium [Protonix] 20 mg PO DAILY #14 tablet. 10/29/20 Sucralfate [Carafate] 1 gm PO ACHS #56 tab 10/29/20 Allergies Allergy/AdvReac Type Severity Reaction Status Date / Time latex Allergy Rash/Hives Verified 10/29/20 16:25 propoxyphene Allergy Nausea & Verified 10/29/20 16:25 [From Darvocet-N] Vomiting tramadol [From Ultram] Allergy Itching Verified 10/29/20 16:25 hydromorphone [From Dilaudid] AdvReac Itching Verified 10/29/20 16:25 Review of Systems ROS Statement: Those systems with pertinent positive or pertinent negative responses have been documented in the HPI. ROS Other: All systems not noted in ROS Statement are negative. Past Medical History Past Medical History: Asthma, COPD, Fibromyalgia, GERD/Reflux, Hyperlipidemia, Neurologic Disorder, Seizure Disorder, Thyroid Disorder Additional Past Medical History / Comment(s): irritable bowel syndrome, carpal tunnel, arthritis, "eroded espohagus and stomach",hiatal hernia -er egd etoh abuse , migraine headaches, degenerative disc disease, sciatica, past bronchitis. interstital cystitis, last seizure 2002, irregular heavy vaginal bleeding, cyst on ovaries History of Any Multi-Drug Resistant Organisms: None Reported Past Surgical History: Adenoidectomy, Appendectomy, Cholecystectomy, Hernia Repair, Tonsillectomy, Tubal Ligation, Uterine Ablation Additional Past Surgical History / Comment(s): d&c x5, exploratory lap, ovarian tumor removed, Kym fundiplication, egd,colonosocpy Past Anesthesia/Blood Transfusion Reactions: Previous Problems w/ Anesthesia Additional Past Anesthesia/Blood Transfusion Reaction / Comment(s): stated "heart stopped and blood pressure dropped after laparoscopic surgery in operating room" Past Psychological History: ADD/ADHD, Anxiety, Bipolar, Depression, PTSD Smoking Status: Current every day smoker Past Alcohol Use History: None Reported Past Drug Use History: Marijuana - Past Family History Father Additional Family Medical History / Comment(s): Father is alive at age 58 with history of generalized anxiety disorder and possible bipolar disorder. Alcohol abuse. Paternal grandmother had cancer of the breast, uterus, ovaries, and Colon. Mother Family Medical History: Hyperlipidemia Additional Family Medical History / Comment(s): Mother is alive at age 58 with history of degenerative disc disease, osteoarthritis, hyperlipidemia, hypertension. Brother(s) Additional Family Medical History / Comment(s): Patient has 2 brothers. One from suicide. One brother alcoholic. sisters both alcoholics . General Exam Limitations: no limitations General appearance: alert, in no apparent distress Head exam: Present: atraumatic, normocephalic, normal inspection Eye exam: Present: normal appearance, PERRL, EOMI. Absent: scleral icterus, conjunctival injection, periorbital swelling ENT exam: Present: normal exam, mucous membranes moist Neck exam: Present: normal inspection. Absent: tenderness, meningismus, lymphadenopathy Respiratory exam: Present: normal lung sounds bilaterally. Absent: respiratory distress, wheezes, rales, rhonchi, stridor Cardiovascular Exam: Present: regular rate, normal rhythm, normal heart sounds. Absent: systolic murmur, diastolic murmur, rubs, gallop, clicks GI/Abdominal exam: Present: soft, tenderness (epigastric), normal bowel sounds. Absent: distended, guarding, rebound, rigid Extremities exam: Present: normal inspection, full ROM, normal capillary refill. Absent: tenderness, pedal edema, joint swelling, calf tenderness Back exam: Present: normal inspection Neurological exam: Present: alert, oriented X3, CN II-XII intact Psychiatric exam: Present: normal affect, normal mood Skin exam: Present: warm, dry, intact, normal color. Absent: rash Course Vital Signs 10/29/20 10/29/20 16:25 19:06 Temperature 98.4 F Pulse Rate 78 82 Respiratory 18 18 Rate Blood Pressure 133/86 104/71 O2 Sat by Pulse 98 97 Oximetry Medical Decision Making - Medical Decision Making Upon arrival patient was placed into room 20. A thorough history and physical exam was performed. 12-lead EKG is performed. IV is established. Patient was given a GI cocktail and Protonix. Laboratory studies were conducted and reviewed. Chest x-ray was performed which demonstrates no acute process. Results are discussed with the patient. Fecal occult is negative. Did discuss concern for peptic ulcer disease with patient for which I did recommend follow- up. States she normally sees Dr. Henry. Recommend that she call and make an appointment. If she has any new or worsening symptoms she should return to the emergency department. CT would be performed for any worsening symptoms for which the patient understood and agreed to. Patient was and discharged home in stable condition - Lab Data Result diagrams: 10/29/20 17:04 10/29/20 17:04 Lab Results 10/29/20 10/29/20 10/29/20 Range/Units 17:04 17:04 17:04 WBC 6.3 (3.8-10.6) k/uL RBC 4.35 (3.80-5.40) m/uL Hgb 12.9 (11.4-16.0) gm/dL Hct 38.6 (34.0-46.0) % MCV 88.8 (80.0-100.0) fL MCH 29.8 (25.0-35.0) pg MCHC 33.5 (31.0-37.0) g/dL RDW 12.3 (11.5-15.5) % Plt Count 275 (150-450) k/uL MPV 8.4 Neutrophils % 49 % Lymphocytes % 39 % Monocytes % 8 % Eosinophils % 1 % Basophils % 1 % Neutrophils # 3.1 (1.3-7.7) k/uL Lymphocytes # 2.4 (1.0-4.8) k/uL Monocytes # 0.5 (0-1.0) k/uL Eosinophils # 0.1 (0-0.7) k/uL Basophils # 0.0 (0-0.2) k/uL PT (9.0-12.0) sec INR (<1.2) APTT (22.0-30.0) sec Sodium 139 (137-145) mmol/L Potassium 4.2 (3.5-5.1) mmol/L Chloride 106 (98-107) mmol/L Carbon Dioxide 26 (22-30) mmol/L Anion Gap 7 mmol/L BUN 8 (7-17) mg/dL Creatinine 0.62 (0.52-1.04) mg/dL Est GFR (CKD-EPI)AfAm >90 (>60 ml/min/1.73 sqM) Est GFR (CKD-EPI)NonAf >90 (>60 ml/min/1.73 sqM) Glucose 85 (74-99) mg/dL Plasma Lactic Acid Vinicio (0.7-2.0) mmol/L Calcium 9.8 (8.4-10.2) mg/dL Total Bilirubin 0.4 (0.2-1.3) mg/dL AST 24 (14-36) U/L ALT 17 (4-34) U/L Alkaline Phosphatase 67 (38-126) U/L Troponin I (0.000-0.034) ng/mL Total Protein 7.1 (6.3-8.2) g/dL Albumin 4.1 (3.5-5.0) g/dL Lipase 47 (23-300) U/L Urine Color Colorless Urine Appearance Clear (Clear) Urine pH 7.0 (5.0-8.0) Ur Specific [place] 1.002 (1.001-1.035) Urine Protein Negative (Negative) Urine Glucose (UA) Negative (Negative) Urine Ketones Negative (Negative) Urine Blood Negative (Negative) Urine Nitrite Negative (Negative) Urine Bilirubin Negative (Negative) Urine Urobilinogen <2.0 (<2.0) mg/dL Ur Leukocyte Esterase Negative (Negative) Urine HCG, Qual (Not Detectd) Stool Occult Blood (Negative) 10/29/20 10/29/20 10/29/20 Range/Units 17:04 17:04 17:04 WBC (3.8-10.6) k/uL RBC (3.80-5.40) m/uL Hgb (11.4-16.0) gm/dL Hct (34.0-46.0) % MCV (80.0-100.0) fL MCH (25.0-35.0) pg MCHC (31.0-37.0) g/dL RDW (11.5-15.5) % Plt Count (150-450) k/uL MPV Neutrophils % % Lymphocytes % % Monocytes % % Eosinophils % % Basophils % % Neutrophils # (1.3-7.7) k/uL Lymphocytes # (1.0-4.8) k/uL Monocytes # (0-1.0) k/uL Eosinophils # (0-0.7) k/uL Basophils # (0-0.2) k/uL PT 9.7 (9.0-12.0) sec INR 0.9 (<1.2) APTT 22.4 (22.0-30.0) sec Sodium (137-145) mmol/L Potassium (3.5-5.1) mmol/L Chloride (98-107) mmol/L Carbon Dioxide (22-30) mmol/L Anion Gap mmol/L BUN (7-17) mg/dL Creatinine (0.52-1.04) mg/dL Est GFR (CKD-EPI)AfAm (>60 ml/min/1.73 sqM) Est GFR (CKD-EPI)NonAf (>60 ml/min/1.73 sqM) Glucose (74-99) mg/dL Plasma Lactic Acid Vinicio 0.7 (0.7-2.0) mmol/L Calcium (8.4-10.2) mg/dL Total Bilirubin (0.2-1.3) mg/dL AST (14-36) U/L ALT (4-34) U/L Alkaline Phosphatase (38-126) U/L Troponin I (0.000-0.034) ng/mL Total Protein (6.3-8.2) g/dL Albumin (3.5-5.0) g/dL Lipase (23-300) U/L Urine Color Urine Appearance (Clear) Urine pH (5.0-8.0) Ur Specific [place] (1.001-1.035) Urine Protein (Negative) Urine Glucose (UA) (Negative) Urine Ketones (Negative) Urine Blood (Negative) Urine Nitrite (Negative) Urine Bilirubin (Negative) Urine Urobilinogen (<2.0) mg/dL Ur Leukocyte Esterase (Negative) Urine HCG, Qual (Not Detectd) Stool Occult Blood Negative (Negative) 10/29/20 10/29/20 Range/Units 17:04 17:04 WBC (3.8-10.6) k/uL RBC (3.80-5.40) m/uL Hgb (11.4-16.0) gm/dL Hct (34.0-46.0) % MCV (80.0-100.0) fL MCH (25.0-35.0) pg MCHC (31.0-37.0) g/dL RDW (11.5-15.5) % Plt Count (150-450) k/uL MPV Neutrophils % % Lymphocytes % % Monocytes % % Eosinophils % % Basophils % % Neutrophils # (1.3-7.7) k/uL Lymphocytes # (1.0-4.8) k/uL Monocytes # (0-1.0) k/uL Eosinophils # (0-0.7) k/uL Basophils # (0-0.2) k/uL PT (9.0-12.0) sec INR (<1.2) APTT (22.0-30.0) sec Sodium (137-145) mmol/L Potassium (3.5-5.1) mmol/L Chloride (98-107) mmol/L Carbon Dioxide (22-30) mmol/L Anion Gap mmol/L BUN (7-17) mg/dL Creatinine (0.52-1.04) mg/dL Est GFR (CKD-EPI)AfAm (>60 ml/min/1.73 sqM) Est GFR (CKD-EPI)NonAf (>60 ml/min/1.73 sqM) Glucose (74-99) mg/dL Plasma Lactic Acid Vinicio (0.7-2.0) mmol/L Calcium (8.4-10.2) mg/dL Total Bilirubin (0.2-1.3) mg/dL AST (14-36) U/L ALT (4-34) U/L Alkaline Phosphatase (38-126) U/L Troponin I <0.012 (0.000-0.034) ng/mL Total Protein (6.3-8.2) g/dL Albumin (3.5-5.0) g/dL Lipase (23-300) U/L Urine Color Urine Appearance (Clear) Urine pH (5.0-8.0) Ur Specific [place] (1.001-1.035) Urine Protein (Negative) Urine Glucose (UA) (Negative) Urine Ketones (Negative) Urine Blood (Negative) Urine Nitrite (Negative) Urine Bilirubin (Negative) Urine Urobilinogen (<2.0) mg/dL Ur Leukocyte Esterase (Negative) Urine HCG, Qual Not Detected (Not Detectd) Stool Occult Blood (Negative) - EKG Data EKG Comments: EKG demonstrates sinus rhythm with a short MA interval. Rate of 69. MA interval 104. QRS 76. QTC of 402. No acute ST segment elevations or depressions Disposition Clinical Impression: Epigastric abdominal pain Disposition: HOME SELF-CARE Condition: Stable Instructions (If sedation given, give patient instructions): Abdominal Pain (ED) Additional Instructions: Please call Dr. Henry. You need to see him within 1 week. You will need EGD. Return to the ED for any new or worsening symptoms. Stop taking the indomethacin Prescriptions: Sucralfate [Carafate] 1 gm PO ACHS #56 tab Pantoprazole Sodium [Protonix] 20 mg PO DAILY #14 tablet.dr Is patient prescribed a controlled substance at d/c from ED?: No Referrals: Ahsan Kraus MD [Primary Care Provider] - 1-2 days Paramjit Henry MD [STAFF PHYSICIAN] - 1-2 days Time of Disposition: 18:41
[2020-10-29 19:06] VITALS: BP 104/71; PULSE 82
== END 2020-10-29 19:07 | disposition home or self-care (01) ==
LOC: EC 16:24
DX: R10.13 Epigastric pain (principal); M79.7 Fibromyalgia; J44.9 Chronic obstructive pulmonary disease, unspecified; E07.9 Disorder of thyroid, unspecified; G43.909 Migraine, unspecified, not intractable, without status migrainosus; M19.90 Unspecified osteoarthritis, unspecified site; F41.9 Anxiety disorder, unspecified; F17.200 Nicotine dependence, unspecified, uncomplicated; Z79.899 Other long term (current) drug therapy; Z79.890 Hormone replacement therapy; Z91.040 Latex allergy status; Z88.5 Allergy status to narcotic agent; Z98.51 Tubal ligation status; Z90.49 Acquired absence of other specified parts of digestive tract; Z90.89 Acquired absence of other organs
CPT/HCPCS: 36415; 93005; 80053; 83605; 83690; 84484; 85025; 85610; 85730; 82272; 81003; 81025; 71046; 99284; 96374; C9113

== ENCOUNTER 2020-11-26 08:44 | Day surgery (SDC) | payer MEDICARE, OTHER ==
[2020-11-24 13:18] VITALS: BMI 25.2
[~2020-11-26 08:44] MED LIST changes: -DEXAMETHASONE SOD PHOSPHATE 4 MG/ML 1 ML VIAL IV ONE; -MIDAZOLAM 2 MG/2 ML VIAL IV PRN; -ONDANSETRON 4 MG/2 ML VIAL IVP ONE; -Pre Op ABX Message 1 EACH MISC MISCELLANE ONE; -SCOPOLAMINE 1.5MG/72HR PATCH TRANSDERM ONE
[2020-11-26 09:23] VITALS: TEMP 97.6
[2020-11-26] MEDS ORDERED: LIDOCAINE 1% (10MG/ML) FOR IV START INTRADERMA ONE (09:26)
[2020-11-26] MEDS ORDERED: PROPOFOL 10 MG/ML 20 ML VIAL IV ONE (10:03)
--- NOTE | 2020-11-26 10:06 | P.GSHP ---
History of Present Illness H&P Date: 11/26/20 Chief Complaint: Epigastric pain This a 40-year-old female who has a history of NSAID use. Patient is a safer EGD. She's had complaints of epigastric pain. She's been workup for possible peptic ulcer disease. Past Medical History Past Medical History: Asthma, COPD, Fibromyalgia, GERD/Reflux, Hyperlipidemia, Neurologic Disorder, Seizure Disorder, Thyroid Disorder Additional Past Medical History / Comment(s): irritable bowel syndrome, carpal tunnel, arthritis, "eroded espohagus and stomach",hiatal hernia -er egd etoh abuse , migraine headaches, degenerative disc disease, sciatica, past bronchitis. interstital cystitis, last seizure 2002, irregular heavy vaginal bleeding, cyst on ovaries History of Any Multi-Drug Resistant Organisms: None Reported Past Surgical History: Adenoidectomy, Appendectomy, Cholecystectomy, Hernia Repair, Tonsillectomy, Tubal Ligation, Uterine Ablation Additional Past Surgical History / Comment(s): d&c x5, exploratory lap, ovarian tumor removed, Kym fundiplication, egd,colonosocpy Past Anesthesia/Blood Transfusion Reactions: Previous Problems w/ Anesthesia Additional Past Anesthesia/Blood Transfusion Reaction / Comment(s): stated " blood pressure dropped 40s/20s after exploratory laparoscopic surgery in operating room approx 2004 or 2005-no problems with any further surgeries" Smoking Status: Current every day smoker - Past Family History Father Additional Family Medical History / Comment(s): Father is alive at age 58 with history of generalized anxiety disorder and possible bipolar disorder. Alcohol abuse. Paternal grandmother had cancer of the breast, uterus, ovaries, and Colon. Mother Family Medical History: Hyperlipidemia Additional Family Medical History / Comment(s): Mother is alive at age 58 with history of degenerative disc disease, osteoarthritis, hyperlipidemia, hypertension. Brother(s) Additional Family Medical History / Comment(s): Patient has 2 brothers. One from suicide. One brother alcoholic. sisters both alcoholics . Medications and Allergies Home Medications Medication Instructions Recorded Confirmed Type Albuterol Inhaler [Ventolin Hfa 2 puff INHALATION RT-QID PRN 07/15/20 11/26/20 History Inhaler] Albuterol Nebulized [Ventolin 2.5 mg INHALATION RT-QID PRN 07/15/20 11/26/20 History Nebulized] Cyclobenzaprine [Flexeril] 10 mg PO BID 07/15/20 11/26/20 History Ergocalciferol [Vitamin D2] 50,000 unit PO SA 07/15/20 11/26/20 History LORazepam [Ativan] 1 mg PO BID PRN 07/15/20 11/26/20 History Levothyroxine Sodium [Synthroid] 100 mcg PO QAM 07/15/20 11/26/20 History Oxybutynin Chloride [Ditropan XL] 10 mg PO DAILY 07/15/20 11/26/20 History Temazepam 30 mg PO HS 07/15/20 11/26/20 History Indomethacin 25 mg PO BID PRN 09/30/20 11/26/20 History Meclizine [Antivert] 25 mg PO BID PRN 09/30/20 11/26/20 History Rimegepant Sulfate [Nurtec Odt] 75 mg PO Q48H 09/30/20 11/26/20 History Pantoprazole Sodium [Protonix] 20 mg PO DAILY #14 tablet. 10/29/20 11/26/20 Rx Sucralfate [Carafate] 1 gm PO ACHS #56 tab 10/29/20 11/26/20 Rx Allergies Allergy/AdvReac Type Severity Reaction Status Date / Time latex Allergy Rash/Hives Verified 11/24/20 13:07 propoxyphene Allergy Nausea & Verified 11/24/20 13:07 [From Darvocet-N] Vomiting tramadol [From Ultram] Allergy Itching Verified 11/24/20 13:07 Surgical - Exam Vital Signs Temp Pulse Resp BP Pulse Ox 97.6 F 86 16 114/72 95 11/26/20 09:15 11/26/20 09:15 11/26/20 09:15 11/26/20 09:15 11/26/20 09:15 - General well developed, well nourished, no distress - Eyes PERRL - ENT normal pinna - Neck no masses - Respiratory normal expansion - Cardiovascular Rhythm: regular - Abdomen Abdomen: soft, non tender Assessment and Plan Assessment: Epigastric pain. We'll perform EGD.
--- NOTE | 2020-11-26 10:12 | P.OP ---
Date of Procedure: 11/26/20 Preoperative Diagnosis: Gastritis Postoperative Diagnosis: Mild antral gastritis Procedure(s) Performed: EGD Anesthesia: MAC Surgeon: Paramjit Henry Pathology: other (Antrum) Condition: stable Disposition: PACU Description of Procedure: The patient's placed on the endoscopy table in the lateral position. She received IV sedation. The gastroscope was oropharynx past esophagus and stomach. Scope was then placed through the pylorus. The first and second portion of the duodenum appeared normal. Scope was then brought back the antrum this was mildly inflamed. A biopsies performed. Scope was then retroflexed the remainder stomach appeared normal. There is no evidence of any duodenal or gastric ulcers. The GE junction was at 47 is. The patient had previous fundoplication wrap this appeared to be normal position. The GE junction was examined and there is no evidence of any significant esophagitis. The scope was then withdrawn for patient.
[2020-11-26 10:32] VITALS: BP 121/72; PULSE 92; RESP 18
== END 2020-11-26 10:47 | disposition home or self-care (01) ==
LOC: ORWHC2ENDO 08:44
PROVIDERS: ATTEND Surgery
DX: K29.70 Gastritis, unspecified, without bleeding (principal); K31.9 Disease of stomach and duodenum, unspecified; J44.9 Chronic obstructive pulmonary disease, unspecified; E78.5 Hyperlipidemia, unspecified; E03.9 Hypothyroidism, unspecified; K21.9 Gastro-esophageal reflux disease without esophagitis; M79.7 Fibromyalgia; K58.9 Irritable bowel syndrome, unspecified; F17.200 Nicotine dependence, unspecified, uncomplicated; Z79.890 Hormone replacement therapy; Z79.899 Other long term (current) drug therapy; Z80.3 Family history of malignant neoplasm of breast; Z82.49 Family history of ischemic heart disease and other diseases of the circulatory system; Z83.49 Family history of other endocrine, nutritional and metabolic diseases; Z91.040 Latex allergy status; Z88.5 Allergy status to narcotic agent; Z88.8 Allergy status to other drugs, medicaments and biological substances
CPT/HCPCS: 81025; 88305; 43239; J2704

== ENCOUNTER 2020-12-12 04:34 | Emergency (ER) | payer MEDICARE, OTHER ==
[2020-12-12] MEDS ORDERED: LORazepam 2 MG/ML INJ IV STA (05:06)
[2020-12-12] MEDS ORDERED: SODIUM CHLORIDE 0.9% 1,000 ML IV ONE (05:06)
--- NOTE | 2020-12-12 05:10 | ED ---
Anxiety HPI - General Source: patient, EMS Mode of arrival: EMS Limitations: altered mental status - History of Present Illness MD Complaint: anxiety -: unknown <Nitin Gonzalez - Last Filed: 12/12/20 06:04> <Rolando Mccarthy - Last Filed: 12/12/20 14:09> - General Chief Complaint: Anxiety Stated Complaint: Mental Health Time Seen by Provider: 12/12/20 04:47 - History of Present Illness Initial Comments: Patient states that she is here because she is sad. When asked why she states that normal understand. Patient escalated and was screaming that no one was helping her. Patient was also striking the wall and combative towards staff. (Nitin Gonzalez) - Related Data Home Medications: Home Medications Medication Instructions Recorded Confirmed Albuterol Inhaler [Ventolin Hfa 2 puff INHALATION RT-QID PRN 07/15/20 12/12/20 Inhaler] Ergocalciferol [Vitamin D2] 50,000 unit PO SA 07/15/20 12/12/20 LORazepam [Ativan] 1 mg PO BID PRN 07/15/20 12/12/20 Levothyroxine Sodium [Synthroid] 100 mcg PO QAM 07/15/20 12/12/20 Oxybutynin Chloride [Ditropan XL] 10 mg PO DAILY 07/15/20 12/12/20 Temazepam 30 mg PO HS 07/15/20 12/12/20 Indomethacin 25 mg PO BID PRN 09/30/20 12/12/20 Baclofen 10 mg PO BID 12/12/20 12/12/20 Gabapentin [Neurontin] 300 mg PO BID 12/12/20 12/12/20 Ibuprofen [Motrin] 800 mg PO TID PRN 12/12/20 12/12/20 Sucralfate [Carafate] 1 gm PO ACHS 12/12/20 12/12/20 Previous Rx's Medication Instructions Recorded Pantoprazole Sodium [Protonix] 20 mg PO DAILY #14 tablet. 10/29/20 Allergies/Adverse Reactions: Allergies Allergy/AdvReac Type Severity Reaction Status Date / Time latex Allergy Rash/Hives Verified 12/12/20 04:41 propoxyphene Allergy Nausea & Verified 12/12/20 04:41 [From Darvocet-N] Vomiting tramadol [From Ultram] Allergy Itching Verified 12/12/20 04:41 Review of Systems ROS Other: All systems not noted in ROS Statement are negative. Limitations: ROS unobtainable due to patients medical condition <Nitin Gonzalez - Last Filed: 12/12/20 06:04> ROS Other: All systems not noted in ROS Statement are negative. <MccarthyRolando - Last Filed: 12/12/20 14:09> ROS Statement: Those systems with pertinent positive or pertinent negative responses have been documented in the HPI. Past Medical History Past Medical History: Asthma, COPD, Fibromyalgia, GERD/Reflux, Hyperlipidemia, Neurologic Disorder, Seizure Disorder, Thyroid Disorder Additional Past Medical History / Comment(s): irritable bowel syndrome, carpal tunnel, arthritis, "eroded espohagus and stomach",hiatal hernia -er egd etoh abuse , migraine headaches, degenerative disc disease, sciatica, past bronchitis. interstital cystitis, last seizure 2002, irregular heavy vaginal bleeding, cyst on ovaries History of Any Multi-Drug Resistant Organisms: None Reported Past Surgical History: Adenoidectomy, Appendectomy, Cholecystectomy, Hernia Repair, Tonsillectomy, Tubal Ligation, Uterine Ablation Additional Past Surgical History / Comment(s): d&c x5, exploratory lap, ovarian tumor removed, Kym fundiplication, egd,colonosocpy Past Anesthesia/Blood Transfusion Reactions: Previous Problems w/ Anesthesia Additional Past Anesthesia/Blood Transfusion Reaction / Comment(s): stated " blood pressure dropped 40s/20s after exploratory laparoscopic surgery in operating room approx 2004 or 2005-no problems with any further surgeries" Past Psychological History: ADD/ADHD, Anxiety, Bipolar, Depression, PTSD Smoking Status: Current every day smoker Past Alcohol Use History: Occasional Past Drug Use History: Marijuana - Past Family History Father Additional Family Medical History / Comment(s): Father is alive at age 58 with history of generalized anxiety disorder and possible bipolar disorder. Alcohol abuse. Paternal grandmother had cancer of the breast, uterus, ovaries, and Colon. Mother Family Medical History: Hyperlipidemia Additional Family Medical History / Comment(s): Mother is alive at age 58 with history of degenerative disc disease, osteoarthritis, hyperlipidemia, hypertension. Brother(s) Additional Family Medical History / Comment(s): Patient has 2 brothers. One from suicide. One brother alcoholic. sisters both alcoholics . <Nitin Gonzalez - Last Filed: 12/12/20 06:04> General Exam Limitations: no limitations General appearance: appears intoxicated, anxious Head exam: Present: atraumatic, normocephalic Eye exam: Present: normal appearance Neck exam: Present: normal inspection, full ROM. Absent: tenderness, meningismus Respiratory exam: Present: normal lung sounds bilaterally. Absent: respiratory distress, wheezes, rales, rhonchi, stridor, chest wall tenderness Cardiovascular Exam: Present: normal rhythm, tachycardia, normal heart sounds. Absent: systolic murmur, diastolic murmur, rubs, gallop GI/Abdominal exam: Present: soft. Absent: distended, tenderness, guarding, rebound, rigid Extremities exam: Present: normal inspection, normal capillary refill. Absent: pedal edema, calf tenderness Neurological exam: Present: alert Psychiatric exam: Present: agitated, anxious Skin exam: Present: warm, dry, intact, normal color. Absent: rash <Nitin Gonzalez - Last Filed: 12/12/20 06:04> Course Vital Signs 12/12/20 12/12/20 12/12/20 04:35 05:35 08:00 Temperature 97.5 F L Pulse Rate 102 H 86 Respiratory 20 14 16 Rate Blood Pressure 98/64 O2 Sat by Pulse 100 96 Oximetry 12/12/20 12/12/20 09:00 10:14 Temperature 98 F Pulse Rate 102 H Respiratory 18 18 Rate Blood Pressure 95/57 O2 Sat by Pulse 98 Oximetry Procedures - Restraint - Face to Face Restraint Occurrence 1 Patient's Immediate Situation: Endangers self safety, Endangers staff safety, Violent behavior Patient's Reaction to the Intervention: Angry, Aggressive, Combative Patient's Medical & Behavioral Condition: Agitated, Bizarre behavior Need to Continue or Terminate Restraint or Seclusion: Continue Face to Face Eval of Restraint Date: 12/12/20 Face to Face Eval of Restraint Time: 04:50 <Nitin Gonzalez - Last Filed: 12/12/20 06:04> Medical Decision Making - Lab Data Result diagrams: 12/12/20 05:28 12/12/20 05:28 <Nitin Gonzalez - Last Filed: 12/12/20 06:04> - Lab Data Result diagrams: 12/12/20 05:28 12/12/20 05:28 <Rolando Mccarthy - Last Filed: 12/12/20 14:09> - Medical Decision Making Patient was able to ambulate normally. Patient received a liter of fluid. Patient was given some breakfast. Patient is alert and oriented 3. (Rolando Mccarthy) - Lab Data Lab Results 12/12/20 12/12/20 Range/Units 05:28 05:28 WBC 7.3 (3.8-10.6) k/uL RBC 4.59 (3.80-5.40) m/uL Hgb 14.0 (11.4-16.0) gm/dL Hct 39.9 (34.0-46.0) % MCV 87.0 (80.0-100.0) fL MCH 30.5 (25.0-35.0) pg MCHC 35.0 (31.0-37.0) g/dL RDW 11.6 (11.5-15.5) % Plt Count 296 (150-450) k/uL MPV 8.5 Neutrophils % 61 % Lymphocytes % 27 % Monocytes % 8 % Eosinophils % 1 % Basophils % 1 % Neutrophils # 4.5 (1.3-7.7) k/uL Lymphocytes # 2.0 (1.0-4.8) k/uL Monocytes # 0.6 (0-1.0) k/uL Eosinophils # 0.0 (0-0.7) k/uL Basophils # 0.0 (0-0.2) k/uL Sodium 139 (137-145) mmol/L Potassium 3.3 L (3.5-5.1) mmol/L Chloride 105 (98-107) mmol/L Carbon Dioxide 20 L (22-30) mmol/L Anion Gap 14 mmol/L BUN 7 (7-17) mg/dL Creatinine 0.71 (0.52-1.04) mg/dL Est GFR (CKD-EPI)AfAm >90 (>60 ml/min/1.73 sqM) Est GFR (CKD-EPI)NonAf >90 (>60 ml/min/1.73 sqM) Glucose 91 (74-99) mg/dL Calcium 9.7 (8.4-10.2) mg/dL Total Bilirubin 0.4 (0.2-1.3) mg/dL AST 29 (14-36) U/L ALT 16 (4-34) U/L Alkaline Phosphatase 72 (38-126) U/L Total Protein 7.1 (6.3-8.2) g/dL Albumin 4.2 (3.5-5.0) g/dL Serum Alcohol 175 mg/dL Disposition <Nitin Gonzalez - Last Filed: 12/12/20 06:04> Is patient prescribed a controlled substance at d/c from ED?: No Time of Disposition: 08:39 <Rolando Mccarthy - Last Filed: 12/12/20 14:09> Clinical Impression: Alcohol intoxication Disposition: HOME SELF-CARE Instructions (If sedation given, give patient instructions): Alcohol Intoxication (ED), Abuse of Alcohol (ED) Referrals: Ahsan Kraus MD [Primary Care Provider] - 1-2 days
[2020-12-12 05:35] LABS: Basophils % (A) 1 %; Eosinophils % (A) 1 %; HCT 39.9 % (34.0-46.0); Lymphocytes % (A) 27 %; MCH 30.5 pg (25.0-35.0); Mean Platelet Volume 8.5; Monocytes # (A) 0.6 k/uL (0-1.0); Monocytes % (A) 8 %; Neutrophils # (A) 4.5 k/uL (1.3-7.7); Neutrophils % (A) 61 %; Platelet Count 296 k/uL (150-450); RBC 4.59 m/uL (3.80-5.40); RDW 11.6 % (11.5-15.5); WBC 7.3 k/uL (3.8-10.6)
[2020-12-12 05:45] LABS: ALT 16 U/L (4-34); AST 29 U/L (14-36); African American GFR (CKD) >90 (>60 ml/min/1.73 sqM); Albumin 4.2 g/dL (3.5-5.0); Alkaline Phosphatase 72 U/L (38-126); Anion Gap 14 mmol/L; Blood Urea Nitrogen 7 mg/dL (7-17); Calcium 9.7 mg/dL (8.4-10.2); Carbon Dioxide 20 mmol/L (22-30); Chloride 105 mmol/L (98-107); Glucose 91 mg/dL (74-99); Non-African American GFR(CKD) >90 (>60 ml/min/1.73 sqM); Potassium 3.3 mmol/L (3.5-5.1); Sodium 139 mmol/L (137-145); Total Bilirubin 0.4 mg/dL (0.2-1.3); Total Protein 7.1 g/dL (6.3-8.2)
[2020-12-12 05:52] LABS: Alcohol 175 mg/dL
[2020-12-12] MEDS ORDERED: ACETAMINOPHEN TAB 325 MG TAB PO STA (08:46)
[2020-12-12 10:04] VITALS: RESP 18
[2020-12-12 10:15] VITALS: BP 95/57; PULSE 102; TEMP 98
== END 2020-12-12 10:16 | disposition home or self-care (01) ==
LOC: EC 04:34
DX: F10.129 Alcohol abuse with intoxication, unspecified (principal); J44.9 Chronic obstructive pulmonary disease, unspecified; E78.5 Hyperlipidemia, unspecified; K21.9 Gastro-esophageal reflux disease without esophagitis; F32.9 Major depressive disorder, single episode, unspecified; F17.200 Nicotine dependence, unspecified, uncomplicated; F12.90 Cannabis use, unspecified, uncomplicated
CPT/HCPCS: 36415; 80053; 85025; 99283; 96374; 96361; G0480; J2060; 80320; 96375

== ENCOUNTER → 2021-01-21 | Outpatient (CLI) | payer MEDICARE, OTHER ==
--- NOTE | 2021-01-21 10:13 | FL ---
ESOPHOGRAM. HISTORY: Dysphagia Esophagram was performed per the air contrast technique. The patient swallowed barium and effervesce nt crystals without difficulty or delay. Esophageal peristalsis and motility appear to be within normal limits. There is no evidence for filling defect, mass or diverticulum. No hiatal hernia seen. Subsequently single contrast cervical esophagram was performed which fails demonstrate evidence for a spiration penetration or mass. IMPRESSION: Unremarkable study.
== END | disposition home or self-care (01) ==
LOC: RADUSWWP 08:40
PROVIDERS: ATTEND Surgery
DX: R13.10 Dysphagia, unspecified (principal)
CPT/HCPCS: 74246

== ENCOUNTER → 2022-01-19 | Outpatient (CLI) | payer MEDICARE, OTHER ==
--- NOTE | 2022-01-20 15:45 | US ---
EXAMINATION TYPE: US thyroid st tissue head/neck DATE OF EXAM: 01/19/2022 COMPARISON: 08/02/2013 CLINICAL HISTORY: 41-year-old female E04.9 ENLARGED THYROID. History of hypothyroidism. Patient takes synthroid. TECHNIQUE: Multiple sonographic images of the thyroid gland are obtained. FINDINGS: GLAND SIZE: Right Lobe: 6.3 x 2.7 x 3.2 cm Overall Parenchyma: Very heterogeneous. Difficult to identify discrete nodules. Left Lobe: 5.5 x 2.2 x 2.4 cm Overall Parenchyma: Very heterogeneous. Difficult to identify discrete nodules. Isthmus Thickness: 0.82 cm at lower pole. Measures 0.31 cm at mid. NODULES RIGHT: # of nodules measured on right: 0 LEFT: # of nodules measured on left: 0 ISTHMUS: # of nodules measured in the isthmus: 0 Bilateral neck scanned, no evidence of lymphadenopathy. IMPRESSION: Thyromegaly with markedly heterogeneous gland. Consider goiter or diffuse thyroiditis. The degree of heterogeneity makes it difficult to identify discrete nodules.
== END | disposition home or self-care (01) ==
LOC: RADUSWWP 16:24
PROVIDERS: ATTEND Pediatrics
DX: E01.0 Iodine-deficiency related diffuse (endemic) goiter (principal); E07.89 Other specified disorders of thyroid
CPT/HCPCS: 76536

== ENCOUNTER → 2022-05-19 | Outpatient (CLI) | payer MEDICARE, OTHER ==
--- NOTE | 2022-05-27 18:14 | MM ---
Reason for Exam: Screening (asymptomatic). Last mammogram was performed 1 year(s) and 11 month(s) ago. Patient History: Menarche at age 8. First Full-Term at age 17. Paternal grandmother had breast cancer, age 60. Paternal cousin had breast cancer. Maternal cousin had breast cancer, age 30. Risk Values: Vee 5 year model risk: 0.6%. NCI Lifetime model risk: 7.8%. Prior Study Comparison: 02/19/2019 Bilateral Screening Mammogram, [facility]. 02/26/2019 Bilateral Diagnostic Mammogram, [facility]. 06/15/2020 Bilateral Screening Mammogram, [facility]. Tissue Density: The breast tissue is heterogeneously dense. This may lower the sensitivity of mammography. Findings: Analyzed By CAD. There is no suspicious group of microcalcifications or new suspicious mass in either breast. Overall Assessment: Negative, BI-RAD 1 Management: Screening Mammogram of both breasts in 1 year. A clinical breast exam by your physician is recommended on an annual basis and results should be correlated with mammographic findings. Electronically signed and approved by: Flavio Reyna DO
== END | disposition home or self-care (01) ==
LOC: RADMAMWWP 11:50
PROVIDERS: ATTEND Pediatrics
DX: Z12.31 Encounter for screening mammogram for malignant neoplasm of breast (principal); Z80.3 Family history of malignant neoplasm of breast
CPT/HCPCS: 77063; 77067

== ENCOUNTER 2023-07-13 12:12 | Observation (INO) | payer MEDICARE, OTHER ==
[2023-07-13 13:01] LABS: Basophils # (A) 0.1 k/uL (0-0.2); Basophils % (A) 1 %; Eosinophils # (A) 0.1 k/uL (0-0.7); Eosinophils % (A) 1 %; HCT 42.2 % (34.0-46.0); Lymphocytes # (A) 2.7 k/uL (1.0-4.8); Lymphocytes % (A) 30 %; MCH 30.5 pg (25.0-35.0); MCHC 33.2 g/dL (31.0-37.0); MCV 91.9 fL (80.0-100.0); Mean Platelet Volume 9.2; Monocytes # (A) 0.4 k/uL (0-1.0); Monocytes % (A) 4 %; Neutrophils # (A) 5.6 k/uL (1.3-7.7); Neutrophils % (A) 63 %; Platelet Count 257 k/uL (150-450); RBC 4.59 m/uL (3.80-5.40); RDW 12.1 % (11.5-15.5)
--- NOTE | 2023-07-13 13:05 | XR ---
EXAMINATION TYPE: XR chest 2V DATE OF EXAM: 07/13/2023 12:59 PM COMPARISON: Chest radiographs from 10/29/2020 TECHNIQUE: XR chest 2V Frontal and lateral views of the chest. CLINICAL INDICATION:Female, 42 years old with history of Chest Pain; FINDINGS: Lungs/Pleura: There is no evidence of pleural effusion, focal consolidation, or pneumothorax. Pulmonary vascularity: Unremarkable. Heart/mediastinum: Cardiomediastinal silhouette is unremarkable. Musculoskeletal: No acute osseous pathology. IMPRESSION: No acute cardiopulmonary disease/process.
[2023-07-13 13:17] LABS: ALT 13 U/L (4-34); African American GFR (CKD) >90 (>60 ml/min/1.73 sqM); Albumin 4.2 g/dL (3.5-5.0); Anion Gap 7 mmol/L; Blood Urea Nitrogen 12 mg/dL (7-17); Calcium 9.4 mg/dL (8.4-10.2); Carbon Dioxide 24 mmol/L (22-30); Chloride 107 mmol/L (98-107); Glucose 108 mg/dL (74-99); Magnesium 1.9 mg/dL (1.6-2.3); Non-African American GFR(CKD) >90 (>60 ml/min/1.73 sqM); Sodium 138 mmol/L (137-145); Total Bilirubin 0.5 mg/dL (0.2-1.3); Total Protein 7.5 g/dL (6.3-8.2)
[2023-07-13 13:30] LABS: AST 37 U/L (14-36); Alkaline Phosphatase 93 U/L (38-126); INR 0.9 (<1.2); Partial Thromboplastin Time 25.4 sec (22.0-30.0); Potassium 4.8 mmol/L (3.5-5.1); Prothrombin Time 9.9 sec (10.0-12.5)
[2023-07-13] MEDS ORDERED: ASPIRIN 81 MG PO STA (14:59)
[2023-07-13] MEDS ORDERED: NITROGLYCERIN OINT 1 INCH/GM PACKET TOPICAL STA (15:00)
[2023-07-13] MEDS ORDERED: ONDANSETRON 4 MG/2 ML VIAL IVP STA (15:41)
[2023-07-13] MEDS ORDERED: NITROGLYCERIN SL TABS 0.4 MG TAB SUBLINGUAL PRN (15:48)
--- NOTE | 2023-07-13 15:48 | ED ---
General Adult HPI - General Chief complaint: Chest Pain Stated complaint: chest pains Time Seen by Provider: 07/13/23 14:35 Source: patient, RN notes reviewed, old records reviewed Mode of arrival: ambulatory Limitations: no limitations - History of Present Illness Initial comments: This is a 42-year-old female presents emergency department with past medical history significant for smoking and a strong family history of heart disease. Patient states she woke this morning started having chest pain radiating between her shoulder blades and made her very short of breath. Patient states she was also mildly nauseated and there was no diaphoretic episode however. Patient states the pain persist currently. Patient states the pain is a pressure sens ation. Patient denies any abdominal pain. Patient denies any recent fever chills or cough per patient denies lightheadedness or dizziness. - Related Data Home Medications Medication Instructions Recorded Confirmed Albuterol Inhaler [Ventolin Hfa 2 puff INHALATION RT-QID PRN 07/15/20 12/12/20 Inhaler] Ergocalciferol [Vitamin D2] 50,000 unit PO SA 07/15/20 12/12/20 LORazepam [Ativan] 1 mg PO BID PRN 07/15/20 12/12/20 Levothyroxine Sodium [Synthroid] 100 mcg PO QAM 07/15/20 12/12/20 Temazepam 30 mg PO HS 07/15/20 12/12/20 oxyBUTYnin chloride [Ditropan XL] 10 mg PO DAILY 07/15/20 12/12/20 Indomethacin 25 mg PO BID PRN 09/30/20 12/12/20 Baclofen 10 mg PO BID 12/12/20 12/12/20 Gabapentin [Neurontin] 300 mg PO BID 12/12/20 12/12/20 Ibuprofen [Motrin] 800 mg PO TID PRN 12/12/20 12/12/20 Sucralfate [Carafate] 1 gm PO ACHS 12/12/20 12/12/20 Previous Rx's Medication Instructions Recorded Pantoprazole Sodium [Protonix] 20 mg PO DAILY #14 tablet. 10/29/20 Allergies Allergy/AdvReac Type Severity Reaction Status Date / Time latex Allergy Rash/Hives Verified 07/13/23 12:23 propoxyphene Allergy Nausea & Verified 07/13/23 12:23 [From Darvocet-N] Vomiting tramadol [From Ultram] Allergy Itching Verified 07/13/23 12:23 Review of Systems ROS Statement: Those systems with pertinent positive or pertinent negative responses have been documented in the HPI. ROS Other: All systems not noted in ROS Statement are negative. Past Medical History Past Medical History: Asthma, COPD, Fibromyalgia, GERD/Reflux, Hyperlipidemia, Neurologic Disorder, Seizure Disorder, Thyroid Disorder Additional Past Medical History / Comment(s): irritable bowel syndrome, carpal tunnel, arthritis, "eroded espohagus and stomach",hiatal hernia -er egd etoh abuse , migraine headaches, degenerative disc disease, sciatica, past bronchitis. interstital cystitis, last seizure 2002, irregular heavy vaginal bleeding, cyst on ovaries History of Any Multi-Drug Resistant Organisms: None Reported Past Surgical History: Adenoidectomy, Appendectomy, Cholecystectomy, Hernia Repair, Tonsillectomy, Tubal Ligation, Uterine Ablation Additional Past Surgical History / Comment(s): d&c x5, exploratory lap, ovarian tumor removed, Kym fundiplication, egd,colonosocpy Past Anesthesia/Blood Transfusion Reactions: Previous Problems w/ Anesthesia Additional Past Anesthesia/Blood Transfusion Reaction / Comment(s): stated " blood pressure dropped 40s/20s after exploratory laparoscopic surgery in operating room approx 2004 or 2005-no problems with any further surgeries" Past Psychological History: ADD/ADHD, Anxiety, Bipolar, Depression, PTSD Smoking Status: Current every day smoker Past Alcohol Use History: Occasional Past Drug Use History: Marijuana - Past Family History Father Additional Family Medical History / Comment(s): Father is alive at age 58 with history of generalized anxiety disorder and possible bipolar disorder. Alcohol abuse. Paternal grandmother had cancer of the breast, uterus, ovaries, and Colon. Mother Family Medical History: Hyperlipidemia Additional Family Medical History / Comment(s): Mother is alive at age 58 with history of degenerative disc disease, osteoarthritis, hyperlipidemia, hypertension. Brother(s) Additional Family Medical History / Comment(s): Patient has 2 brothers. One from suicide. One brother alcoholic. sisters both alcoholics . General Exam - General Exam Comments Initial Comments: GENERAL: Patient is well-developed and well-nourished. Patient is nontoxic and well- hydrated and is in mild distress. ENT: Neck is soft and supple. No significant lymphadenopathy is noted. Oropharynx is clear. Moist mucous membranes. Neck has full range of motion without eliciting any pain. EYES: The sclera were anicteric and conjunctiva were pink and moist. Extraocular movements were intact and pupils were equal round and reactive to light. Eyelids were unremarkable. PULMONARY: Unlabored respirations. Good breath sounds bilaterally. No audible rales rho nchi or wheezing was noted. CARDIOVASCULAR: There is a regular rate and rhythm without any murmurs gallops or rubs. ABDOMEN: Soft and nontender with normal bowel sounds. SKIN: Skin is clear with no lesions or rashes and otherwise unremarkable. NEUROLOGIC: Patient is alert and oriented x3. Cranial nerves II through XII are grossly intact. Motor and sensory are also intact. Normal speech, volume and content. Symmetrical smile. MUSCULOSKELETAL: Normal extremities with adequate strength and full range of motion. No lower extremity swelling or edema. No calf tenderness. LYMPHATICS: No significant lymphadenopathy is noted PSYCHIATRIC: Normal psychiatric evaluation. Limitations: no limitations Course Vital Signs 07/13/23 07/13/23 07/13/23 12:20 14:50 15:00 Temperature 98.4 F Pulse Rate 83 74 71 Respiratory 18 20 19 Rate Blood Pressure 120/75 132/75 132/75 O2 Sat by Pulse 99 99 98 Oximetry 07/13/23 15:30 Temperature Pulse Rate 71 Respiratory 14 Rate Blood Pressure 119/76 O2 Sat by Pulse 97 Oximetry Medical Decision Making - Medical Decision Making EKG was interpreted by myself. EKG shows a sinus rhythm at 75 bpm WV interval 217 QRSs 81 QT interval 364 QTC is 392. Patient's EKG shows no ST segment elevation or depression. Was pt. sent in by a medical professional or institution (, PA, MANAGER OF APPLICATION DEVELOPMENT, urgent care, hospital, or snf...) When possible be specific @ -No Did you speak to anyone other than the patient for history (EMS, parent, family, police, friend...)? What history was obtained from this source @ -No Did you review nursing and triage notes (agree or disagree)? Why? @ -I reviewed and agree with nursing and triage notes Were old charts reviewed (outside hosp., previous admission, EMS record, old EKG, old radiological studies, urgent care reports/EKG's, snf records)? Report findings @ -I reviewed prior labs and prior charts on this patient Differential Diagnosis (chest pain, altered mental status, abdominal pain women, abdominal pain men, vaginal bleeding, weakness, fever, dyspnea, syncope, headache, dizziness, GI bleed, back pain, seizure, CVA, palpatations, mental health, musculoskeletal)? @ -Differential Chest Pain: Stable Angina, Unstable Angina, STEMI, NSTEMI Aortic Dissection, Pneumothorax, Musculoskeletal, Esophageal Spasm GERD, Cholecystitis, Pancreatitis, Zoster, this is not meant to be an all-inclusive list. EKG interpreted by me (3pts min.). @ -As above X-rays interpreted by me (1pt min.). @ -X-ray showed no acute abnormality CT interpreted by me (1pt min.). @ -None done U/S interpreted by me (1pt. min.). @ -None done What testing was considered but not performed or refused? (CT, X-rays, U/S, labs)? Why? @ -None What meds were considered but not given or refused? Why? @ -None Did you discuss the management of the patient with other professionals (professionals i.e. , PA, MANAGER OF APPLICATION DEVELOPMENT, lab, RT, psych nurse, geriatric social worker, proposal specialist, teacher, professional security officer, rifle case repairer)? Give summary @ -Spoke with Dr. Meredith he agreed to admit the patient admitted the patient wrote admitting orders Was smoking cessation discussed for >3mins.? @ -No Was critical care preformed (if so, how long)? @ -No Were there social determinants of health that impacted care today? How? (Bret elessness, low income, unemployed, alcoholism, drug addiction, transportation, low edu. Level, literacy, decrease access to med. care, fdc, rehab)? @ -No Was there de-escalation of care discussed even if they declined (Discuss DNR or withdrawal of care, Hospice)? DNR status @ -No What co-morbidities impacted this encounter? (DM, HTN, Smoking, COPD, CAD, Cancer, CVA, ARF, Chemo, Hep., AIDS, mental health diagnosis, sleep apnea, morbid obesity)? @ -None Was patient admitted / discharged? Hospital course, mention meds given and route, prescriptions, significant lab abnormalities, going to OR and other pertinent info. @ -Patient was given aspirin and Nitropaste emergency department she continued to have some chest pain and nausea. Patient then was given Zofran and that took nausea away. Patient's lab work came back within normal limits but because of her extensive family history her smoking and her significant symptoms and clinical picture I spoke with Dr. Meredith he agreed to admit the patient admitted the patient I wrote admitting orders Undiagnosed new problem with uncertain prognosis? @ -No Drug Therapy requiring intensive monitoring for toxicity (Heparin, Nitro, Insulin, Cardizem)? @ -No Were any procedures done? @ -No Diagnosis/symptom? @ -Chest pain Acute, or Chronic, or Acute on Chronic? @ -Acute Uncomplicated (without systemic symptoms) or Complicated (systemic symptoms)? @ -Complicated Side effects of treatment? @ -No Exacerbation, Progression, or Severe Exacerbation? @ -No Poses a threat to life or bodily function? How? (Chest pain, USA, MS, pneumonia, PE, COPD, DKA, ARF, appy, cholecystitis, CVA, Diverticulitis, Homicidal, Suicidal, threat to staff... and all critical care pts) @ -Yes is completely to an MS and end organ dysfunction - Lab Data Result diagrams: 07/13/23 12:38 07/13/23 12:38 Lab Results 07/13/23 07/13/23 07/13/23 Range/Units 12:38 12:38 12:38 WBC 9.0 (3.8-10.6) k/uL RBC 4.59 (3.80-5.40) m/uL Hgb 14.0 (11.4-16.0) gm/dL Hct 42.2 (34.0-46.0) % MCV 91.9 (80.0-100.0) fL MCH 30.5 (25.0-35.0) pg MCHC 33.2 (31.0-37.0) g/dL RDW 12.1 (11.5-15.5) % Plt Count 257 (150-450) k/uL MPV 9.2 Neutrophils % 63 % Lymphocytes % 30 % Monocytes % 4 % Eosinophils % 1 % Basophils % 1 % Neutrophils # 5.6 (1.3-7.7) k/uL Lymphocytes # 2.7 (1.0-4.8) k/uL Monocytes # 0.4 (0-1.0) k/uL Eosinophils # 0.1 (0-0.7) k/uL Basophils # 0.1 (0-0.2) k/uL PT 9.9 L (10.0-12.5) sec INR 0.9 (<1.2) APTT 25.4 (22.0-30.0) sec D-Dimer 0.44 (<0.60) mg/L FEU Sodium 138 (137-145) mmol/L Potassium 4.8 (3.5-5.1) mmol/L Chloride 107 (98-107) mmol/L Carbon Dioxide 24 (22-30) mmol/L Anion Gap 7 mmol/L BUN 12 (7-17) mg/dL Creatinine 0.60 (0.52-1.04) mg/dL Est GFR (CKD-EPI)AfAm >90 (>60 ml/min/1.73 sqM) Est GFR (CKD-EPI)NonAf >90 (>60 ml/min/1.73 sqM) Glucose 108 H (74-99) mg/dL Calcium 9.4 (8.4-10.2) mg/dL Magnesium 1.9 (1.6-2.3) mg/dL Total Bilirubin 0.5 (0.2-1.3) mg/dL AST 37 H (14-36) U/L ALT 13 (4-34) U/L Alkaline Phosphatase 93 (38-126) U/L Troponin I (0.000-0.034) ng/mL Total Protein 7.5 (6.3-8.2) g/dL Albumin 4.2 (3.5-5.0) g/dL 07/13/23 Range/Units 12:38 WBC (3.8-10.6) k/uL RBC (3.80-5.40) m/uL Hgb (11.4-16.0) gm/dL Hct (34.0-46.0) % MCV (80.0-100.0) fL MCH (25.0-35.0) pg MCHC (31.0-37.0) g/dL RDW (11.5-15.5) % Plt Count (150-450) k/uL MPV Neutrophils % % Lymphocytes % % Monocytes % % Eosinophils % % Basophils % % Neutrophils # (1.3-7.7) k/uL Lymphocytes # (1.0-4.8) k/uL Monocytes # (0-1.0) k/uL Eosinophils # (0-0.7) k/uL Basophils # (0-0.2) k/uL PT (10.0-12.5) sec INR (<1.2) APTT (22.0-30.0) sec D-Dimer (<0.60) mg/L FEU Sodium (137-145) mmol/L Potassium (3.5-5.1) mmol/L Chloride (98-107) mmol/L Carbon Dioxide (22-30) mmol/L Anion Gap mmol/L BUN (7-17) mg/dL Creatinine (0.52-1.04) mg/dL Est GFR (CKD-EPI)AfAm (>60 ml/min/1.73 sqM) Est GFR (CKD-EPI)NonAf (>60 ml/min/1.73 sqM) Glucose (74-99) mg/dL Calcium (8.4-10.2) mg/dL Magnesium (1.6-2.3) mg/dL Total Bilirubin (0.2-1.3) mg/dL AST (14-36) U/L ALT (4-34) U/L Alkaline Phosphatase (38-126) U/L Troponin I <0.012 (0.000-0.034) ng/mL Total Protein (6.3-8.2) g/dL Albumin (3.5-5.0) g/dL Disposition Clinical Impression: Chest pain Disposition: ADMITTED IP TO THIS HOSP Referrals: Ahsan Kraus MD [Primary Care Provider] - 1-2 days Time of Disposition: 15:48
[2023-07-13] MEDS ORDERED: TEMAZEPAM 30 MG CAP PO PRN (20:38)
[2023-07-13] MEDS ORDERED: ALBUTEROL NEBULIZED 2.5 MG/3 ML INHALATION PRN (20:38)
[2023-07-13] MEDS ORDERED: LORazepam 1 MG TAB PO PRN (20:38)
[2023-07-13] MEDS ORDERED: bisacodyL 5 MG TABLET.DR PO PRN (20:38)
[2023-07-13] MEDS ORDERED: TEMAZEPAM 15 MG CAP PO PRN (21:00)
--- NOTE | 2023-07-13 21:24 | P.HPIM ---
History of Present Illness H&P Date: 07/13/23 Chief Complaint: Chest pain This is a pleasant 42-year-old patient who follows with Dr. Laura Kraus.. Multiple medical problems. Today around 8:30 AM patient started off with midsternal chest pressure. Did call to the back. Also the left armpit. I don't known patient came to the hospital ER. Received nitroglycerin. Symptoms resolved. Had some associated dizziness. Some shortness of breath. Denies any prior cardiac history. No perspiration. Patient is a chronic pain what she describes all over the body. Last seizure was in 2002. Currently chest pain-free. Review of systems: GEN.: Tired EYES: None HEENT: None NECK: None RESPIRATORY: Does get short of breath and doing stairs CARDIOVASCULAR: As above GASTROINTESTINAL: None GENITOURINARY: None MUSCULOSKELETAL: . Multiple sites LYMPHATICS: None HEMATOLOGICAL: None PSYCHIATRY: Anxious NEUROLOGICAL: None Social history: Smokes a pack a day since age of 10. His medical marijuana. Lives with her . Physical examination: VITAL SIGNS: 98.3, 68, 20, 104/60, 94% room air GENERAL: BMI 27.4, reclining but awake comfortable. EYES: Pupils equal. Conjunctiva normal. HEENT: External appearance of nose and ears normal, oral cavity grossly normal. NECK: JVD not raised; masses not palpable. HEART: First and second heart sounds are normal; no edema. LUNGS: Respiratory rate normal; decreased breath sounds. ABDOMEN: Soft, nontender, liver spleen not palpable, no masses palpable. PSYCH: Alert and oriented x3; mood and affect normal. MUSCULOSKELETAL:No Clubbing/cyanosis;muscles-grossly intact NEUROLOGICAL: Cranial nerves grossly intact; no facial asymmetry, power and sensation grossly intact. LYMPHATICS: No lymph nodes palpable in the axilla and neck INVESTIGATIONS, reviewed in the clinical context: White count 19 hemoglobin 14 platelets 257 sodium 138 potassium 4.8 creatinine 0 .6 D-dimer 0.44 Troponin I 0.0123 EKG tracing personally reviewed by me-normal sinus rhythm Chest x-ray film personally reviewed by me-hyperinflation Assessment and plan: -Possible unstable angina. Risk factors include positive family history and smoker. Troponin is negative. Telemetry. Consult ecology. Nitro paste. -Hypothyroid Synthroid 125 g a day -Chronic interstitial cystitis Dr. Hagan axilla 10 mg a day -Chronic fibromyalgia [place] 500 tablet twice a day. Baclofen 3 times a day. -COPD in a current smoker - -Bipolar disorder, ADHD -Chronic nicotine dependence, cigarette smoker Nicotine patch Care was discussed with the patient. Questions answered. Home medications resumed. Cardiology consulted. Keep nothing by mouth after midnight except medications. Past Medical History Past Medical History: Asthma, COPD, Fibromyalgia, GERD/Reflux, Hyperlipidemia, Neurologic Disorder, Seizure Disorder, Thyroid Disorder Additional Past Medical History / Comment(s): Hashimotos disease,irritable bowel syndrome, carpal tunnel, arthritis, "eroded espohagus and stomach",hiatal hernia -er egd etoh abuse , migraine headaches, degenerative disc disease, sciatica,bronchitis. interstital cystitis, last seizure 2002, irregular heavy vaginal bleeding, cyst on ovaries History of Any Multi-Drug Resistant Organisms: None Reported Past Surgical History: Adenoidectomy, Appendectomy, Cholecystectomy, Hernia Repair, Tonsillectomy, Tubal Ligation, Uterine Ablation Additional Past Surgical History / Comment(s): d&c x5, exploratory lap, endometrial ablation 2019,ovarian tumor removed, Kym fundiplication, egd,colonosocpy Past Anesthesia/Blood Transfusion Reactions: Previous Problems w/ Anesthesia Additional Past Anesthesia/Blood Transfusion Reaction / Comment(s): stated " blood pressure dropped 40s/20s after exploratory laparoscopic surgery in operating room approx 2004 or 2005-no problems with any further surgeries" Past Psychological History: ADD/ADHD, Anxiety, Bipolar, Depression, PTSD Additional Psychological History / Comment(s): borderline personality,OCD. pt has been hospitalized in past for od/ suicidal ideations-nothing currently. Continues in counseling Smoking Status: Current every day smoker Past Alcohol Use History: None Reported Additional Past Alcohol Use History / Comment(s): patient is a smoker of 1ppd since she was 10 years of age. She does have a medical marijuana card. She denies any street drug or alcohol use. Abstinent from alcohol use last use may 2023. previously no drinks for 4.5 years. Past Drug Use History: Marijuana Additional Drug Use History / Comment(s): Medical card-weekly - Past Family History Father Additional Family Medical History / Comment(s): Father is alive at age 58 with history of generalized anxiety disorder and possible bipolar disorder. Alcohol abuse. Paternal grandmother had cancer of the breast, uterus, ovaries, and Colon. Mother Family Medical History: Hyperlipidemia Additional Family Medical History / Comment(s): Mother is alive at age 58 with history of degenerative disc disease, osteoarthritis, hyperlipidemia, hypertension. Brother(s) Additional Family Medical History / Comment(s): Patient has 2 brothers. One from suicide 14 years ago. One brother alcoholic. sisters both alcoholics. Medications and Allergies Home Medications Medication Instructions Recorded Confirmed Type Albuterol Inhaler [Ventolin Hfa 2 puff INHALATION RT-QID PRN 07/15/20 07/13/23 History Inhaler] LORazepam [Ativan] 1 mg PO BID PRN 07/15/20 07/13/23 History Temazepam 30 mg PO HS PRN 07/15/20 07/13/23 History oxyBUTYnin chloride [Ditropan XL] 10 mg PO DAILY 07/15/20 07/13/23 History Baclofen 10 mg PO TID 12/12/20 07/13/23 History ARIPiprazole [Abilify] 10 mg PO DAILY 07/13/23 07/13/23 History Budesonide/Formoterol Fumarate 2 puff INHALATION RT-BID 07/13/23 07/13/23 History [Symbicort 160-4.5 Mcg Inhaler] DULoxetine HCL [Cymbalta] 60 mg PO BID 07/13/23 07/13/23 History Fluticasone Nasal [place] [Flonase 1 - 2 spr EA NOSTRIL BID PRN 07/13/23 07/13/23 History Nasal [place]] HYDROcodone/APAP 5-325MG [[place] 1 tab PO BID 07/13/23 07/13/23 History 5-325] Levothyroxine Sodium [Synthroid] 125 mcg PO DAILY 07/13/23 07/13/23 History Meclizine [Antivert] 25 mg PO TID PRN 07/13/23 07/13/23 History bisacodyL [Correctol] 5 mg PO DAILY PRN 07/13/23 07/13/23 History Allergies Allergy/AdvReac Type Severity Reaction Status Date / Time cariprazine [From Vraylar] Allergy Anaphylaxis Verified 07/13/23 15:54 latex Allergy Rash/Hives Verified 07/13/23 15:54 propoxyphene Allergy Nausea & Verified 07/13/23 15:54 [From Darvocet-N] Vomiting tramadol [From Ultram] Allergy Itching Verified 07/13/23 15:54 benadryl cream Allergy Rash/Hives Uncoded 07/13/23 15:54 Physical Exam Vitals: Vital Signs Temp Pulse Resp BP Pulse Ox 07/13/23 18:00 98.3 F 68 20 104/68 94 L 07/13/23 17:30 69 12 104/68 95 07/13/23 17:00 69 11 L 107/73 95 07/13/23 16:30 104/71 07/13/23 16:00 68 16 110/76 97 07/13/23 15:30 71 14 119/76 97 07/13/23 15:00 71 19 132/75 98 07/13/23 14:50 74 20 132/75 99 07/13/23 12:20 98.4 F 83 18 120/75 99 Intake and Output 07/13/23 07/13/23 07/13/23 06:59 14:59 22:59 Other: Weight 77.111 kg 77.111 kg Results CBC & Chem 7: 07/13/23 12:38 07/13/23 12:38 Labs: Abnormal Lab Results - Last 24 Hours (Table) 07/13/23 07/13/23 Range/Units 12:38 12:38 PT 9.9 L (10.0-12.5) sec Glucose 108 H (74-99) mg/dL AST 37 H (14-36) U/L Thrombosis Risk Factor Assmnt - Choose All That Apply Any of the Below Risk Factors Present?: Yes Each Factor Represents 1 point: Age 41-60 years, Obesity (BMI >25) Other Risk Factors: No Other congenital or acquired thrombophilia - If yes, enter type in comment: No Thrombosis Risk Factor Assessment Total Risk Factor Score: 2 Thrombosis Risk Factor Assessment Level: Low Risk
[2023-07-13] MEDS: SYMBICORT 160-4.5 MCG INHALER INHALATION SCH (21:43)
[2023-07-13] MEDS: HYDROcodone/APAP 5-325MG 1 EACH TAB PO SCH (21:50)
[2023-07-13] MEDS: BACLOFEN 10 MG TAB PO SCH (21:50)
[2023-07-13] MEDS: NITROGLYCERIN OINT 1 INCH/GM PACKET TOPICAL SCH ×2 (21:50→23:58)
[2023-07-13] MEDS: DULoxetine HCL 60 MG CAPSULE.DR PO SCH (21:50)
[2023-07-13] MEDS: ENOXAPARIN 40 MG/0.4 ML SYRINGE SQ SCH (21:50)
[2023-07-13] MEDS: NICOTINE 21MG/24HR PATCH TRANSDERM SCH (21:51)
[2023-07-14 03:38] VITALS: RESP 16; TEMP 98.2
[2023-07-14] MEDS: NITROGLYCERIN OINT 1 INCH/GM PACKET TOPICAL SCH ×2 (05:14→12:18)
[2023-07-14] MEDS ORDERED: LEVOTHYROXINE 125 MCG TAB PO SCH (06:30)
[2023-07-14 07:56] VITALS: PULSE 78
[2023-07-14] MEDS: SYMBICORT 160-4.5 MCG INHALER INHALATION SCH (08:39)
[2023-07-14 08:43] LABS: Chol/HDL Ratio 3.55 Ratio; LDL Cholesterol,Calculated 114.9 mg/dL (0.0-131.0)
[2023-07-14] MEDS ORDERED: ASPIRIN 325 MG TAB PO SCH (09:00)
[2023-07-14] MEDS ORDERED: ARIPiprazole 10 MG TAB PO SCH (09:00)
[2023-07-14] MEDS ORDERED: OXYBUTYNIN 10 MG TAB.ER.24 PO SCH (09:00)
--- NOTE | 2023-07-14 10:46 | P.CRDCN ---
History of Present Illness Consult date: 07/14/23 Consult reason: chest pain History of present illness: History of present illness: This is a 42 year old female with no previous cardiac history and does not follow with a powder core tester. She has a past medical history of asthma or COPD, fibromyalgia, seizure disorder. She denies history of hypertension, diabetes. She is a smoker one pack per day. We have been asked to evaluate the patient for chest pain. Patient gives history that she was driving at the time and developed chest pain that was worse with deep breathing. She has never had pain before. She is moderately active and does not experience any chest pain or shortness of breath with activity. She did have some dizziness yesterday and felt some pounding in her chest. EKG sinus rhythm with no acute ST changes Chest x-ray: No acute process CBC, INR, d-dimer, electrolytes and renal function all within normal limits. Troponin negative 3. Glucose 108. AST 37 otherwise liver function tests are normal. Magnesium 1.9. Triglycerides 115, cholesterol 192. LDL 114, HDL 54. Home cardiac medications: Levothyroxine 125 g daily Review Of Systems: At the time of my evaluation: Constitutional: No fever, no chills. No weakness, fatigue or lethargy. EENT: No headache. No dizziness. Lungs: No shortness of breath, cough, no sputum production. No wheezing. Cardiovascular: No chest pain, no lower extremity edema. No palpitations. No paroxysmal nocturnal dyspnea. No orthopnea. No lightheadedness or dizziness. No syncopal episodes. Abdominal: No abdominal pain. No nausea, vomiting. No diarrhea. No constipation. No bloody or tarry stools. Musculoskeletal: No myalgias. No muscle weakness, no frequent falls. Integumentary: No wounds. No rash. No unusual bruising. Neurologic: No aphasia. No facial droop. No change in mentation. Physical examination: Gen: This is a 42 year old female resting in bed and appears to be comfortable and in no acute distress VS: reviewed HEENT: Head is atraumatic, normocephalic. Pupils equal, round. Sclerae is anicteric. NECK: Supple. No JVD. . LUNGS: Clear to auscultation. No wheezes or rhonchi. No intercostal r etractions. HEART: Regular rate and rhythm. No murmur. ABDOMEN: Soft No tenderness. EXTREMITIES: No pedal edema. No calf tenderness. NEUROLOGICAL: Patient is awake, alert and oriented x3. Assessment: Atypical chest pain, acute coronary syndrome ruled out Asthma or COPD Fibromyalgia Seizure disorder Tobacco use and dependence Plan: Obtain exercise stress echocardiogram today Obtain 2-D echocardiogram and Doppler study to assess cardiac structure and function If stress test and echocardiogram unremarkable, patient is cleared for discharge home Thank you kindly for this consultation. Nurse practitioner note has been reviewed, I agree with documented findings and plan of care. Patient was seen and examined. Past Medical History Past Medical History: Asthma, COPD, Fibromyalgia, GERD/Reflux, Hyperlipidemia, Neurologic Disorder, Seizure Disorder, Thyroid Disorder Additional Past Medical History / Comment(s): Hashimotos disease,irritable bowel syndrome, carpal tunnel, arthritis, "eroded espohagus and stomach",hiatal hernia -er egd etoh abuse , migraine headaches, degenerative disc disease, sciatica,bronchitis. interstital cystitis, last seizure 2002, irregular heavy vaginal bleeding, cyst on ovaries History of Any Multi-Drug Resistant Organisms: None Reported Past Surgical History: Adenoidectomy, Appendectomy, Cholecystectomy, Hernia Repair, Tonsillectomy, Tubal Ligation, Uterine Ablation Additional Past Surgical History / Comment(s): d&c x5, exploratory lap, endometrial ablation 2019,ovarian tumor removed, Kym fundiplication, egd ,colonosocpy Past Anesthesia/Blood Transfusion Reactions: Previous Problems w/ Anesthesia Additional Past Anesthesia/Blood Transfusion Reaction / Comment(s): stated " blood pressure dropped 40s/20s after exploratory laparoscopic surgery in operating room approx 2004 or 2005-no problems with any further surgeries" Past Psychological History: ADD/ADHD, Anxiety, Bipolar, Depression, PTSD Additional Psychological History / Comment(s): borderline personality,OCD. pt has been hospitalized in past for od/ suicidal ideations-nothing currently. Continues in counseling Smoking Status: Current every day smoker Past Alcohol Use History: None Reported Additional Past Alcohol Use History / Comment(s): patient is a smoker of 1ppd since she was 10 years of age. She does have a medical marijuana card. She denies any street drug or alcohol use. Abstinent from alcohol use last use may 2023. previously no drinks for 4.5 years. Past Drug Use History: Marijuana Additional Drug Use History / Comment(s): Medical card-weekly - Past Family History Father Additional Family Medical History / Comment(s): Father is alive at age 58 with history of generalized anxiety disorder and possible bipolar disorder. Alcohol abuse. Paternal grandmother had cancer of the breast, uterus, ovaries, and Colon. Mother Family Medical History: Hyperlipidemia Additional Family Medical History / Comment(s): Mother is alive at age 58 with history of degenerative disc disease, osteoarthritis, hyperlipidemia, hypertension. Brother(s) Additional Family Medical History / Comment(s): Patient has 2 brothers. One from suicide 14 years ago. One brother alcoholic. sisters both alcoholics. Medications and Allergies Home Medications Medication Instructions Recorded Confirmed Type Albuterol Inhaler [Ventolin Hfa 2 puff INHALATION RT-QID PRN 07/15/20 07/13/23 History Inhaler] LORazepam [Ativan] 1 mg PO BID PRN 07/15/20 07/13/23 History Temazepam 30 mg PO HS PRN 07/15/20 07/13/23 History oxyBUTYnin chloride [Ditropan XL] 10 mg PO DAILY 07/15/20 07/13/23 History Baclofen 10 mg PO TID 12/12/20 07/13/23 History ARIPiprazole [Abilify] 10 mg PO DAILY 07/13/23 07/13/23 History Budesonide/Formoterol Fumarate 2 puff INHALATION RT-BID 07/13/23 07/13/23 History [Symbicort 160-4.5 Mcg Inhaler] DULoxetine HCL [Cymbalta] 60 mg PO BID 07/13/23 07/13/23 History Fluticasone Nasal [place] [Flonase 1 - 2 spr EA NOSTRIL BID PRN 07/13/23 07/13/23 History Nasal [place]] HYDROcodone/APAP 5-325MG [[place] 1 tab PO BID 07/13/23 07/13/23 History 5-325] Levothyroxine Sodium [Synthroid] 125 mcg PO DAILY 07/13/23 07/13/23 History Meclizine [Antivert] 25 mg PO TID PRN 07/13/23 07/13/23 History bisacodyL [Correctol] 5 mg PO DAILY PRN 07/13/23 07/13/23 History Allergies Allergy/AdvReac Type Severity Reaction Status Date / Time cariprazine [From Vraylar] Allergy Anaphylaxis Verified 07/13/23 15:54 latex Allergy Rash/Hives Verified 07/13/23 15:54 propoxyphene Allergy Nausea & Verified 07/13/23 15:54 [From Darvocet-N] Vomiting tramadol [From Ultram] Allergy Itching Verified 07/13/23 15:54 benadryl cream Allergy Rash/Hives Uncoded 07/13/23 15:54 Physical Exam Vitals: Vital Signs Temp Pulse Pulse Resp BP BP Pulse Ox 07/14/23 02:42 98.2 F 55 L 16 96/49 97 07/13/23 19:17 98.3 F 67 15 97/59 98 07/13/23 18:00 98.3 F 68 20 104/68 94 L 07/13/23 17:30 69 12 104/68 95 07/13/23 17:00 69 11 L 107/73 95 07/13/23 16:30 104/71 07/13/23 16:00 68 16 110/76 97 07/13/23 15:30 71 14 119/76 97 07/13/23 15:00 71 19 132/75 98 07/13/23 14:50 74 20 132/75 99 07/13/23 12:20 98.4 F 83 18 120/75 99 Intake and Output 07/13/23 07/14/23 07/14/23 22:59 06:59 14:59 Other: # Voids 1 3 Weight 77.111 kg Results 07/13/23 12:38 07/13/23 12:38 Cardiac Enzymes 07/13/23 07/13/23 07/13/23 Range/Units 12:38 12:38 16:25 AST 37 H (14-36) U/L Troponin I <0.012 <0.012 (0.000-0.034) ng/mL 07/13/23 Range/Units 18:38 AST (14-36) U/L Troponin I <0.012 (0.000-0.034) ng/mL Coagulation 07/13/23 Range/Units 12:38 PT 9.9 L (10.0-12.5) sec APTT 25.4 (22.0-30.0) sec CBC 07/13/23 Range/Units 12:38 WBC 9.0 (3.8-10.6) k/uL RBC 4.59 (3.80-5.40) m/uL Hgb 14.0 (11.4-16.0) gm/dL Hct 42.2 (34.0-46.0) % Plt Count 257 (150-450) k/uL Comprehensive Metabolic Panel 07/13/23 Range/Units 12:38 Sodium 138 (137-145) mmol/L Potassium 4.8 (3.5-5.1) mmol/L Chloride 107 (98-107) mmol/L Carbon Dioxide 24 (22-30) mmol/L BUN 12 (7-17) mg/dL Creatinine 0.60 (0.52-1.04) mg/dL Glucose 108 H (74-99) mg/dL Calcium 9.4 (8.4-10.2) mg/dL AST 37 H (14-36) U/L ALT 13 (4-34) U/L Alkaline Phosphatase 93 (38-126) U/L Total Protein 7.5 (6.3-8.2) g/dL Albumin 4.2 (3.5-5.0) g/dL Current Medications Generic Name Dose Route Start Last Admin Trade Name Freq PRN Reason Stop Dose Admin Hydrocodone Bitart/Acetaminophen 1 each 07/13/23 21:00 07/13/23 21:50 Hydrocodone/Apap 5-325mg 1 Each Tab PO 1 each BID MELANY Administration Albuterol Sulfate 2.5 mg 07/13/23 20:38 Albuterol Nebulized 2.5 Mg/3 Ml INHALATION RT-QID PRN Shortness Of Breath Aripiprazole 10 mg 07/14/23 09:00 Aripiprazole 10 Mg Tab PO DAILY MELANY Aspirin 325 mg 07/14/23 09:00 Aspirin 325 Mg Tab PO DAILY MELANY Baclofen 10 mg 07/13/23 22:00 07/13/23 21:50 Baclofen 10 Mg Tab PO 10 mg TID MELANY Administration Bisacodyl 5 mg 07/13/23 20:38 Bisacodyl 5 Mg Tablet.Dr PO DAILY PRN Constipation Budesonide/Formoterol Fumarate 2 puff 07/13/23 20:38 07/13/23 21:43 Symbicort 160-4.5 Mcg Inhaler INHALATION Not Given RT-BID MELANY Duloxetine HCl 60 mg 07/13/23 21:00 07/13/23 21:50 Duloxetine Hcl 60 Mg Capsule.Dr PO 60 mg BID MELANY Administration Enoxaparin Sodium 40 mg 07/13/23 20:45 07/13/23 21:50 Enoxaparin 40 Mg/0.4 Ml Syringe SQ 40 mg DAILY MELANY Administration Levothyroxine Sodium 125 mcg 07/14/23 06:30 07/14/23 06:28 Levothyroxine 125 Mcg Tab PO 125 mcg DAILY@0630 MELANY Administration Lorazepam 1 mg 07/13/23 20:38 Lorazepam 1 Mg Tab PO BID PRN Anxiety Nicotine 1 patch 07/13/23 21:30 07/13/23 21:51 Nicotine 21mg/24hr Patch TRANSDERM Not Given DAILY [facility] Nitroglycerin 0.4 mg 07/13/23 15:48 Nitroglycerin Sl Tabs 0.4 Mg Tab SUBLINGUAL Q5M PRN Chest Pain Nitroglycerin 1 inch 07/13/23 19:00 07/14/23 05:14 Nitroglycerin Oint 1 Inch/Gm Packet TOPICAL Not Given Q6HR [facility] Oxybutynin Chloride 10 mg 07/14/23 09:00 Oxybutynin 10 Mg Tab.Er.24 PO DAILY [facility] Temazepam 30 mg 07/13/23 21:00 07/13/23 22:27 Temazepam 15 Mg Cap PO 30 mg HS PRN Administration Insomnia Intake and Output 07/13/23 07/14/23 07/14/23 22:59 06:59 14:59 Other: # Voids 1 3 Weight 77.111 kg 07/13/23 12:38 07/13/23 12:38
--- NOTE | 2023-07-14 11:45 | CA ---
Transthoracic Echo Report Name: Janina Bueno Age: 42 Gender: F : 1980 Exam Date: 07/14/2023 08:34 Exam Location: [facility] Ht (in): 66 Wt (lb): 170 Ordering Physician: Monalisa Stubbs Attending/Referring Phys: [id number], Evelyne Billiard Table Mechanic Angélica Quintero RDCS Procedure CPT: Indications: LVF Cardiac Hx: Technical Quality: Fair Contrast 1: Total Dose (mL): Contrast 2: Total Dose (mL): MEASUREMENTS (Male / Female) Normal Values 2D ECHO LV Diastolic Diameter PLAX 4.4 cm 4.2 - 5.9 / 3.9 - 5.3 cm LV Systolic Diameter PLAX 3.4 cm IVS Diastolic Thickness 1.0 cm 0.6 - 1.0 / 0.6 - 0.9 cm LVPW Diastolic Thickness 0.9 cm 0.6 - 1.0 / 0.6 - 0.9 cm LV Relative Wall Thickness 0.4 RV Internal Dim ED PLAX 3.5 cm LA Volume 43.1 cm??? 18 - 58 / 22 - 52 cm??? LA Volume Index 22.6 cm???/m??? 16 - 28 cm???/m??? M-MODE Aortic Root Diameter MM 2.7 cm LA Systolic Diameter MM 2.0 cm LA Ao Ratio MM 0.7 AV Cusp Separation MM 1.7 cm DOPPLER AV Peak Velocity 111.0 cm/s AV Peak Gradient 4.9 mmHg AV Mean Velocity 68.2 cm/s AV Mean Gradient 2.3 mmHg AV Velocity Time Integral 23.1 cm LVOT Peak Velocity 86.8 cm/s LVOT Peak Gradient 3.0 mmHg LVOT Velocity Time Integral 17.8 cm MV Area PHT 2.7 cm??? Mitral E Point Velocity 69.2 cm/s Mitral A Point Velocity 30.3 cm/s Mitral E to A Ratio 2.3 MV Deceleration Time 278.9 ms MV E' Velocity 13.4 cm/s Mitral E to MV E' Ratio 5.2 TR Peak Velocity 220.4 cm/s TR Peak Gradient 19.4 mmHg Right Ventricular Systolic Press 23.9 mmHg FINDINGS Left Ventricle Normal Left ventricular size, wall thickness, systolic function with no obvious regional wall motion abnormalities. Normal Left ventricular diastolic filling pattern. Left ventricular ejection fraction is estimated at 55 %. Right Ventricle Mild right ventricular dilatation. Right ventricular systolic pressure within normal limits. Right Atrium Normal right atrial size. Left Atrium Normal left atrial size. Mitral Valve Structurally normal mitral valve. No mitral stenosis, regurgitation or prolapse. Aortic Valve Trileaflet aortic valve. No aortic valve stenosis or regurgitation. Tricuspid Valve Structurally normal tricuspid valve. Mild tricuspid regurgitation. Pulmonic Valve Structurally normal pulmonic valve. Pericardium No pericardial effusion. Aorta Normal size aortic root and proximal ascending aorta. CONCLUSIONS 1. Normal left ventricular size and systolic function 2. Mild tricuspid regurgitation with no evidence of pulmonary hypertension Previewed by: Dr. Julieth Fletcher MD (Electronically Signed) Final Date: 14 July 2023 11:44
[2023-07-14] MEDS: HYDROcodone/APAP 5-325MG 1 EACH TAB PO SCH (11:47)
[2023-07-14] MEDS: ENOXAPARIN 40 MG/0.4 ML SYRINGE SQ SCH (11:47)
[2023-07-14] MEDS: BACLOFEN 10 MG TAB PO SCH (11:48)
[2023-07-14] MEDS: DULoxetine HCL 60 MG CAPSULE.DR PO SCH (11:48)
[2023-07-14] MEDS: NICOTINE 21MG/24HR PATCH TRANSDERM SCH (12:18)
--- NOTE | 2023-07-14 12:32 | CA ---
Stress Echo Report Janina Bueno Age: 42 Gender: F : 1980 Exam Date: 07/14/2023 10:28 Exam Location: [facility] Stress Ht (in): 66 Wt (lb): 170 Ordering Physician: Monalisa Stubbs Referring Physician: [id number] Linen Room Custodian: Hugh Sage Technologist Procedure CPT: Indication: CP ICD-9 Codes: Rhythm: Patient History: Cardiac Medications: SEE CHART Medications in past 24 hours: Contrast: N/A Stress Results Protocol: Carlos Total dose(mL): Exercise Duration (min:sec): 10:[address] Depression (mm): 0 Angina Score: 0 Ribeiro Score: 10.3 METS: 9.3 Resting HR: 84 Resting BP: 105 / 62 Peak HR: 157 Peak BP: 143 / 69 Max Predicted HR: 176 89 % Max Predicted HR Target HR: 150 Double Product: [id number] Stress Summary: The patient's target heart rate was achieved BP Response: Normal Reason for Termination: Reached target heart rate or work-load Cardiac Symptoms: NO SYMPTOMS ECG Analysis Resting ECG: Normal sinus rhythm, normal ECG Stress ECG: No abnormal ST/T wave changes with exercise Arrhythmia: None Echo Analysis Resting Echo: Normal resting echocardiogram. Peak Echo Analysis: Normal wall thickening and motion MEASUREMENTS (Male/Female) Normal Values CONCLUSIONS Patient falls into low-risk group (DTS >= +5). This associates the patient with an annual CV mortality <= 0.5%. 1. Good exercise tolerance with normal electrocardiographic response to exercise 2. Normal stress echocardiogram with no evidence of stress- induced ischemia Dr. Julieth Fletcher MD (Electronically Signed) Final Date: 14 July 2023 12:31
[2023-07-14 14:53] VITALS: BP 93/57
--- NOTE | 2023-07-17 18:10 | P.DS ---
Providers Date of admission: 07/13/23 15:48 Attending physician: Dave Meredith Consults: 07/13/23 15:48 Consult Physician Urgent Consulting Provider: [facility] Consult Reason/Comments: Chest pain Do you want consulting provider notified?: Yes Primary care physician: Ahsan Kraus Hospital Course: Final Diagnosis -Possible unstable angina, ACS ruled out normal stress echo. -Hypothyroid -Chronic interstitial cystitis -Chronic fibromyalgia -COPD in a current smoker -Bipolar disorder, ADHD -Chronic nicotine dependence, cigarette smoker Discharge Disposition Patient is stable for discharge has been cleared by cardiology. Recommending to continue on nicotine patch and discussed smoking cessation. Follow up with PCP and Cardiology on discharge. Hospital Course This is a pleasant 42-year-old patient who follows with Dr. Laura Kraus, medical history of fibromyalgia, COPD, Chronic and ongoing nicotine use, hypothyroidism and chronic interstitial cystitis. Patient came in with midsternal chest pain with radiation to the back and to the left axilla. Patient came in to the hospital for evaluation, received nitroglycerin. Symptoms resolved. Had some associated dizziness. Some shortness of breath. Denies any prior cardiac history. No perspiration. Patient is a chronic pain what she describes all over the body. Last seizure was in 2002. Currently chest pain-free. Admitted to the hospital and was evaluated by cardiology. Patient had a stress echo which was a normal stress echocardiogram with no evidence of stress induced ischemia. Echocardiogram reveals EF 55% with normal LV size and systolic function, mild TR and no evidence of pulmonary hypertension. Troponin was negative x3. D Dimer was negative. Lipid panel normal. CBC, electrolytes and renal function normal. P atient remains chest pain free. Cleared for discharge home to follow up with pcp and cardiology. Please see medication reconciliation for a list of current medications. Thank you for allowing us to participate in the care of this patient. The impression and plan of care has been dictated by Lia Conway Nurse Practitioner as directed. Dr. Aline MD I have performed a history and physical examination and medical decision making of this patient, discussed the same with the dictator, and agree with the dictators assessment and plan as written, documented as a scribe. Based on total visit time, I have performed more than 50% of this visit. Patient Condition at Discharge: Stable Plan - Discharge Summary Discharge Rx Participant: No New Discharge Prescriptions: New Nicotine 21Mg/24Hr Patch [Habitrol] 1 patch TRANSDERM DAILY patch Continue Albuterol Inhaler [Ventolin Hfa Inhaler] 2 puff INHALATION RT-QID PRN PRN Reason: Shortness Of Breath Temazepam 30 mg PO HS PRN PRN Reason: Insomnia oxyBUTYnin chloride [Ditropan XL] 10 mg PO DAILY LORazepam [Ativan] 1 mg PO BID PRN PRN Reason: Anxiety Levothyroxine Sodium [Synthroid] 125 mcg PO DAILY HYDROcodone/APAP 5-325MG [[place] 5-325] 1 tab PO BID Meclizine [Antivert] 25 mg PO TID PRN PRN Reason: Vertigo DULoxetine HCL [Cymbalta] 60 mg PO BID Baclofen 10 mg PO TID Fluticasone Nasal [place] [Flonase Nasal [place]] 1 - 2 spr EA NOSTRIL BID PRN PRN Reason: Allergy Symptoms bisacodyL [Correctol] 5 mg PO DAILY PRN PRN Reason: Constipation ARIPiprazole [Abilify] 10 mg PO DAILY Budesonide/Formoterol Fumarate [Symbicort 160-4.5 Mcg Inhaler] 2 puff INHALATION RT-BID Discharge Medication List Albuterol Inhaler [Ventolin Hfa Inhaler] 2 puff INHALATION RT-QID PRN 07/15/20 [History] LORazepam [Ativan] 1 mg PO BID PRN 07/15/20 [History] Temazepam 30 mg PO HS PRN 07/15/20 [History] oxyBUTYnin chloride [Ditropan XL] 10 mg PO DAILY 07/15/20 [History] Baclofen 10 mg PO TID 12/12/20 [History] ARIPiprazole [Abilify] 10 mg PO DAILY 07/13/23 [History] Budesonide/Formoterol Fumarate [Symbicort 160-4.5 Mcg Inhaler] 2 puff INHALATION RT-BID 07/13/23 [History] DULoxetine HCL [Cymbalta] 60 mg PO BID 07/13/23 [History] Fluticasone Nasal [place] [Flonase Nasal [place]] 1 - 2 spr EA NOSTRIL BID PRN 07/13/23 [History] HYDROcodone/APAP 5-325MG [[place] 5-325] 1 tab PO BID 07/13/23 [History] Levothyroxine Sodium [Synthroid] 125 mcg PO DAILY 07/13/23 [History] Meclizine [Antivert] 25 mg PO TID PRN 07/13/23 [History] bisacodyL [Correctol] 5 mg PO DAILY PRN 07/13/23 [History] Nicotine 21Mg/24Hr Patch [Habitrol] 1 patch TRANSDERM DAILY patch 07/14/23 [Rx] Follow up Appointment(s)/Referral(s): Julieth Fletcher MD [STAFF PHYSICIAN] - 1 Week (Office will call with appointment time and date.) Ahsan Kraus MD [Primary Care Provider] - 1-2 days Activity/Diet/Wound Care/Special Instructions: Follow up with your PCP in 2 to 3 days, follow up with pin feather machine operator Dr. Fletcher in 1 to 2 weeks Activity limited until follow up with PCP. Discharge Disposition: HOME SELF-CARE
== END 2023-07-14 15:27 | disposition home or self-care (01) ==
LOC: EC 12:12 → 6NMEDSUR 15:48
PROVIDERS: ADMIT Hospitalist; ATTEND Hospitalist
DX: R07.89 Other chest pain (principal); J44.9 Chronic obstructive pulmonary disease, unspecified; K21.9 Gastro-esophageal reflux disease without esophagitis; E78.5 Hyperlipidemia, unspecified; M79.7 Fibromyalgia; G40.909 Epilepsy, unspecified, not intractable, without status epilepticus; F31.9 Bipolar disorder, unspecified; F41.9 Anxiety disorder, unspecified; N30.10 Interstitial cystitis (chronic) without hematuria; F90.9 Attention-deficit hyperactivity disorder, unspecified type; E03.9 Hypothyroidism, unspecified; F17.210 Nicotine dependence, cigarettes, uncomplicated; Z79.890 Hormone replacement therapy; Z79.899 Other long term (current) drug therapy; Z79.51 Long term (current) use of inhaled steroids; Z88.5 Allergy status to narcotic agent; Z91.040 Latex allergy status; Z82.49 Family history of ischemic heart disease and other diseases of the circulatory system
CPT/HCPCS: 96372 ×2; 96374; 99285; 36415; 94640; 94760; 93005; 93306; 93351; 85379; 80061; 80053; 83735; 84484; 85025; 85610; 85730; 71046; G0378 ×2; J2405; J1650 ×2

== ENCOUNTER → 2023-12-01 | Outpatient (CLI) | payer MEDICARE, OTHER ==
--- NOTE | 2023-12-01 08:34 | MM ---
Reason for Exam: Clinical finding. Last mammogram was performed 1 year(s) and 6 month(s) ago. Indicated Problems: Palpable abnormality of the left side for 1 Week(s). Patient History: Menarche at age 8. First Full-Term at age 17. Premenopausal. Patient has history of breast feeding. Paternal grandmother had breast cancer, age 60. Maternal cousin had breast cancer. Maternal aunt (great) had breast cancer. Risk Values: Vee 5 year model risk: 0.6%. NCI Lifetime model risk: 7.7%. Prior Study Comparison: 04/09/2014 Left Diagnostic Mammogram, [facility]. 02/21/2017 Bilateral Diagnostic Mammogram, [facility]. 02/19/2019 Bilateral Screening Mammogram, [facility]. 02/26/2019 Bilateral Diagnostic Mammogram, [facility]. 06/15/2020 Bilateral Screening Mammogram, [facility]. 05/19/2022 Bilateral MG 3D screening mammo w/cad, [facility]. Tissue Density: The breasts are heterogeneously dense, which may obscure small masses. Findings: Analyzed By CAD. No finding to correlate with palpable abnormality. Overall Assessment: Incomplete: need additional imaging evaluation, BI-RAD 0 Management: Diagnostic Breast Ultrasound of the left breast. Results were given to the patient verbally at the time of exam. Patient should continue monthly self-breast exams. A clinical breast exam by your physician is recommended on an annual basis. This exam should not preclude additional follow-up of suspicious palpable abnormalities. Note on Vee scores and lifetime risk: 1. A Vee score greater than 3% is considered moderate risk. If this is the case, consider specialist referral to assess eligibility for a risk reducing agent. 2. If overall lifetime risk for the development of breast cancer is 20% or higher, the patient may qualify for future screening with alternating mammogram and breast MRI. Electronically signed and approved by: Flavio Reyna DO
--- NOTE | 2023-12-01 08:51 | USB ---
Reason for Exam: Clinical finding. Patient History: Menarche at age 8. First Full-Term at age 17. Premenopausal. Patient has history of breast feeding. Paternal grandmother had breast cancer, age 60. Maternal cousin had breast cancer. Maternal aunt (great) had breast cancer. Risk Values: Vee 5 year model risk: 0.6%. NCI Lifetime model risk: 7.7%. Technique: Method: Targeted. Prior Study Comparison: 02/26/2019 Bilateral Diagnostic Mammogram, [facility]. 06/15/2020 Bilateral Screening Mammogram, [facility]. 05/19/2022 Bilateral MG 3D screening mammo w/cad, [facility]. Findings: The upper section of the breast of the left breast, the axilla of the left breast and the retroareolar of the left breast were scanned. Technique utilized:US breast limited LT Image; Ultrasound imaging of: All 4 quadrants, the retroareolar region and axilla. No evidence for organizing fluid collection or mass. Technique utilized:US breast limited LT Image; Ultrasound imaging of: All 4 quadrants, the retroareolar region and axilla. No evidence for organizing fluid collection or mass. No finding to correlate with palpable abnormality. Overall Assessment: Negative, BI-RAD 1 Management: Screening Mammogram of the left breast in 1 year. A clinical breast exam by your physician is recommended on an annual basis and results should be correlated with mammographic findings. This exam should not preclude additional follow-up of suspicious palpable abnormalities. Results were given to the patient verbally at the time of exam. Electronically signed and approved by: Flavio Reyna DO
== END | disposition home or self-care (01) ==
LOC: RADMAMWWP 07:41
PROVIDERS: ATTEND Pediatrics
DX: N63.20 Unspecified lump in the left breast, unspecified quadrant (principal); Z80.3 Family history of malignant neoplasm of breast
CPT/HCPCS: 77062; 77066

== ENCOUNTER 2023-12-21 08:03 | Day surgery (SDC) | payer MEDICARE, OTHER ==
[~2023-12-21 08:03] MED LIST changes: -LACTATED RINGERS 1,000 ML IV SCH; +LIDOCAINE 1% (10MG/ML) FOR IV START INTRADERMA PRN
[2023-12-21] MEDS: LACTATED RINGERS 1,000 ML IV SCH (08:58)
[2023-12-21] MEDS ORDERED: PROPOFOL 10 MG/ML 20 ML VIAL IV ONE (09:22)
[2023-12-21] MEDS ORDERED: LIDOCAINE 1% INJ 10MG/ML (20 ML MDV) ONE (09:22)
--- NOTE | 2023-12-21 09:27 | P.GSHP ---
History of Present Illness H&P Date: 12/21/23 Chief Complaint: GERD this a 43-year-old female who has issues with GERD. Patient presents today for EGD. Past Medical History Past Medical History: Asthma, COPD, Fibromyalgia, GERD/Reflux, Hyperlipidemia, Neurologic Disorder, Seizure Disorder, Thyroid Disorder Additional Past Medical History / Comment(s): Hashimotos disease,irritable bowel syndrome, carpal tunnel, arthritis, "eroded espohagus and stomach",hiatal hernia -er egd etoh abuse , migraine headaches, degenerative disc disease, sciatica,bronchitis. interstital cystitis, last seizure 2002, , cyst on ovaries History of Any Multi-Drug Resistant Organisms: None Reported Past Surgical History: Adenoidectomy, Appendectomy, Cholecystectomy, Hernia Repair, Tonsillectomy, Tubal Ligation, Uterine Ablation Additional Past Surgical History / Comment(s): d&c x5, exploratory lap, endometrial ablation 2019,ovarian tumor removed, Kym fundiplication, egd,colonosocpy Past Anesthesia/Blood Transfusion Reactions: Previous Problems w/ Anesthesia Additional Past Anesthesia/Blood Transfusion Reaction / Comment(s): stated " blood pressure dropped 40s/20s after exploratory laparoscopic surgery in operating room approx 2004 or 2005-no problems with any further surgeries" Smoking Status: Current every day smoker - Past Family History Father Additional Family Medical History / Comment(s): Father is alive at age 58 with history of generalized anxiety disorder and possible bipolar disorder. Alcohol abuse. Paternal grandmother had cancer of the breast, uterus, ovaries, and Colon. Mother Family Medical History: Hyperlipidemia Additional Family Medical History / Comment(s): Mother is alive at age 58 with history of degenerative disc disease, osteoarthritis, hyperlipidemia, hypertension. Brother(s) Additional Family Medical History / Comment(s): Patient has 2 brothers. One from suicide 14 years ago. One brother alcoholic. sisters both alcoholics. Medications and Allergies Home Medications Medication Instructions Recorded Confirmed Type Albuterol Inhaler [Ventolin Hfa 2 puff INHALATION RT-QID PRN 07/15/20 12/21/23 History Inhaler] LORazepam [Ativan] 1 mg PO BID PRN 07/15/20 12/21/23 History Temazepam 30 mg PO HS PRN 07/15/20 12/21/23 History oxyBUTYnin chloride [Ditropan XL] 10 mg PO DAILY 07/15/20 12/21/23 History Baclofen 10 mg PO TID 12/12/20 12/21/23 History ARIPiprazole [Abilify] 10 mg PO DAILY 07/13/23 12/21/23 History Budesonide/Formoterol Fumarate 2 puff INHALATION RT-BID 07/13/23 12/21/23 History [Symbicort 160-4.5 Mcg Inhaler] DULoxetine HCL [Cymbalta] 60 mg PO BID 07/13/23 12/21/23 History Fluticasone Nasal [place] [Flonase 1 - 2 spr EA NOSTRIL BID PRN 07/13/23 12/21/23 History Nasal [place]] HYDROcodone/APAP 5-325MG [[place] 1 tab PO BID 07/13/23 12/21/23 History 5-325] Levothyroxine Sodium [Synthroid] 137 mcg PO DAILY 07/13/23 12/21/23 History Meclizine [Antivert] 25 mg PO TID PRN 07/13/23 12/21/23 History Nicotine 21Mg/24Hr Patch [Habitrol] 1 patch TRANSDERM DAILY patch 07/14/23 12/21/23 Rx Famotidine [Pepcid] 20 mg PO DAILY 12/20/23 12/21/23 History Allergies Allergy/AdvReac Type Severity Reaction Status Date / Time cariprazine [From Vraylar] Allergy Anaphylaxis Verified 12/21/23 08:59 latex Allergy Rash/Hives Verified 12/21/23 08:59 propoxyphene Allergy Nausea & Verified 12/21/23 08:59 [From Darvocet-N] Vomiting tramadol [From Ultram] Allergy Itching Verified 12/21/23 08:59 benadryl cream Allergy Rash/Hives Uncoded 12/21/23 08:59 Surgical - Exam Vital Signs Temp Pulse Resp BP Pulse Ox 97.4 F L 73 16 111/59 98 12/21/23 08:53 12/21/23 08:53 12/21/23 08:53 12/21/23 08:53 12/21/23 08:53 - General well developed, well nourished, no distress - Eyes PERRL - ENT normal pinna - Neck no masses - Respiratory normal expansion - Cardiovascular Rhythm: regular - Abdomen Abdomen: soft, non tender Assessment and Plan Assessment: GERD. We'll perform EGD.
[2023-12-21 09:28] VITALS: TEMP 97.4
--- NOTE | 2023-12-21 09:34 | P.OP ---
Date of Procedure: 12/21/23 Preoperative Diagnosis: GERD Postoperative Diagnosis: antral gastritis Procedure(s) Performed: EGD Anesthesia: MAC Surgeon: Paramjit Henry Pathology: other (antrum) Condition: stable Disposition: PACU Description of Procedure: the patient's placed on the on the endoscopy table in the lateral position she received IV sedation. The gastro-placed oropharynx passed in the esophagus and stomach. Scope was placed through the pylorus. The first and second portion of the duodenum appeared normal. Scope was brought back the antrum this. Mildly inflamed. A biopsies performed. The scope was uretroflexed the remainder some appeared normal. There was no evidence of a hiatal hernia. The GE junction was at 40 and the distal esophagus appeared normal. The proximal esophagus appeared normal. Scope was withdrawn for patient.
[2023-12-21 10:10] VITALS: BP 124/78; PULSE 78; RESP 18
== END 2023-12-21 10:22 | disposition home or self-care (01) ==
LOC: ORWHC2ENDO 08:03
PROVIDERS: ATTEND Surgery
DX: K29.50 Unspecified chronic gastritis without bleeding (principal); K21.9 Gastro-esophageal reflux disease without esophagitis; J44.9 Chronic obstructive pulmonary disease, unspecified; E78.5 Hyperlipidemia, unspecified; G40.909 Epilepsy, unspecified, not intractable, without status epilepticus; F17.200 Nicotine dependence, unspecified, uncomplicated; M79.7 Fibromyalgia; E07.9 Disorder of thyroid, unspecified; Z90.49 Acquired absence of other specified parts of digestive tract; Z90.89 Acquired absence of other organs; Z98.51 Tubal ligation status; Z82.49 Family history of ischemic heart disease and other diseases of the circulatory system; Z82.61 Family history of arthritis; Z79.51 Long term (current) use of inhaled steroids; Z79.890 Hormone replacement therapy; Z79.899 Other long term (current) drug therapy; Z88.8 Allergy status to other drugs, medicaments and biological substances; Z91.040 Latex allergy status; Z98.890 Other specified postprocedural states
CPT/HCPCS: 81025; 88305; 43239; J2001; J2704

== ENCOUNTER 2024-01-24 20:27 | Emergency (ER) | payer MEDICARE, OTHER ==
[2024-01-24 20:36] LABS: Glucose,Whole Blood 109 mg/dL (70-110)
--- NOTE | 2024-01-24 20:40 | ED ---
General Adult HPI <Gloria Esposito - Last Filed: 01/25/24 00:44> - General Source: EMS Mode of arrival: EMS Limitations: no limitations - History of Present Illness Onset/Timin -: hour(s) Location: head, chest Quality: aching Consistency: intermittent Improves with: none Worsens with: none Associated Symptoms: weakness, other (Blurred vision) Treatments Prior to Arrival: none <Nitin Gonzalez - Last Filed: 02/06/24 19:58> - General Chief complaint: Weakness Stated complaint: Weakness - History of Present Illness Initial comments: This patient is a 43-year-old woman who presents with constellation of symptoms that been going on since the morning. She has been having trouble with blurred vision, generalized weakness, feeling numb and dizzy, feeling as if she cannot speak, all of which came on around 5 AM. The patient denied focal weakness. (Nitin Gonzalez) - Related Data Home Medications Medication Instructions Recorded Confirmed Albuterol Inhaler [Ventolin Hfa 2 puff INHALATION RT-QID PRN 07/15/20 12/21/23 Inhaler] LORazepam [Ativan] 1 mg PO BID PRN 07/15/20 12/21/23 Temazepam 30 mg PO HS PRN 07/15/20 12/21/23 oxyBUTYnin chloride [Ditropan XL] 10 mg PO DAILY 07/15/20 12/21/23 Baclofen 10 mg PO TID 12/12/20 12/21/23 ARIPiprazole [Abilify] 10 mg PO DAILY 07/13/23 12/21/23 Budesonide/Formoterol Fumarate 2 puff INHALATION RT-BID 07/13/23 12/21/23 [Symbicort 160-4.5 Mcg Inhaler] DULoxetine HCL [Cymbalta] 60 mg PO BID 07/13/23 12/21/23 Fluticasone Nasal [place] [Flonase 1 - 2 spr EA NOSTRIL BID PRN 07/13/23 12/21/23 Nasal [place]] HYDROcodone/APAP 5-325MG [[place] 1 tab PO BID 07/13/23 12/21/23 5-325] Levothyroxine Sodium [Synthroid] 137 mcg PO DAILY 07/13/23 12/21/23 Meclizine [Antivert] 25 mg PO TID PRN 07/13/23 12/21/23 Famotidine [Pepcid] 20 mg PO DAILY 12/20/23 12/21/23 Previous Rx's Medication Instructions Recorded Nicotine 21Mg/24Hr Patch [Habitrol] 1 patch TRANSDERM DAILY patch 07/14/23 Cephalexin [Keflex] 500 mg PO BID #14 cap 01/25/24 Allergies Allergy/AdvReac Type Severity Reaction Status Date / Time cariprazine [From Vraylar] Allergy Anaphylaxis Verified 01/24/24 20:35 latex Allergy Rash/Hives Verified 01/24/24 20:35 propoxyphene Allergy Nausea & Verified 01/24/24 20:35 [From Darvocet-N] Vomiting tramadol [From Ultram] Allergy Itching Verified 01/24/24 20:35 benadryl cream Allergy Rash/Hives Uncoded 01/24/24 20:35 Review of Systems ROS Other: All systems not noted in ROS Statement are negative. <Gloria Esposito - Last Filed: 01/25/24 00:44> ROS Other: All systems not noted in ROS Statement are negative. Constitutional: Reports: weakness. Denies: fever, chills Eyes: Reports: vision change ENT: Denies: ear pain, throat pain, hearing loss Respiratory: Denies: cough, dyspnea Cardiovascular: Reports: chest pain. Denies: palpitations, dyspnea on exertion, edema, syncope Gastrointestinal: Denies: abdominal pain, vomiting, diarrhea, melena, hematochezia Genitourinary: Reports: dysuria. Denies: frequency, hematuria Musculoskeletal: Denies: back pain Skin: Denies: rash Neurological: Denies: headache, weakness, numbness Psychiatric: Reports: anxiety <Nitin Gonzalez - Last Filed: 02/06/24 19:58> ROS Statement: Those systems with pertinent positive or pertinent negative responses have been documented in the HPI. Past Medical History Past Medical History: Asthma, COPD, Fibromyalgia, GERD/Reflux, Hyperlipidemia, Neurologic Disorder, Seizure Disorder, Thyroid Disorder Additional Past Medical History / Comment(s): Hashimotos disease,irritable bowel syndrome, carpal tunnel, arthritis, "eroded espohagus and stomach",hiatal hernia -er egd etoh abuse , migraine headaches, degenerative disc disease, sciatica,bronchitis. interstital cystitis, last seizure 2002, , cyst on ovaries History of Any Multi-Drug Resistant Organisms: None Reported Past Surgical History: Adenoidectomy, Appendectomy, Cholecystectomy, Hernia Repair, Tonsillectomy, Tubal Ligation, Uterine Ablation Additional Past Surgical History / Comment(s): d&c x5, exploratory lap, endometrial ablation 2019,ovarian tumor removed, Kmy fundiplication, egd,colonosocpy Past Anesthesia/Blood Transfusion Reactions: Previous Problems w/ Anesthesia Additional Past Anesthesia/Blood Transfusion Reaction / Comment(s): stated " blood pressure dropped 40s/20s after exploratory laparoscopic surgery in o perating room approx 2004 or 2005-no problems with any further surgeries" Past Psychological History: ADD/ADHD, Anxiety, Bipolar, Depression, PTSD Smoking Status: Current every day smoker, Vaper Past Alcohol Use History: None Reported Past Drug Use History: Marijuana - Past Family History Father Additional Family Medical History / Comment(s): Father is alive at age 58 with history of generalized anxiety disorder and possible bipolar disorder. Alcohol abuse. Paternal grandmother had cancer of the breast, uterus, ovaries, and Colon. Mother Family Medical History: Hyperlipidemia Additional Family Medical History / Comment(s): Mother is alive at age 58 with history of degenerative disc disease, osteoarthritis, hyperlipidemia, hypertension. Brother(s) Additional Family Medical History / Comment(s): Patient has 2 brothers. One from suicide 14 years ago. One brother alcoholic. sisters both alcoholics. <JoseNitin rios - Last Filed: 02/06/24 19:58> General Exam General appearance: alert, in no apparent distress Head exam: Present: atraumatic, normocephalic Eye exam: Present: normal appearance, PERRL, EOMI. Absent: scleral icterus, conjunctival injection, nystagmus ENT exam: Present: normal oropharynx Neck exam: Present: normal inspection Respiratory exam: Present: normal lung sounds bilaterally. Absent: respiratory distress, wheezes, rales, rhonchi, stridor, accessory muscle use Cardiovascular Exam: Present: regular rate, normal rhythm, normal heart sounds. Absent: systolic murmur, diastolic murmur, rubs, gallop GI/Abdominal exam: Present: soft. Absent: distended, tenderness, guarding, r ebound, rigid, mass Extremities exam: Present: normal inspection, normal capillary refill. Absent: pedal edema, calf tenderness Back exam: Present: normal inspection. Absent: CVA tenderness (R), CVA tenderness (L) Neurological exam: Present: alert, oriented X3, CN II-XII intact. Absent: motor sensory deficit Skin exam: Present: warm, dry, intact, normal color. Absent: rash <Nitin Gonzalez - Last Filed: 02/06/24 19:58> Course Vital Signs 01/24/24 01/24/24 01/24/24 20:30 21:00 21:30 Temperature 97.1 F L Pulse Rate 70 67 60 Respiratory 18 18 18 Rate Blood Pressure 103/66 103/61 114/72 O2 Sat by Pulse 100 99 99 Oximetry 01/24/24 01/24/24 01/24/24 22:00 22:30 23:37 Temperature Pulse Rate 60 62 61 Respiratory 18 18 18 Rate Blood Pressure 107/73 107/68 98/63 O2 Sat by Pulse 97 96 98 Oximetry 01/25/24 00:36 Temperature Pulse Rate 58 L Respiratory 18 Rate Blood Pressure 110/66 O2 Sat by Pulse 98 Oximetry EKG Findings - EKG Results: EKG: interpreted by ERMD, sinus rhythm (Rate 69 bpm), normal axis, normal QRS, normal ST/T <Nitin Gonzalez - Last Filed: 02/06/24 19:58> Medical Decision Making - Lab Data Result diagrams: 01/24/24 21:02 01/24/24 21:02 <Gloria Esposito - Last Filed: 01/25/24 00:44> - Lab Data Result diagrams: 01/24/24 21:02 01/24/24 21:02 <Nitin Gonzalez - Last Filed: 02/06/24 19:58> - Medical Decision Making Was patient admitted / discharged? Hospital course, mention meds given and route, prescriptions, significant lab abnormalities, going to OR and other pertinent info. @ -Patient signed out to me pending urine results. Urine does result and is infected. At this time the patient received a dose of Rocephin. She will be discharged home on antibiotics. Instructed to follow-up with her primary care doctor for reevaluation and to ensure that her urinary tract infection is improved. Patient was agreeable to the plan. Instructed to return for any new or worsening symptoms. Patient discharged in stable condition Undiagnosed new problem with uncertain prognosis? @ -No Drug Therapy requiring intensive monitoring for toxicity (Heparin, Nitro, Insulin, Cardizem)? @ -No Were any procedures done? @ -No Diagnosis/symptom? @ -Acute UTI Acute, or Chronic, or Acute on Chronic? @ -Acute Uncomplicated (without systemic symptoms) or Complicated (systemic symptoms)? @ -Complicated Side effects of treatment? @ -No Exacerbation, Progression, or Severe Exacerbation? @ -No Poses a threat to life or bodily function? How? (Chest pain, USA, IA, pneumonia, PE, COPD, DKA, ARF, appy, cholecystitis, CVA, Diverticulitis, Homicidal, Suicidal, threat to staff... and all critical care pts) @ -No (Gloria Esposito) This patient is 43-year-old woman who presented with constellation of complaints and in the triage area was triaged directly to CT for concerns about TIA. When I interviewed the patient, the constellation of symptoms do not correlate with particular stroke architecture, and sound more consistent with episode of more global weakness/mental status phenomenon. The patient did go for CT of the brain that I interpreted as negative for acute bony trauma or intracranial hemorrhage The patient had chest x-ray that I interpreted as negative for acute infiltrate, pneumothorax, congestive heart failure Was pt. sent in by a medical professional or institution ([facility], [employer], urgent care, hospital, or detention...) When possible be specific @ -[No] Did you speak to anyone other than the patient for history (EMS, parent, family, police, friend...)? What history was obtained from this source @ -[No] Did you review nursing and triage notes (agree or disagree)? Why? @ -[I reviewed and agree with nursing and triage notes] Were old charts reviewed (outside hosp., previous admission, EMS record, old EKG, old radiological studies, urgent care reports/EKG's, detention records)? Report findings @ -[No old charts were reviewed] Differential Diagnosis (chest pain, altered mental status, abdominal pain women, abdominal pain men, vaginal bleeding, weakness, fever, dyspnea, syncope, he adache, dizziness, GI bleed, back pain, seizure, CVA, palpatations, mental health, musculoskeletal)? @ -[Differential Weakness: Hypoglycemia, shock, sepsis, hyponatremia, anemia, infection, IA, ETOH, adverse medicine reaction, overdose, stroke, this is not meant to be an all-inclusive list. EKG interpreted by me (3pts min.). @ -[As above] X-rays interpreted by me (1pt min.). @ -[I interpreted as above CT interpreted by me (1pt min.). @ -[I interpreted as above U/S interpreted by me (1pt. min.). @ -[None done] What testing was considered but not performed or refused? (CT, X-rays, U/S, la bs)? Why? @ -[None] What meds were considered but not given or refused? Why? @ -[None] Did you discuss the management of the patient with other professionals (professionals i.e. , PA, [employer], lab, RT, psych nurse, social economist, staff design engineer, teacher, tactical response group officer, correctional casework specialist)? Give summary @ -[No] Was smoking cessation discussed for >3mins.? @ -[No] Was critical care preformed (if so, how long)? @ -[No] Were there social determinants of health that impacted care today? How? (Homelessness, low income, unemployed, alcoholism, drug addiction, transportation, low edu. Level, literacy, decrease access to med. care, halfway, rehab)? @ -[No] Was there de-escalation of care discussed even if they declined (Discuss DNR or withdrawal of care, Hospice)? DNR status @ -[No] What co-morbidities impacted this encounter? (DM, HTN, Smoking, COPD, CAD, Cancer, CVA, ARF, Chemo, Hep., AIDS, mental health diagnosis, sleep apnea, morbid obesity)? @ -[Seizure disorder, thyroid disease Was patient admitted / discharged? Hospital course, mention meds given and route, prescriptions, significant lab abnormalities, going to OR and other pertinent info. @ -[Patient is a 43-year-old woman with constellation of complaints going on since early this morning. The patient is pending urinalysis at time of shift change. All of her symptoms have resolved and she was feeling better prior to the shift change (Nitin Gonzalez) - Lab Data Lab Results 05/15/24 05/15/24 05/15/24 Range/Units 20:34 21:02 21:02 WBC 6.5 (3.8-10.6) k/uL RBC 4.09 (3.80-5.40) m/uL Hgb 12.3 (11.4-16.0) gm/dL Hct 37.2 (34.0-46.0) % MCV 91.1 (80.0-100.0) fL MCH 30.1 (25.0-35.0) pg MCHC 33.1 (31.0-37.0) g/dL RDW 12.0 (11.5-15.5) % Plt Count 287 (150-450) k/uL MPV 8.5 Neutrophils % 63 % Lymphocytes % 27 % Monocytes % 6 % Eosinophils % 1 % Basophils % 1 % Neutrophils # 4.1 (1.3-7.7) k/uL Lymphocytes # 1.7 (1.0-4.8) k/uL Monocytes # 0.4 (0-1.0) k/uL Eosinophils # 0.1 (0-0.7) k/uL Basophils # 0.1 (0-0.2) k/uL PT 10.1 (10.0-12.5) sec INR 0.9 (<1.2) APTT 23.8 (22.0-30.0) sec Sodium (137-145) mmol/L Potassium (3.5-5.1) mmol/L Chloride (98-107) mmol/L Carbon Dioxide (22-30) mmol/L Anion Gap mmol/L BUN (7-17) mg/dL Creatinine (0.52-1.04) mg/dL Est GFR (CKD-EPI)AfAm (>60 ml/min/1.73 sqM) Est GFR (CKD-EPI)NonAf (>60 ml/min/1.73 sqM) Glucose (74-99) mg/dL POC Glucose (mg/dL) 109 (70-110) mg/dL POC Glu Cath Lab Radiology Technician ID JonTri Lactic Ac Sepsis Rflx Plasma Lactic Acid Vinicio (0.7-2.0) mmol/L Calcium (8.4-10.2) mg/dL Magnesium (1.6-2.3) mg/dL Total Bilirubin (0.2-1.3) mg/dL AST (14-36) U/L ALT (4-34) U/L Alkaline Phosphatase (38-126) U/L Troponin I (0.000-0.034) ng/mL Total Protein (6.3-8.2) g/dL Albumin (3.5-5.0) g/dL TSH (0.465-4.680) mIU/L Urine Color Urine Appearance (Clear) Urine pH (5.0-8.0) Ur Specific [place] (1.001-1.035) Urine Protein (Negative) Urine Glucose (UA) (Negative) Urine Ketones (Negative) Urine Blood (Negative) Urine Nitrite (Negative) Urine Bilirubin (Negative) Urine Urobilinogen (<2.0) mg/dL Ur Leukocyte Esterase (Negative) Urine RBC (0-5) /hpf Urine WBC (0-5) /hpf Ur Squamous Epith Cells (0-4) /hpf Urine Bacteria (None) /hpf Hyaline Casts (0-2) /lpf Urine Mucus (None) /hpf Ur Yeast w Hyphae (None) /hpf 01/24/24 01/24/24 01/24/24 Range/Units 21:02 21:02 21:02 WBC (3.8-10.6) k/uL RBC (3.80-5.40) m/uL Hgb (11.4-16.0) gm/dL Hct (34.0-46.0) % MCV (80.0-100.0) fL MCH (25.0-35.0) pg MCHC (31.0-37.0) g/dL RDW (11.5-15.5) % Plt Count (150-450) k/uL MPV Neutrophils % % Lymphocytes % % Monocytes % % Eosinophils % % Basophils % % Neutrophils # (1.3-7.7) k/uL Lymphocytes # (1.0-4.8) k/uL Monocytes # (0-1.0) k/uL Eosinophils # (0-0.7) k/uL Basophils # (0-0.2) k/uL PT (10.0-12.5) sec INR (<1.2) APTT (22.0-30.0) sec Sodium 139 (137-145) mmol/L Potassium 4.2 (3.5-5.1) mmol/L Chloride 110 H (98-107) mmol/L Carbon Dioxide 24 (22-30) mmol/L Anion Gap 5 mmol/L BUN 8 (7-17) mg/dL Creatinine 0.61 (0.52-1.04) mg/dL Est GFR (CKD-EPI)AfAm >90 (>60 ml/min/1.73 sqM) Est GFR (CKD-EPI)NonAf >90 (>60 ml/min/1.73 sqM) Glucose 99 (74-99) mg/dL POC Glucose (mg/dL) (70-110) mg/dL POC Glu Cath Lab Radiology Technician ID Lactic Ac Sepsis Rflx Plasma Lactic Acid Vinicio 2.2 H* (0.7-2.0) mmol/L Calcium 8.9 (8.4-10.2) mg/dL Magnesium 1.8 (1.6-2.3) mg/dL Total Bilirubin 0.4 (0.2-1.3) mg/dL AST 23 (14-36) U/L ALT 12 (4-34) U/L Alkaline Phosphatase 69 (38-126) U/L Troponin I <0.012 (0.000-0.034) ng/mL Total Protein 6.3 (6.3-8.2) g/dL Albumin 3.5 (3.5-5.0) g/dL TSH <0.015 L (0.465-4.680) mIU/L Urine Color Urine Appearance (Clear) Urine pH (5.0-8.0) Ur Specific [place] (1.001-1.035) Urine Protein (Negative) Urine Glucose (UA) (Negative) Urine Ketones (Negative) Urine Blood (Negative) Urine Nitrite (Negative) Urine Bilirubin (Negative) Urine Urobilinogen (<2.0) mg/dL Ur Leukocyte Esterase (Negative) Urine RBC (0-5) /hpf Urine WBC (0-5) /hpf Ur Squamous Epith Cells (0-4) /hpf Urine Bacteria (None) /hpf Hyaline Casts (0-2) /lpf Urine Mucus (None) /hpf Ur Yeast w Hyphae (None) /hpf 01/24/24 01/24/24 Range/Units 21:44 22:59 WBC (3.8-10.6) k/uL RBC (3.80-5.40) m/uL Hgb (11.4-16.0) gm/dL Hct (34.0-46.0) % MCV (80.0-100.0) fL MCH (25.0-35.0) pg MCHC (31.0-37.0) g/dL RDW (11.5-15.5) % Plt Count (150-450) k/uL MPV Neutrophils % % Lymphocytes % % Monocytes % % Eosinophils % % Basophils % % Neutrophils # (1.3-7.7) k/uL Lymphocytes # (1.0-4.8) k/uL Monocytes # (0-1.0) k/uL Eosinophils # (0-0.7) k/uL Basophils # (0-0.2) k/uL PT (10.0-12.5) sec INR (<1.2) APTT (22.0-30.0) sec Sodium (137-145) mmol/L Potassium (3.5-5.1) mmol/L Chloride (98-107) mmol/L Carbon Dioxide (22-30) mmol/L Anion Gap mmol/L BUN (7-17) mg/dL Creatinine (0.52-1.04) mg/dL Est GFR (CKD-EPI)AfAm (>60 ml/min/1.73 sqM) Est GFR (CKD-EPI)NonAf (>60 ml/min/1.73 sqM) Glucose (74-99) mg/dL POC Glucose (mg/dL) (70-110) mg/dL POC Glu Cath Lab Radiology Technician ID Lactic Ac Sepsis Rflx Y Plasma Lactic Acid Vinicio (0.7-2.0) mmol/L Calcium (8.4-10.2) mg/dL Magnesium (1.6-2.3) mg/dL Total Bilirubin (0.2-1.3) mg/dL AST (14-36) U/L ALT (4-34) U/L Alkaline Phosphatase (38-126) U/L Troponin I (0.000-0.034) ng/mL Total Protein (6.3-8.2) g/dL Albumin (3.5-5.0) g/dL TSH (0.465-4.680) mIU/L Urine Color Yellow Urine Appearance Cloudy H (Clear) Urine pH 5.5 (5.0-8.0) Ur Specific [place] 1.018 (1.001-1.035) Urine Protein Negative (Negative) Urine Glucose (UA) Negative (Negative) Urine Ketones Negative (Negative) Urine Blood Negative (Negative) Urine Nitrite Negative (Negative) Urine Bilirubin Negative (Negative) Urine Urobilinogen <2.0 (<2.0) mg/dL Ur Leukocyte Esterase Trace H (Negative) Urine RBC 1 (0-5) /hpf Urine WBC 6 H (0-5) /hpf Ur Squamous Epith Cells 17 H (0-4) /hpf Urine Bacteria Moderate H (None) /hpf Hyaline Casts 1 (0-2) /lpf Urine Mucus Many H (None) /hpf Ur Yeast w Hyphae Rare (None) /hpf Disposition Time of Disposition: 00:08 <Gloria Esposito - Last Filed: 01/25/24 00:44> Is patient prescribed a controlled substance at d/c from ED?: No <Nitin Gonzalez - Last Filed: 02/06/24 19:58> Clinical Impression: Dehydration, UTI (urinary tract infection) Disposition: HOME SELF-CARE Condition: Good Instructions (If sedation given, give patient instructions): Dehydration (ED) Prescriptions: Cephalexin [Keflex] 500 mg PO BID #14 cap Referrals: Ahsan Kraus MD [Primary Care Provider] - 1-2 days
[2024-01-24 20:48] VITALS: RESP 18; TEMP 97.1
[2024-01-24 21:10] LABS: Basophils # (A) 0.1 k/uL (0-0.2); Basophils % (A) 1 %; Eosinophils # (A) 0.1 k/uL (0-0.7); Eosinophils % (A) 1 %; HCT 37.2 % (34.0-46.0); HGB 12.3 gm/dL (11.4-16.0); Lymphocytes # (A) 1.7 k/uL (1.0-4.8); Lymphocytes % (A) 27 %; MCH 30.1 pg (25.0-35.0); MCHC 33.1 g/dL (31.0-37.0); MCV 91.1 fL (80.0-100.0); Mean Platelet Volume 8.5; Monocytes # (A) 0.4 k/uL (0-1.0); Monocytes % (A) 6 %; Neutrophils # (A) 4.1 k/uL (1.3-7.7); Neutrophils % (A) 63 %; Platelet Count 287 k/uL (150-450); RBC 4.09 m/uL (3.80-5.40); WBC 6.5 k/uL (3.8-10.6)
[2024-01-24 21:19] LABS: INR 0.9 (<1.2); Partial Thromboplastin Time 23.8 sec (22.0-30.0); Prothrombin Time 10.1 sec (10.0-12.5)
--- NOTE | 2024-01-24 21:22 | XR ---
EXAMINATION TYPE: XR chest 1V portable DATE OF EXAM: 01/24/2024 9:15 PM CLINICAL INDICATION:Female, 43 years old with history of weakness; H COMPARISON: Chest radiographs from 07/13/2023 TECHNIQUE: XR chest 1V portable Frontal view of the chest. FINDINGS: Lungs/Pleura: There is no evidence of pleural effusion, focal consolidation, or pneumothorax. Pulmonary vascularity: Unremarkable. Heart/mediastinum: Cardiomediastinal silhouette is unremarkable. Musculoskeletal: No acute osseous pathology. IMPRESSION: No acute cardiopulmonary disease/process.
[2024-01-24 21:23] LABS: ALT 12 U/L (4-34); AST 23 U/L (14-36); African American GFR (CKD) >90 (>60 ml/min/1.73 sqM); Albumin 3.5 g/dL (3.5-5.0); Alkaline Phosphatase 69 U/L (38-126); Anion Gap 5 mmol/L; Blood Urea Nitrogen 8 mg/dL (7-17); Calcium 8.9 mg/dL (8.4-10.2); Carbon Dioxide 24 mmol/L (22-30); Chloride 110 mmol/L (98-107); Glucose 99 mg/dL (74-99); Magnesium 1.8 mg/dL (1.6-2.3); Non-African American GFR(CKD) >90 (>60 ml/min/1.73 sqM); Potassium 4.2 mmol/L (3.5-5.1); Sodium 139 mmol/L (137-145); Total Bilirubin 0.4 mg/dL (0.2-1.3); Total Protein 6.3 g/dL (6.3-8.2)
--- NOTE | 2024-01-24 21:53 | CT ---
EXAMINATION TYPE: CT brain wo con CT DLP: mGycm, Automated exposure control for dose reduction was used. DATE OF EXAM: 01/24/2024 9:43 PM COMPARISON: CT brain 07/15/2020. CLINICAL INDICATION:Female, 43 years old with history of weakness, TECHNIQUE: Brain: Axial CT images of the brain were obtained with coronal and sagittal reformats created and rev iewed. Contrast used: None. Oral contrast used: None. FINDINGS: Brain: Extra-axial spaces: No abnormal extra-axial fluid collections. Ventricular system: Within normal limits Cerebral parenchyma: No acute intraparenchymal hemorrhage or mass effect. The cardona-white junction is well differentiated. Cerebellum: Unremarkable. Mass effect: No evidence of midline shift. Intracranial vasculature: unremarkable Soft tissues: Normal. Calvarium/osseous structures: No depressed skull fracture. Paranasal sinuses and mastoid air cells: Mild scattered paranasal sinus disease. Visualized orbits: Orbital contents are intact. IMPRESSION: No acute intracranial process.
[2024-01-24] MEDS: SODIUM CHLORIDE 0.9% 500 ML 500 ML IV STA ×2 (22:05→23:04)
[2024-01-24 23:17] LABS: Appearance,Urine Cloudy (Clear); Bacteria,Urine Moderate /hpf; Bilirubin,Urine Negative (Negative); Blood,Urine Negative (Negative); Color,Urine Yellow; Glucose,Urine (UA) Negative (Negative); Hyaline Casts,Urine 1 /lpf (0-2); Hyphae Yeast, Urine Rare /hpf; Ketones,Urine Negative (Negative); Leukocyte Esterase,Urine Trace (Negative); Mucus,Urine Many /hpf; Nitrite,Urine Negative (Negative); PH, Urine 5.5 (5.0-8.0); Protein,Urine Negative (Negative); RBC,Urine 1 /hpf (0-5); Specific Gravity,Urine 1.018 (1.001-1.035); Squamous Epithelial Cell,Urine 17 /hpf (0-4); Urobilinogen,Urine <2.0 mg/dL (<2.0); WBC,Urine 6 /hpf (0-5)
[2024-01-25] MEDS: HYDROcodone/APAP 5-325MG 1 EACH TAB PO STA (00:31)
[2024-01-25] MEDS: cefTRIAXone IN SWFI 1,000 MG/10 ML SYRINGE IVP STA (00:33)
[2024-01-25 00:59] VITALS: BP 110/66; PULSE 58
== END 2024-01-25 00:40 | disposition home or self-care (01) ==
LOC: EC 20:27
DX: N39.0 Urinary tract infection, site not specified (principal); E86.0 Dehydration; F17.290 Nicotine dependence, other tobacco product, uncomplicated; Z91.040 Latex allergy status; Z88.5 Allergy status to narcotic agent; Z88.8 Allergy status to other drugs, medicaments and biological substances; Z90.49 Acquired absence of other specified parts of digestive tract
CPT/HCPCS: 36415; 93005; 80053; 83605; 83735; 84443; 84484; 85025; 85610; 85730; 81001; 71045; 70450; 99285; 96374; 96361 ×3; J0696